=== PATIENT | male | born 1960 | race Caucasian/White ===

== ENCOUNTER 2019-11-12 22:48 | Emergency (ER) | payer MEDICARE, OTHER ==
[~2019-11-12] VITALS: Ht 172.7 cm; Wt 79.8 kg
[~2019-11-12 22:48] MED LIST: METOPROLOL TART50 MG PO; NORVASC5 MG PO; OMEPRAZOLE10 MG PO; RANEXA500 MG PO; RENAGEL800 MG PO; SENSIPAR30 MG PO; VITAMIN D400 UNI1 PO; [UNRECOGNIZED DRUG - OTHER]
--- OUTSIDE RECORDS SUMMARY | 2019-11-12 22:50 | XMS REPORT ---
[facility] Address Unknown Phone Unavailable Care Team Providers Care Church Administrator Name Role Phone Unavailable Unavailable Payers Payer Name Policy Type Policy Number Effective Date Expiration Date Problems This patient has no known problems. Allergies, Adverse Reactions, Alerts This patient has no known allergies or adverse reactions. Medications This patient has no known medications.
--- OUTSIDE RECORDS SUMMARY | 2019-11-12 22:50 | XMS REPORT | Summary of Care ---
Author Author [facility] - Health Organization [facility] - Health Address Unknown Phone Unavailable Care Team Providers Care Personal Lines Sales Rep Name Role Phone Pcp, Patient Does Not Have A PCP Elaine Walter MD Unavailable Idalia Mane MD Unavailable Encounter Details Care Team Description Date Type Department Marck Nguyen [address] [place] [id number] 06/09/2019 Letter (Out) [facility] [address] [place] [address] Allergies No Known Allergiesdocumented as of this encounter (statuses as of 06/14/2019) Medications End Date Status Medication Sig Dispensed Refills Start Date Active aspirin 81 mg EC tablet Take 81 mg by 0 mouth daily. Active nitroglycerin 0.[address] 1 T 0 sublingual tablet UNDER THE 7 TONGUE Q 5 MINUTES FOR A MAX OF 3 DOSES PRF CHEST PAIN Active metoclopramide HCl 5 mg Take 2 120 tablet 1 tablet tablets by 7 mouth every 6 (six) hours as needed for Gastroesophag eal reflux. Active sennosides-docusate Take 1 tablet 60 tablet 1 sodium 8.6-50 mg per by mouth 2 7 tablet (two) times daily as needed for Constipation. Active atorvastatin 40 mg tablet Take 1 tablet 30 tablet 11 by mouth at 7 bedtime. Active sevelamer 800 mg tablet Take 2 360 tablet 1 tablets by 7 mouth 3 (three) times daily with meals. Active famotidine (PEPCID) 40 mg Take 40 mg by 0 tablet mouth daily. Active ondansetron 4 mg tablet TK 1 T PO Q 6 5 H PRN 7 Active midodrine 5 mg tablet Take 5 mg by 0 mouth 3 (three) times daily as needed (if hypotensive is SBP<110, take). Active esomeprazole 20 mg Take 40 mg by 0 capsule mouth 2 (two) times daily. Active cinacalcet (SENSIPAR) 60 Take 120 mg 0 mg tablet by mouth every Thursday, Thursday and Thursday. documented as of this encounter (statuses as of 06/14/2019) Active Problems Problem Noted Date S/p nephrectomy 07/15/2018 Post-operative state 07/15/2018 Primary Nonfunctioning kidney transplant of 08/14/17 KIDNEY TRANSPLANT #2 10/29/2017 Kidney replaced by transplant 08/14/2017 Neurogenic orthostatic hypotension 07/29/2017 CKD (chronic kidney disease) stage V requiring chronic dialysis 02/11/2010 Overview: returned to dialysis Essential hypertension, benign GERD (gastroesophageal reflux disease) PKD (polycystic kidney disease) Coronary artery disease involving coronary bypass graft of [place] heart without angina pectoris documented as of this encounter (statuses as of 06/14/2019) Resolved Problems Problem Noted Date Resolved Date Kidney transplant failure and rejection 07/09/2018 07/29/2018 Overview: Added automatically from request for surgery [id number] Weakness 06/30/2018 07/29/2018 Hematuria, unspecified type 06/29/2018 07/29/2018 Overview: Added automatically from request for surgery [id number] Need for prophylactic immunotherapy 10/28/2017 07/29/2018 Immunosuppressive management encounter following kidney transplant 10/28/2017 07/29/2018 Open abdominal wall wound, subsequent encounter 09/17/2017 07/29/2018 Bleeding from wound 09/16/2017 10/14/2017 NSTEMI (non-ST elevated myocardial infarction) 09/10/2017 10/14/2017 Wound dehiscence 09/09/2017 10/14/2017 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/31/2017 10/29/2017 Electrolyte and fluid disorder 08/30/2017 10/25/2017 Admission for dialysis 08/30/2017 10/14/2017 Postoperative acute tubular necrosis 08/16/2017 07/29/2018 Obesity (BMI 30-39.9) 08/14/2017 07/29/2018 Kidney transplant candidate 08/14/2017 08/26/2017 Immunosuppressed status 08/14/2017 07/29/2018 Kidney transplant failure 12/26/2011 08/30/2017 ESRD (end stage renal disease) 02/11/2010 08/30/2017 Overview: ESRD #2 - due to chronic rejection ESRD (end stage renal disease) 11/05/1999 08/14/2017 Overview: ESRD #1 - due to PKD Severe anemia 07/29/2018 Cardiac tamponade 11/10/2016 Pleural effusion 11/10/2016 Bacterial pneumonia 11/10/2016 Hernia of abdominal cavity 08/14/2017 Overview: abdominal - multiple History of nephrectomy ( bilateral [place] and transplant#1) 08/14/2017 documented as of this encounter (statuses as of 06/14/2019) Immunizations Name Administration Dates Next Due Influenza Virus Vaccine 07/14/2017 PPD (TB) 03/19/2016 Pneumococcal 07/13/2015 Polysaccharide, PPSV23 (PNEUMOVAX) documented as of this encounter Social History Date Tobacco Use Types Packs/Day Years Used Never Smoker Smokeless Tobacco: Never Used Drinks/Week oz/Week Comments Alcohol Use 0 Standard drinks or equivalent 0.0 rarely Yes Sex Assigned at Date Recorded Not on file Industry Job Start Date Occupation Not on file Not on file Not on file Travel End Travel History Travel Start No recent travel history available. documented as of this encounter Last Filed Vital Signs Not on filedocumented in this encounter Plan of Treatment Health Maintenance Due Date Last Done Comments DTaP,Tdap,and Td Vaccines 1979 (1 - Tdap) COLONOSCOPY 2010 Zoster Recombinant 2010 Vaccine (SHINGRIX) (1 of 2) PNEUMOCOCCAL 0-64 YEARS 07/13/2016 07/13/2015 COMBINED SERIES (2 of 3 - PCV13) INFLUENZA VACCINE (#1) 2019 07/14/2017 HEPATITIS C (HCV) SCREEN Completed 08/14/2017, 07/01/2016 documented as of this encounter Implants Device Identifier Shelf Expiration Date Model / Serial / Lot Implanted Type Area Manufactur er 04/09/2020 [id number] / 0 / [id number] Stent, [id number] [employer] Renal STENT N/A: Abdomen [employer] Transplant #[id number] - S0 Medical Implanted: Qty: 1 on 08/15/2017 by Idalia Mane MD at [facility] documented as of this encounter Results Not on filedocumented in this encounter Insurance Type Payer Benefit Subscriber ID Effective Phone Address Plan / Dates Group PPO/POS BCBS [employer] [facility] BC[employer] OF [id number] 2017-P [phone] P O [facility] - [facility] [id number] OUT OF [place] [id number] documented as of this encounter
[2019-11-12] MEDS ORDERED: MORPHINE SULFATE INJ 4 MG/ML INJ 1ML IV STA (22:53)
[2019-11-12] MEDS ORDERED: ONDANSETRON HCL INJ 2MG/ML 2ML 2 MG/ML VIAL IV STA (22:53)
--- NOTE | 2019-11-12 23:08 | NUR ---
RICK RN AT BEDSIDE TO OBTAIN ABG PER MD ORDERS, PT TOLERATED WELL
[2019-11-12] MEDS ORDERED: ASPIRIN 325 MG TAB PO ONE (23:15)
[2019-11-12] MEDS ORDERED: NITROGLYCERIN 2% OINT 1 GM PKT TOP ONE (23:15)
[2019-11-12 23:26] LABS: ABG PCO2 47 mmHg (41-51); ABG PH 7.31 (7.31-7.41)
[2019-11-12 23:27] LABS: ABG HCO3 24 mmol/L (23-28); ABG PO2 19 mmHg (80-105)
[2019-11-12 23:29] LABS: HEMATOCRIT 38.5 % (38.2-49.6); HEMOGLOBIN 12.7 g/dL (14.0-18.0); MEAN CORPUSCULAR HEMOGLOBIN 29.5 pg (28-32); MEAN CORPUSCULAR VOLUME 89.5 fL (81-99); PLATELET COUNT 144 x10e3/uL (140-360); RED CELL DISTRIBUTION WIDTH 15.1 % (11.7-14.4)
[2019-11-12 23:30] LABS: ALBUMIN 3.9 g/dL (3.5-5.0); ALBUMIN/GLOBULIN RATIO 1.3 (0.8-2.0); BASOPHILS % 0.3 % (0.0-1.0); CREATININE, SERUM 8.89 mg/dL (0.72-1.25); EOSINOPHILS # (AUTO) 0.2 (0.0-0.4); EOSINOPHILS % 1.7 % (0.0-6.0); LYMPHOCYTES # (AUTO) 4.6 (1.0-3.2); LYMPHOCYTES % 52.1 % (18.0-39.1); MONOCYTES # (AUTO) 1.2 (0.2-0.8); MONOCYTES % 13.2 % (4.4-11.3); NEUTROPHILS # (AUTO) 2.9 (2.1-6.9); NEUTROPHILS % 32.5 % (38.7-80.0)
[2019-11-12] MEDS ORDERED: CLOPIDOGREL BISULFATE 75 MG TAB PO ONE (23:30)
[2019-11-12 23:36] LABS: CREATINE KINASE MB 1.1 ng/mL (0-5.0)
[2019-11-12] MEDS ORDERED: HYDROMORPHONE 1MG/1ML INJ IV STA (23:51)
--- NOTE | 2019-11-12 23:57 | NUR ---
hold off on plavix and aspirin per dr dowell at this moment
[2019-11-12] MEDS ORDERED: CLOPIDOGREL BISULFATE 75 MG TAB ONE (23:59)
--- NOTE | 2019-11-13 | NUR ---
NITRO TO HOLD PER MD
[2019-11-13] MEDS ORDERED: AMIODARONE HCL 900 MG in DEXTROSE 5% 500ML 500 ML IV STA (00:06)
[2019-11-13] MEDS ORDERED: SODIUM CHLORIDE 0.9% 1000ML 1,000 ML IV STA (00:07)
[2019-11-13] MEDS ORDERED: AMIODARONE HCL 150 MG/100 ML BAG IV ONE (00:15)
[2019-11-13] MEDS ORDERED: AMIODARONE HCL 150MG 100 ML ONE (00:21)
--- NOTE | 2019-11-13 00:28 | NUR ---
not comfortable with iv fluid bolus order, dr dowell at bedside, dr dowell ordered to stop bolus
[2019-11-13] MEDS ORDERED: AMIODARONE 900MG 500 ML IV ONE (00:42)
[2019-11-13] MEDS ORDERED: HYDROMORPHONE 1MG/1ML INJ IV STA (01:56)
[2019-11-13 01:57] LABS: INR 0.92; PROTHROMBIN TIME 12.9 seconds (11.9-14.5)
--- NOTE | 2019-11-13 02:56 | NUR ---
PER DR PINA. MAY GIVE PLAVIX AND ASPIRIN
--- NOTE | 2019-11-13 03:00 | Diagnostic Imaging Report ---
EXAMINATION: CHEST SINGLE (PORTABLE) INDICATION: Chest pain. COMPARISON: None FINDINGS: TUBES and LINES: None. LUNGS: Lungs are well inflated. There is mild prominence of the central pulmonary vasculature, consistent with pulmonary venous congestion. PLEURA: No pleural effusion or pneumothorax. HEART AND MEDIASTINUM: Cardiac size is mildly enlarged. There are atherosclerotic calcifications within the aorta. BONES AND SOFT TISSUES: No acute osseous lesion. Median sternotomy wires. UPPER ABDOMEN: No free air under the diaphragm. IMPRESSION: Mild bilateral pulmonary venous congestion. Signed by: Dr. Karime Diaz M.D. on 11/13/2019 2:59 AM
[2019-11-13 03:13] VITALS: BP 113/72
--- NOTE | 2019-11-13 03:19 | Diagnostic Imaging Report ---
CTA OF THE THORACOABDOMINAL AORTA Comparison: None. History: Chest pain. Aortic dissection. Technique: Multi-detector CT technology was employed. Non-gated CT was performed of the chest, abdomen, and pelvis following the IV administration of 100) cc of Isovue 300. CT Dose-Length Product (DLP): 1310.[address] Dose Reduction Employed: Yes For optimization of anatomic evaluation, multiplanar reconstruction, maximum intensity projections, and advanced 3-D off-line postprocessing were performed on a dedicated stand-alone workstation under the direct supervision of the interpreting physician. FINDINGS: Potential study limitations: None. VASCULAR WITH ADVANCED 3-D OFF-LINE POSTPROCESSING: Aortic valve morphology is incompletely assessed on this non-gated examination. The thoracic aorta is normal in course, caliber, and contour. There is no acute aortic pathology, such as dissection, intramural hematoma, or contained rupture. The arch vessel branching pattern is normal atherosclerotic calcifications of the thoracic aorta without aneurysmal dilatation. Extensive atherosclerotic calcifications of the coronary arteries status post CABG. The abdominal aorta is normal in course, caliber, and contour. There is no acute aortic pathology. Diffuse atherosclerotic plaque formation. There is mild focal fusiform dilatation of the left common iliac artery up to 1.3 cm on coronal image 64. The main pulmonary artery is dilated measuring 4.4 cm. The celiac axis, SMA, and ANUM are patent. The renal arteries are occluded bilaterally. CHEST: The chest wall, mediastinum, and pericardium are unremarkable. The pulmonary arteries appear normal. No significant adenopathy is identified in the axilla, mediastinum, and connie. Lung windows reveal no acute abnormalities. 5 mm noncalcified nodule in the left lower lobe on image 38 series 3. Bilateral pleural parenchymal scarring. The cardiac chambers demonstrate normal atrioventricular and ventriculoarterial concordance, and systemic and pulmonary venous return. The cardiac chamber sizes appear normal. The coronary arteries have normal origins and courses. ABDOMEN: Small low-attenuation lesions scattered throughout the hepatic parenchyma are most suggestive of cysts. Diffuse central intrahepatic biliary dilatation, particularly in the left hepatic lobe. Marked diffuse dilatation of the common bile duct up to 2.2 cm may reflect reservoir effect. The adrenal glands are mildly thickened bilaterally, suggesting mild hyperplasia. There are no kidneys in the renal fossa bilaterally. Complex structure in the right iliac fossa with calcifications may represent an atrophic transplanted kidney. Postsurgical changes are present in the left iliac fossa with fat necrosis or a possibly atrophic transplanted kidney. There is no abnormal mass or hydronephrosis. Colonic diverticulosis without CT evidence of acute diverticulitis. Appendix is nonvisualized, however, no appendicitis. Multiple medication capsule are present within the colon. Small diverticulum off the second portion of the duodenum. PELVIS: There is no significant retroperitoneal adenopathy. No free fluid or free air within the abdomen or pelvis. The urinary bladder is completely decompressed. The bowel appears unremarkable on this non-GI contrast examination. The urinary bladder appears normal. There are scattered phleboliths within the deep pelvis. Bilateral fat-containing inguinal hernias. Left hip prosthesis results in artifact in the pelvis. Diffuse renal osteodystrophy. IMPRESSION: 1. No aortic dissection as per clinical query. No focal abdominal aortic abnormality. 2. Severe multivessel coronary artery disease. 3. Dilated pulmonary trunk may reflect the presence of pulmonary hypertension. 4. Status post bilateral nephrectomies with atrophic transplant kidneys.. Signed by: Dr. Karime Diaz M.D. on 11/13/2019 3:17 AM
[2019-11-13] MEDS ORDERED: SODIUM CHLORIDE 0.9% 100 ML ONE (03:23)
[2019-11-13] MEDS ORDERED: IOPAMIDOL 370 MG/ML 200 ML INFUS..BTL INJ ONE (03:23)
== END 2019-11-13 03:20 | disposition short-term general hospital (02) ==
LOC: ER 22:48
DX: I25.110 Atherosclerotic heart disease of native coronary artery with unstable angina pectoris (principal); I47.2 Ventricular tachycardia; N18.3 Chronic kidney disease, stage 3 (moderate)
CPT/HCPCS: 36415; 36600; 71045; 71275; 74174; 80053; 82550; 82553; 82805; 83880; 84484; 85025; 85610; 93005; 96365; 96374; 96375; 96376; 99284; J1170; J2270; J2405; J7030; J7050; Q9967; J7060

== ENCOUNTER 2020-08-17 21:42 | Emergency (ER) | payer MEDICARE, OTHER ==
[~2020-08-17] VITALS: Ht 172.7 cm; Wt 79.8 kg
--- NOTE | 2020-08-17 21:51 | Emergency Department Note ---
History of Present Illnes History of Present Illness Chief Complaint: COVID PUI History of Present Illness This is a 60 year old male sent by PCP for evaluation of R chest wall catheter pain and fevers today . Historian: Patient, Family Member Arrival Mode: Car Onset (how long ago): day(s) (2) Location: r chest wall Radiation: Reports non-radiation Severity: moderate Onset quality: gradual Duration (how long): hour(s) Timing of current episode: constant Progression: unchanged Chronicity: new Context: Denies recent illness, Denies recent surgery, Denies recent immobilization, Denies recent travel, Denies trauma/injury, Denies new medications, Denies hx of DVT/PE, Denies non-compliance w/ medications, Denies other Relieving factors: none Exacerbating factors: none Associated symptoms: Reports chest pain Past Medical/Family History Physician Review I have reviewed the patient's past medical and family history. Any updates have been documented here. Past Medical History Recent Fever: Yes Clinical Suspicion of Infectio: Yes New/Unexplained Change in Ment: No Other Medical History: Hernia 2004 Hernia 2005 Other Surgery: Nikolai Kidney removed 2002 Kidney Transplant 07/2003 Hip replacement 2006 Pericardial window 2008 Hernia repair and Gallbladder removed 2008 Triple Bypass 2011 Hernia repair 2012 Social History Smoking Cessation: Never Smoker Alcohol Use: None Any Illegal Drug Use: No Other Last Tetanus: Not up to date Review of Systems Review of Systems Constitutional: Reports fever, Reports weakness EENTM: Reports no symptoms Cardiovascular: Reports no symptoms Respiratory: Reports no symptoms Gastrointestinal: Reports no symptoms Genitourinary: Reports no symptoms Musculoskeletal: Reports no symptoms Integumentary: Reports no symptoms Neurological: Reports no symptoms Psychological: Reports no symptoms Endocrine: Reports no symptoms Hematological/Lymphatic: Reports no symptoms Physical Exam Related Data Allergies: Coded Allergies: No Known Allergies (Unverified , 06/14/14) Triage Vital Signs Vital Signs Date Time Temp Pulse Resp B/P (MAP) Pulse Ox O2 Delivery O2 Flow Rate FiO2 08/17/20 22:11 98.8 94 18 85/69 100 08/17/20 23:39 Room Air Vital signs reviewed: Yes Physical Exam CONSTITUTIONAL Constitutional: Present obese, Present ill appearing HENT HENT: Present normocephalic, Present atraumatic, Present oropharynx clear/moist, Present nose normal HENT L/R: Present left ext ear normal, Present right ext ear normal EYES Eyes: Reports PERRL, Reports conjunctivae normal NECK Neck: Present ROM normal PULMONARY Pulmonary: Present effort normal, Present breath sounds normal CARDIOVASCULAR Cardiovascular: Present regular rhythm, Present heart sounds normal, Present capillary refill normal, Present normal rate GASTROINTESTINAL Abdominal: Present soft, Present nontender, Present bowel sounds normal GENITOURINARY Genitourinary: Present exam deferred SKIN Skin: Present warm, Present dry MUSCULOSKELETAL Musculoskeletal: Present ROM normal NEUROLOGICAL Neurological: Present alert, Present oriented x 3, Present no gross motor or sensory deficits PSYCHOLOGICAL Psychological: Present mood/affect normal, Present judgement normal Results Laboratory Lab results reviewed: Yes Laboratory comments Laboratory Tests Test 08/17/20 22:45 08/17/20 22:15 Coronavirus (PCR) Not detected (NOTDETECTED) White Blood Count 6.08 x10e3/uL (4.8-10.8) Red Blood Count 2.95 x10e6/uL (4.3-5.7) Hemoglobin 9.3 g/dL (14.0-18.0) Hematocrit 28.1 % (38.2-49.6) Mean Corpuscular Volume 95.3 fL (81-99) Mean Corpuscular Hemoglobin 31.5 pg (28-32) Mean Corpuscular Hemoglobin Concent 33.1 g/dL (31-35) Red Cell Distribution Width 13.3 % (11.7-14.4) Platelet Count 155 x10e3/uL (140-360) Neutrophils (%) (Auto) 59.2 % (38.7-80.0) Lymphocytes (%) (Auto) 25.2 % (18.0-39.1) Monocytes (%) (Auto) 14.0 % (4.4-11.3) Eosinophils (%) (Auto) 1.0 % (0.0-6.0) Basophils (%) (Auto) 0.3 % (0.0-1.0) Neutrophils # (Auto) 3.6 (2.1-6.9) Lymphocytes # (Auto) 1.5 (1.0-3.2) Monocytes # (Auto) 0.9 (0.2-0.8) Eosinophils # (Auto) 0.1 (0.0-0.4) Basophils # (Auto) 0.0 (0.0-0.1) Absolute Immature Granulocyte (auto 0.02 x10e3/uL (0-0.1) Sodium Level 133 mmol/L (136-145) Potassium Level 4.1 mmol/L (3.5-5.1) Chloride Level 93 mmol/L (98-107) Carbon Dioxide Level 28 mmol/L (22-29) Anion Gap 16.1 mmol/L (8-16) Blood Urea Nitrogen 24 mg/dL (7-26) Creatinine 4.13 mg/dL (0.72-1.25) Estimat Glomerular Filtration Rate 15 ML/MIN (60-) BUN/Creatinine Ratio 6 (6-25) Glucose Level 108 mg/dL (74-118) Lactic Acid Level 1.9 mmol/L (0.5-2.0) Calcium Level 9.6 mg/dL (8.4-10.2) Total Bilirubin 0.5 mg/dL (0.2-1.2) Aspartate Amino Transf (AST/SGOT) 18 IU/L (5-34) Alanine Aminotransferase (ALT/SGPT) 20 IU/L (0-55) Alkaline Phosphatase 152 IU/L (40-150) Creatine Kinase 37 IU/L (30-200) Creatine Kinase MB 1.60 ng/mL (0-5.0) Troponin I 0.040 ng/mL (0-0.300) B-Type Natriuretic Peptide 210.8 pg/mL (0-100) Total Protein 7.1 g/dL (6.5-8.1) Albumin 3.8 g/dL (3.5-5.0) Globulin 3.3 g/dL (2.3-3.5) Albumin/Globulin Ratio 1.2 (0.8-2.0) Imaging Imaging results reviewed: Yes Impressions [place] [address] Patient Name: MARISA BOB MR #: [id number] : 1960 Age/Sex: 60/M Req #: [id number] Adm Physician: Ordered by: MAYNOR PINA DO Report #: [id number] Location: ER Room/Bed: Procedure: [id number] DX/CHEST SINGLE (PORTABLE) Exam Date: 08/17/20 Exam Time: 2240 REPORT STATUS: Signed EXAMINATION: CHEST SINGLE (PORTABLE) INDICATION: Pain around HD catheter COMPARISON: FINDINGS: TUBES and LINES: Right IJ hemodialysis central venous catheter, tip in the superior cavoatrial junction, without associated abnormality. LUNGS: Normal lung volumes. Lungs are clear. Prominent central pulmonary vasculature. PLEURA: No pleural effusion or pneumothorax. HEART AND MEDIASTINUM: Cardiac size is mildly enlarged. Surgical clips along the mediastinum. Bypass stents in the left cardiac mediastinum. Aortic calcifications. BONES AND SOFT TISSUES: No acute osseous lesion. Soft tissues are unremarkable. Sternotomy wires. UPPER ABDOMEN: No free air under the diaphragm. IMPRESSION: Mild cardiomegaly and pulmonary vascular congestion. Right IJ hemodialysis central venous catheter, tip in the superior cavoatrial junction, without associated abnormality. Signed by: Krystian Kellogg DO on 08/17/2020 11:27 PM Dictated By: KRYSTIAN KELLOGG DO 26 Transcribed By: MABLE on 08/17/202326 COPY TO: MAYNOR PINA DO~ Procedures 12 Lead ECG Interpretation ECG Interpretation : ECG: ECG 1 Digital Associate: Interpreted by ED physician Date: Aug 17, 2020 Time: 22:21 Prior ECG tracings: reviewed Rhythm: sinus rhythm Ectopy: frequent PVC's Rate: normal BPM: 91 ST segments normal: Yes T waves normal: Yes Clinical Impression: abnormal ECG Assessment & Plan Medical Decision Making MDM Diff Dx : sepsis, PNA, UTI, line infection, hyperkalemia, renal failure Reassessment Reassessment admission offered but politely declined Assessment & Plan Final Impression: (1) Chest wall pain (2) PVC (premature ventricular contraction) (3) Fever Depart Disposition: HOME, SELF-assisted Meds Reported Medications Ranolazine (RANEXA) 500 Mg Tabsr, 500 MG PO BID 06/14/14 Amlodipine Besylate (NORVASC) 5 Mg Tab, 5 MG PO DAILY 06/14/14 Metoprolol Tartrate (METOPROLOL TARTRATE) 50 Mg Tablet, 50 MG PO BID 06/14/14 Omeprazole (OMEPRAZOLE) 10 Mg Capsule.dr, 10 MG PO DAILY 06/14/14 Cholecalciferol (VITAMIN D) 400 Unit Tab, 1 EA PO DAILY 06/14/14 Cinacalcet Hcl (SENSIPAR) 30 Mg Tablet, 30 MG PO DAILY 06/14/14 Sevelamer Hcl (RENAGEL) 800 Mg Tablet, 1600 MG PO DAILY 06/14/14 MAYNOR PINA DO Aug 17, 2020 21:51
[2020-08-17] MEDS ORDERED: PIPER-TAZ 3.375 GM 50 ML IV STA (22:10)
[2020-08-17] MEDS ORDERED: SODIUM CHLORIDE 0.9% 1000ML 1,000 ML IV STA (22:10)
[2020-08-17] MEDS ORDERED: ASPIRIN 81 MG CHEW TAB PO ONE (22:15)
--- OUTSIDE RECORDS SUMMARY | 2020-08-17 22:27 | XMS REPORT | Clinical Summary ---
Author Author [facility] Address Unknown Phone Unavailable Care Team Providers Care Hammerer Name Role Phone Naman Wilson MD PCP Allergies Comments Active Allergy Reactions Severity Noted Date No Known Drug Allergies 02/17/2016 Medications End Date Status Medication Sig Dispensed Refills Start Date Active cinacalcet (SENSIPAR) 60 Take 120 mg 0 MG tablet by mouth 3 (three) times a week. Taken on Thursday, Thursday, and Thursday at the dialysis Active nitroglycerin (NITROSTAT) Place 0.4 mg 0 0.4 MG SL tablet under the tongue every 5 (five) minutes as needed for chest pain. Active famotidine (PEPCID) 40 MG Take 40 mg by 0 tablet mouth nightly. Active omeprazole (PriLOSEC) 40 Take 40 mg by 0 MG capsule mouth 2 (two) times a day. 2 caps @ bedtime Active midodrine (PROAMATINE) 5 Take 15 mg by 0 MG tablet mouth every morning. Active sevelamer carbonate Take 1,600 mg 0 (RENVELA ORAL) by mouth 3 (three) times a day before meals. 03/10/2020 sevelamer (RENVELA) 800 Take 2 180 tablet 0 mg tablet tablets 9 (1,600 mg total) by mouth 3 (three) times a day before meals. 03/11/2020 multivitamin with Take 1 tablet 30 tablet 0 minerals tablet by mouth 9 daily. Active Problems Problem Noted Date Abnormal stress test 03/10/2019 Hypotension 05/13/2018 Neurogenic orthostatic hypotension 07/29/2017 ESRD (end stage renal disease) on dialysis 7 Gastroesophageal reflux disease without esophagitis 07/29/2017 Shortness of breath 07/28/2017 Encounters Care Team Description Date Type Specialty Rula Tolent[place] Radha Fever 05/17/2020 Telephone Transplant after 08/17/2019 Surgical History Surgery Date Site/Laterality Comments CORONARY ARTERY BYPASS GRAFT CARDIAC CATHETERIZATION 06/05/2016 N/A Proced ure: Cv right heart cath; Surgeon: Taylor Muller MD; Location: [facility] Revenue Integrity Analyst [facility] Location; Service: Cardiovascular; La terality: N/A; LH DANIE LV POSS PCI CORONARY ARTERY BYPASS 10/05/2010 - Triple GRAFT 10/04/2011 PERICARDIAL WINDOW 10/05/2007 - 10/04/2008 TRANSPLANTATION RENAL 10/05/2000 - failed 2010 10/04/2001 CHOLECYSTECTOMY 10/05/2008 - 10/04/2009 NEPHRECTOMY 10/05/2002 - Bilateral 10/04/2003 TOTAL HIP ARTHROPLASTY 10/05/2005 - 10/04/2006 AV FISTULA REPAIR CV PERCUTANEOUS CORONARY INTERVENTION ESOPHAGOGASTRODUODENOSCOP 02/03/2017 N/A Proc edure: EGD; Surgeon: Carlos Forde MD; Y (EGD) Location: [facility] ENDOSCOPY; S ervice: Gastroenterology; Laterality: N/A; TRANSPLANTATION RENAL 08/14/2017 ESOPHAGOGASTRODUODENOSCOP 09/22/2017 N/A Proc edure: EGD; Surgeon: Carlos Forde MD; Y (EGD) Location: [facility] ENDOSCOPY; S ervice: Gastroenterology; Laterality: N/A; HERNIA REPAIR 10/05/2003 - 10/04/2004 HERNIA REPAIR 10/05/2004 - 10/04/2005 HERNIA REPAIR 10/05/2008 - 10/04/2009 HERNIA REPAIR 10/05/2008 - 10/04/2009 GALLBLADDER SURGERY 10/05/2008 - 10/04/2009 TRANSPLANTATION, KIDNEY x 2 CARDIAC CATHETERIZATION 03/10/2019 N/A Proced ure: Selective coronary angiography; Surgeon: Taylor Muller MD; Location : [facility] WT Revenue Integrity Analyst Invasive Location; Service: C ardiology; Laterality: N/A; CARDIAC CATHETERIZATION 03/10/2019 N/A Proced ure: Cv selective angiography bypass graft; Surgeon: Taylor Muller MD; Location : [facility] Revenue Integrity Analyst Invasive Location; Service: C ardiology; Laterality: N/A; Medical History Medical History Date Comments Arrhythmia Hypertension Chronic kidney disease Syncope Anemia Coronary artery disease ESRD (end stage renal disease) on dialysis (HCC) Polycystic kidney disease History of transfusion Hyperlipidemia Genitourinary disease Family History Medical History Relation Name Comments Kidney disease Brother Heart disease Father Kidney disease Father Hypertension Mother Kidney disease Sister Relation Name Status Comments Brother Father Mother Sister Social History Date Tobacco Use Types Packs/Day Years Used Never Smoker Smokeless Tobacco: Never Used Drinks/Week oz/Week Comments Alcohol Use 1 Shots of liquor 1.0 social Yes Sex Assigned at Date Recorded Not on file Last Filed Vital Signs Not on file Plan of Treatment Health Maintenance Due Date Last Done Comments COLONOSCOPY SCREENING 2010 SHINGLES VACCINES (#1) 2010 INFLUENZA VACCINE 05/05/2020 07/14/2017, 07/13/2015 Implants Device Identifier Shelf Expiration Date Model / Serial / L ot Implanted Type Area Manufactur er Left Hip Replacement Results Not on fileafter 08/17/2019 Insurance Type Payer Benefit Subscriber ID Effective Phone Address Plan / Dates Group PPO [employer] CIGNA [id number] 2019-P [place] resent [place] PPO [facility] Medicare MEDICARE MEDICARE [id number] 2011-P [place], [address] [place] [address] [place] [address] (Home) [place] [address] Matheus Perez Transplant Self 1960 [phone] [id number] (Home) [place] [address] Advance Directives For more information, please contact: [phone] Patient Sculpture Instructor Explanation Type Date Recorded Advance Directives, 11/13/2009 12:55 PM Living Will and Medical Power of Network Support Manager Date Inactivated Comments Code Status Date Activated 05/14/2018 6:51 PM Full Code 05/13/2018 9:12 PM Code Status decision reached by: Patient 07/31/2017 10:43 PM Full Code 07/29/2017 2:41 AM Code Status decision reached by: Patient
--- OUTSIDE RECORDS SUMMARY | 2020-08-17 22:27 | XMS REPORT | Clinical Summary ---
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 Active pantoprazole (PROTONIX) Take 1 tablet 0 40 MG tablet (40 mg total) 0 by mouth daily. 11/26/2020 Active acetaminophen (TYLENOL) Take 2 30 tablet 0 325 MG tablet tablets (650 0 mg total) by mouth every 4 (four) hours as needed for up to 360 days. Active epoetin elsie-epbx Inject 1 mL 0 (RETACRIT) 4,000 unit/mL (4,000 Units 0 Soln injection total) subcutaneousl y 3 (three) times a week at bedtime MON/WED/FRI. Active heparin (PF) injection 10 2 mLs (20 0 11/06 units/mL Units total) 0 by Intra-Cathete r route as needed (for PICC Lines). Active heparin injection 5,000 Inject 1 mL 1 mL 0 units/mL (5,000 Units 0 total) subcutaneousl y every 12 (twelve) hours. Active DOPamine 800 mg in Inject 412 250 mL 0 02 dextrose 5% (D5W) 250 mL mcg/min 0 (3,200 mcg/mL) infusion intravenously continuous. Active hydrocortisone sod succ Inject 0.5 0 Act-O-Vial, PF, 100 mg/2 mLs (25 mg 0 mL SolR total) intravenously every 12 (twelve) hours. Active lactulose (CHRONULAC) 20 Take 30 mLs 0 12/02 gram/30 mL solution (20 g total) 0 by mouth 3 (three) times daily as needed. 12/02/2020 Active magnesium oxide (MAG-OX) Take 1 tablet 0 400 mg (241.3 mg (400 mg 0 magnesium) tablet total) by mouth daily. Active mannitol 25 % injection Inject 50 mLs 50 mL 0 (12.5 g 0 total) intravenously as needed (If BP drops below parameters). 12/01/2020 Active nitroglycerin (NITROSTAT) Put 1 pill 90 tablet 0 0.4 MG SL tablet under tongue 0 every 5min as needed for chest pain.. 12/01/2020 Active ranolazine (RANEXA) 500 Take 1 tablet 0 MG 12 hr tablet (500 mg 0 total) by mouth 2 (two) times daily. 12/01/2020 Active senna-docusate (SENOKOT Take 1 tablet 0 S) 8.6-50 mg per tablet by mouth 2 0 (two) times daily. Active ticagrelor (BRILINTA) 90 Take 1 tablet 0 12/02 mg Tab tablet (90 mg total) 0 by mouth 2 (two) times daily. Active cinacalcet (SENSIPAR) 60 Take 60 mg by 0 MG tablet mouth daily. Active famotidine (PEPCID) 40 MG Take 40 mg by 0 tablet mouth daily. Active metoprolol succinate Take 25 mg by 0 (TOPROL-XL) 25 MG 24 hr mouth 2 (two) tablet times daily. Active losartan (COZAAR) 25 MG Take 25 mg by 0 tablet mouth daily. Active isosorbide mononitrate Take 30 mg by 0 (IMDUR) 30 MG 24 hr mouth daily. tablet Active calcitrioL (ROCALTROL) Take 0.5 mcg 0 0.5 MCG capsule by mouth daily. Active b complex vitamins Take 1 tablet 0 tabletIndications: 1000 by mouth mg daily daily. 02/19/2021 Active rosuvastatin (CRESTOR) 10 Take 1 tablet 90 tablet 3 MG tablet (10 mg total) 0 by mouth daily. 07/08/2021 Active midodrine (PROAMATINE) 5 Take 3 810 tablet 3 1 0/09/202 MG tablet tablets (15 0 mg total) by mouth 3 (three) times daily for 360 days. 12/02/2019 Discontinued (Stop Taking at Discharge) atorvastatin (LIPITOR) 40 Take 40 mg by 0 MG tablet mouth daily. 12/02/2019 Discontinued (Stop Taking at Discharge) isosorbide mononitrate Take 60 mg by 0 (IMDUR) 60 MG 24 hr mouth daily. tablet 12/02/2019 Discontinued (Stop Taking at Discharge) famotidine (PEPCID) 40 MG Take 40 mg by 0 tablet mouth daily. 12/02/2019 Discontinued (Stop Taking at Discharge) omeprazole (PRILOSEC) 20 Take 20 mg by 0 MG capsule mouth daily. 12/02/2019 Discontinued (Stop Taking at Discharge) sevelamer (RENVELA) 800 Take 2,400 mg 0 mg tablet by mouth 3 (three) times daily with meals. 12/12/2019 bisacodyl (DULCOLAX) 10 Place 1 12 0 mg suppository suppository suppository 0 (10 mg total) rectally daily as needed for up to 10 days. 01/01/2020 midodrine (PROAMATINE) 5 Take 3 0 12/02 MG tablet tablets (15 0 mg total) by mouth 3 (three) times daily before meals for 30 days. 12/09/2019 ondansetron (ZOFRAN-ODT) Take 1 tablet 20 tablet 0 4 MG disintegrating (4 mg total) 0 tablet by mouth every 8 (eight) hours as needed for up to 7 days. 12/06/2019 polyethylene glycol Take 17 g by 14 each 0 (GLYCOLAX) 17 gram packet mouth daily 0 for 3 days. 02/20/2020 Discontinued (Therapy comple sulaiman) rosuvastatin (CRESTOR) 20 Take 1 tablet 0 / 8/202 MG tablet (20 mg total) 0 by mouth daily. 07/11/2020 Discontinued midodrine (PROAMATINE) 10 Take 10 mg by 0 MG tablet mouth 3 (three) times daily. 07/13/2020 Discontinued midodrine (PROAMATINE) 5 Take 3 180 tablet 3 1 0 MG tablet tablets (15 0 mg total) by mouth 3 (three) times daily for 360 days. Active Problems Problem Noted Date Palliative care encounter 11/22/2019 Cardiogenic shock 11/14/2019 Acute coronary syndrome 11/13/2019 ESRD (end stage renal disease) on dialy sis Encounters Care Team Description Date Type Specialty Johnathan Alcocer MD 07/13/2020 Orders Only Cardiology Johnathan Alcocer MD 07/13/2020 Refill Cardiology Johnathan Alcocer MD 07/11/2020 Refill Cardiology Johnathan Alcocer MD Coronary artery disease involving [place] coronary artery of [place] heart without angina pectoris; Diastolic dysfunction without heart failure 05/28/2020 Hospital Cardiology Encounter Johnathan Alcocer MD Follow up 05/21/2020 Office Visit Cardiology Johnathan Alcocer MD Coronary artery disease involving [place] coronary artery of [place] heart without angina pectoris (Primary Dx); Diastolic dysfunction without heart failure 05/21/2020 Orders Only Cardiology Johnathan Alcocer MD Coronary artery disease involving [place] bypass graft of [place] heart without angina pectoris 03/05/2020 Hospital Radiology Encounter Ruby Kenny NP Coronary artery disease involving [place] bypass graft of [place] heart without angina pectoris (Primary Dx) 02/21/2020 Orders Only Cardiology Johnathan Alcocer MD Coronary artery disease involving [place] coronary artery of [place] heart without angina pectoris (Primary Dx); Ischemic cardiomyopathy 02/20/2020 Office Visit Cardiology Sandie Montgomery RN 12/06/2019 Documentation Babatunde Cuevas MD REVISION/LIGATION,A-V FISTULA 11/30/2019 Surgery Lupe Szymanski MD Sosebee, Nathan Douglass, AA 11/30/2019 Anesthesia Event Mp Curiel MD L CATH & PCI 11/15/2019 Surgery Johnathan Alcocer MD L CATH & PCI 11/13/2019 Surgery Johnathan Alcocer MD Tran, Tuan Quoc, MD Acute coronary syndrome ([facility]); NSTEMI (non-ST elevated myocardial infarction) ([facility]); SOB (shortness of breath); Hypotensive episode; ESRD (end stage renal disease) (HCC); Pulmonary HTN ([facility]); Abnormal CXR; Cardiogenic shock (HCC); ESRD (end stage renal disease) on dialysis (HCC); Adrenal insufficiency (HCC) 11/13/2019 [facility] Cardiac Intensive C are - Encounter 12/02/2019 11/13/2019 Travel 11/13/2019 Orders Only General Internal Me dicine after 08/17/2019 Social History Date Tobacco Use Types Packs/Day Years Used Former Smoker Smokeless Tobacco: Never Used Sex Assigned at Date Recorded Not on file Last Filed Vital Signs Reading Time Taken Comments Vital Sign 84/55 05/21/2020 11:48 AM CDT Blood Pressure 80 05/21/2020 11:48 AM CDT Pulse 37.1 C (98.7 F) 05/21/2020 11:48 AM CDT Temperature 18 05/21/2020 11:48 AM CDT Respiratory Rate 99% 05/21/2020 11:48 AM CDT room air Oxygen Saturation 24% 11/14/2019 6:06 AM [employer] Inhaled Oxygen Concentration 84.9 kg (187 lb 3.2 oz) 05/21/2020 11:48 AM CDT Weight 167.6 cm (5' 6") 05/21/2020 11:48 AM CDT Height 30.21 05/21/2020 11:48 AM CDT Body Mass Index Plan of Treatment Health Maintenance Due Date Last Done Comments COLON CANCER SCREENING 1960 COLONOSCOPY MEDICARE ANNUAL WELLNESS 10/06/2012 (YEAR 2 or FIRST YEAR if no IPPE) INFLUENZA VACCINE (#1) 2020 06/20/2019 LIPID PANEL 03/11/2022 03/11/2019, 08/15/2017, 08/14/2017 PNEUMOCOCCAL VACCINE 0-64 Completed 02/29/2020, YRS 12/23/2019, 07/13/2015, Additional history exists Implants Device Identifier Shelf Expiration Date Model / Serial / L ot Implanted Type Area Manufactur [id number] 05/31/2021 [id number] / / [id number] [employer] Otw [id number] IMPLANTS [employer] [id number] - [id number] SCI:INTERV Implanted: Qty: 1 on 11/15/2019 by CARDIOLOGY Mp Curiel MD at [facility] Description:OM [id number] 02/08/2021 [id number] / / [id number] [employer] Otw [id number] IMPLANTS [place] [id number] - [id number] SCI:INTERV Implanted: Qty: 1 on 11/15/2019 by CARDIOLOGY Mp Curiel MD at [facility] Description:OM [id number] 08/24/2020 [id number] / / [id number] [employer] Otw [id number] IMPLANTS [place] [id number] - [id number] SCI:INTERV Implanted: Qty: 1 on 11/15/2019 by CARDIOLOGY Mp Curiel MD at [facility] Procedures Comments Procedure Name Priority Date/Time Associated Diag nosis 2D ECHO W/ DOPPLER Routine 05/28/2020 Coronary ar mame disease (CW/PW/COLOR) 10:58 AM CDT involving [place] co ronary artery of [place] heart without angina pectoris Diastolic dysfunction without heart failure VASCULAR DIAGRAM -SCAN 03/28/2020 3:25 PM CDT NM MYOCARDIAL PERFUSION Routine 03/05/2020 [place] artery disease PET/CT (REST & STRESS) 8:56 AM CDT involving nick nary bypass graft of [place] heart without angina pectoris TREADMILL Routine 03/05/2020 TOLERANCE(NON-NUCLEAR 8:47 AM CDT TREADMILL) ECG 12-LEAD Routine 03/05/2020 8:44 AM CDT ECG 12-LEAD Routine 03/05/2020 8:44 AM CDT Procedure Note - Interface, External Ris In - 03/05/2020 9:14 AM CDT Ventricula r Rate 66 BPM Atrial Rate 66 BPM P-R Interval 184 ms QRS Duration 160 ms Q-T Interval 456 ms QTC Calculatio n(Bazett) 478 ms P [place] 55 degrees R [place] 44 degrees T [place] 93 degrees Normal sinus rhythm Non-specif ic intra-vent ricular conduction block Abnormal ECG REPORT OF PROCEDURE - 12/06/2019 ENDOSCOPY SCAN 9:00 AM [employer] RHYTHM STRIP - SCAN 12/06/2019 9:00 AM [employer] RHYTHM STRIP - SCAN 12/06/2019 9:00 AM [employer] VASCULAR DIAGRAM -SCAN 12/06/2019 9:00 AM [employer] CARDIAC CATH REPORT - 12/06/2019 SCAN 9:00 AM [employer] CARDIAC CATH REPORT - 12/06/2019 SCAN 9:00 AM [employer] CBC W/PLT COUNT & AUTO STAT 12/02/2019 DIFFERENTIAL 4:11 AM [employer] CBC W/PLT COUNT & AUTO STAT 12/02/2019 DIFFERENTIAL 4:11 AM [employer] MAGNESIUM Routine 12/02/2019 4:11 AM [employer] BASIC METABOLIC PANEL (7) Routine 12/02/2019 4:11 AM [employer] MAGNESIUM Routine 12/01/2019 6:11 AM [employer] BASIC METABOLIC PANEL (7) Routine 12/01/2019 6:11 AM [employer] CBC W/PLT COUNT & AUTO STAT 12/01/2019 DIFFERENTIAL 4:55 AM [employer] CBC W/PLT COUNT & AUTO STAT 12/01/2019 DIFFERENTIAL 4:55 AM [employer] TRANSFUSION SERVICE 11/30/2019 REPORT - SCAN 6:03 PM [employer] HEMODIALYSIS INPATIENT Routine 11/30/2019 1:40 PM [employer] REVISION/LIGATION,A-V 11/30/2019 ESRD (end stage renal FISTULA 7:30 AM [employer] disease) (HCC) Case Notes 1 HRNOEMI CHANGE START TIME TO 1600 MAGNESIUM Routine 11/30/2019 6:28 AM [employer] BASIC METABOLIC PANEL (7) Routine 11/30/2019 6:28 AM [employer] CBC W/PLT COUNT & AUTO STAT 11/30/2019 DIFFERENTIAL 4:26 AM [employer] CBC W/PLT COUNT & AUTO STAT 11/30/2019 DIFFERENTIAL 4:26 AM [employer] IR TUNNELED DIALYSIS Routine 11/29/2019 CATHETER 8:30 PM [employer] ABORH, MANUAL STAT 11/29/2019 2:19 AM [employer] CBC W/PLT COUNT & AUTO Routine 11/29/2019 DIFFERENTIAL 2:00 AM [employer] TYPE AND SCREEN, Routine 11/29/2019 AUTOMATED 2:00 AM [employer] PT/APTT Routine 11/29/2019 2:00 AM [employer] MAGNESIUM Routine 11/29/2019 2:00 AM [employer] CBC W/PLT COUNT & AUTO Routine 11/29/2019 DIFFERENTIAL 2:00 AM [employer] BASIC METABOLIC PANEL (7) Routine 11/29/2019 2:00 AM [employer] HEMODIALYSIS INPATIENT Routine 11/28/2019 1:47 PM [employer] CBC W/PLT COUNT & AUTO Routine 11/28/2019 DIFFERENTIAL 5:27 AM [employer] MAGNESIUM Routine 11/28/2019 5:27 AM [employer] CBC W/PLT COUNT & AUTO Routine 11/28/2019 DIFFERENTIAL 5:27 AM [employer] BASIC METABOLIC PANEL (7) Routine 11/28/2019 5:27 AM [employer] CBC W/PLT COUNT & AUTO Routine 11/27/2019 DIFFERENTIAL 5:30 AM [employer] MAGNESIUM Routine 11/27/2019 5:30 AM [employer] CBC W/PLT COUNT & AUTO Routine 11/27/2019 DIFFERENTIAL 5:30 AM [employer] BASIC METABOLIC PANEL (7) Routine 11/27/2019 5:30 AM [employer] CBC W/PLT COUNT & AUTO Routine 11/26/2019 DIFFERENTIAL 5:26 AM [employer] MAGNESIUM Routine 11/26/2019 5:26 AM [employer] CBC W/PLT COUNT & AUTO Routine 11/26/2019 DIFFERENTIAL 5:26 AM [employer] BASIC METABOLIC PANEL (7) Routine 11/26/2019 5:26 AM [employer] XR CHEST 1 VIEW STAT 11/25/2019 PORTABLE/BEDSIDE 2:10 PM [employer] CBC W/PLT COUNT & AUTO Routine 11/25/2019 DIFFERENTIAL 4:19 AM [employer] MAGNESIUM Routine 11/25/2019 4:19 AM [employer] CBC W/PLT COUNT & AUTO Routine 11/25/2019 DIFFERENTIAL 4:19 AM [employer] BASIC METABOLIC PANEL (7) Routine 11/25/2019 4:19 AM [employer] PH, VENOUS Routine 11/24/2019 8:46 PM [employer] PH, VENOUS Routine 11/24/2019 11:06 AM [employer] CBC W/PLT COUNT & AUTO Routine 11/24/2019 DIFFERENTIAL 4:35 AM [employer] MAGNESIUM Routine 11/24/2019 4:35 AM [employer] CBC W/PLT COUNT & AUTO Routine 11/24/2019 DIFFERENTIAL 4:35 AM [employer] BASIC METABOLIC PANEL (7) Routine 11/24/2019 4:35 AM [employer] PH, VENOUS Routine 11/23/2019 8:35 PM [employer] CALCIUM, IONIZED Routine 11/23/2019 3:49 PM [employer] HEMOGLOBIN AND HEMATOCRIT Routine 11/23/2019 12:56 PM [employer] LACTIC ACID, VENOUS Routine 11/23/2019 12:56 PM [employer] POTASSIUM Routine 11/23/2019 12:56 PM [employer] CORTISOL,60 MIN Routine 11/23/2019 12:32 PM [employer] CORTISOL,30 MIN Routine 11/23/2019 11:49 AM [employer] CORTISOL,BASELINE Routine 11/23/2019 11:11 AM [employer] ACTH STIMULATION Routine 11/23/2019 11:11 AM [employer] PH, VENOUS Routine 11/23/2019 8:48 AM [employer] CALCIUM, IONIZED Routine 11/23/2019 8:48 AM [employer] SODIUM Routine 11/23/2019 8:48 AM [employer] PHOSPHORUS Routine 11/23/2019 8:48 AM [employer] MAGNESIUM Routine 11/23/2019 8:48 AM [employer] POTASSIUM Routine 11/23/2019 8:48 AM [employer] CBC W/PLT COUNT & AUTO Routine 11/23/2019 DIFFERENTIAL 3:07 AM [employer] MAGNESIUM Routine 11/23/2019 3:07 AM [employer] CBC W/PLT COUNT & AUTO Routine 11/23/2019 DIFFERENTIAL 3:07 AM [employer] BASIC METABOLIC PANEL (7) Routine 11/23/2019 3:07 AM [employer] CALCIUM, IONIZED Routine 11/22/2019 11:02 PM [employer] HEPATIC FUNCTION PANEL Routine 11/22/2019 11:02 PM [employer] POTASSIUM Routine 11/22/2019 11:02 PM [employer] POTASSIUM Routine 11/22/2019 8:57 AM [employer] CALCIUM, IONIZED Routine 11/22/2019 8:57 AM [employer] SODIUM Routine 11/22/2019 8:57 AM [employer] PHOSPHORUS Routine 11/22/2019 8:57 AM [employer] MAGNESIUM Routine 11/22/2019 8:57 AM [employer] CBC W/PLT COUNT & AUTO Routine 11/22/2019 DIFFERENTIAL 3:35 AM [employer] PT/APTT Routine 11/22/2019 3:35 AM [employer] MAGNESIUM Routine 11/22/2019 3:35 AM [employer] CBC W/PLT COUNT & AUTO Routine 11/22/2019 DIFFERENTIAL 3:35 AM [employer] BASIC METABOLIC PANEL (7) Routine 11/22/2019 3:35 AM [employer] PH, ARTERIAL Routine 11/22/2019 3:35 AM [employer] POTASSIUM Routine 11/22/2019 12:11 AM [employer] CALCIUM, IONIZED Routine 11/21/2019 8:17 PM [employer] POTASSIUM Routine 11/21/2019 8:17 PM [employer] SODIUM Routine 11/21/2019 8:17 PM [employer] PHOSPHORUS Routine 11/21/2019 8:17 PM [employer] MAGNESIUM Routine 11/21/2019 8:17 PM [employer] PH, ARTERIAL Routine 11/21/2019 8:17 PM [employer] POTASSIUM Routine 11/21/2019 4:38 PM [employer] CALCIUM, IONIZED Routine 11/21/2019 4:38 PM [employer] POTASSIUM Routine 11/21/2019 12:53 PM [employer] CALCIUM, IONIZED Routine 11/21/2019 8:49 AM [employer] CBC W/PLT COUNT & AUTO Routine 11/21/2019 DIFFERENTIAL 5:36 AM [employer] PT/APTT Routine 11/21/2019 5:36 AM [employer] PHOSPHORUS Routine 11/21/2019 5:36 AM [employer] MAGNESIUM Routine 11/21/2019 5:36 AM [employer] CBC W/PLT COUNT & AUTO Routine 11/21/2019 DIFFERENTIAL 5:36 AM [employer] BASIC METABOLIC PANEL (7) Routine 11/21/2019 5:36 AM [employer] PT/APTT Routine 11/20/2019 11:49 PM [employer] POTASSIUM Routine 11/20/2019 11:47 PM [employer] CALCIUM, IONIZED Routine 11/20/2019 11:47 PM [employer] PHOSPHORUS Routine 11/20/2019 7:46 PM [employer] MAGNESIUM Routine 11/20/2019 7:46 PM [employer] PT/APTT Routine 11/20/2019 6:03 PM [employer] SODIUM Routine 11/20/2019 4:10 PM [employer] POTASSIUM Routine 11/20/2019 4:10 PM [employer] CALCIUM, IONIZED Routine 11/20/2019 4:10 PM [employer] PT/APTT Routine 11/20/2019 12:21 PM [employer] POTASSIUM Routine 11/20/2019 12:21 PM [employer] CALCIUM, IONIZED Routine 11/20/2019 8:10 AM [employer] PHOSPHORUS Routine 11/20/2019 8:10 AM [employer] PT/APTT Routine 11/20/2019 5:42 AM [employer] CBC W/PLT COUNT & AUTO Routine 11/20/2019 DIFFERENTIAL 4:03 AM [employer] MAGNESIUM Routine 11/20/2019 4:03 AM [employer] CBC W/PLT COUNT & AUTO Routine 11/20/2019 DIFFERENTIAL 4:03 AM [employer] BASIC METABOLIC PANEL (7) Routine 11/20/2019 4:03 AM [employer] PT/APTT Routine 11/20/2019 12:03 AM [employer] POTASSIUM Routine 11/20/2019 12:03 AM [employer] CALCIUM, IONIZED Routine 11/19/2019 8:07 PM [employer] POTASSIUM Routine 11/19/2019 8:07 PM [employer] SODIUM Routine 11/19/2019 8:07 PM [employer] PHOSPHORUS Routine 11/19/2019 8:07 PM [employer] MAGNESIUM Routine 11/19/2019 8:07 PM [employer] POTASSIUM Routine 11/19/2019 5:37 PM [employer] CALCIUM, IONIZED Routine 11/19/2019 5:37 PM [employer] POTASSIUM Routine 11/19/2019 1:50 PM [employer] POTASSIUM Routine 11/19/2019 8:37 AM [employer] CALCIUM, IONIZED Routine 11/19/2019 8:37 AM [employer] PHOSPHORUS Routine 11/19/2019 8:37 AM [employer] PT/APTT Routine 11/19/2019 6:57 AM [employer] PT/APTT Routine 11/19/2019 5:17 AM [employer] CBC W/PLT COUNT & AUTO Routine 11/19/2019 DIFFERENTIAL 4:08 AM [employer] TROPONIN I Routine 11/19/2019 4:08 AM [employer] MAGNESIUM Routine 11/19/2019 4:08 AM [employer] CBC W/PLT COUNT & AUTO Routine 11/19/2019 DIFFERENTIAL 4:08 AM [employer] BASIC METABOLIC PANEL (7) Routine 11/19/2019 4:08 AM [employer] CALCIUM, IONIZED Routine 11/18/2019 11:56 PM [employer] PH, VENOUS Routine 11/18/2019 9:55 PM [employer] SODIUM Routine 11/18/2019 8:02 PM [employer] POTASSIUM Routine 11/18/2019 8:02 PM [employer] PHOSPHORUS Routine 11/18/2019 4:29 PM [employer] MAGNESIUM Routine 11/18/2019 4:29 PM [employer] CALCIUM, IONIZED Routine 11/18/2019 4:29 PM [employer] POTASSIUM Routine 11/18/2019 4:29 PM [employer] TROPONIN I Routine 11/18/2019 11:38 AM [employer] POTASSIUM Routine 11/18/2019 11:38 AM [employer] XR CHEST 1 VIEW STAT 11/18/2019 PORTABLE/BEDSIDE 8:46 AM [employer] CALCIUM, IONIZED Routine 11/18/2019 8:45 AM [employer] PT/APTT Routine 11/18/2019 6:28 AM [employer] CBC W/PLT COUNT & AUTO Routine 11/18/2019 DIFFERENTIAL 4:49 AM [employer] OR [employer] PT/APTT Routine 11/18/2019 4:49 AM [employer] OR [employer] CBC W/PLT COUNT & AUTO Routine 11/18/2019 DIFFERENTIAL 4:49 AM [employer] OR [employer] PHOSPHORUS Routine 11/18/2019 4:48 AM [employer] OR [employer] TROPONIN I Routine 11/18/2019 4:48 AM [employer] MAGNESIUM Routine 11/18/2019 4:48 AM [employer] BASIC METABOLIC PANEL (7) Routine 11/18/2019 4:48 AM [employer] CALCIUM, IONIZED Routine 11/18/2019 12:42 AM [employer] POTASSIUM Routine 11/18/2019 12:42 AM [employer] POCT-GLUCOSE METER Routine 11/17/2019 10:36 PM [employer] SODIUM Routine 11/17/2019 8:30 PM [employer] POTASSIUM Routine 11/17/2019 8:30 PM [employer] OR [employer] PHOSPHORUS Routine 11/17/2019 4:18 PM [employer] OR [employer] MAGNESIUM Routine 11/17/2019 4:18 PM [employer] OR [employer] CALCIUM, IONIZED Routine 11/17/2019 4:18 PM [employer] OR [employer] POTASSIUM Routine 11/17/2019 4:18 PM [employer] OR [employer] TROPONIN I Routine 11/17/2019 11:56 AM [employer] POTASSIUM Routine 11/17/2019 11:56 AM [employer] XR CHEST 1 VIEW STAT 11/17/2019 PORTABLE/BEDSIDE 11:31 AM [employer] OR [employer] OBSERVER VANCOMYCIN LEVEL, TROUGH Timed 11/17/2019 10:23 AM [employer] OR [employer] OBSERVER CALCIUM, IONIZED Routine 11/17/2019 9:06 AM [employer] OR [employer] OBSERVER CBC W/PLT COUNT & AUTO Routine 11/17/2019 DIFFERENTIAL 4:25 AM [employer] OR [employer] OBSERVER PT/APTT Routine 11/17/2019 4:25 AM [employer] OR [employer] OBSERVER PHOSPHORUS Routine 11/17/2019 4:25 AM [employer] OR [employer] OBSERVER MAGNESIUM Routine 11/17/2019 4:25 AM [employer] OR [employer] OBSERVER CBC W/PLT COUNT & AUTO Routine 11/17/2019 DIFFERENTIAL 4:25 AM [employer] OR [employer] OBSERVER BASIC METABOLIC PANEL (7) Routine 11/17/2019 4:25 AM [employer] OR [employer] OBSERVER CALCIUM, IONIZED Routine 11/17/2019 12:46 AM [employer] OR [employer] OBSERVER POTASSIUM Routine 11/16/2019 8:18 PM [employer] OR [employer] OBSERVER SODIUM Routine 11/16/2019 8:18 PM [employer] OR [employer] OBSERVER PHOSPHORUS Routine 11/16/2019 8:18 PM [employer] OR [employer] OBSERVER MAGNESIUM Routine 11/16/2019 8:18 PM [employer] OR [employer] OBSERVER PT/APTT Routine 11/16/2019 5:10 PM [employer] OR [employer] OBSERVER PT/APTT Routine 11/16/2019 4:22 PM [employer] OR [employer] OBSERVER CALCIUM, IONIZED Routine 11/16/2019 4:22 PM [employer] OR [employer] OBSERVER POTASSIUM Routine 11/16/2019 4:22 PM [employer] OR [employer] OBSERVER VASCULAR DIAGRAM -SCAN 11/16/2019 2:22 PM [employer] OR [employer] OBSERVER VASCULAR DIAGRAM -SCAN 11/16/2019 2:21 PM [employer] OR [employer] OBSERVER POTASSIUM Routine 11/16/2019 12:24 PM [employer] OR [employer] OBSERVER PT/APTT Routine 11/16/2019 10:13 AM [employer] OR [employer] OBSERVER CALCIUM, IONIZED Routine 11/16/2019 8:26 AM [employer] OR [employer] OBSERVER PHOSPHORUS Routine 11/16/2019 8:26 AM [employer] OR [employer] OBSERVER PH, ARTERIAL Routine 11/16/2019 8:26 AM [employer] OR [employer] OBSERVER CBC W/PLT COUNT & AUTO Routine 11/16/2019 DIFFERENTIAL 4:50 AM [employer] OR [employer] OBSERVER PT/APTT Routine 11/16/2019 4:50 AM [employer] OR [employer] OBSERVER MAGNESIUM Routine 11/16/2019 4:50 AM [employer] OR [employer] OBSERVER CBC W/PLT COUNT & AUTO Routine 11/16/2019 DIFFERENTIAL 4:50 AM [employer] OR [employer] OBSERVER BASIC METABOLIC PANEL (7) Routine 11/16/2019 4:50 AM [employer] OR [employer] OBSERVER XR CHEST 1 VIEW Routine 11/16/2019 PORTABLE/BEDSIDE 4:38 AM [employer] OR [employer] OBSERVER POTASSIUM Routine 11/15/2019 11:49 PM [employer] OR [employer] OBSERVER CALCIUM, IONIZED Routine 11/15/2019 11:02 PM [employer] OR [employer] OBSERVER POCT-ACT Routine 11/15/2019 10:13 PM [employer] OR [employer] OBSERVER POCT-ACT Routine 11/15/2019 8:12 PM [employer] OR [employer] OBSERVER SODIUM Routine 11/15/2019 8:07 PM [employer] OR [employer] OBSERVER PHOSPHORUS Routine 11/15/2019 8:07 PM [employer] OR [employer] OBSERVER PH, ARTERIAL Routine 11/15/2019 8:07 PM [employer] OR [employer] OBSERVER MAGNESIUM Routine 11/15/2019 8:07 PM [employer] OR [employer] OBSERVER POTASSIUM Routine 11/15/2019 8:07 PM [employer] OR [employer] OBSERVER POCT-ACT Routine 11/15/2019 6:09 PM [employer] OR [employer] OBSERVER CALCIUM, IONIZED Routine 11/15/2019 5:14 PM [employer] OR [employer] OBSERVER POCT-ACT Routine 11/15/2019 3:53 PM [employer] OR [employer] OBSERVER POTASSIUM Routine 11/15/2019 3:08 PM [employer] OBSERVER POCT-ACT Routine 11/15/2019 1:16 PM [employer] OBSERVER L CATH & PCI 11/15/2019 Coronary artery dis ease 12:05 PM [employer] OBS[employer]ER with angina pectoris, unspecified vessel or lesion type, unspecified whether [place] or transplanted heart (HCC) Case Notes (2)CASE 6S2-11 CBC W/PLT COUNT & AUTO Routine 11/15/2019 DIFFERENTIAL 4:27 AM [employer] OBSERVER PT/APTT Routine 11/15/2019 4:27 AM [employer] OR [employer] OBSERVER CALCIUM, IONIZED Routine 11/15/2019 4:27 AM [employer] OR [employer] OBSERVER PH, ARTERIAL Routine 11/15/2019 4:27 AM [employer] OR [employer] OBSERVER MAGNESIUM Routine 11/15/2019 4:27 AM [employer] OR [employer] OBSERVER CBC W/PLT COUNT & AUTO Routine 11/15/2019 DIFFERENTIAL 4:27 AM [employer] OR [employer] OBSERVER BASIC METABOLIC PANEL (7) Routine 11/15/2019 4:27 AM [employer] OR [employer] OBSERVER PHOSPHORUS Routine 11/15/2019 4:27 AM [employer] OR [employer] OBSERVER XR CHEST 1 VIEW Routine 11/15/2019 PORTABLE/BEDSIDE 3:59 AM [employer] OR [employer] OBSERVER CALCIUM, IONIZED Routine 11/15/2019 1:17 AM [employer] OR [employer] OBSERVER POTASSIUM Routine 11/15/2019 1:17 AM [employer] OR [employer] OBSERVER PH, ARTERIAL Routine 11/14/2019 8:56 PM [employer] OR [employer] OBSERVER CALCIUM, IONIZED Routine 11/14/2019 8:55 PM [employer] OBSERVER POTASSIUM Routine 11/14/2019 8:55 PM [employer] OR [employer] OBSERVER SODIUM Routine 11/14/2019 6:23 PM [employer] OR [employer] OBSERVER PHOSPHORUS Routine 11/14/2019 6:23 PM [employer] OBSERVER MAGNESIUM Routine 11/14/2019 6:23 PM [employer] OBSERVER POTASSIUM Routine 11/14/2019 6:23 PM [employer] OBSERVER TROPONIN I Routine 11/14/2019 6:23 PM [employer] OBSERVER CALCIUM, IONIZED Routine 11/14/2019 5:00 PM [employer] OBS[employer]ER NM PET/CT CARDIAC STAT 11/14/2019 VIABILITY/METABOLISM 3:45 PM [employer] O[employer]ERVER POCT-GLUCOSE METER Routine 11/14/2019 2:45 PM [employer] OBSERVER POCT-GLUCOSE METER Routine 11/14/2019 1:16 PM [employer] OBSERVER POCT-GLUCOSE METER Routine 11/14/2019 12:26 PM [employer] OR [employer] OBSERVER POCT-GLUCOSE METER Routine 11/14/2019 12:02 PM [employer] OBSERVER XR CHEST 1 VIEW STAT 11/14/2019 PORTABLE/BEDSIDE 11:19 AM [employer] OBSERVER POCT-GLUCOSE METER Routine 11/14/2019 10:38 AM [employer] OBSERVER POTASSIUM Routine 11/14/2019 10:06 AM [employer] OBSERVER POCT-GLUCOSE METER Routine 11/14/2019 9:29 AM [employer] OR [employer] OBSERVER HEPATIC FUNCTION PANEL Add-On 11/14/2019 5:31 AM [employer] OBSERVER POTASSIUM STAT 11/14/2019 5:31 AM [employer] OBSERVER XR CHEST 1 VIEW STAT 11/14/2019 PORTABLE/BEDSIDE 4:35 AM [employer] OBSERVER CBC W/PLT COUNT & AUTO Routine 11/14/2019 DIFFERENTIAL 4:28 AM [employer] OBSERVER PT/APTT Routine 11/14/2019 4:28 AM [employer] OBSERVER TROPONIN I Routine 11/14/2019 4:28 AM [employer] OBSERVER HEPATITIS B SURFACE Routine 11/14/2019 ANTIGEN 4:28 AM [employer] OBSERVER CBC W/PLT COUNT & AUTO Routine 11/14/2019 DIFFERENTIAL 4:28 AM [employer] OBSERVER PHOSPHORUS Routine 11/14/2019 4:28 AM [employer] OBSERVER MAGNESIUM Routine 11/14/2019 4:28 AM [employer] OBSERVER BASIC METABOLIC PANEL (7) Routine 11/14/2019 4:28 AM [employer] OBSERVER PT/APTT Routine 11/14/2019 12:19 AM [employer] OBSERVER TROPONIN I Routine 11/14/2019 12:19 AM [employer] OBSERVER BLOOD GAS, ARTERIAL STAT 11/13/2019 10:14 PM [employer] OBSERVER LACTIC ACID, ARTERIAL Routine 11/13/2019 10:11 PM [employer] OBSERVER ECHOCARDIOGRAM REPORT - 11/13/2019 SCAN 9:11 PM [employer] OBSERVER XR CHEST 1 VIEW STAT 11/13/2019 PORTABLE/BEDSIDE 8:23 PM [employer] OBSERVER TROPONIN I STAT 11/13/2019 5:59 PM [employer] OBSERVER ECG 12-LEAD Routine 11/13/2019 5:07 PM [employer] OBSERVER Procedure Note - Interface, External Ris In - 11/13/2019 4:18 PM [employer] OBSERVER Ventricula r Rate 71 BPM Atrial Rate 71 BPM P-R Interval 162 ms QRS Duration 118 ms Q-T Interval 464 ms QTC Calculatio n(Bazett) 504 ms P [place] 13 degrees R [place] -49 degrees T [place] 144 degrees Normal sinus rhythm Right bundle branch block Left anterior fascicular block Bifascicul ar block Abnormal ECG When compared with ECG of 0 04:45, Premature ventricula r complexes are no longer Present (RBBB and left anterior fascicular block) is now Present ECG 12-LEAD STAT 11/13/2019 5:07 PM [employer] OBSERVER TROPONIN I STAT 11/13/2019 1:30 PM [employer] OBSERVER 2D ECHO W/ DOPPLER STAT 11/13/2019 (CW/PW/COLOR) 12:04 PM [employer] OBSERVER POCT-ACT Routine 11/13/2019 11:20 AM [employer] OBSERVER L CATH & PCI 11/13/2019 Coronary artery dis ease 10:15 AM [employer] OBSERVER of [place] heart with stable angina pectoris, unspecified vessel or lesion type (HCC) 2D ECHO W/ DOPPLER CASANDRA 11/13/2019 (CW/PW/COLOR) 9:30 AM [employer] OBSERVER APTT STAT 11/13/2019 9:23 AM [employer] OR [employer] OBSERVER CBC W/PLT COUNT & AUTO Routine 11/13/2019 DIFFERENTIAL 6:40 AM [employer] OBSERVER APTT Add-On 11/13/2019 6:40 AM [employer] OR [employer] OBSERVER PROTHROMBIN TIME/INR Routine 11/13/2019 6:40 AM [employer] OBSERVER CBC W/PLT COUNT & AUTO Routine 11/13/2019 DIFFERENTIAL 6:40 AM [employer] OBSERVER TROPONIN I STAT 11/13/2019 6:40 AM [employer] OR [employer] OBSERVER PHOSPHORUS Routine 11/13/2019 6:40 AM [employer] OR [employer] OBSERVER MAGNESIUM Routine 11/13/2019 6:40 AM [employer] OR [employer] OBSERVER HEPATIC FUNCTION PANEL Routine 11/13/2019 6:40 AM [employer] OBSERVER BASIC METABOLIC PANEL (7) Routine 11/13/2019 6:40 AM [employer] OBSERVER XR CHEST 1 VIEW STAT 11/13/2019 PORTABLE/BEDSIDE 6:34 AM [employer] OBSERVER ECG 12-LEAD Routine 11/13/2019 4:45 AM [employer] OBSERVER ECG 12-LEAD Routine 11/13/2019 4:45 AM [employer] OBSERVER Procedure Note - Interface, External Ris In - 11/13/2019 4:47 AM [employer] OBSERVER Ventricula r Rate 93 BPM Atrial Rate 93 BPM P-R Interval 146 ms QRS Duration 106 ms Q-T Interval 398 ms QTC Calculatio n(Bazett) 494 ms P [place] 44 degrees R [place] 3 degrees T [place] 118 degrees Sinus rhythm with frequent Premature ventricula r complexes ST & T wave abnormalit y, consider anterolate ral ischemia Prolonged QT Abnormal ECG after 08/17/2019 Results * 2D Echo W/Doppler(CW/PW/Color) (05/28/2020 10:58 AM CDT) Ejection [facility] ECHO Fraction [facility] Specimen Narrative Performed At Transthoracic Echocardiography Report (TTE) [facility] ECH O [facility] Demographics [facility] Patient Name MATHEUS BOB ate of Study 05/28/2020 YULISA Gender Male Visit Number [id number] Race Unknown Room Number OP Number Date of 1960 Referring Leodan Mann MD Physician Age 60 year(s) Drop Board Man Delio Rea [facility] Interpreting Physician VENICE Avila Procedure Type of Study TTE procedure:2DECHO W DOPP LER(CW/PW/COLOR) (Routine) Indications:Dyspnea/SOB. Clinical History CAD, ESRD ACB X3 (2010) Contrast Medium: Definity. Height: 66 inches Weight: 84.82 kg (187 lbs) BSA: 1.94 m^2 BMI: 30.18 kg/m^2 HR: 85 bpm BP: 90/60 mmHg Summary The left ventricle is chamber size (by vol index) is mildly enlarged (male - LVED 75-89ml/m2). The following segme nt(s) appear severely hypokinetic: basal-mid inferolateral . Septal motion is abnormal, likely related to prior cardiac surgery . The other segme nts are hypokinetic. LVEF by Alcocer's method of disk assessment is moderately reduced (30-34%) . Diastolic dysfunction is likely due to concomitant heart disease. Estimated peak systolic PA pressure is 35-40 mmHg . Previous Study In comparison with the prior exam 020 the following changes are noted: LVEF is reduced . Signature Findings Left Ventricle The left courtney tricle is chamber size (by vol index) is m ildly enlarged (male - LVED 75-89ml/m2). Normal LV w all thickness. The following segment(s) appear severely hypo kinetic: basal-mid inferolateral . Septal osvaldo on is abnormal, likely related to prior cardiac surg naif . The other segments are hypokinetic. LVEF by S impson's method of disk assessment is mode rately reduced (30-34%) . Diastolic dysfunction is l ikely due to concomitant heart disease. Left Atrium LA size is moderately enlarged (42-48 ml/m2) . Right Ventricle RV chamber s ize is mildly enlarged . Glob al RV systolic function is normal . Right Atrium RA cavity s ize is mildly enlarged . Aortic Valve Normal AoV structure and function. Mitral Valve Mild-to-mod erate mitral annular calcification. Mild MV leaflet thickening. Mild mitral regurgitation. Tricuspid Valve Mild tricusp id regurgitation. Shakila mated peak systolic PA pressure is 35-40 mmHg . Pulmonic Valve Normal PV st ructure and function. Mild pulmonary regurgitation. Aorta Aortic root size (Sinus of Valsalva diameter) is mode rately dilated. 4.1 cm Pericardium No signifi cant pericardial effusion is visualized. IVC/SVC/PA/PV/Pleural Pulmonary vein flow is consistent with increased LAP . The estimated RA pressure by IVC dynamics 5-10mmHg . Chambers/Structures Left Ventricle LVIDd: 5.26 cm LVEDV:132.76 ml LV Septum Diastolic: 1.1 cm LV PW Diastolic: 1 cm LVEDV Alcocer's:161.47 ml LVESV Alcocer's:106.82 ml LVEF Alcocer's: 33.8 % LVEDVI: 83 ml/m^2 LVESVI: 55 ml/m^2 LVOT Diameter: 2.47 cm Right Ventricle RVOT VTI: 10.49 cm Doppler/Quantitative Measurements Aortic Valve Peak Velocity: 1.05 m/s Mean Velocity: 0.79 m/s Peak Gradient: 4.43 mmHg Mean Gradient: 2.67 mmHg AV Area (continuity): 4.37 cm^2 AV VTI: 17.19 cm AV DVI: 0.91 LVOT Peak Velocity: 0.76 m/s Peak Gradient: 2.3 mmHg Mean Velocity: 0.56 m/s Mean Gradient: 1.34 mmHg LVOT Diameter: 2.47 cm LVOT VTI: 15.7 cm LVOT Area: 4.79 cm^2 LVOT SV:75.19 ml LVOT CO: 6.39 l/min LVOT CI: 3.29 l/min/m^2 Procedure Note Interface, External Ris In - 05/28/2020 1:36 PM CDT Transthoracic Echocardiography Report (TTE) Demographics Patient Name MATHEUS BOB Date of Study 05/28/2020 YULISA Gender Male Visit Number [id number] Race Unknown Room Number OP Number Date of 1960 Referring Leodan Mann MD Physician Age 60 year(s) Drop Board Man Delio Rea RDCS Interpreting Physician VENICE Avila Procedure Type of Study TTE procedure:2DECHO W DOPPLER(CW/PW/COLOR) (Routine) Indications:Dyspnea/SOB. Clinical History CAD, ESRD ACB X3 (2010) Contrast Medium: Definity. Height: 66 inches Weight: 84.82 kg (187 lbs) BSA: 1.94 m^2 BMI: 30.18 kg/m^2 HR: 85 bpm BP: 90/60 mmHg Summary The left ventricle is chamber size (by vol index) is mildly enlarged (male - LVED 75-89ml/m2). The following segment(s) appear severely hypokinetic: basal-mid inferolateral . Septal motion is abnormal, likely related to prior cardiac surgery . The other segments are hypokinetic. LVEF by Alcocer's method of disk assessment is moderately reduced (30-34%) . Diastolic dysfunction is likely due to concomitant heart disease. Estimated peak systolic PA pressure is 35-40 mmHg . Previous Study In comparison with the prior exam 11/13/2019 the following changes are noted: LVEF is reduced . Signature Findings Left Ventricle The left ventricle is chamber size (by vol index) is mildly enlarged (male - LVED 75-89ml/m2). Normal LV wall thickness. The following segment(s) appear severely hypokinetic: basal-mid inferolateral . Septal motion is abnormal, likely related to prior cardiac surgery . The other segments are hypokinetic. LVEF by Alcocer's method of disk assessment is moderately reduced (30-34%) . Diastolic dysfunction is likely due to concomitant heart disease. Left Atrium LA size is moderately enlarged (42-48 ml/m2) . Right Ventricle RV chamber size is mildly enlarged . Global RV systolic function is normal . Right Atrium RA cavity size is mildly enlarged . Aortic Valve Normal AoV structure and function. Mitral Valve [id number] mitral annular calcification. Mild MV leaflet thickening. Mild mitral regurgitation. Tricuspid Valve Mild tricuspid regurgitation. Estimated peak systolic PA pressure is 35-40 mmHg . Pulmonic Valve Normal PV structure and function. Mild pulmonary regurgitation. Aorta Aortic root size (Sinus of Valsalva diameter) is moderately dilated. 4.1 cm Pericardium No significant pericardial effusion is visualized. IVC/SVC/PA/PV/Pleural Pulmonary vein flow is consistent with increased LAP . The estimated RA pressure by IVC dynamics 5-10mmHg . Chambers/Structures Left Ventricle LVIDd: 5.26 cm LVEDV:132.76 ml LV Septum Diastolic: 1.1 cm LV PW Diastolic: 1 cm LVEDV Alcocer's:161.47 ml LVESV Alcocer's:106.82 ml LVEF Alcocer's: 33.8 % LVEDVI: 83 ml/m^2 LVESVI: 55 ml/m^2 LVOT Diameter: 2.47 cm Right Ventricle RVOT VTI: 10.49 cm Doppler/Quantitative Measurements Aortic Valve Peak Velocity: 1.05 m/s Mean Velocity: 0.79 m/s Peak Gradient: 4.43 mmHg Mean Gradient: 2.67 mmHg AV Area (continuity): 4.37 cm^2 AV VTI: 17.19 cm AV DVI: 0.91 LVOT Peak Velocity: 0.76 m/s Peak Gradient: 2.3 mmHg Mean Velocity: 0.56 m/s Mean Gradient: 1.34 mmHg LVOT Diameter: 2.47 cm LVOT VTI: 15.7 cm LVOT Area: 4.79 cm^2 LVOT SV:75.19 ml LVOT CO: 6.39 l/min LVOT CI: 3.29 l/min/m^2 Performing Organization Address City/State/Zipcode Ph one Number [email or web address] * VASCULAR DIAGRAM -SCAN (03/28/2020 3:25 PM CDT) Only the most recent of 4 results within the time period is included. Narrative Performed At This result has an attachment that is n ot available. * NM Myocardial Perfusion Pet/CT (Rest & Stress) (03/05/2020 8:56 AM CDT) Specimen Narrative Performed At FINAL REPORT [employer] PROCEDURE: PET/CT Rest/Stress HERMINIA CARDIAL PERFUSION with regadenoson\\XA9\\ CPT CODE: 23922 INDICATION: CAD I25.810 HISTORY: Cardiovascul ar history: Myocardial infarction, coronary stenting 2019, ACB 2010. PROTOCOL: Limited low-dose C T imaging was performed for attenuation correction. 40.1 mCi of Rb- 82 chloride was injected iv at rest, and gated PET (positron emission tomography) images were obtained. Subsequently, 40.1 mCi of Rb- 82 chloride was injected iv at expected peak pharmacologic effect, and gated PET images were obtained. PRELIMINARY STRESS TEST DATA FROM [facility] CARDIOLOGY: Pharmacologic stress was by 10-second i v infusion of 0.4 mg of regadenoson. Radiotracer was injected 3 0 seconds after start of stress. Heart rate was 65 beats/min at rest and 75 beats/min (46% of MPHR) at tracer injection. BP was 92/57 mmHg at rest and 71/47 mmHg at tracer injection. Stress was stopped for predetermined endpoint. The patient experienced hypotension; tr eatment was aminophylline 125 mg IV. Preliminary ECG evaluation was n ot available from Cardiology at the time of this report. (Final ECG interpretation and other stress and monitoring data are reported separately by Cardiology.) IMAGING FINDINGS: Study quality i s good. Images obtained after stress injection shows moderate decreas e in activity in the anterolateral and basal and mid anterio r LV as well as the basal anteroseptal LV. There is additional mi ld decrease in the basal and mid inferolateral LV Resting images asha w mild inferolateral decrease and mild to moderate anterolateral and anterior decrease in activity. LV volume is mildly increased. Gated im ages obtained at rest and with stress show diffuse moderate LV hypokin esis with focally more marked hypokinesis in the basal and mid infero lateral LV. LVEF at rest is 33%. LVEF at stress is 40%. IMPRESSION: 1. Abnormal study. 2. Appropriate pharmacologic stress. 3. Abnormal myocardial perfus ion. There is a large area of moderate, mostly reversible perfusion d eficit in the anterolateral, anterior, and anteroseptal LV. There is a small area of mild, fixed, inferolateral deficit. 4. Markedly decr eased resting LV function. No deterioration with pharmacologic stress . 5. CT images show multiple small low-density lesions within both l obes of the liver. While some of these lesions are cystic, others are too small to characterize by this technique and can be better seen b y standard anatomic imaging. These findings are similar to the previ ous study of 11/14/2019. 6. Compared to the previous resting perfus ion study, the inferolateral region has significantly improved, but other findings are similar. Signed: Parker Gan MD Report Verified Date/Time: 03/05/2020 16:07:48 Reading Location: [address] Med Reading Room Procedure Note Interface, External Ris In - 03/05/2020 4:10 PM CDT FINAL REPORT PROCEDURE: PET/CT Rest/Stress MYOCARDIAL PERFUSION with regadenoson\\XA9\\ CPT CODE: 63619 INDICATION: CAD I25.810 HISTORY: Cardiovascular history: Myocardial infarction, coronary stenting 2019, ACB 2010. PROTOCOL: Limited low-dose CT imaging was performed for attenuation correction. 40.1 mCi of Rb-82 chloride was injected iv at rest, and gated PET (positron emission tomography) images were obtained. Subsequently, 40.1 mCi of Rb-82 chloride was injected iv at expected peak pharmacologic effect, and gated PET images were obtained. PRELIMINARY STRESS TEST DATA FROM NONINVASIVE CARDIOLOGY: Pharmacologic stress was by 10-second iv infusion of 0.4 mg of regadenoson. Radiotracer was injected 30 seconds after start of stress. Heart rate was 65 beats/min at rest and 75 beats/min (46% of MPHR) at tracer injection. BP was 92/57 mmHg at rest and 71/47 mmHg at tracer injection. Stress was stopped for predetermined endpoint. The patient experienced hypotension; treatment was aminophylline 125 mg IV. Preliminary ECG evaluation was not available from Cardiology at the time of this report. (Final ECG interpretation and other stress and monitoring data are reported separately by Cardiology.) IMAGING FINDINGS: Study quality is good. Images obtained after stress injection shows moderate decrease in activity in the anterolateral and basal and mid anterior LV as well as the basal anteroseptal LV. There is additional mild decrease in the basal and mid inferolateral LV Resting images show mild inferolateral decrease and mild to moderate anterolateral and anterior decrease in activity. LV volume is mildly increased. Gated images obtained at rest and with stress show diffuse moderate LV hypokinesis with focally more marked hypokinesis in the basal and mid inferolateral LV. LVEF at rest is 33%. LVEF at stress is 40%. IMPRESSION: 1. Abnormal study. 2. Appropriate pharmacologic stress. 3. Abnormal myocardial perfusion. There is a large area of moderate, mostly reversible perfusion deficit in the anterolateral, anterior, and anteroseptal LV. There is a small area of mild, fixed, inferolateral deficit. 4. Markedly decreased resting LV function. No deterioration with pharmacologic stress. 5. CT images show multiple small low-density lesions within both lobes of the liver. While some of these lesions are cystic, others are too small to characterize by this technique and can be better seen by standard anatomic imaging. These findings are similar to the previous study of 11/14/2019. 6. Compared to the previous resting perfusion study, the inferolateral region has significantly improved, but other findings are similar. Signed: Parker Gan MD Report Verified Date/Time: 03/05/2020 16:07:48 Reading Location: [place] [id number] Reading Room Performing Organization Address City/State/Zipcode Ph one Number GE RIS * Treadmill tolerance(Non-Nuclear Treadmill) (03/05/2020 8:47 AM CDT) Specimen Narrative Performed At Protocol Name Regadenoson GE MUSE Time In Exercise Phase 00:01:00 Max. Systolic BP 71 mmHg Max Diastolic BP 47 mmHg Max Heart Rate 75 BPM Max Predicted Heart Rate 161 BPM Reason For Termination Predetermined en d point Reason for Test Known CAD/Prior PCI/ACB Target HR Formula (220 - Age)*100% Arrhythmias none Resting ECG Normal Sinus Rhythm,Septal infarct,age ? ST Changes No Significant Changes Overall Impression Indeterminate due to pharmacological stress Nuclear data reported separately Chest Pain none HR Response To Exercise BP Response To Exercise imdur,asa,losartan, brilinta,losartan,metoprolol Confirmed by fellow Smith Lu ([id number]) on 03/06/2020 9:01:28 AM Confirmed by Carmen SHELBY BASANT ([id number]) on 03/09/2020 1:58:07 PM Procedure Note Interface, External Ris In - 03/09/2020 1:58 PM CDT Protocol Name Regadenoson Time In Exercise Phase 00:01:00 Max. Systolic BP 71 mmHg Max Diastolic BP 47 mmHg Max Heart Rate 75 BPM Max Predicted Heart Rate 161 BPM Reason For Termination Predetermined end point Reason for Test Known CAD/Prior PCI/ACB Target HR Formula (220 - Age)*100% Arrhythmias none Resting ECG Normal Sinus Rhythm,Septal infarct,age ? ST Changes No Significant Changes Overall Impression Indeterminate due to pharmacological stress Nuclear data reported separately Chest Pain none HR Response To Exercise BP Response To Exercise imdur,asa,losartan, brilinta,losartan,metoprolol Confirmed by fellow Smith Lu ([id number]) on 03/06/2020 9:01:28 AM Confirmed by Carmen SHELBY BASANT ([id number]) on 03/09/2020 1:58:07 PM Performing Organization Address City/State/Zipcode Ph one Number GE MUSE * ECG 12 lead (03/05/2020 8:44 AM CDT) Only the most recent of 3 results within the time period is included. Specimen Narrative Performed At Ventricular Rate 66 BPM GE MUSE Atrial Rate 66 BPM P-R Interval 184 ms QRS Duration 160 ms Q-T Interval 456 ms QTC Calculation(Bazett) 478 ms P [place] 55 degrees R [place] 44 degrees T [place] 93 degrees Normal sinus rhythm Non-specific intra-ventricular conducti on block Nonspecific ST abnormality Prolonged QT Abnormal ECG 13 Nov 2019 QRS width has increased Nonspecific ST abnormality now seen Nonspecific T wave abnormality improved QT has shortened Confirmed by MD SANTORO YOCHAI ([id number] ) on 03/06/2020 7:22:43 AM Procedure Note Interface, External Ris In - 03/06/2020 7:22 AM CDT Ventricular Rate 66 BPM Atrial Rate 66 BPM P-R Interval 184 ms QRS Duration 160 ms Q-T Interval 456 ms QTC Calculation(Bazett) 478 ms P [place] 55 degrees R [place] 44 degrees T [place] 93 degrees Normal sinus rhythm Non-specific intra-ventricular conduction block Nonspecific ST abnormality Prolonged QT Abnormal ECG 13 Nov 2019 QRS width has increased Nonspecific ST abnormality now seen Nonspecific T wave abnormality improved QT has shortened Confirmed by MD SANTORO YOCHAI ([id number]) on 03/06/2020 7:22:43 AM Performing Organization Address City/State[facility] Ph one Number GE MUSE * EKG-SCANNED (12/06/2019 9:00 AM [employer] OR [employer] OBSERVER) Narrative Performed At This result has an attachment that is n ot available. * RHYTHM STRIP - SCAN (12/06/2019 9:00 AM [employer] OR [employer] OBSERVER) Only the most recent of 2 results within the time period is included. Narrative Performed At This result has an attachment that is n ot available. * CARDIAC CATH REPORT - SCAN (12/06/2019 9:00 AM [employer]ERY OR [employer] OBSERVER) Narrative Performed At This result has an attachment that is n ot available. * CARDIAC CATH REPORT - SCAN (12/06/2019 9:00 AM [employer] OR [employer] OBSERVER) Narrative Performed At This result has an attachment that is n ot available. * CBC with platelet count + automated diff (12/02/2019 4:11 AM [employer]ERY OR [employer] OBSERVER) Only the most recent of 20 results within the time period is included. WBC 5.2 3.5 - 10.5 K/L [facility] RBC 2.53 (L) 4.63 - 6.08 M/L [facility] Hemoglobin 7.6 (L) 13.7 - 17.5 GM/DL [facility] Hematocrit 22.8 (L) 40.1 - 51.0 % [facility] MCV 90.1 79.0 - 92.2 fL [facility] MCH 30.0 25.7 - 32.2 pg [facility] MCHC 33.3 32.3 - 36.5 GM/DL [facility] RDW 16.5 (H) 11.6 - 14.4 % [facility] Platelets 169 150 - 450 K/CU MM [facility] MPV 10.1 9.4 - 12.4 fL [facility] nRBC 0 0 - 0 /100 WBC [facility] % Neutros 64 % [facility] % Lymphs 23 % [facility] % Monos 11 % [facility] % Eos 1 % [facility] % Baso 0 % [facility] # Neutros 3.32 1.78 - 5.38 K/L [facility] # Lymphs 1.19 (L) 1.32 - 3.57 K/L [facility] # Monos 0.58 0.30 - 0.82 K/L [facility] # Eos 0.04 0.04 - 0.54 K/L [facility] # Baso 0.00 (L) 0.01 - 0.08 K/L [facility] Immature 1 0 - 1 % [facility] Specimen Blood Performing Organization Address City/State/Zipcode Ph one Number [facility] [address] [place], [place] [address] [facility] * Magnesium (12/02/2019 4:11 AM [employer] OR [employer] OBSERVER) Only the most recent of 30 results within the time period is included. Magnesium 1.9 1.6 - 2.6 mg/dL [facility] Specimen Blood Narrative Performed At Tire Fixer ID - AILEEN Cope [facility] Performing Organization Address [facility] one Number [address] [facility] * Basic metabolic panel (12/02/2019 4:11 AM [employer] OR [employer] OBSERVER) Only the most recent of 20 results within the time period is included. Sodium 137 136 - 145 meq/L [facility] Potassium 4.0 3.5 - 5.1 meq/L [facility] Chloride 101 98 - 107 meq/L [facility] CO2 26 22 - 29 meq/L [facility] BUN 38 (H) 7 - 21 mg/dL [facility] Creatinine 6.24 (H) 0.57 - 1.25 mg/dL [facility] Glucose 232 (H) 70 - 105 mg/dL [facility] Calcium 8.6 8.4 - 10.2 mg/dL [facility] EGFR 9Comment: ESTIMATED GFR IS NOT mL/min/1.73 sq m [facility] ACCURATE CREATININE [facility] CLEARANCE IN PREDICTING [facility] CENTER GLOMERULAR FILTRATION RATE. ESTIMATED GFR IS NOT APPLICABLE FOR DIALYSIS PATIENTS. Specimen Blood Narrative Performed At Tire Fixer ID - AILEEN L [facility] Performing Organization Address [facility] one Number [facility] [address] [place] [address] [facility] * TRANSFUSION SERVICE REPORT - SCAN (11/30/2019 6:03 PM [employer] OR [employer] OBSERVER) Narrative Performed At This result has an attachment that is n ot available. * IR Tunneled Catheter Insertion (11/29/2019 8:30 PM [employer]ERY OR [employer] OBSERVER) Specimen Narrative Performed At FINAL REPORT [facility] Procedure: Tunneled dialysis catheter p lacement. History: Need for hemodialysis. Acid Conditioner: Buster Núñez MD. Boatswains Mate: Carmen Land Modality: Sonography and fluoroscopy. DOSE REDUCTION: The examination was per formed according to departmental dose-optimization program. Fluoro time: 0.8 minutes Radiation dose for this procedure was 3 .3 mGy air Kerma. Number of images: Three Sedation: Versed 0.5 mg and fentanyl 25 mcg was given intravenously for conscious sedation. Vital signs w ere monitored throughout the procedure by a dedicated RN under dire t supervision of Dr. Núñez, and remained stable. Medicines: Not applicable. Anesthesia: Lidocaine local infiltratio n. Physician intraprocedure sedation time was 15 minutes. Estimated blood loss: < 5 cc. Technique: Informed written consent was obtained. Discussion of risks, benefits, and alternatives were made with the [facility] ient. The patient expressed understanding and agreed to proceed. A universal timeout was performed prior to starting the procedu re. The procedure room personnel used personal protective equi pment. The operators used sterile gowns and gloves additionally. A preliminary ultrasonogram was perform ed of the neck that revealed a patent and compressible right interna l jugular vein. Pertinent ultrasound images were stored in the [facility] for documentation. A sterile prep and drape of the right n juliet and upper chest was performed using standard technique. Using aseptic precautions, real-time ul trasound guidance, the internal jugular vein was accessed afte r local anesthetic infiltration and dermatotomy with a zeferino ropuncture needle. A 018 guidewire was advanced into the central venous system under fluoroscopic guidance. Over the wire a micropuncture sheath was placed. Through the micropuncture sheat h, a 035 wire was advanced into the venous system under fluoroscop ic guidance. Over the wire a peel-away sheath was placed. After local anesthesia, an incision was created in the subclavicular exit site location and a cuffed tunnele d dialysis catheter of an appropriate length was tunneled from th e exit site to the venotomy site using a tunneling device. The cath eter was advanced into the venous system through the peel-away she ath which was removed. The catheter aspirated and flushed well and was terminally packed with heparin 1000 units per cc. The catheter was secured to skin using nonabsorbable suture and a CHG dressing applied. The venotomy site was closed using Derm abond. An aseptic dressing was applied using the protocol for Dermabon d. The patient was transferred to the [facility] area and was discharged from the department in stable condition . Complications: None immediate. Device: 15.5 Swazi x 19 cm cuff to tip Duraflow 2 catheter. Findings: Patent and compressible right internal jugular vein. Final image shows the catheter to be in good position with the catheter tip in the right atrium, an excellent posit ion for use. There is no complication. Impression: Successful ultrasound and fluoroscopic guided right internal jugular vein route cuffed tunneled hemodialysis catheter placement as described above. There is a left neck trialysis catheter placed by the ICU. It will be managed by the ICU team. Thank you for the opportunity to assist in the care of your patient. Signed: Buster Núñez MD Report Verified Date/Time: 11/29/2019 20:50:43 Reading Location: [place] [address] Angio Bod y Reading Room Procedure Note Interface, External Ris In - 12/01/2019 1:50 PM [employer] OR [employer] OBSERVER FINAL REPORT Procedure: Tunneled dialysis catheter placement. History: Need for hemodialysis. Acid Conditioner: Buster Núñez MD. Boatswains Mate: Carmen Land Modality: Sonography and fluoroscopy. DOSE REDUCTION: The examination was performed according to departmental dose-optimization program. Fluoro time: 0.8 minutes Radiation dose for this procedure was 3.3 mGy air Kerma. Number of images: Three Sedation: Versed 0.5 mg and fentanyl 25 mcg was given intravenously for conscious sedation. Vital signs were monitored throughout the procedure by a dedicated RN under direct supervision of Dr. Núñez, and remained stable. Medicines: Not applicable. Anesthesia: Lidocaine local infiltration. Physician intraprocedure sedation time was 15 minutes. Estimated blood loss: < 5 cc. Technique: Informed written consent was obtained. Discussion of risks, benefits, and alternatives were made with the patient. The patient expressed understanding and agreed to proceed. A universal timeout was performed prior to starting the procedure. The procedure room personnel used personal protective equipment. The operators used sterile gowns and gloves additionally. A preliminary ultrasonogram was performed of the neck that revealed a patent and compressible right internal jugular vein. Pertinent ultrasound images were stored in the PACS for documentation. A sterile prep and drape of the right neck and upper chest was performed using standard technique. Using aseptic precautions, real-time ultrasound guidance, the internal jugular vein was accessed after local anesthetic infiltration and dermatotomy with a micropuncture needle. A 018 guidewire was advanced into the central venous system under fluoroscopic guidance. Over the wire a micropuncture sheath was placed. Through the micropuncture sheath, a 035 wire was advanced into the venous system under fluoroscopic guidance. Over the wire a peel-away sheath was placed. After local anesthesia, an incision was created in the subclavicular exit site location and a cuffed tunneled dialysis catheter of an appropriate length was tunneled from the exit site to the venotomy site using a tunneling device. The catheter was advanced into the venous system through the peel-away sheath which was removed. The catheter aspirated and flushed well and was terminally packed with heparin 1000 units per cc. The catheter was secured to skin using nonabsorbable suture and a CHG dressing applied. The venotomy site was closed using Dermabond. An aseptic dressing was applied using the protocol for Dermabond. The patient was transferred to the recovery area and was discharged from the department in stable condition. Complications: None immediate. Device: 15.5 Swazi x 19 cm cuff to tip Duraflow 2 catheter. Findings: Patent and compressible right internal jugular vein. Final image shows the catheter to be in good position with the catheter tip in the right atrium, an excellent position for use. There is no complication. Impression: Successful ultrasound and fluoroscopic guided right internal jugular vein route cuffed tunneled hemodialysis catheter placement as described above. There is a left neck trialysis catheter placed by the ICU. It will be managed by the ICU team. Thank you for the opportunity to assist in the care of your patient. Signed: Buster Núñez MD Report Verified Date/Time: 11/29/2019 20:50:43 Reading Location: [facility] B1 P048 Angio Body Reading Room Performing Organization Address City/State/Zipcode Ph one Number GE RIS * ABORH, manual (11/29/2019 2:19 AM [employer] OR [employer] OBSERVER) ABO Grouping A [facility] Rh Factor POS [facility] Specimen Blood Performing Organization Address [facility] one Number [address] [address] [facility] * Type and screen, automated (11/29/2019 2:00 AM [employer]ERY OR [employer] OBSERVER) ABO/RH A POSITIVE [facility] Ab Scrn NEGATIVE [facility] Specimen Blood Performing Organization Address [facility] one Number [address] [address] [phone] [facility] * PT/aPTT (11/29/2019 2:00 AM [employer]ERY OR [employer] OBSERVER) Only the most recent of 20 results within the time period is included. Protime 13.8 11.9 - 14.2 seconds [facility] INR 1.1 <=5.9 [facility] PTT 35.2 22.5 - 36.0 seconds [facility] Specimen Blood Narrative Performed At Effective 03/02/2019: PT Reference Range Change [facility] New: 11.9-14.2 Previous: 11.7-14.7 [facility] TER RECOMMENDED COUMADIN/WARFARIN INR THERA PY RANGES STANDARD DOSE: 2.0-3.0 Includes: PROP HYLAXIS for venous thrombosis, systemic embolization; TREATMENT for venous thro mbosis and/or pulmonary embolus. HIGH RISK: Target INR is 2.5-3.5 for pa tients wiht mechanical heart valves. Performing Organization Address [facility] one Number [address] [address] [facility] * XR chest 1 view portable / bedside (11/25/2019 2:10 PM ARTILLERY OR [employer] OBSERVER) Only the most recent of 9 results within the time period is included. Specimen Narrative Performed At FINAL REPORT GE RIS INDICATION: picc placement TECHNIQUE: Chest radiograph, single view, portable technique. FINDINGS / IMPRESSION: Comparison to November 18. There is a n ew right PICC line which terminates in the low SVC. As before th ere is a multilumen left internal jugular line which also termin ates in the low SVC. Heart shadow is enlarged and there is m edian sternotomy and a coronary stent. No pulmonary edema, discrete pneumonia, pneumothorax, or pleural effusion demonstrated. Signed: Sebastian Lewis MD Report Verified Date/Time: 11/25/2019 14:34:30 Reading Location: [facility] Radiology Readin g Room Procedure Note Interface, External Ris In - 11/25/2019 2:55 PM [employer] OR [employer] OBSERVER FINAL REPORT INDICATION: picc placement TECHNIQUE: Chest radiograph, single view, portable technique. FINDINGS / IMPRESSION: Comparison to November 18. There is a new right PICC line which terminates in the low SVC. As before there is a multilumen left internal jugular line which also terminates in the low SVC. Heart shadow is enlarged and there is median sternotomy and a coronary stent. No pulmonary edema, discrete pneumonia, pneumothorax, or pleural effusion demonstrated. Signed: Sebastian Lewis MD Report Verified Date/Time: 11/25/2019 14:34:30 Reading Location: [facility] Radiology Reading Room Performing Organization Address City/[facility] Ph one Number GE RIS * pH, venous (11/24/2019 8:46 PM [employer]ERY OR [employer] OBSERVER) Only the most recent of 5 results within the time period is included. pH, Courtney 7.40 7.32 - 7.42 [facility] Specimen Blood Performing Organization Address City/[facility] Ph one Number [facility] [address] [place] [address] MEDICAL CENTER * Calcium, Ionized (11/23/2019 3:49 PM ARTILLERY OR [employer] OBSERVER) Only the most recent of 28 results within the time period is included. Calcium, Ion 1.19 1.12 - 1.27 mmol/L [facility] pH, Blood 7.46 [facility] Specimen Blood Performing Organization Address [facility] Ph one Number [address] 0 [phone] [place] [address] * Hemoglobin and hematocrit (11/23/2019 12:56 PM ARTILLERY OR [employer] OBSERVER) Hemoglobin 9.3 (L) 13.7 - 17.5 GM/DL [facility] Hematocrit 28.5 (L) 40.1 - 51.0 % [facility] Specimen Blood Narrative Performed At Tire Fixer ID - [id number] [facility] Performing Organization Address [facility] one [place] [address] [phone] [place] [address] * Lactic acid, venous (11/23/2019 12:56 PM ARTILLERY OR [employer] OBSERVER) Lactate, Venous 0.7 0.5 - 2.2 mmol/L [facility] Specimen Blood Narrative Performed At Tire Fixer ID - [facility] Performing Organization Address [facility] one [place] [address] 0 [phone] [place] [address] * Potassium (11/23/2019 12:56 PM ARTILLERY OR [employer]AL [employer] OBSERVER) Only the most recent of 34 results within the time period is included. Potassium 4.9 3.5 - 5.1 meq/L [facility] Specimen Blood Narrative Performed At Tire Fixer ID - OLIVIAG [facility] Performing Organization Address [facility] one [place] [address] [phone] [place] [address] * CORTISOL,60 MIN (11/23/2019 12:32 PM ARTILLERY OR [employer]AL [employer] OBSERVER) Cortisol, 11.2 mcg/dL [facility] Cortisol 30 19.0 mcg/dL [facility] Cortisol, 60 19.7 ug/dL [facility] Specimen Blood Narrative Performed At ACTH STIMULATION TEST INTERPRETATION GUIDELINES [facility] (Synonyms: Cortrosyn Test, Cosyntropin or Corticotrop in Stimulation Test) [facility] Adenocorticotropic hormone (ACTH)is a t ropic hormone, made in the pituitary gland, which travels trhough the bloods tream and stimulates the cortex of the adrenal glands to release cortisol. Cor tisol is a primary hormone, which aids the body's metabolism of fats, carbohyd rates, and protein as well as sodium and potassium regulation. ACTH Stimulation Test: Exogenous admini stration of biologically active ACTH stimulates the secretion of cortisol fr om the adrenal gland. This test is used to evaluate adrenal function by measuri ng cortisol levels at baseline and at 30 and 60 minutes after the administration of 250 micrograms of cosyntropin (Cortrosyn). Patients who have received exogenous corticosteroids immediately prior to performing the ACTH Stimulatio n Test will often have elevated baseline cortisol levels, which may lead to erro neous interpretation of test results. The notable exception is with dexamethasone . Normal Response: An increase in cortiso l after stimulation by ACTH is normal. Post-stimulation cortisol concentration should be greater than 20 mcg/dL or the rate of rise from baseline cortisol asha uld be greater than or equal to 9 mcg/dL. Patients with sepsis or septic shock: A ccording to a study by Arden et al (ALICIA 2000,283(8):1038-45), the ACTH Stimulat ion Test provides important prognostic information. This study defined 3 group s of patients with sepsis or septic shock: 1. Good Survival: Low basal cortisol (<or=34 mcg/dL) and high ACTH response (>9mcg/dL) 2. Intermediate Survival: Low basal cortisol (<34 mcg/dL) and low response to ACTH (<or=9 mcg/dL) OR High basal cortisol (>34 mcg/dL ) or high ACTH response (>9 mcg/dL) 3. Poor Survival: High basal cortis ol (>34 mcg/dL) and low ACTH response (<or=9 mcg/dL). Treatment of patients with relative adr enal dysfunction may be indicated based on test results and the clinical condit ion of the patient. Additional information, including treatment recomm endations, is available in critically ill patients, approved by the Pharmacy, Nut rition, and Therapeutics Committee on 09/13/2004 and available through the [facility] Policy and Procedure Section on The Source. Tire Fixer ID - [id number] Performing Organization Address City/State/Zipcode Ph one Number [place] [phone] [place], [place] [address] MEDICAL CENTER * CORTISOL,30 MIN (11/23/2019 11:49 AM ARTILLERY OR [employer]AL [employer] OBSERVER) Cortisol, 11.2 mcg/dL [facility] Cortisol, 30 19.0 ug/dL [facility] Specimen Blood Narrative Performed At ACTH STIMULATION TEST INTERPRETATION GUIDELINES [facility] (Synonyms: Cortrosyn Test, Cosyntropin or Corticotrop in Stimulation Test) [facility] Adenocorticotropic hormone (ACTH)is a t ropic hormone, made in the pituitary gland, which travels trhough the blood tream and stimulates the cortex of the adrenal glands to release cortisol. Cor tisol is a primary hormone, which aids the body's metabolism of fats, carbohyd rates, and protein as well as sodium and potassium regulation. ACTH Stimulation Test: Exogenous admini stration of biologically active ACTH stimulates the secretion of cortisol fr om the adrenal gland. This test is used to evaluate adrenal function by measuri ng cortisol levels at baseline and at 30 and 60 minutes after the administration of 250 micrograms of cosyntropin (Cortrosyn). Patients who have received exogenous corticosteroids immediately prior to performing the ACTH Stimulatio n Test will often have elevated baseline cortisol levels, which may lead to erro neous interpretation of test results. The notable exception is with dexamethasone . Normal Response: An increase in cortiso l after stimulation by ACTH is normal. Post-stimulation cortisol concentration should be greater than 20 mcg/dL or the rate of rise from baseline cortisol asha uld be greater than or equal to 9 mcg/dL. Patients with sepsis or septic shock: A ccording to a study by Arden et al (ALICIA 2000,283(8):1038-45), the ACTH Stimulat ion Test provides important prognostic information. This study defined 3 group s of patients with sepsis or septic shock: 1. Good Survival: Low basal cortisol (<or=34 mcg/dL) and high ACTH response (>9mcg/dL) 2. Intermediate Survival: Low basal cortisol (<34 mcg/dL) and low response to ACTH (<or=9 mcg/dL) OR High basal cortisol (>34 mcg/dL ) or high ACTH response (>9 mcg/dL) 3. Poor Survival: High basal cortis ol (>34 mcg/dL) and low ACTH response (<or=9 mcg/dL). Treatment of patients with relative adr enal dysfunction may be indicated based on test results and the clinical condit ion of the patient. Additional information, including treatment recomm endations, is available in critically ill patients, approved by the Pharmacy, Nut rition, and Therapeutics Committee on 09/13/2004 and available through the [facility] Policy and Procedure Section on The Source. Tire Fixer ID - SUJIT Bernadr Performing Organization Address City/State/Zipcode Ph one Number [place] [address] [facility] * CORTISOL,BASELINE (11/23/2019 11:11 AM ARTILLERY OR [employer]AL [employer] OBSERVER) Cortisol, 11.2 ug/dL [facility] Specimen Blood Narrative Performed At ACTH STIMULATION TEST INTERPRETATION GUIDELINES [facility] (Synonyms: Cortrosyn Test, Cosyntropin or Corticotrop in Stimulation Test) [facility] Adenocorticotropic hormone (ACTH)is a t ropic hormone, made in the pituitary gland, which travels trhough the bloods tream and stimulates the cortex of the adrenal glands to release cortisol. Cor tisol is a primary hormone, which aids the body's metabolism of fats, carbohyd rates, and protein as well as sodium and potassium regulation. ACTH Stimulation Test: Exogenous admini stration of biologically active ACTH stimulates the secretion of cortisol fr om the adrenal gland. This test is used to evaluate adrenal function by measuri ng cortisol levels at baseline and at 30 and 60 minutes after the administration of 250 micrograms of cosyntropin (Cortrosyn). Patients who have received exogenous corticosteroids immediately prior to performing the ACTH Stimulatio n Test will often have elevated baseline cortisol levels, which may lead to erro neous interpretation of test results. The notable exception is with dexamethasone . Normal Response: An increase in cortiso l after stimulation by ACTH is normal. Post-stimulation cortisol concentration should be greater than 20 mcg/dL or the rate of rise from baseline cortisol asha uld be greater than or equal to 9 mcg/dL. Patients with sepsis or septic shock: A ccording to a study by Arden et al (ALICIA 2000,283(8):1038-45), the ACTH Stimulat ion Test provides important prognostic information. This study defined 3 group s of patients with sepsis or septic shock: 1. Good Survival: Low basal cortisol (<or=34 mcg/dL) and high ACTH response (>9mcg/dL) 2. Intermediate Survival: Low basal cortisol (<34 mcg/dL) and low response to ACTH (<or=9 mcg/dL) OR High basal cortisol (>34 mcg/dL ) or high ACTH response (>9 mcg/dL) 3. Poor Survival: High basal cortis ol (>34 mcg/dL) and low ACTH response (<or=9 mcg/dL). Treatment of patients with relative adr enal dysfunction may be indicated based on test results and the clinical condit ion of the patient. Additional information, including treatment recomm endations, is available in critically ill patients, approved by the Pharmacy, Nut rition, and Therapeutics Committee on 09/13/2004 and available through the [facility] Policy and Procedure Section on The Source. Tire Fixer ID - CRESTON Marco Antonio Performing Organization Address [facility] Ph one Number [place] [address] [facility] * Sodium (11/23/2019 8:48 AM [employer]ILLERY OR [employer] OBSERVER) Only the most recent of 10 results within the time period is included. Sodium 138 136 - 145 meq/L [facility] Specimen Blood Narrative Performed At Tire Fixer ID - [facility] Performing Organization Address City/[facility] Ph one Number [address] [address] [facility] * Phosphorus (11/23/2019 8:48 AM ARTILLERY OR [employer] OBSERVER) Only the most recent of 19 results within the time period is included. Phosphorus 1.9 (L) 2.3 - 4.7 mg/dL [facility] Specimen Blood Narrative Performed At Tire Fixer ID - SUJIT Bernard [facility] Performing Organization Address [facility] Ph one Number [place] [address] [facility] * Hepatic function panel (11/22/2019 11:02 PM ARTILLERY OR [employer] OBSERVER) Only the most recent of 3 results within the time period is included. Protein, Total 5.3 (L) 6.0 - 8.3 gm/dL [facility] Albumin 3.1 (L) 3.5 - 5.0 g/dL [facility] Total Bilirubin 0.7 0.2 - 1.2 mg/dL [facility] Bilirubin, 0.3 0.1 - 0.5 mg/dL [facility] Alkaline 230 (H) 40 - 150 U/L [facility] AST 33 5 - 34 U/L [facility] ALT 34 6 - 55 U/L [facility] Specimen Blood Narrative Performed At Tire Fixer ID - DB [facility] Performing Organization Address [facility] Ph one Number [place] [address] [facility] * pH, arterial (11/22/2019 3:35 AM ARTILLERY OR [employer] OBSERVER) Only the most recent of 6 results within the time period is included. pH, Arterial 7.43 7.35 - 7.45 [facility] Specimen Blood, Arterial Performing Organization Address City/[facility] Ph one Number [address] [address] [facility] * Troponin I (11/19/2019 4:08 AM [employer]ILLERY OR [employer] OBSERVER) Only the most recent of 10 results within the time period is included. Troponin I 19.85 (HH) 0.00 - 0.03 ng/mL [facility] Specimen Blood Narrative Performed At Troponin I (TnI) levels must be interpreted in the co ntext of the presenting [facility] symptoms and the clinical findings. Elevated TnI leve ls indicate myocardial [facility] damage, but are not specific for ischem ic heart disease. Elevated TnI levels are seen in patients with other cardiac con ditions (including myocarditis and congestive heart failure), and slight T nI elevations occur in patients with other conditions, including sepsis, candace al failure, acidosis, acute neurological disease, and persistent tachyarrhythmia . Tire Fixer ISRAEL Montalvo Performing Organization Address [facility] one [address] [address] [facility] * POC-Glucose meter (11/17/2019 10:36 PM ARTILLERY OR [employer] OBSERVER) Only the most recent of 7 results within the time period is included. POC-Glucose 147 (H)Comment: : TESTED AT 70 - 110 mg/dL [facility] Meter [address] [address]: Tire Fixer/Audiovisual Technician ID [facility] = [id number] for SAENZ, AUDREY Specimen Blood Performing Organization Address [facility] one [address] [address] [facility] * Vancomycin level, trough (11/17/2019 10:23 AM [employer]ERY OR [employer] OBSERVER) Vancomycin Tr 13.2 10.0 - 20.0 ug/mL [facility] Specimen Blood Narrative Performed At Tire Fixer ISRAEL Montalvo [facility] Performing Organization Address [facility] one [address] [facility] * POC ACTIVATED CLOTTING TIME (11/15/2019 10:13 PM ARTILLERY OR [employer] OBSERVER) Only the most recent of 6 results within the time period is included. Activated 131Comment: Reference Range: sec [facility] Clotting Time 74-137 seconds, [facility] Baseline/TESTED AT [facility] [address] [facility] [id number] Specimen Blood Performing Organization Address City/State/Zipcode Ph one Margarita [facility] [address] [place], [place] [address] [facility]ENTER * NM PET/CT Cardiac Viability/Metabolism (11/14/2019 3:45 PM ARTILLERY OR [employer] OBSERVER) Specimen Narrative Performed At FINAL REPORT [employer] PROCEDURE: MYOCARDIAL METABOLISM PET IM AGING with MYOCARDIAL PERFUSION PET IMAGING (Rest-Only) CPT CODE: 63073 INDICATION: Evaluate myocardial viabili ty prior to possible revascularization, known CAD status pos t ACB, chest pain, ventricular tachycardia CARDIOVASCULAR PROFILE: CAD History: Known CAD status post ACB Symptoms: Chest pain Risk Factors: ESRD BMI: 30 IMAGING PROTOCOL: Limited low-dose CT imaging was perform ed for attenuation correction. 40.1 mCi of Rb-82 chloride was injected intravenously at rest, and gated PET images were obtained. Then, d extrose and insulin were administered intravenously per protocol , and 10.7 mCi of F-18 FDG was injected intravenously at rest. Limited low-dose CT imaging was repeated for attenuation correction, an d PET images were obtained. REST FINDINGS: Perfusion: There is a marked severity p erfusion defect of all lateral segments and basal to mid anterior segm ents. Metabolism: Absence of FDG uptake in th e basal to apical inferolateral segments. Wall Motion: Marked hypokinesis of the inferolateral wall. The remaining segments are mildly to modera tely hypokinetic. (LVEF 35-40%%). LV Volume: Increased. RV Volume: Increased. IMPRESSION: 1. Abnormal study. 2. Abnormal myocardial perfusion. There is a large size, marked severity perfusion abnormality in the l ateral and anterior LV. 3. Abnormal myocardial metabolism. Ther e is a large size, marked severity abnormality of glucose metabol ism in the inferolateral LV. 4. Moderately decreased resting LVEF. 5. Normal extracardiac tracer distribut ion. 6. In conclusion, the inferolateral LV is not viable. Remainder of the LV appears viable. 7. There is no prior study for comparis on. Signed: Parker Gan MD Report Verified Date/Time: 11/14/2019 17:03:27 Reading Location: [facility] 3rd Flr [id number] Nuc Med Reading Room Procedure Note Interface, External Ris In - 11/14/2019 5:05 PM ARTILLERY OR [employer] OBSERVER FINAL REPORT PROCEDURE: MYOCARDIAL METABOLISM PET IMAGING with MYOCARDIAL PERFUSION PET IMAGING (Rest-Only) CPT CODE: 39155 INDICATION: Evaluate myocardial viability prior to possible revascularization, known CAD status post ACB, chest pain, ventricular tachycardia CARDIOVASCULAR PROFILE: CAD History: Known CAD status post ACB Symptoms: Chest pain Risk Factors: ESRD BMI: 30 IMAGING PROTOCOL: Limited low-dose CT imaging was performed for attenuation correction. 40.1 mCi of Rb-82 chloride was injected intravenously at rest, and gated PET images were obtained. Then, dextrose and insulin were administered intravenously per protocol, and 10.7 mCi of F-18 FDG was injected intravenously at rest. Limited low-dose CT imaging was repeated for attenuation correction, and PET images were obtained. REST FINDINGS: Perfusion: There is a marked severity perfusion defect of all lateral segments and basal to mid anterior segments. Metabolism: Absence of FDG uptake in the basal to apical inferolateral segments. Wall Motion: Marked hypokinesis of the inferolateral wall. The remaining segments are mildly to moderately hypokinetic. (LVEF 35-40%%). LV Volume: Increased. RV Volume: Increased. IMPRESSION: 1. Abnormal study. 2. Abnormal myocardial perfusion. There is a large size, marked severity perfusion abnormality in the lateral and anterior LV. 3. Abnormal myocardial metabolism. There is a large size, marked severity abnormality of glucose metabolism in the inferolateral LV. 4. Moderately decreased resting LVEF. 5. Normal extracardiac tracer distributi on. 6. In conclusion, the inferolateral LV i s not viable. Remainder of the LV appears viable. 7. There is no prior study for compariso n. Signed: Parker Gan MD Report Verified Date/Time: 11/14/2019 17:03:27 Reading Location: [facility] 3rd Flr P327B Nuc Med Reading Room Performing Organization Address City/State/Zipcode Ph one Number [facility] * Hepatitis B surface antigen (11/14/2019 4:28 AM [employer]ILLERY OR [employer] OBSERVER) HBsAg Screen Nonreactive Nonreactive [facility] Specimen Blood Narrative Performed At Tire Fixer ID - LM [facility] Performing Organization Address [facility] one Number [address] [facility] * Blood gas, arterial (11/13/2019 10:14 PM ARTILLERY OR [employer] OBSERVER) pH, Arterial 7.36 7.35 - 7.45 [facility] pCO2, Arterial 42 35 - 45 mmHg [facility] pO2, Arterial 94 (H) 80 - 90 mmHg [facility] O2 Sat, 96.8 96.0 - 97.0 % [facility] HCO3, Arterial 23 21 - 29 mmol/L [facility] Base Excess, -2.2 (L) -2.0 - 3.0 mmol/L [facility] Patient 37.3 C [facility] FIO2 28.0 % [facility] Specimen Blood, Arterial Performing Organization Address [facility] Ph one Number [address] [facility] * Lactic Acid, Arterial (11/13/2019 10:11 PM ARTILLERY OR [employer] OBSERVER) Lactate, Art 1.0 0.5 - 2.2 mmol/L [facility] Specimen Blood, Arterial Narrative Performed At Tire Fixer ID - KEITH [facility] Performing Organization Address [facility] Ph one Number [address] [facility] * ECHOCARDIOGRAM REPORT - SCAN (11/13/2019 9:11 PM ARTILLERY OR [employer] OBSERVER) Narrative Performed At This result has an attachment that is n ot available. 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 Clinical History HGB 11.1 HCT 32.8 % CAD ESRD HX OF CORONARY ARTERY BYPASS SURGERY Contrast Medium: Definity. Amount - 2 m l Height: 67 inches Weight: 80.29 kg (177 lbs) BSA: 1.92 m^2 BMI: 27.72 kg/m^2 HR: 81 bpm BP: 107/67 mmHg Summary The left ventricle is chamber size (by vol index) is moderately enlarged (male - LVED vol 90-100ml.m2) . The fol lowing segment(s) appear hypokinetic: basal-mid lateral, basal-m id inferolateral. LVEF by Alcocer's method of disk assessment is mildly red uced (45-49%) . Diastolic dysfunction is likely due to concomitant heart disease. Estimated peak systolic PA pressure is 35-40 mmHg . RV chamber size is moderately enlarged . Global RV systolic function is low normal . Previous Study No prior exam available for comparison. Signature Findings Left Ventricle The left courtney tricle is chamber size (by vol index) is m oderately enlarged (male - LVED vol 90-1 00ml.m2) . No e vidence of LV hypertrophy. The following segment(s) appear hypokinetic: basa l-mid lateral, basal-mid inferolateral. Sept al motion is abnormal, likely related to prior card iac surgery . Glob al LV systolic function mildly reduced . LVEF by Alcocer's method of disk assessment is mild ly reduced (45-49%) . The LVEF was measured using Alcocer's bi-plane meth od of disk . LV e ndocardium is adequately visualized with IV ultr asound enhancing agent. Mcfarland tolic dysfunction is likely due to concomitant hear t disease. Left Atrium LA size is moderately enlarged (42-48 ml/m2) . Right Ventricle RV chamber s ize is moderately enlarged . Glob al RV systolic function is low normal . Right Atrium RA cavity s ize is mildly enlarged . Aortic Valve Normal AoV structure and function. Mitral Valve Mild-to-mod erate mitral annular calcification. Mild MV leaflet thickening. Mild mitral regurgitation. Tricuspid Valve Mild tricusp id regurgitation. Shakila mated peak systolic PA pressure is 35-40 mmHg . Pulmonic Valve Normal PV st ructure and function. Mild pulmonary regurgitation. Aorta Aortic root size (Sinus of Valsalva diameter) is mild ly dilated. 4 cm Pericardium No signifi cant pericardial effusion is visualized. IVC/SVC/PA/PV/Pleural Pulmonary vein flow is consistent with increased LAP . The estimated RA pressure by IVC dynamics 5-10mmHg . Chambers/Structures Left Atrium LA Volume: 89.8 ml LA Area: 26.32 cm^2 LA Vol. Index: 47 ml/m^2 Left Ventricle LVIDd: 5.56 cm LV Septum Diastolic: 1.13 cm LV PW Diastolic: 1.11 cm LVEDV Alcocer's:181.91 ml LVESV Alcocer's:95.78 ml LVEF Alcocer's: 47.4 % LVEDVI: 95 ml/m^2 LVESVI: 50 ml/m^2 LVOT Diameter: 2.33 cm Right Atrium RA Vol. (Sngl Plane): 89.97 ml Right Ventricle RVOT VTI: 9.96 cm TAPSE: 1.3 cm Aorta Ao Root S of Iesha.: 4.04 cm Doppler/Quantitative Measurements Mitral Valve MV Peak E-Wave: 0.71 m/s MV Peak A-Wave: 0.62 m/s E/A Ratio: 1.14 Peak Gradient: 2.01 mmHg Deceleration Time: 204.9 msec MV Valentin. Peak: Tissue Doppler E' Lateral Velocity: 0.08 m/s Aortic Valve Peak Velocity: 0.96 m/s Mean Velocity: 0.68 m/s Peak Gradient: 3.67 mmHg Mean Gradient: 2.07 mmHg AV Area (continuity): 3.55 cm^2 AV VTI: 17.48 cm AV DVI: 0.83 LVOT Peak Velocity: 0.7 m/s Peak Gradient: 1.97 mmHg Mean Velocity: 0.43 m/s Mean Gradient: 0.93 mmHg LVOT Diameter: 2.33 cm LVOT VTI: 14.58 cm LVOT Area: 4.26 cm^2 LVOT SV:62.14 ml LVOT CO: 5.03 l/min LVOT CI: 2.62 l/min/m^2 Tricuspid Valve TR Velocity: 2.63 m/s TR Gradient: 27.68 mmHg Procedure Note Interface, External Ris In - 11/13/2019 3:16 PM ARTILLERY OR [employer] OBSERVER Transthoracic Echocardiography Report (TTE) Demographics Patient Name MATHEUS BOB Date of Study 11/13/2019 YULISA Gender Male Visit Number [id number] Race Unknown Room Number 6211 Number Date of 1960 Referring Johnathan Alcocer MD Physician Age 59 year(s) 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 Clinical History HGB 11.1 HCT 32.8 % CAD ESRD HX OF CORONARY ARTERY BYPASS SURGERY Contrast Medium: Definity. Amount - 2 ml Height: 67 inches Weight: 80.29 kg (177 lbs) BSA: 1.92 m^2 BMI: 27.72 kg/m^2 HR: 81 bpm BP: 107/67 mmHg Summary The left ventricle is chamber size (by vol index) is moderately enlarged (male - LVED vol 90-100ml.m2) . The following segment(s) appear hypokinetic: basal-mid lateral, basal-mid inferolateral. LVEF by Alcocer's method of disk assessment is mildly reduced (45-49%) . Diastolic dysfunction is likely due to concomitant heart disease. Estimated peak systolic PA pressure is 35-40 mmHg . RV chamber size is moderately enlarged . Global RV systolic function is low normal . Previous Study No prior exam available for comparison. Signature Findings Left Ventricle The left ventricle is chamber size (by vol index) is moderately enlarged (male - LVED vol 90-100ml.m2) . No evidence of LV hypertrophy. The following segment(s) appear hypokinetic: basal-mid lateral, basal-mid inferolateral. Septal motion is abnormal, likely related to prior cardiac surgery . Global LV systolic function mildly reduced . LVEF by Alcocer's method of disk assessment is mildly reduced (45-49%) . The LVEF was measured using Alcocer's bi-plane method of disk . LV endocardium is adequately visualized with IV ultrasound enhancing agent. Diastolic dysfunction is likely due to concomitant heart disease. Left Atrium LA size is moderately enlarged (42-48 ml/m2) . Right Ventricle RV chamber size is moderately enlarged . Global RV systolic function is low normal . Right Atrium RA cavity size is mildly enlarged . Aortic Valve Normal AoV structure and function. Mitral Valve [id number] mitral annular calcification. Mild MV leaflet thickening. Mild mitral regurgitation. Tricuspid Valve Mild tricuspid regurgitation. Estimated peak systolic PA pressure is 35-40 mmHg . Pulmonic Valve Normal PV structure and function. Mild pulmonary regurgitation. Aorta Aortic root size (Sinus of Valsalva diameter) is mildly dilated. 4 cm Pericardium No significant pericardial effusion is visualized. IVC/SVC/PA/PV/Pleural Pulmonary vein flow is consistent with increased LAP . The estimated RA pressure by IVC dynamics 5-10mmHg . Chambers/Structures Left Atrium LA Volume: 89.8 ml LA Area: 26.32 cm^2 LA Vol. Index: 47 ml/m^2 Left Ventricle LVIDd: 5.56 cm LV Septum Diastolic: 1.13 cm LV PW Diastolic: 1.11 cm LVEDV Alcocer's:181.91 ml LVESV Alcocer's:95.78 ml LVEF Alcocer's: 47.4 % LVEDVI: 95 ml/m^2 LVESVI: 50 ml/m^2 LVOT Diameter: 2.33 cm Right Atrium RA Vol. (Sngl Plane): 89.97 ml Right Ventricle RVOT VTI: 9.96 cm TAPSE: 1.3 cm Aorta Ao Root S of Iesha.: 4.04 cm Doppler/Quantitative Measurements Mitral Valve MV Peak E-Wave: 0.71 m/s MV Peak A-Wave: 0.62 m/s E/A Ratio: 1.14 Peak Gradient: 2.01 mmHg Deceleration Time: 204.9 msec MV Valentin. Peak: Tissue Doppler E' Lateral Velocity: 0.08 m/s Aortic Valve Peak Velocity: 0.96 m/s Mean Velocity: 0.68 m/s Peak Gradient: 3.67 mmHg Mean Gradient: 2.07 mmHg AV Area (continuity): 3.55 cm^2 AV VTI: 17.48 cm AV DVI: 0.83 LVOT Peak Velocity: 0.7 m/s Peak Gradient: 1.97 mmHg Mean Velocity: 0.43 m/s Mean Gradient: 0.93 mmHg LVOT Diameter: 2.33 cm LVOT VTI: 14.58 cm LVOT Area: 4.26 cm^2 LVOT SV:62.14 ml LVOT CO: 5.03 l/min LVOT CI: 2.62 l/min/m^2 Tricuspid Valve TR Velocity: 2.63 m/s TR Gradient: 27.68 mmHg Performing Organization Address City/State/Zipcode Ph one Number [facility] * aPTT (11/13/2019 9:23 AM ARTILLERY OR [employer] OBSERVER) Only the most recent of 2 results within the time period is included. PTT 107.1 (H) 22.5 - 36.0 seconds [facility] Specimen Blood Performing Organization Address [facility] Ph one Number [facility] [address] [place], [place] [address] [facility] * Prothrombin time/INR (11/13/2019 6:40 AM ARTILLERY OR [employer] OBSERVER) Protime 15.4 (H) 11.9 - 14.2 seconds [facility] INR 1.3 <=5.9 [facility] Specimen Blood Narrative Performed At Effective 03/02/2019: PT Reference Range Change [facility] New: 11.9-14.2 Previous: 11.7-14.7 [facility] TER RECOMMENDED COUMADIN/WARFARIN INR THERA PY RANGES STANDARD DOSE: 2.0-3.0 Includes: PROP HYLAXIS for venous thrombosis, systemic embolization; TREATMENT for venous thro mbosis and/or pulmonary embolus. HIGH RISK: Target INR is 2.5-3.5 for pa tients wiht mechanical heart valves. Performing Organization Address [place] [place] one Number [address] [facility] after 08/17/2019 Insurance Type Payer Benefit Subscriber ID Effective Phone Address Plan / Dates Group Medicare MEDICARE MEDICARE A [id number] 2011-P B resent HMO/POS [facility] [id number] 19 20-P CARE POS SELECT resent CHOICE [phone] (Home) [place] [address] Advance Directives For more information, please contact: [phone] Date Inactivated Comments Code Status Date Activated 12/02/2019 3:44 PM DNAR 11/19/2019 11:28 AM This code status was determined by: Patient Has the consent form been signed? Yes Have you Written ACP Note: Yes 11/19/2019 11:28 AM Full Code 11/15/2019 2:47 PM This code status was determined by: Patient 11/15/2019 2:47 PM Full Code 11/13/2019 4:58 AM This code status was determined by: Patient
--- OUTSIDE RECORDS SUMMARY | 2020-08-17 22:28 | XMS REPORT | Continuity of Care Document ---
Author Author [facility]MARISA Organization [facility] Address Unknown Phone Unavailable Care Team Providers Care Monument Carver Name Role Phone [facility] Unavailable Un available Problems Problem Status Onset Date Classification Date Reported Comments Source Gastro-esophageal reflux disease without esophagitis 12/22/2017 03/03/2018 [facility] BDDC/ K21.9 GERD Active 11/06/2017 [facility] WOUND CARE Active 09/16/2017 [facility] Discharge Diagnosis: Shingles 06/17/2014 06/19/2014 [facility] RASH Active 06/15/2014 [facility] BDDC/ ESOPHAGEAL REFLUX Active 03/06/2014 [facility] 516.8 BOOP (BRONCHIOLITIS OBLITERANS [place] Active 11/08/2013 [facility] LEG SWELLING Active 10/11/2013 [facility] LUNG NODULE, Active 06/10/2012 [facility] LUNG NODULE Active 06/10/2012 [facility] SBO Active 0 05/04/2012 [facility] SYNCOPE Active 05/04/2012 [facility] ABDOMINAL PAIN/ VOMITING Active 04/28/2012 [facility] Benign hypertension (disorder) Active 10/07/2011 Problem 03/03/2018 Data migrated from GE Heliaecity on 03/03. [facility] Coronary arteriosclerosis (disorder) Active 10/07/2011 Problem 03/03/2018 Data migrated from GE Centricity on 03/03. [facility] End stage renal disease (disorder) Active 10/07/2011 Problem 03/03/2018 Data migrated from GE Centricity on 03/03. [facility] Hyperlipidemia (disorder) Acti ve 10/07/2011 Problem 03/03/2018 Data migrated from GE Centricity on 03/03. [facility] Multiple renal cysts (disorder) Active 10/07/2011 Problem 03/03/2018 Data migrated from GE Centricity on 03/03. [facility] Pericardial effusion (disorder) Active 10/07/2011 Problem 03/03/2018 Data migrated from Sabirmedical on 03/03. [facility] Pleural effusion (disorder) Ac tive 10/07/2011 Problem 03/03/2018 Data migrated from Zurn on 03/03. [facility] Ulcerative colitis (disorder) Active 10/07/2011 Problem 03/03/2018 Data migrated from Zurn on 03/03. [facility] Hypotension due to drugs Active Problem 06/17/2012 [facility] Kidney transplant Active Problem 06/17/2012 [facility] outhea N&V - Nausea and vomiting Acti ve Problem [facility] out[facility] PCK - Polycystic kidney disease Active Problem [facility] Hernia of abdominal cavity (disorder) Active Problem [facility] End stage renal failure on dialysis (disorder) Active Problem 03/03/2018 [facility] History of - coronary artery bypass sudha ting (context-dependent category) Resolved Problem 03/03/2018 [facility] Drug-induced hypotension (disorder) Active Problem [facility] Transplant of kidney (procedure) Active Problem [facility] Kidney transplant recipient (finding) Resolved Problem 03/03/2018 [facility] Nausea and vomiting (disorder) Active Problem [facility] Congenital cystic kidney disease (disorder) Active Problem 03/03/2018 [facility] INTESTINAL OBSTRUCT NOS Active [facility] EDEMA Active [facility] ALVEOL PNEUMONOPATHY NEC Active [facility] UNK Active [facility] SHORTNESS OF BREATH Active [facility] Medications Medication Details Route Status Patient Instructions Ordering Provider Order Date Source Cykl[place]ron Notes: (Same As: C yklokapron) Inactive 09/17/2017 [facility] Sodium Chloride 0.9% (titrate) 250 mL 250 mL, Rate: Olive Brine Tester for use with blood product administration., Dosing Weight 97.727, kg, Route: IV, Total Volume: 250, Priority: Routine, Start Date: 09/16/17 16:52:00 TIME STUDY TECHNICIAN, Duration: 1 day, Stop date: 09/17/17 16:51:00 TIME STUDY TECHNICIAN, Replace Every: 24 hr Inactive 09/16/2017 [facility] Sodium Chloride 0.9% (Bolus) IV 250 mL, 500 ml/hr, Infuse Over: 0.5 hr, Route: IV, 250, Drug form: INJ, ONCE, Priority: STAT, Dosing Weight 97.727 kg, Start date: 09/16/17 16:52:00 TIME STUDY TECHNICIAN, Stop date: 09/16/17 16:52:00 TIME STUDY TECHNICIAN Inactive 09/16/2017 [facility] predniSONE 20 mg oral tablet 2 0 mg = 1 tab, PO, Daily, # 5 tab, 0 Refill(s) Active 06/17/2014 [facility] acyclovir 400 mg oral tablet 4 00 mg = 1 tab, PO, Daily, # 3 tab, 0 Refill(s) Active 06/17/2014 [facility] Vital-D 1 tab, Route: PO, Drug Form: TAB, Daily, Start date: 05/19/12 9:00:00, Duration: 30 day, Stop date: 06/17/12 9:00:00 PO No Longer Active Chari 05/19/2012 [facility] metoprolol tartrate 25 mg, Rou te: PO, Drug form: TAB, Daily, Start date: 05/19/12 9:00:00, Duration: 30 day, Stop date: 06/17/12 9:00:00 PO No Longer Active Chari 05/19/2012 [facility] nter Sensipar 60 mg, Route: PO, [place] g form: TAB, Daily, Start date: 05/19/12 9:00:00, Duration: 30 day, Stop date: 06/17/12 9:00:00 PO No Longer Active Chari 05/19/2012 [facility] Asacol 800 mg, Route: PO, Drug form: ECTAB, TID, Start date: 05/18/12 17:00:00, Duration: 30 day, Stop date: 06/17/12 13:00:00 PO No Longer Active Chari 05/18/2012 [facility] MiraLax oral powder for reconstitution 17 gm, PO, Daily, PRN, 30 pkt, constipation, Substitution Allowed PO Active [facility] 05/18/2012 [facility] Colace 100 mg oral capsule 100 mg, 1 cap, PO, BID, 60 cap, 2, 2, Substitution Allowed, CAP PO Active [facility] 05/18/2012 [facility] tramadol 50 mg oral tablet 50 mg, 1 tab, PO, Q6H, PRN, 120 tab, as needed for pain, Substitution Allowed, TAB PO Active [facility] 05/18/2012 [facility] Renagel 800 mg oral tablet 1,6 00 mg, 2 tab, PO, TID, 120 tab, Substitution Allowed, TAB PO Active [facility] 05/18/2012 [facility] nter Vital-D oral tablet 1 tab, PO, Daily, 30 tab, Substitution Allowed, Soft Stop, TAB PO Active [facility] 05/18/2012 [facility] nter metoprolol 25 mg oral tablet 2 5 mg, 1 tab, PO, Daily, 30 tab, Substitution Allowed, TAB PO Active [facility] 05/18/2012 [facility] nter Asacol 400 mg oral enteric coated tablet 800 mg, 2 tab, PO, TID, 60 tab, Substitution Allowed, ECTAB PO Active [facility] 05/18/2012 [facility] omeprazole 20 mg oral enteric coated tablet 20 mg, 1 tab, PO, Daily, 30 tab, Substitution Allowed, ECTAB PO Active [facility] 05/18/2012 [facility] Sensipar 60 mg oral tablet 60 mg, 1 tab, PO, Daily, 30 tab, Substitution Allowed, TAB PO Active [facility] 05/18/2012 [facility] nter tramadol 50 mg oral tablet 50 mg, 1 tab, PO, Q6H, PRN, 120 tab, 0, 0, as needed for pain, Substitution Allowed, TAB PO On Hold [facility] 05/18/2012 [facility] MiraLax oral powder for reconstitution 17 gm, PO, Daily, PRN, 30 pkt, constipation, Substitution Allowed PO No Longer Active [facility] 05/18/2012 [facility] Colace 100 mg oral capsule 100 mg, 1 cap, PO, BID, 60 cap, 2, 2, Substitution Allowed, CAP PO No Longer Active Ramos Bravo 05/18/2012 [facility] Vital-D 1 tab, Route: PO, Jaswinder y, Start date: 05/18/12 9:00:00, Duration: 30 day, Stop date: 06/16/12 9:00:00 PO No Longer Active Chari 05/18/2012 [facility] Sensipar 60 mg, 1 tab, Route: PO, Drug form: TAB, Daily, Start date: 05/18/12 9:00:00, Duration: 30 day, Stop date: 06/16/12 9:00:00 PO No Longer Active ReggieShelly 05/18/2012 [facility] Colace 100 mg oral capsule 100 mg, 1 cap, Route: PO, Drug form: CAP, BID, Start date: 05/18/12 9:00:00, Duration: 30 day, Stop date: 06/16/12 17:00:00 PO No Longer Active ReggieShelly 05/18/2012 [facility] nter tramadol 50 mg oral tablet 50 mg, 1 tab, Route: PO, Drug form: TAB, Q6H, PRN as needed for pain, Start date: 05/18/12 8:41:00, Duration: 30 day, Stop date: 06/17/12 8:40:00 PO No Longer Active Ramos Bravo 05/18/2012 [facility] MiraLax 17 gm, 1 pkt, Route: P O, Drug form: PWDR, Daily, PRN Constipation, Start date: 05/18/12 8:38:00, Duration: 30 day, Stop date: 06/17/12 8:37:00 PO No Longer Active Chari 05/18/2012 [facility] nter Zocor 20 mg, Route: PO, Bedtim e, Start date: 05/17/12 21:00:00, Duration: 30 day, Stop date: 06/15/12 21:00:00 PO No Longer Active Chari 05/18/2012 [facility] metoprolol tartrate 25 mg, 1 t ab, Route: PO, Drug form: TAB, Q12H, Start date: 05/17/12 21:00:00, Duration: 30 day, Stop date: 06/16/12 9:00:00 PO No Longer Active Chari 05/18/2012 [facility] Renagel 1,600 mg, 2 tab, Route : PO, Drug form: TAB, TID, Start date: 05/17/12 17:00:00, Duration: 30 day, Stop date: 06/16/12 13:00:00 [facility] Asacol 800 mg, 2 tab, Route: P O, Drug form: ECTAB, TID, Start date: 05/17/12 17:00:00, Duration: 30 day, Stop date: 06/16/12 13:00:00 PO No Longer Active [facility] 05/17/2012 [facility] Protonix 40 mg, 1 tab, Route: PO, Drug form: ECTAB, Before Dinner, Start date: 05/17/12 16:30:00, Duration: 30 day, Stop date: 06/15/12 16:30:00 PO No Longer Active [facility] 05/17/2012 [facility] parenteral nutrition solution w/electrolytes 650 mL 650 mL, Rate: DIRECTED, Route: IV, Dosing Weight 87 kg, Total Volume: 650, Start date: 05/16/12 18:00:00, Duration: 30 hr, Stop date: 05/17/12 23:59:00 IV No [facility] MiraLax 17 gm, 1 pkt, Route: P O, Drug form: PWDR, BID, Start date: 05/16/12 12:00:00, Duration: 30 day, Stop date: 06/15/12 9:00:00 PO No Longer Active [facility] Dilaudid 0.5 mg, 0.25 mL, Rout e: IV, Drug form: INJ, Q4H, PRN Pain Score 7-10, Start date: 05/16/12 11:12:00, Duration: 30 day, Stop date: 06/15/12 11:11:00 IV No Longer Active Scerbo 05/16/2012 [facility] nt Curran 5/325 oral tablet 1 tab, Route: PO, Drug Form: TAB, Q4H, PRN Pain, Start date: 05/16/12 11:12:00, Duration: 30 day, Stop date: 06/15/12 11:11:00 PO No Longer Active Scerbo 05/16/2012 [facility] nt bisacodyl 10 mg, 1 supp, Route : [place], Drug form: SUPP, Daily, PRN as needed for constipation, Start date: 05/16/12 11:03:00, Duration: 30 day, Stop date: 06/15/12 11:02:00 [place] No Longer Active Scerbo 05/16/2012 [facility] Milk of Magnesia 30 ml, Route: PO, Drug Form: SUSP, Q6H, PRN as needed for constipation, Start date: 05/16/12 11:02:00, Duration: 30 day, Stop date: 06/15/12 11:01:00 PO No Longer Active Scerbo 05/16/2012 [facility] nt parenteral nutrition solution w/electrolytes 650 mL 650 mL, Rate: as directed, Route: IV, Dosing Weight 87 kg, Total Volume: 650, Start date: 05/15/12 18:00:00, Duration: 30 hr, Stop date: 05/16/12 23:59:00 IV No Longer Active Sloan 05/15 [facility] hydromorphone 1 mg, 0.5 mL, Ro mook: IV, Drug form: INJ, ONCE, Start date: 05/14/12 20:24:00, Stop date: 05/14/12 20:24:00 IV No Longer Active Hutton 05/15/2012 [facility] parenteral nutrition solution w/electrolytes 650 mL 650 mL, Rate: as directed, Route: IV, Dosing Weight 87 kg, Total Volume: 650, Start date: 05/14/12 18:00:00, Duration: 30 hr, Stop date: 05/15/12 23:59:00 IV No Longer Active Michele 07/2012 [facility] metoprolol 5 mg/5 ml INJ 2.5 m g, 2.5 mL, Route: IVP, Drug form: INJ, Q6H, Start date: 05/14/12 12:00:00, Duration: 30 day, Stop date: 06/13/12 6:00:00 IVP No Longer Active Chari 05/14/2012 [facility] metoprolol 5 mg/5 ml INJ 2.5 m g, 2.5 mL, Route: IVP, Drug form: INJ, Q12H, Priority: STAT, Start date: 05/13/12 18:11:00, Duration: 30 day, Stop date: 06/12/12 9:00:00 IVP No Longer Active Lambert 05/13/2012 [facility] parenteral nutrition solution w/electrolytes 650 mL 650 mL, Rate: as directed, Route: IV, Dosing Weight 87 kg, Total Volume: 650, Start date: 05/13/12 18:00:00, Duration: 30 hr, Stop date: 05/14/12 23:59:00 IV No Longer Active Lambert 06/2012 [facility] bacitracin-polymyxin B topical powder 1 appl, Route: TOP, Daily, Drug form: OINT, Start date: 05/13/12 15:30:00, Duration: 30 day, Stop date: 06/12/12 9:00:00 TOP No Longer Active [place] 05/13/2012 [facility] nter Benadryl 25 mg, Route: IVP, ON CE, PRN Insomnia, Start date: 05/12/12 22:19:00 IVP No Longer Active Brennen 05/13/2012 [facility] nter parenteral nutrition solution w/electrolytes 650 mL 650 mL, Rate: as directed, Route: IV, Dosing Weight 87 kg, Total Volume: 650, Start date: 05/12/12 18:00:00, Duration: 30 hr, Stop date: 05/13/12 23:59:00 IV No Longer Active Santana [facility] Dilaudid 0.5 mg, 0.25 mL, Rout e: IV, Drug form: INJ, Q4H, PRN Pain, Start date: 05/12/12 10:32:00, Duration: 30 day, Stop date: 06/11/12 10:31:00 IV No Longer Active Scerbo 05/12/2012 [facility] nter Saline Flush 0.9% 5 ml, Route: IVP, Drug Form: INJ, Q12H, Start date: 05/12/12 9:00:00, Duration: 30 day, Stop date: 06/10/12 21:00:00 IVP No Longer Active [place] 05/12/2012 [facility] Dilaudid 1 mg, 0.5 mL, Route: IV, Drug form: INJ, Q4H, PRN Pain, Start date: 05/12/12 6:38:00, Duration: 30 day, Stop date: 06/11/12 6:37:00 IV No Longer Active Santana 05/12/2012 [facility] albumin human 5% intravenous solution 25 gm, 500 mL, 0 ml/hr, Route: IV, Drug Form: INJ, ONCE, NOW, Start date: 05/12/12 3:31:00, Stop date: 05/12/12 3:31:00 IV No Longer Active [place] 05/12/2012 [facility] nter chlorhexidine topical 4% soap 1 appl, Route: BATHE, Q24H, Drug form: SOAP, Start date: 05/12/12 2:00:00, Duration: 30 day, Stop date: 06/10/12 2:00:00 BATHE No Longer Active [place] 05/12/2012 [facility] nter Dilaudid 1 mg, 0.5 mL, Route: IV, Drug form: INJ, ONCE, Priority: STAT, Start date: 05/12/12 1:40:00, Stop date: 05/12/12 1:40:00 IV No Longer Active [place] 05/2012 [facility] albumin human 5% intravenous solution 500 mL, Route: IV, ONCE, Start date: 05/12/12 1:21:00, Stop date: 05/12/12 1:21:00 IV No Longer Active [place] 05/12/2012 [facility] naloxone 0.4 mg, 1 mL, Route: IVP, Drug form: INJ, PRN, PRN Narcotic Reversal, Start date: 05/12/12 1:21:00, Duration: 30 day, Stop date: 06/11/12 1:20:00 IVP No Longer Active [place] 05/12/2012 [facility] nter Saline Flush 0.9% 5 ml, Route: IVP, Drug Form: INJ, PRN, PRN Line Flush, Start date: 05/12/12 1:09:00, Duration: 30 day, Stop date: 06/11/12 1:08:00 IVP No Longer Active [place] 05/12/2012 [facility] nter albumin human 5% intravenous solution 25 gm, 500 mL, 0 ml/hr, Route: IV, Drug Form: INJ, ONCE, STAT, Start date: 05/11/12 22:47:00, Stop date: 05/11/12 22:47:00 IV No Longer Active [place] 05/12/2012 [facility] nter naloxone 0.4 mg, 1 mL, Route: IVP, Drug form: INJ, ONCE, PRN Narcotic Reversal, Priority: NOW, Start date: 05/11/12 22:08:00, Stop date: 06/10/12 22:07:00 IVP No Longer Active [place] 05/12/2012 [facility] nter parenteral nutrition solution w/electrolytes 900 mL 900 mL, Rate: as directed, Route: IV, Dosing Weight 87 kg, Total Volume: 900, Start date: 05/11/12 16:04:00, Stop date: 05/12/12 22:59:00 IV No Longer Active [facility] 05/11/2012 [facility] Dilaudid 0.2 mg/ml FOURDRINIER MACHINE OPERATOR (6 mg/30 mL) INJ Syringe 6 mg 6 mg, 30 mL, Route: IV, FOURDRINIER MACHINE OPERATOR Dose: 0.1mg, FOURDRINIER MACHINE OPERATOR Lockout: 10 minutes, 4 Hour Limit (In MG): 2.4, Drug Form: INJ, Continuous, Start date: 05/11/12 16:00:00, Duration: 30 day, Stop date: 06/10/12 15:59:00 IV No Longer Active [place] 05/11/2012 [facility] heparin 5,000 unit, 1 mL, Rout e: SUB-Q, Drug form: INJ, Q8H, Start date: 05/11/12 16:00:00, Duration: 30 day, Stop date: 06/10/12 8:00:00 SUB-Q No Longer Active [facility] 05/11/2012 [facility] morphine Sulfate 30 mg IV, Sta rt date: 05/11/12 14:37:00, Duration: 30, 30 ml IV No Longer Active [facility] 05/11/2012 [facility] nter naloxone 0.04 mg, 0.1 mL, Rout e: IVP, Drug form: INJ, Q2MIN, PRN Narcotic Reversal, Start date: 05/11/12 14:02:00, Duration: 8 doses or times, Stop date: Limited # of times IVP No Longer Active Mavis 05/11/2012 [facility] ondansetron 4 mg, 2 mL, Route: IVP, Drug form: INJ, ONCE, PRN Nausea & Vomiting, Start date: 05/11/12 14:02:00 IVP No Longer Active Mavis 05/11/2012 [facility] hydromorphone 0.5 mg, 0.25 mL, Route: IVP, Drug form: INJ, Q5Min, PRN Pain Score 4-6, Start date: 05/11/12 14:02:00, Duration: 5 doses or times, Stop date: Limited # of times IVP No Longer Active Mavis 05/11/2012 [facility] flumazenil 0.2 mg, 2 mL, Route : IVP, Drug form: INJ, PRN, PRN Benzodiazepine Reversal, Initial dose, Start date: 05/11/12 14:02:00, Duration: 30 day, Stop date: 06/10/12 14:01:00 IVP No Longer Active [facility] 05/11/2012 [facility] Ancef 1 gm, Route: IVPB, Drug form: PDR/INJ, [id number], Start date: 05/11/12 14:00:00, Duration: 30 day, Stop date: 06/09/12 15:00:00 IVPB No Longer Active Scerbo 04/2012 [facility] fentanyl (PF) 20 mcg/ml FOURDRINIER MACHINE OPERATOR (600 microgr am /30 mL) 30 mL 30 mL, Route: IV, FOURDRINIER MACHINE OPERATOR Dose: 10 mcg, FOURDRINIER MACHINE OPERATOR Lockout: 12 minutes, 4 Hour Limit (In MCG): 200, Continuous, PRN Pain, Start date: 05/11/12 13:34:00, Duration: 30 day, Stop date: 06/10/12 13:33:00 IV No Longer Active Scerbo 05/11/2012 [facility] nter parenteral nutrition solution w/electrolytes 900 mL 900 mL, Rate: as directed, Route: IV, Dosing Weight 87 kg, Total Volume: 900, Start date: 05/10/12 18:00:00, Duration: 30 hr, Stop date: 05/11/12 23:59:00 IV No Longer Active Scerbo 03/2012 [facility] Ancef + Sodium Chloride 0.9% IV 100 mL 2 gm, Route: IVPB, ONCE, Start date: 05/10/12 17:25:00, Duration: 1 doses or times, Stop date: 05/10/12 17:25:00 IVPB No Longer Active Scerbo 05/10/2012 [facility] nter parenteral nutrition solution w/electrolytes 900 mL 900 mL, Rate: as directed, Route: IV, Dosing Weight 87 kg, Total Volume: 900, Start date: 05/09/12 18:00:00, Duration: 30 hr, Stop date: 05/10/12 23:59:00 IV No Longer Active Huber 2011 [facility] heparin 5000 units/mL injectable solution 5,000 unit, 1 mL, Route: SUB-Q, Drug form: INJ, Q8H, Start date: 05/09/12 16:00:00, Duration: 30 day, Stop date: 06/08/12 8:00:00 SUB-Q No Longer Active Erlin 05/09/2012 [facility] Tums 500 mg, 1 tab, Route: HARRY W, Drug form: CHEWTAB, BID, PRN Indigestion, Start date: 05/09/12 9:22:00, Duration: 30 day, Stop date: 06/08/12 9:21:00 CHEW No Longer Active Erlin 05/09/2012 [facility] nt ondansetron 4 mg, 2 mL, Route: IV, Drug form: INJ, Q8H, PRN Nausea, Start date: 05/09/12 3:46:00, Duration: 30 day, Stop date: 06/08/12 3:45:00 IV No Longer Active Liebe 05/09/2012 [facility] parenteral nutrition solution w/electrolytes 900 mL 900 mL, Rate: DIRECTED, Route: IV, Dosing Weight 87 kg, Total Volume: 900, Start date: 05/08/12 18:00:00, Duration: 30 hr, Stop date: 05/09/12 23:59:00 IV No Longer Active Huber 2011 [facility] parenteral nutrition solution w/electrolytes 900 mL 900 mL, Rate: as directed, Route: IV, Dosing Weight 87 kg, Total Volume: 900, Start date: 05/07/12 18:00:00, Duration: 30 hr, Stop date: 05/08/12 23:59:00 IV No Longer Active Huber 2011 [facility] Protonix 40 mg, Route: IVP, Dr rivas form: INJ, Before Dinner, Patient is NPO, Start date: 05/07/12 17:30:00, Duration: 30 day, Stop date: 06/06/12 16:30:00 IVP No Longer Active Chari 05/07/2012 [facility] nter parenteral nutrition solution w/electrolytes 900 mL 900 mL, Rate: as directed, Route: IV, Dosing Weight 87 kg, Total Volume: 900, Start date: 05/07/12 16:37:00, Duration: 30 hr, Stop date: 05/08/12 22:36:00 IV No Longer Active Erlin 2011 [facility] potassium chloride 20 mEq, Rou te: PO, Drug form: ELIX, ONCE, Start date: 05/07/12 9:04:00, Stop date: 05/07/12 9:04:00 PO No Longer Active Janina 05/07/2012 [facility] hydrALAZINE 10 mg, 0.5 mL, Rou te: IV, Drug form: INJ, Q4H, PRN Hypertension, Start date: 05/06/12 21:53:00, Duration: 30 day, Stop date: 06/05/12 21:52:00 IV No Longer Active Lewis 05/07/2012 [facility] nter parenteral nutrition solution w/electrolytes 900 mL 900 mL, Rate: as directed, Route: IV, Dosing Weight 87 kg, Total Volume: 900, Start date: 05/06/12 18:00:00, Duration: 30 hr, Stop date: 05/07/12 23:59:00 IV No Longer Active Erlin 2011 [facility] D5W 1/2NS 1,000 mL 1,000 mL, R ate: 75 ml/hr, Infuse over: 13.3 hr, Route: IV, Dosing Weight 87 kg, Total Volume: 1,000, Start date: 05/06/12 9:47:00, Duration: 30 day, Stop date: 06/05/12 9:46:00 IV No Longer Active Erlin 05/06/2012 [facility] fentanyl 25 microgram, 0.5 mL, Route: IVP, Drug form: INJ, ONCE, Start date: 05/05/12 19:21:00, Stop date: 05/05/12 19:21:00 IVP No Longer Active Mohan 0 05/06/2012 [facility] epoetin elsie 4,000 unit, 1 mL, Route: IV, Drug form: INJ, Q-M-W-F, Start date: 05/05/12 17:00:00, Duration: 30 day, Stop date: 06/02/12 17:00:00 IV No Longer Active Baljit 05/05/2012 [facility] Protonix 40 mg, Route: IVP, Dr rob form: INJ, Before Dinner, Patient is NPO, Start date: 05/05/12 16:30:00, Duration: 30 day, Stop date: 06/03/12 16:30:00 IVP No Longer Active Eduin 05/05/2012 [facility] ntli metoprolol 5 mg/5 ml INJ 5 mg, Route: IV, ONCE, Start date: 05/05/12 14:44:00, Stop date: 05/05/12 14:44:00 IV No Longer Active Brandon 05/05/2012 [facility] [place] metoprolol 5 mg/5 ml INJ 5 mg, Route: IV, ONCE, Start date: 05/05/12 14:42:00, Stop date: 05/05/12 14:42:00 IV No Longer Active Brandon 05/05/2012 [facility] morphine Sulfate 2 mg, Route: IVP, ONCE, Start date: 05/05/12 14:42:00, Stop date: 05/05/12 14:42:00 IVP No Longer Active Brandon 05/05/2012 [facility] NS (Bolus) IV 500 mL 500 mL, R ate: 500 ml/hr, Infuse over: 1 hr, Route: IV, Dosing Weight 87 kg, Total Volume: 500, Priority: STAT, Start date: 05/05/12 14:41:00, Duration: 1 doses or times, Stop date: 05/05/12 15:40:00, Bolus DoseBolus Dose IV No Longer Active Brandon 05/05/2012 [facility] nter hydrocortisone 100 mg, Route: IV, ONCE, Start date: 05/05/12 14:41:00, Stop date: 05/05/12 14:41:00 IV No Longer Active Brandon 05/05/2012 [facility] metoprolol 5 mg/5 ml INJ 2.5 m g, 2.5 mL, Route: IVP, Drug form: INJ, Q6H, Start date: 05/05/12 12:00:00, Duration: 30 day, Stop date: 06/04/12 6:00:00 IVP No Longer Active Saucedo 05/05/2012 [facility] nter Zosyn 2.25 gm, 1 ea, Route: IV PB, Drug form: PDR/INJ, [id number], Start date: 05/05/12 12:00:00, Duration: 30 day, Stop date: 06/04/12 0:00:00 IVPB No Longer Active Brandon 05/05/2012 [facility] Sodium Chloride 0.9% IV 1,000 mL 1,000 mL, Rate: 50 ml/hr, Infuse over: 20 hr, Route: IV, Dosing Weight 87 kg, Total Volume: 1,000, Start date: 05/05/12 11:10:00, Duration: 30 day, Stop date: 06/04/12 11:09:00 IV No Longer Active Brandon 10/2011 [facility] Epogen 7,000 unit, Route: IV, Drug form: INJ, Q-M-W-F, Start date: 05/05/12 9:00:00, Duration: 30 day, Stop date: 06/02/12 9:00:00 IV No Longer Active Ali 012 [facility] Saline Flush 0.9% 5 ml, Route: IVP, Drug Form: INJ, Q12H, Start date: 05/05/12 9:00:00, Duration: 30 day, Stop date: 06/03/12 21:00:00 IVP No Longer Active Denny 05/05/2012 [facility] chlorhexidine topical 4% soap 1 appl, Route: BATHE, Q24H, Drug form: SOAP, Start date: 05/05/12 6:00:00, Duration: 30 day, Stop date: 06/03/12 6:00:00 BATHE No Longer Active [place] 05/05/2012 [facility] nt Insulin regular 1 unit, 0.01 m L, Route: SUB-Q, Drug form: SOLN, TID-Before Meals, PRN Blood Glucose Results, Start date: 05/05/12 5:19:00, Stop date: 06/04/12 5:18:00 SUB-Q No Longer Active Brandon 05/05/2012 [facility] glucagon 1 mg, Route: IM, Drug form: PDR/INJ, PRN, PRN Blood Glucose Results, Start date: 05/05/12 5:19:00, Stop date: 06/04/12 5:18:00 IM No Longer Active [facility] 10/2011 [facility] Dextrose 50% Syringe 25 gm, 50 mL, Route: IVP, Drug Form: INJ, PRN, PRN Blood Glucose Results, Start date: 05/05/12 5:19:00, Stop date: 06/04/12 5:18:00 IVP No Longer Active [facility] 05/05/2012 [facility] nt Saline Flush 0.9% 5 ml, Route: IVP, Drug Form: INJ, PRN, PRN Line Flush, Start date: 05/05/12 5:18:00, Stop date: 06/04/12 5:17:00 IVP No Longer Active [place] 10/2011 [facility] Visipaque 320mg/ml 100 mL, Rou te: IVP, Drug Form: SOLN, ONCALL, STAT, Start date: 05/04/12 23:17:00, Duration: 1 doses or times, Dose = 2.2ml/kg, Max dose = 100mlDose = 2.2ml/kg, Max dose = 100ml IVP No Longer Active Evelio Moreira 05/05/2012 [facility] Sodium Chloride 0.9% (Bolus) IV 1000 mL 1,000 mL, Rate: 1,000 ml/hr, Infuse over: 1 hr, Route: IV, kg, Total Volume: 1,000, Bolus Dose, Priority: STAT, Start date: 05/04/12 23:09:00, Duration: 1 doses or times, Stop date: 05/05/12 0:08:[address] [facility] 05/05/2012 [facility] nter norepinephrine 8 mg + Sodium Chloride 0. 9% (titrate) 250 mL 250 mL, Rate: Use as direced, Route: IV, Total Volume: 258 mL, Duration: 30 day, Stop date: 06/03/12 22:28:00, Replace Every: 24 hr IV No Longer Active Mohan 05/05/2012 [facility] vancomycin + Sodium Chloride 0.9% IV 250 mL 1,740 mg, Route: IVPB, ONCE, Start date: 05/04/12 22:28:00, Stop date: 05/04/12 22:28:[address] Long[address] [facility] 05/05/2012 [facility] Zosyn 3.375 gm, Route: IVPB, D rug form: PDR/INJ, ONCE, Priority: STAT, Start date: 05/04/12 22:27:00, Stop date: 05/04/12 22:27:[address] Long[address] [facility] 05/05/2012 [facility] Sodium Chloride 0.9% (Bolus) IV 1,000 mL 1,000 mL, Rate: 1,000 ml/hr, Infuse over: 1 hr, Route: IV, Dosing Weight 87 kg, Total Volume: 1,000, Bolus Dose, Priority: STAT, Start date: 05/04/12 21:31:00, Duration: 1 doses or times, Stop date: 05/04/12 22:30:[address] [facility] 05/05/2012 [facility] normal saline 0.9% IV 500 mL 5 00 mL, Rate: 1,000 ml/hr, Infuse over: 0.5 hr, Route: IV, Total Volume: 500, Start date: 05/04/12 18:57:00, Duration: 30 day, Stop date: 06/03/12 18:56:00 IV No Longer Active Scerbo 05/04/2012 [facility] fat emulsion, intravenous 250 mL IV, 21 ml/hr, Start date: 05/04/12 18:00:00, Duration: 12, 250 ml IV No Longer Active Suman 05/04/2012 [facility] amino acids 5% w/D25W 1000ml Sulfite- Fr ee (clinimix) 1,000 mL + amino acid 50 g / L (TPN Display) 1,000 mL, Rate: 42 ml/hr, Infuse over: 24.3 hr, Route: IV, Dosing Weight 89 kg, Total Volume: 1,018.91, Start date: 05/04/12 18:00:00, Duration: 1 day, Stop date: 05/05/12 17:59:00 IV No Longer Active Suman 05/04/2012 [facility] amino acids 5% w/D25W 1000ml Sulfite- Fr ee (clinimix) 1,000 mL + amino acid 50 g / L (TPN Display) 1,000 mL, Rate: 42 ml/hr, Infuse over: 24.5 hr, Route: IV, Dosing Weight 89 kg, Total Volume: 1,029.85, Start date: 05/03/12 18:00:00, Duration: 1 day, Stop date: 05/04/12 17:59:00 IV No Longer Active Suman 05/03/2012 [facility] fat emulsion, intravenous 250 mL IV, 21 ml/hr, Start date: 05/03/12 18:00:00, Duration: 12, 250 ml IV No Longer Active Suman 05/03/2012 [facility] SoluCortef 100 mg, 2 mL, Route : IVP, Drug form: PDR/INJ, Q6H, Start date: 05/03/12 12:00:00, Duration: 2 doses or times, Stop date: 05/03/12 18:00:00 IVP No Longer Active Baljit 05/03/2012 [facility] Protonix 40 mg, Route: IVP, Dr ug form: INJ, Before Dinner, Start date: 05/02/12 16:30:00, Duration: 30 day, Stop date: 05/31/12 16:30:00 IVP No Longer Active Sarah 05/02/2012 [facility] norepinephrine 8 mg/250 mL-D5% injectable solution 8 m g IV, Start date: 05/02/12 2:44:00, 250 ml IV No Longer Active Maite 05/02/2012 [facility] Sodium Chloride 0.9% IV IV, 50 0 ml/hr, ONCE, Start date: 05/01/12 23:37:00, 500 ml IV No Longer Active Tayyan 05/02/2012 [facility] Sodium Chloride 0.9% IV IV, 25 0 ml/hr, ONCE, Start date: 05/01/12 23:29:00, 250 ml [facility] Sodium Chloride 0.9% IV IV, 25 0 ml/hr, ONCE, Start date: 05/01/12 21:12:00, 250 ml [facility] NS (Bolus) IV 500 mL 500 mL, R ate: 500 ml/hr, Infuse over: 1 hr, Route: IV, Dosing Weight 89 kg, Total Volume: 500, Priority: NOW, Start date: 04/30/12 19:59:00, Duration: 1 doses or times, Stop date: 04/30/12 20:58:00, Bolus DoseBolus Dose IV No Longer Active Le 05/01/2012 [facility] Sodium Chloride 0.9% IV IV, 50 0 ml/hr, ONCE, Start date: 04/29/12 23:53:00, 500 ml IV No Longer Active [facility] 04/30/2012 [facility] Zofran 4 mg, 2 mL, Route: IVP, Drug form: INJ, Q6H, PRN Nausea, Start date: 04/29/12 16:17:00, Duration: 30 day, Stop date: 05/29/12 16:16:00 IVP No Longer Active [facility] 04/29/2012 [facility] Zosyn + Sodium Chloride 0.9% IV 100 mL 2.25 gm, 1 ea, Route: IVPB, [id number], Start date: 04/29/12 11:00:00, Duration: 30 day, Stop date: 05/29/12 3:00:00 IVPB No Longer Active Ali 04/29/2012 [facility] D5NS 1,000 mL 1,000 mL, Rate: 70 ml/hr, Infuse over: 14.3 hr, Route: IV, Dosing Weight 89 kg, Total Volume: 1,000, Start date: 04/29/12 10:13:00, Stop date: 05/29/12 10:12:00 IV No Longer Active Ali 04/29/2012 [facility] hydrALAZINE 10 mg, 0.5 mL, Rou te: IVP, Drug form: INJ, Q6H, PRN Elevated BP, Start date: 04/29/12 10:05:00, Duration: 30 day, Stop date: 05/29/12 10:04:00 IVP No Longer Active Celia 04/29/2012 [facility] nitroglycerin 0.4 mg sublingual tablet 0.4 mg, 1 tab, Route: SL, Drug form: TAB, Q5Min, PRN Chest Pain, Start date: 04/29/12 8:48:00, Duration: 30 day, Stop date: 05/29/12 8:47:00 SL No Longer Active [facility] 04/29/2012 [facility] atropine 0.5 mg, 5 mL, Route: IVP, Drug form: INJ, PRN, PRN Bradycardia, Start date: 04/29/12 8:48:00, Duration: 30 day, Stop date: 05/29/12 8:47:00 IVP No Longer Active [facility] 04/29/2012 [facility] acetaminophen 650 mg, 2 tab, R oute: PO, Drug form: TAB, Q4H, PRN Pain/Fever, Start date: 04/29/12 5:54:00, Duration: 30 day, Stop date: 05/29/12 5:53:00 PO No Longer Active [place] 04/29/2012 [facility] morphine Sulfate 2 mg, 1 mL, R oute: IVP, Drug form: INJ, Q3H, PRN Pain Score 4-6, Start date: 04/29/12 5:54:00, Duration: 30 day, Stop date: 05/29/12 5:53:00 IVP No Longer Active [place] 04/29/2012 [facility] metoprolol 5 mg/5 ml INJ 2.5 m g, 2.5 mL, Route: IVP, Drug form: INJ, Q4H, PRN Elevated BP, Priority: STAT, Start date: 04/29/12 5:54:00, Stop date: 05/29/12 5:53:00, SPB >170 (hold for HR equal or < 70 IVP No Longer Active [place] 04/29 [facility] Zosyn 3.375 gm, Route: IVPB, Q 6H, Priority: STAT, Start date: 04/29/12 5:54:00, Duration: 30 day, Stop date: 05/29/12 0:00:00 IVPB No Longer Active White 04/29 [facility] Sodium Chloride 0.9% IV 1000 mL 1,000 mL, Rate: 75 ml/hr, Infuse over: 13.3 hr, Route: IV, Dosing Weight 89 kg, Total Volume: 1,000, Start date: 04/29/12 5:54:00, Duration: 30 day, Stop date: 05/29/12 5:53:00 IV No Longer Active White 04/29/2012 [facility] Saline Flush 0.9% 5 ml, Route: IVP, Drug Form: INJ, PRN, PRN Line Flush, Start date: 04/29/12 5:54:00, Duration: 30 day, Stop date: 05/29/12 5:53:00 IVP No Longer Active White 04/29/2012 [facility] Zosyn 3.375 gm, 100 mL, Route: IVPB, Drug form: PDR/INJ, ABXQ6H, Priority: STAT, Start date: 04/29/12 5:45:00, Duration: 30 day, Stop date: 05/28/12 23:45:00 IVPB No Longer Active [facility] 04/29/2012 [facility] Sodium Chloride 0.9% IV 1,000 mL 1,000 mL, Rate: 75 ml/hr, Infuse over: 13.3 hr, Route: IV, Dosing Weight 89 kg, Total Volume: 1,000, Start date: 04/29/12 5:44:00, Duration: 30 day, Stop date: 05/29/12 5:43:00 IV No Longer Active Ali 04/29/2012 [facility] morphine Sulfate 4 mg, Route: IVP, ONCE, Priority: STAT, Start date: 04/29/12 4:17:00, Stop date: 04/29/12 4:17:00 IVP No Longer Active Kem 04/29/2012 [facility] Sodium Chloride 0.9% IV IV, 50 0 ml/hr, ONCE, PRN Hypotension, Start date: 04/29/12 1:00:00, 500 ml IV No Longer Active Conner 04/29/2012 [facility] morphine Sulfate 4 mg, 2 mL, R oute: IVP, Drug form: INJ, ONCE, Priority: STAT, Start date: 04/29/12 0:31:00, Stop date: 04/29/12 0:31:00 IVP No Longer Active Kem 04/29/2012 [facility] ondansetron 4 mg, 2 mL, Route: IVP, Drug form: INJ, ONCE, Priority: STAT, Start date: 04/29/12 0:31:00, Stop date: 04/29/12 0:31:00 [facility] Saline Flush 0.9% 5 ml, Route: IVP, Drug Form: INJ, PRN, PRN Line Flush, Start date: 04/29/12 0:31:00, Duration: 24 hr, Stop date: 04/30/12 0:30:00 IVP No Longer Active Kem 04/29/2012 [facility] Allergies, Adverse Reactions, Alerts No Known Medication Allergies Immunizations No Data Provided for This Section Results Order Name Results Value Reference Range Date Interpretation Comments Source BLOOD BANK RESULTS ABO/Rh HX FOOTNOTE 09/17/2017 Result Comment: 09/16/2017 20:45 [id number]
history is A pos but recent testing revealed forward typing as A pos and reverse as negative for both A and B cells. Per nurse Joanne patient is a transplant patient and will be transferred to [facility] blood product order will be cancelled and so will the blood typing. Cheyanne at 09/16/2017 20:45 [facility] BLOOD BANK RESULTS Antibody Scrn Negative (09/16/17 6:53 PM) 09/17/2017 [facility] Basophils # 0.1 0.0 - 0.2 09/17/2017 [facility] Monocytes # 0.7 0.0 - 0.8 09/17/2017 [facility] Lymphocytes # 0.4 1.0 - 5.5 09/17/2017 [facility] HEMATOLOGY Segs-Bands # 7.5 1.5 - 8.1 09/17/2017 [facility] Basophils 0.9 0.0 - 1.0 09/17/2017 [facility] Lymphocytes 4.8 20.0 - 40.0 09/17/2017 [facility] Segs 86.6 45.0 - 75.0 09/17/2017 [facility] Eosinophils 0.1 0.0 - 4.0 09/17/2017 [facility] Monocytes 7.6 2.0 - 12.0 09/17/2017 [facility] Platelet 185 133 - 450 09/17/2017 [facility] MCHC 32.9 32.0 - 36.0 09/17/2017 [facility] RDW 17.1 11.5 - 14.5 09/17/2017 [facility] MPV 8.2 7.4 - 10.4 09/17/2017 [facility] MCH 30.2 27.0 - 31.0 09/17/2017 [facility] RBC 2.30 4.70 - 6.10 09/17/2017 [facility] WBC 8.7 3.7 - 10.4 09/17/2017 [facility] MCV 91.8 80.0 - 94.0 09/17/2017 [facility] Hct 21.1 42.0 - 54.0 09/17/2017 [facility] Hgb 6.9 14.0 - 18.0 09/17/2017 Result Comment: Critical Result(s) jesús alberts to Veronika Vyas at 09/16/2017 19:12_ by_sd. Read back OK. [facility] CARDIAC ENZYMES Troponin-I 6.50 0.00 - 0.40 09/16/2017 Result Comment: Critical Result(s) jesús alberts to Alberta Rosario at 09/16/2017 15:49 by MS. Read back OK. [facility] CARDIAC ENZYMES CK MB Index 9.0 0.0 - 2.5 09/16/2017 [facility] CARDIAC ENZYMES Total CK 31 12 - 191 09/16/2017 [facility] CARDIAC ENZYMES CK MB 2.8 0.5 - 3.6 09/16/2017 [facility] CHEM PANEL eGFR 8 09/16/2017 Result Comment: The eGFR is calculated using the CKD-EPI formula. In most young, healthy individuals the eGFR will be >90 mL/min/1.73m2. The eGFR declines with age. An eGFR of 60-89 may be normal in some populations, particularly the elderly, for whom the CKD-EPI formula has not been extensively validated. Use of the eGFR is not recommended in the following populations:

Individuals with unstable creatinine concentrations, including patients and those with serious co-morbid conditions.

Patients with extremes in muscle mass or diet.

The data above are obtained from the National Kidney Disease Education Program (NKDEP) which additionally recommends that when the eGFR is used in patients with extremes of body mass index for purposes of drug dosing, the eGFR should be multiplied by the estimated BMI. [facility] CHEM PANEL A/G Ratio 0.9 0.7 - 1.6 09/16/2017 [facility] CHEM PANEL Globulin 3.6 2.7 - 4.2 09/16/2017 [facility] CHEM PANEL AGAP 16.4 10.0 - 20.0 09/16/2017 [facility] CHEM PANEL B/C Ratio 6 6 - 25 09/16/2017 [facility] CHEM PANEL Bili Total 0.4 0.2 - 1.3 09/16/2017 [facility] CHEM PANEL Calcium Lvl 9.0 8.5 - 10.5 09/16/2017 [facility] CHEM PANEL CO2 26 24 - 32 09/16/2017 [facility] CHEM PANEL Creatinine Lvl 7.28 0.50 - 1.40 09/16/2017 [facility] CHEM PANEL Potassium Lvl 4.4 3.5 - 5.1 09/16/2017 [facility] CHEM PANEL Chloride Lvl 99 95 - 109 09/16/2017 [facility] CHEM PANEL Sodium Lvl 137 135 - 145 09/16/2017 [facility] CHEM PANEL AST 28 0 - 37 09/16/2017 [facility] CHEM PANEL Alk Phos 64 39 - 136 09/16/2017 [facility] CHEM PANEL ALT 20 0 - 65 09/16/2017 [facility] CHEM PANEL Total Protein 6.7 6.4 - 8.4 09/16/2017 [facility] CHEM PANEL Albumin Lvl 3.1 3.5 - 5.0 09/16/2017 [facility] CHEM PANEL BUN 42 7 - 22 09/16/2017 [facility] CHEM PANEL Glucose Lvl 133 70 - 99 09/16/2017 [facility] HEMATOLOGY MPV 8.5 7.4 - 10.4 09/16/2017 [facility] HEMATOLOGY Platelet 198 133 - 450 09/16/2017 [facility] HEMATOLOGY WBC 9.8 3.7 - 10.4 09/16/2017 [facility] HEMATOLOGY RDW 16.6 11.5 - 14.5 09/16/2017 [facility] HEMATOLOGY MCHC 32.8 32.0 - 36.0 09/16/2017 [facility] HEMATOLOGY MCH 30.5 27.0 - 31.0 09/16/2017 [facility] HEMATOLOGY MCV 92.9 80.0 - 94.0 09/16/2017 [facility] HEMATOLOGY Hct 27.7 42.0 - 54.0 09/16/2017 [facility] HEMATOLOGY Hgb 9.1 14.0 - 18.0 09/16/2017 [facility] HEMATOLOGY RBC 2.99 4.70 - 6.10 09/16/2017 [facility] HEMATOLOGY INR 0.95 0.85 - 1.17 09/16/2017 [facility] HEMATOLOGY PT 12.7 12.0 - 14.7 09/16/2017 [facility] HEMATOLOGY PTT 34.6 22.9 - 35.8 09/16/2017 [facility] HEMATOLOGY Basophils 0.4 0.0 - 1.0 09/16/2017 [facility] HEMATOLOGY Segs-Bands # 9.0 1.5 - 8.1 09/16/2017 [facility] HEMATOLOGY Lymphocytes # 0.3 1.0 - 5.5 09/16/2017 [facility] HEMATOLOGY Monocytes # 0.5 0.0 - 0.8 09/16/2017 [facility] HEMATOLOGY Monocytes 4.8 2.0 - 12.0 09/16/2017 [facility] HEMATOLOGY Segs 91.9 45.0 - 75.0 09/16/2017 [facility] HEMATOLOGY Lymphocytes 2.9 20.0 - 40.0 09/16/2017 [facility] ELECTROLYTES POC Potassium 4.6 3.5 - 5.1 03/28/2014 [facility] BEDSIDE GLUCOSE TESTING Gluc POC Lif scn 89 70 - 99 05/18/2012 Normal <sup>1</sup>Interpretive Data: Upper Reportable Limit: 200 mg/dL. [facility] BEDSIDE GLUCOSE TESTING Comment1 Notify RN/ 05/18/2012 NA [facility] CHEMISTRY Glucose Lvl 84 70 - 99 05/18/2012 Normal <sup>4</sup>Interpretive Data: Adult ref erence range values reflect the clinical guidelines
of the [place] [employer]. [facility] CHEMISTRY BUN 45 7 - 22 05/18/2012 [facility] CHEMISTRY AGAP 17.7 10.0 - 20.0 05/18/2012 Normal [facility] CHEMISTRY Calcium Lvl 9.3 8.5 - 10.5 05/18/2012 Normal [facility] CHEMISTRY Creatinine Lvl 5.9 0.5 - 1.4 05/18/2012 [facility] CHEMISTRY CO2 28 24 - 32 05/18/2012 Normal [facility] CHEMISTRY Chloride Lvl 100 95 - 109 05/18/2012 Normal [facility] CHEMISTRY Potassium Lvl 3.7 3.5 - 5.1 05/18/2012 Normal [facility] CHEMISTRY Sodium Lvl 142 135 - 145 05/18/2012 Normal [facility] CHEMISTRY Magnesium Lvl 2.0 1.8 - 2.4 05/18/2012 Normal [facility] CHEMISTRY Phosphorus 3.7 2.5 - 4.5 05/18/2012 Normal [facility] HEMATOLOGY Eosinophils # 0.1 0.0 - 0.5 05/18/2012 Normal [facility] HEMATOLOGY Basophils # 0.0 0.0 - 0.2 05/18/2012 Normal [facility] HEMATOLOGY Monocytes # 0.6 0.0 - 0.8 05/18/2012 Normal [facility] HEMATOLOGY Lymphocytes # 2.5 1.0 - 5.5 05/18/2012 Normal [facility] HEMATOLOGY Segs-Bands # 4.4 1.5 - 8.1 05/18/2012 Normal [facility] HEMATOLOGY Monocytes 7.4 2.0 - 12.0 05/18/2012 Normal [facility] HEMATOLOGY Lymphocytes 32.6 20.0 - 40.0 05/18/2012 Normal [facility] HEMATOLOGY Basophils 0.5 0.0 - 1.0 05/18/2012 Normal [facility] HEMATOLOGY Eosinophils 1.9 0.0 - 4.0 05/18/2012 Normal [facility] HEMATOLOGY Segs 57.6 45.0 - 75.0 05/18/2012 Normal [facility] HEMATOLOGY PTT 49.2 22.9 - 35.8 05/18/2012 [facility] <sup>14</sup>Interpretive Data: Heparin Therapeutic Range: 57 - 92 Seconds [facility] HEMATOLOGY PT 14.0 12.0 - 14.7 05/18/2012 Normal [facility] HEMATOLOGY INR 1.06 0.85 - 1.17 05/18/2012 Normal <sup>11</sup>Interpretive Data: RECOMMEN DED RANGES FOR PROTIME INR:
2.0-3.0 for most medical and surgical thromboembolic states.
2.5-3.5 for artificial heart valves and recurrent embolism.

INR SHOULD BE USED ONLY FOR PATIENTS ON STABLE ANTICOAGULANT THERAPY. [facility] HEMATOLOGY MPV 7.9 7.4 - 10.4 05/18/2012 Normal [facility] HEMATOLOGY Platelet 264 133 - 450 05/18/2012 Normal [facility] HEMATOLOGY RDW 19.8 11.5 - 14.5 05/18/2012 HI [facility] HEMATOLOGY MCHC 33.0 32.0 - 36.0 05/18/2012 Normal [facility] HEMATOLOGY MCH 29.9 27.0 - 31.0 05/18/2012 Normal [facility] HEMATOLOGY MCV 90.9 80.0 - 94.0 05/18/2012 Normal [facility] HEMATOLOGY Hct 28.9 42.0 - 54.0 05/18/2012 LOW [facility] HEMATOLOGY Hgb 9.5 14.0 - 18.0 05/18/2012 LOW [facility] HEMATOLOGY RBC 3.18 4.70 - 6.10 05/18/2012 LOW [facility] HEMATOLOGY WBC 7.6 3.7 - 10.4 05/18/2012 Normal [facility] BEDSIDE GLUCOSE TESTING Comment1 Notify JUAN DANIEL/ 05/17/2012 NA [facility] BEDSIDE GLUCOSE TESTING Gluc POC Lif scn 129 70 - 99 05/17/2012 [facility] <sup>2</sup>Interpretive Data: Upper Reportable Limit: 200 mg/dL. [facility] BEDSIDE GLUCOSE TESTING Comment1 Notify JUAN DANIEL/ 05/17/2012 NA [facility] BEDSIDE GLUCOSE TESTING Gluc POC Lif scn 142 70 - 99 05/17/2012 [facility] <sup>3</sup>Interpretive Data: Upper Reportable Limit: 200 mg/dL. [facility] CHEMISTRY CO2 25 24 - 32 05/17/2012 Normal [facility] CHEMISTRY AGAP 20.9 10.0 - 20.0 05/17/2012 [facility] CHEMISTRY Creatinine Lvl 9.7 0.5 - 1.4 05/17/2012 [facility] CHEMISTRY Sodium Lvl 144 135 - 145 05/17/2012 Normal [facility] CHEMISTRY Chloride Lvl 102 95 - 109 05/17/2012 Normal [facility] CHEMISTRY Potassium Lvl 3.9 3.5 - 5.1 05/17/2012 Normal [facility] CHEMISTRY Calcium Lvl 10.1 8.5 - 10.5 05/17/2012 Normal [facility] CHEMISTRY Glucose Lvl 103 70 - 99 05/17/2012 [place] <sup>5</sup>Interpretive Data: Adult ref erence range values reflect the clinical guidelines
of the [place] [employer]. [facility] CHEMISTRY BUN 90 7 - 22 05/17/2012 [facility] CHEMISTRY Ca Ion mgdL 5.48 4.65 - 5.20 05/16/2012 [facility] CHEMISTRY Ca Norm 1.44 1.16 - 1.30 05/16/2012 [facility] CHEMISTRY Ca Norm mgdL 5.76 4.65 - 5.20 05/16/2012 [facility] CHEMISTRY Ca Ion 1.37 1.16 - 1.30 05/16/2012 [facility] CHEMISTRY Glucose Lvl 111 70 - 99 05/16/2012 [place] <sup>6</sup>Interpretive Data: Adult ref erence range values reflect the clinical guidelines
of the [place] [employer]. [facility] CHEMISTRY BUN 72 7 - 22 05/16/2012 [facility] CHEMISTRY Calcium Lvl 9.9 8.5 - 10.5 05/16/2012 Normal [facility] CHEMISTRY AGAP 19.7 10.0 - 20.0 05/16/2012 [facility] CHEMISTRY Creatinine Lvl 7.9 0.5 - 1.4 05/16/2012 [facility] [facility] CHEMISTRY Sodium Lvl 147 135 - 145 05/16/2012 [facility] CHEMISTRY Potassium Lvl 3.7 3.5 - 5.1 05/16/2012 Normal [facility] CHEMISTRY Chloride Lvl 104 95 - 109 05/16/2012 Normal [facility] CHEMISTRY CO2 27 24 - 32 05/16/2012 Normal [facility] CHEMISTRY Magnesium Lvl 2.3 1.8 - 2.4 05/16/2012 [facility] CHEMISTRY Phosphorus 2.8 2.5 - 4.5 05/16/2012 Normal [facility] HEMATOLOGY WBC 7.9 3.7 - 10.4 05/16/2012 [facility] HEMATOLOGY Hgb 9.5 14.0 - 18.0 05/16/2012 [facility] HEMATOLOGY RBC 3.22 4.70 - 6.10 05/16/2012 [facility] HEMATOLOGY Hct 28.9 42.0 - 54.0 05/16/2012 [facility] HEMATOLOGY MCV 89.8 80.0 - 94.0 05/16/2012 [facility] HEMATOLOGY RDW 20.1 11.5 - 14.5 05/16/2012 HI [facility] HEMATOLOGY MCHC 32.9 32.0 - 36.0 05/16/2012 [facility] HEMATOLOGY MPV 8.2 7.4 - 10.4 05/16/2012 [facility] HEMATOLOGY MCH 29.5 27.0 - 31.0 05/16/2012 [facility] HEMATOLOGY Platelet 258 133 - 450 05/16/2012 [facility] HEMATOLOGY Anisocyte 1+ *ABN* (05/16/2012 04:28:00) None S een 05/16/2012 ABN [facility] HEMATOLOGY Monocytes 8.0 2.0 - 12.0 05/16/2012 [facility] HEMATOLOGY Monocytes # 0.6 0.0 - 0.8 05/16/2012 [facility] HEMATOLOGY Segs 59.3 45.0 - 75.0 05/16/2012 [facility] HEMATOLOGY Lymphocytes 30.9 20.0 - 40.0 05/16/2012 [facility] HEMATOLOGY Basophils # 0.0 0.0 - 0.2 05/16/2012 [facility] HEMATOLOGY Basophils 0.1 0.0 - 1.0 05/16/2012 [facility] HEMATOLOGY Eosinophils 1.7 0.0 - 4.0 05/16/2012 [facility] HEMATOLOGY Lymphocytes # 2.4 1.0 - 5.5 05/16/2012 [facility] HEMATOLOGY Segs-Bands # 4.7 1.5 - 8.1 05/16/2012 [facility] HEMATOLOGY Eosinophils # 0.1 0.0 - 0.5 05/16/2012 [facility] CHEMISTRY Magnesium Lvl 2.1 1.8 - 2.4 05/15/2012 [facility] CHEMISTRY Phosphorus 2.3 2.5 - 4.5 05/15/2012 [facility] HEMATOLOGY Lymphocytes 24.1 20.0 - 40.0 05/15/2012 [facility] HEMATOLOGY Segs 65.9 45.0 - 75.0 05/15/2012 [facility] HEMATOLOGY Monocytes 7.6 2.0 - 12.0 05/15/2012 [facility] HEMATOLOGY Basophils 0.4 0.0 - 1.0 05/15/2012 [facility] HEMATOLOGY Eosinophils 2.0 0.0 - 4.0 05/15/2012 [facility] HEMATOLOGY Lymphocytes # 1.9 1.0 - 5.5 05/15/2012 [facility] HEMATOLOGY Segs-Bands # 5.3 1.5 - 8.1 05/15/2012 [facility] HEMATOLOGY Monocytes # 0.6 0.0 - 0.8 05/15/2012 [facility] HEMATOLOGY Eosinophils # 0.2 0.0 - 0.5 05/15/2012 [facility] HEMATOLOGY Anisocyte 1+ *ABN* (05/15/2012 04:32:00) None S een 05/15/2012 [facility] HEMATOLOGY Basophils # 0.0 0.0 - 0.2 05/15/2012 [facility] HEMATOLOGY MPV 8.4 7.4 - 10.4 05/15/2012 [facility] HEMATOLOGY WBC 8.0 3.7 - 10.4 05/15/2012 [facility] HEMATOLOGY MCV 90.6 80.0 - 94.0 05/15/2012 [facility] HEMATOLOGY Hct 29.7 42.0 - 54.0 05/15/2012 [facility] HEMATOLOGY Hgb 9.7 14.0 - 18.0 05/15/2012 [facility] HEMATOLOGY RBC 3.28 4.70 - 6.10 05/15/2012 [facility] HEMATOLOGY Platelet 276 133 - 450 05/15/2012 [facility] HEMATOLOGY MCHC 32.7 32.0 - 36.0 05/15/2012 [facility] HEMATOLOGY MCH 29.7 27.0 - 31.0 05/15/2012 [facility] HEMATOLOGY RDW 20.2 11.5 - 14.5 05/15/2012 [facility] HEMATOLOGY Anisocyte 1+ *ABN* (05/14/2012 02:40:00) None S een 05/14/2012 [facility] BLOOD BANK RESULTS RBC product Product available (05/13/2012 10:21:00) 05/13/2012 [facility] Microbiology Culture: Blood 05/12/2012 [facility] Microbiology Culture: Blood 05/12/2012 [facility] CHEMISTRY POC A Source ART 05/12/2012 NA [facility] CHEMISTRY POC A LA 0.7 0.5 - 2.2 05/12/2012 Normal [facility] CHEMISTRY POC A Temp 37.0 05/12/2012 NA [facility] CHEMISTRY POC A Temp 37.0 05/12/2012 NA [facility] CHEMISTRY POC A PO2 74 80 - 100 05/12/2012 LOW [facility] CHEMISTRY POC A HCO3 22 22 - 26 05/12/2012 Normal [facility] CHEMISTRY POC A PCO2 38 35 - 45 05/12/2012 Normal [facility] CHEMISTRY POC A pH 7.37 7.35 - 7.45 05/12/2012 Normal [facility] CHEMISTRY POC A O2 Sat 94.0 95.0 - 100.0 05/12/2012 LOW [facility] CHEMISTRY POC A BE -3 -2-2 - 2 05/12/2012 LOW [facility] CHEMISTRY POC A Source ART 05/12/2012 NA [facility] CHEMISTRY Ca Norm 1.18 1.16 - 1.30 05/12/2012 Normal [facility] CHEMISTRY Ca Ion 1.19 1.16 - 1.30 05/12/2012 Normal [facility] CHEMISTRY Ca Ion mgdL 4.76 4.65 - 5.20 05/12/2012 Normal [facility] CHEMISTRY Ca Norm mgdL 4.72 4.65 - 5.20 05/12/2012 Normal [facility] CHEMISTRY CK MB Index 1.7 0.0 - 2.5 05/12/2012 Normal [facility] CHEMISTRY CK MB 6.7 0.5 - 3.6 05/12/2012 [facility] CHEMISTRY Troponin-I 0.05 0.00 - 0.40 05/12/2012 Normal [facility] CHEMISTRY Total CK 403 12 - 191 05/12/2012 [facility] CHEMISTRY Myoglobin 3791 25 - 72 05/12/2012 [facility] CHEMISTRY Troponin-T 0.092 0.000 - 0.100 05/12/2012 Normal [facility] HEMATOLOGY PT 16.0 12.0 - 14.7 05/12/2012 [facility] HEMATOLOGY INR 1.28 0.85 - 1.17 05/12/2012 [place] <sup>12</sup>Interpretive Data: RECOMMEN DED RANGES FOR PROTIME INR:
2.0-3.0 for most medical and surgical thromboembolic states.
2.5-3.5 for artificial heart valves and recurrent embolism.

INR SHOULD BE USED ONLY FOR PATIENTS ON STABLE ANTICOAGULANT THERAPY. [facility] HEMATOLOGY PTT 47.0 22.9 - 35.8 05/12/2012 HI <sup>15</sup>Interpretive Data: Heparin Therapeutic Range: 57 - 92 Seconds [facility] HEMATOLOGY Elliptocyte Sligh t *ABN* (05/12/2012 03:02:00) None S een 05/12/2012 ABN [facility] HEMATOLOGY Polychrom Sligh t (05/12/2012 03:02:00) None S een 05/12/2012 Normal [facility] HEMATOLOGY Hypochrom Sligh t (05/12/2012 03:02:00) None S een 05/12/2012 Normal [facility] HEMATOLOGY Baso Stipplin Sligh t *ABN* (05/12/2012 03:02:00) None S een 05/12/2012 ABN [facility] Microbiology Culture: Resistant Acin etobacter Screen 05/12/2012 [facility] Microbiology Culture: MRSA 05/12/2012 [facility] CHEMISTRY Ca Norm mgdL 4.56 4.65 - 5.20 05/12/2012 LOW [facility] CHEMISTRY Ca Ion 1.17 1.16 - 1.30 05/12/2012 Normal [facility] CHEMISTRY Ca Norm 1.14 1.16 - 1.30 05/12/2012 LOW [facility] CHEMISTRY Ca Ion mgdL 4.68 4.65 - 5.20 05/12/2012 Normal [facility] CHEMISTRY Bili Direct 0.5 0.0 - 0.3 05/12/2012 HI [facility] CHEMISTRY Bili Total 0.8 0.2 - 1.3 05/12/2012 Normal [facility] CHEMISTRY Alk Phos 85 39 - 136 05/12/2012 Normal [facility] CHEMISTRY AST 29 0 - 37 05/12/2012 Normal [facility] CHEMISTRY Total Protein 4.9 6.4 - 8.4 05/12/2012 LOW [facility] CHEMISTRY ALT 40 0 - 65 05/12/2012 Normal [facility] CHEMISTRY Albumin Lvl 2.6 3.5 - 5.0 05/12/2012 LOW [facility] CHEMISTRY Bili Indirect 0.3 0.0 - 1.0 05/12/2012 Normal [facility] CHEMISTRY Globulin 2.3 2.0 - 4.0 05/12/2012 Normal [facility] CHEMISTRY A/G Ratio 1.1 0.7 - 1.6 05/12/2012 Normal [facility] CHEMISTRY Lactic Acid Lvl 1.0 0.5 - 2.2 05/12/2012 Normal [facility] HEMATOLOGY PTT 38.2 22.9 - 35.8 05/12/2012 HI <sup>16</sup>Interpretive Data: Heparin Therapeutic Range: 57 - 92 Seconds [facility] HEMATOLOGY PT 15.6 12.0 - 14.7 05/12/2012 HI [facility] HEMATOLOGY INR 1.24 0.85 - 1.17 05/12/2012 HI <sup>13</sup>Interpretive Data: RECOMMEN DED RANGES FOR PROTIME INR:
2.0-3.0 for most medical and surgical thromboembolic states.
2.5-3.5 for artificial heart valves and recurrent embolism.

INR SHOULD BE USED ONLY FOR PATIENTS ON STABLE ANTICOAGULANT THERAPY. [facility] HEMATOLOGY Large Plt Sligh t *ABN* (05/11/2012 21:04:00) None S een 05/12/2012 ABN [facility] HEMATOLOGY Elliptocyte Sligh t *ABN* (05/11/2012 21:04:00) None S een 05/12/2012 ABN [facility] HEMATOLOGY Polychrom Sligh t (05/11/2012 21:04:00) None S een 05/12/2012 Normal [facility] HEMATOLOGY Bands 7.0 0.0 - 11.0 05/12/2012 Normal [facility] HEMATOLOGY Atypical Lymphs 0.0 <=0.0 05/12/2012 Normal [facility] HEMATOLOGY Plt Morph Maribell l (05/11/2012 21:04:00) 05/12/2012 Normal [facility] HEMATOLOGY Large Plt Sligh t *ABN* (05/11/2012 14:39:00) None S een 05/11/2012 ABN [facility] HEMATOLOGY Elliptocyte Sligh t *ABN* (05/11/2012 14:39:00) None S een 05/11/2012 ABN [facility] HEMATOLOGY Polychrom Sligh t (05/11/2012 14:39:00) None S een 05/11/2012 Normal [facility] HEMATOLOGY Plt Morph Maribell l (05/11/2012 14:39:00) 05/11/2012 Normal [facility] HEMATOLOGY Atypical Lymphs 0.0 <=0.0 05/11/2012 Normal [facility] HEMATOLOGY Bands 13.0 0.0 - 11.0 05/11/2012 [facility] CHEMISTRY POC A Glu 196 70 - 99 05/11/2012 [facility] CHEMISTRY POC A LA 0.8 0.5 - 2.2 05/11/2012 Normal [facility] CHEMISTRY POC A K 3.5 3.5 - 5.1 05/11/2012 Normal [facility] CHEMISTRY POC A Ca Ion 1.25 1.16 - 1.30 05/11/2012 Normal [facility] CHEMISTRY POC A Na 133 135 - 145 05/11/2012 LOW [facility] CHEMISTRY POC A Hct 30.0 42.0 - 54.0 05/11/2012 LOW [facility] CHEMISTRY POC A HCO3 25 22 - 26 05/11/2012 Normal [facility] CHEMISTRY POC A O2 Sat 99.0 95.0 - 100.0 05/11/2012 Normal [facility] CHEMISTRY POC A BE 1 -2-2 - 2 05/11/2012 Normal [facility] CHEMISTRY POC A PO2 155 80 - 100 05/11/2012 [facility] CHEMISTRY POC A PCO2 38 35 - 45 05/11/2012 Normal [facility] CHEMISTRY POC A Temp 37.0 05/11/2012 NA [facility] CHEMISTRY POC A pH 7.43 7.35 - 7.45 05/11/2012 Normal [facility] CHEMISTRY POC A Source ART 05/11/2012 NA [facility] BLOOD BANK RESULTS ABO/Rh A POS 05/10/2012 Unknown [facility] BLOOD BANK RESULTS Antibody Scrn Negative (05/10/2012 17:40:00) 05/10/2012 Normal [facility] CHEMISTRY Bili Total 0.9 0.2 - 1.3 05/07/2012 Normal [facility] CHEMISTRY Bili Direct 0.5 0.0 - 0.3 05/07/2012 [facility] CHEMISTRY AST 31 0 - 37 05/07/2012 Normal [facility] CHEMISTRY Total Protein 5.3 6.4 - 8.4 05/07/2012 LOW [facility] CHEMISTRY ALT 37 0 - 65 05/07/2012 Normal [facility] CHEMISTRY Albumin Lvl 2.6 3.5 - 5.0 05/07/2012 LOW [facility] CHEMISTRY Alk Phos 78 39 - 136 05/07/2012 Normal [facility] CHEMISTRY A/G Ratio 1.0 0.7 - 1.6 05/07/2012 Normal [facility] CHEMISTRY Globulin 2.7 2.0 - 4.0 05/07/2012 Normal [facility] CHEMISTRY Bili Indirect 0.4 0.0 - 1.0 05/07/2012 Normal [facility] CHEMISTRY Total CK 23 12 - 191 05/06/2012 Normal [facility] CHEMISTRY Myoglobin 217 25 - 72 05/06/2012 [facility] CHEMISTRY Troponin-T 0.346 0.000 - 0.100 05/06/2012 CRIT <sup>7</sup>Result Comment: Critical Res ult(s) called to nurse velazquez at 05/06/2012 18:03:38 CDT by nk. Read back OK. [facility] CHEMISTRY Troponin-I 0.81 0.00 - 0.40 05/06/2012 CRIT <sup>9</sup>Result Comment: Critical Res ult(s) called to nurse velazquez at 05/06/2012 18:03:26 CDT by nk. Read back OK. [facility] CHEMISTRY Troponin-I 1.23 0.00 - 0.40 05/06/2012 CRIT <sup>10</sup>Result Comment: Called to Bev France at 05/06/2012 07:49:23 CDT called by dbf read back ok [facility] CHEMISTRY Troponin-T 0.479 0.000 - 0.100 05/06/2012 CRIT <sup>8</sup>Result Comment: Critical Res ult(s) called to Yue Londono at 05/06/2012 08:04:04 CDT byMIA. Read back OK. [facility] CHEMISTRY Total CK 21 12 - 191 05/06/2012 Normal [facility] CHEMISTRY Myoglobin 254 25 - 72 05/05/2012 [facility] CHEMISTRY POC A HCO3 24 22 - 26 05/05/2012 Normal [facility] CHEMISTRY POC A PCO2 29 35 - 45 05/05/2012 CRIT [facility] CHEMISTRY POC A PO2 115 80 - 100 05/05/2012 HI [facility] CHEMISTRY POC A pH 7.52 7.35 - 7.45 05/05/2012 [facility] CHEMISTRY POC A LA 2.2 0.5 - 2.2 05/05/2012 Normal [facility] CHEMISTRY POC A Ca Ion 1.17 1.16 - 1.30 05/05/2012 Normal [facility] CHEMISTRY POC A K 4.3 3.5 - 5.1 05/05/2012 Normal [facility] CHEMISTRY POC A O2 Sat 99.0 95.0 - 100.0 05/05/2012 Normal [facility] CHEMISTRY POC A Na 139 135 - 145 05/05/2012 Normal [facility] CHEMISTRY POC A BE 2 -2-2 - 2 05/05/2012 Normal [facility] CHEMISTRY POC A Glu 130 70 - 99 05/05/2012 [facility] CHEMISTRY POC A Hct 38.0 42.0 - 54.0 05/05/2012 LOW [facility] IMMUNOLOGY Hep B Core Ab Negat deepti *NA* (05/05/2012 13:36:00) Negati ve 05/05/2012 NA [facility] IMMUNOLOGY Hep Bs Ag Negat deepti *NA* (05/05/2012 13:36:00) Negati ve 05/05/2012 NA [facility] IMMUNOLOGY Hep Bs Ab 188.0 <=7.4 05/05/2012 HI <sup>17</sup>Interpretive Data: <=7.4 mI U/mL--------Negative for Anti-HBs. Not immune to HBV infection.

7.5-12.4 mIU/mL--Borderline for Anti-HBs and immune status
should be further assessed by considering other factors such
as clinical status follow-up testing, associated risk factors,
and the use of additional diagnostic information.

>12.4 mIU/mL-------Positive for Anti-HBs. Immune to HBV infection [facility] IMMUNOLOGY Hep C Ab Negat deepti *NA* (05/05/2012 13:36:00) Negati ve 05/05/2012 [facility] IMMUNOLOGY Hep B Core Ab Negat deepti *NA* (05/05/2012 13:36:00) Negati ve 05/05/2012 NA [facility] CHEMISTRY O2 Sat Edilberto 73.0 40.0 - 70.0 05/05/2012 [facility] CHEMISTRY Temp Edilberto 37.0 05/05/2012 [facility] CHEMISTRY pH Edilberto 7.37 7.28 - 7.42 05/05/2012 Normal [facility] CHEMISTRY pCO2 Edilberto 51 38 - 52 05/05/2012 Normal [facility] CHEMISTRY pO2 Edilberto 40 20 - 49 05/05/2012 Normal [facility] CHEMISTRY HCO3 Edilbreto 29.5 22.0 - 26.0 05/05/2012 [facility] CHEMISTRY BE Edilberto 3 -2-2 - 2 05/05/2012 [facility] CHEMISTRY Lactic Acid Lvl 0.7 0.5 - 2.2 05/05/2012 Normal [facility] CHEMISTRY Lipase Lvl 473 73 - 393 05/05/2012 [facility] CHEMISTRY Globulin 2.8 2.0 - 4.0 05/05/2012 [facility] CHEMISTRY A/G Ratio 0.9 0.7 - 1.6 05/05/2012 Normal [facility] CHEMISTRY ALT 22 0 - 65 05/05/2012 Normal [facility] CHEMISTRY Albumin Lvl 2.5 3.5 - 5.0 05/05/2012 LOW [facility] CHEMISTRY AST 15 0 - 37 05/05/2012 [facility] CHEMISTRY Alk Phos 75 39 - 136 05/05/2012 [facility] CHEMISTRY Bili Total 0.5 0.2 - 1.3 05/05/2012 [facility] CHEMISTRY Total Protein 5.3 6.4 - 8.4 05/05/2012 LOW [facility] CHEMISTRY B/C Ratio 6 6 - 25 05/05/2012 Normal [facility] HEMATOLOGY Large Plt Sligh t *ABN* (05/04/2012 23:35:00) None S een 05/05/2012 ABN [facility] CHEMISTRY Alk Phos 60 39 - 136 05/04/2012 Normal [facility] CHEMISTRY Bili Total 0.8 0.2 - 1.3 05/04/2012 Normal [facility] CHEMISTRY AST 8 0 - 37 05/04/2012 Normal [facility] CHEMISTRY Creatinine Lvl 7.3 0.5 - 1.4 05/04/2012 [facility] CHEMISTRY Calcium Lvl 9.8 8.5 - 10.5 05/04/2012 Normal [facility] CHEMISTRY Glucose Lvl 126 70 - 99 05/04/2012 [facility] <sup>5</sup>Interpretive Data: Adult ref erence range values reflect the clinical guidelines
of the [place] [employer]. [facility] CHEMISTRY BUN 35 7 - 22 05/04/2012 [facility] CHEMISTRY Total Protein 6.8 6.4 - 8.4 05/04/2012 Normal [facility] CHEMISTRY Albumin Lvl 2.6 3.5 - 5.0 05/04/2012 LOW [facility] CHEMISTRY ALT 13 0 - 65 05/04/2012 Normal [facility] CHEMISTRY CO2 30 24 - 32 05/04/2012 Normal [facility] CHEMISTRY Chloride Lvl 100 95 - 109 05/04/2012 Normal [facility] CHEMISTRY Potassium Lvl 3.8 3.5 - 5.1 05/04/2012 Normal [facility] CHEMISTRY Sodium Lvl 141 135 - 145 05/04/2012 Normal [facility] CHEMISTRY AGAP 14.8 10.0 - 20.0 05/04/2012 Normal [facility] CHEMISTRY B/C Ratio 5 6 - 25 05/04/2012 LOW [facility] CHEMISTRY Globulin 4.2 2.0 - 4.0 05/04/2012 [facility] CHEMISTRY A/G Ratio 0.6 0.7 - 1.6 05/04/2012 LOW [facility] CHEMISTRY Phosphorus 5.3 2.5 - 4.5 05/04/2012 [facility] CHEMISTRY Magnesium Lvl 2.2 1.8 - 2.4 05/04/2012 Normal [facility] HEMATOLOGY Platelet 213 133 - 450 05/04/2012 Normal [facility] HEMATOLOGY MCHC 32.5 32.0 - 36.0 05/04/2012 Normal [facility] HEMATOLOGY MPV 7.8 7.4 - 10.4 05/04/2012 Normal [facility] HEMATOLOGY RDW 20.6 11.5 - 14.5 05/04/2012 [facility] HEMATOLOGY MCH 29.8 27.0 - 31.0 05/04/2012 Normal [facility] HEMATOLOGY WBC 5.2 3.7 - 10.4 05/04/2012 Normal [facility] HEMATOLOGY MCV 91.8 80.0 - 94.0 05/04/2012 Normal [facility] HEMATOLOGY Hct 30.0 42.0 - 54.0 05/04/2012 LOW [facility] HEMATOLOGY Hgb 9.8 14.0 - 18.0 05/04/2012 LOW [facility] HEMATOLOGY RBC 3.27 4.70 - 6.10 05/04/2012 LOW [facility] HEMATOLOGY Anisocyte 1+ *ABN* (05/04/2012 06:00:00) None S een 05/04/2012 ABN [facility] HEMATOLOGY Basophils # 0.0 0.0 - 0.2 05/04/2012 Normal [facility] HEMATOLOGY Eosinophils # 0.1 0.0 - 0.5 05/04/2012 Normal [facility] HEMATOLOGY Monocytes # 0.6 0.0 - 0.8 05/04/2012 Normal [facility] HEMATOLOGY Segs-Bands # 3.1 1.5 - 8.1 05/04/2012 Normal [facility] HEMATOLOGY Lymphocytes # 1.3 1.0 - 5.5 05/04/2012 Normal [facility] HEMATOLOGY Basophils 0.2 0.0 - 1.0 05/04/2012 Normal [facility] HEMATOLOGY Monocytes 12.1 2.0 - 12.0 05/04/2012 [facility] HEMATOLOGY Eosinophils 2.2 0.0 - 4.0 05/04/2012 Normal [facility] HEMATOLOGY Lymphocytes 24.8 20.0 - 40.0 05/04/2012 Normal [facility] HEMATOLOGY Segs 60.7 45.0 - 75.0 05/04/2012 Normal [facility] BEDSIDE GLUCOSE TESTING Gluc POC Lif scn 109 70 - 99 05/03/2012 [place] <sup>2</sup>Interpretive Data: Upper Reportable Limit: 200 mg/dL. [facility] CHEMISTRY Cortisol 14.0 3.0 - 23.0 05/03/2012 Normal <sup>8</sup>Interpretive Data: CORD BLOO D: 5 - 17 ug/dL

PREMATURE INFANTS:
26-28 weeks, day 4 1 - 11 ug/dL
31-35 weeks, day 4 2.5 - 9.1 ug/dL

FULL TERM INFANTS:
3 days 1.7 - 14 ug/dL
1-7 days 2 - 11 ug/dL
1-12 months 2.8 - 23 ug/dL

CHILDREN (1 - 16 years) 3 - 21 ug/dL

ADULT RANGE:
8AM 6.0 - 23.0 ug/dL
4PM 3.0 - 16.0 ug/dL [facility] CHEMISTRY Troponin-I 0.19 0.00 - 0.40 05/03/2012 Normal [facility] CHEMISTRY Total CK 35 12 - 191 05/03/2012 Normal [facility] CHEMISTRY CK MB 0.7 0.5 - 3.6 05/03/2012 Normal [facility] CHEMISTRY CK MB Index 2.0 0.0 - 2.5 05/03/2012 Normal [facility] CHEMISTRY Cortisol 13.2 3.0 - 23.0 05/02/2012 Normal <sup>9</sup>Interpretive Data: CORD BLOO D: 5 - 17 ug/dL

PREMATURE INFANTS:
26-28 weeks, day 4 1 - 11 ug/dL
31-35 weeks, day 4 2.5 - 9.1 ug/dL

FULL TERM INFANTS:
3 days 1.7 - 14 ug/dL
1-7 days 2 - 11 ug/dL
1-12 months 2.8 - 23 ug/dL

CHILDREN (1 - 16 years) 3 - 21 ug/dL

ADULT RANGE:
8AM 6.0 - 23.0 ug/dL
4PM 3.0 - 16.0 ug/dL [facility] CHEMISTRY CK MB <0.5 0.5 - 3.6 05/02/2012 Normal [facility] CHEMISTRY Total CK 18 12 - 191 05/02/2012 Normal [facility] CHEMISTRY Troponin-I 0.18 0.00 - 0.40 05/02/2012 Normal [facility] CHEMISTRY CK MB Index <2.8 0.0 - 2.5 05/02/2012 [facility] CHEMISTRY eGFR 6 05/02/2012 NA <sup>4</sup>Result Comment: Expected eGFR for >20 yr. age group: >=60 ml/min/1.73 sq m

The eGFR calculation is not valid in or for

persons < 18 years of age.

From [employer] (NKDEP) [facility] CHEMISTRY Bili Total 1.0 0.2 - 1.3 05/02/2012 Normal [facility] CHEMISTRY ALT 13 0 - 65 05/02/2012 Normal [facility] CHEMISTRY Alk Phos 61 39 - 136 05/02/2012 Normal [facility] CHEMISTRY B/C Ratio 6 6 - 25 05/02/2012 Normal [facility] CHEMISTRY AST 8 0 - 37 05/02/2012 Normal [facility] CHEMISTRY Total Protein 6.0 6.4 - 8.4 05/02/2012 LOW [facility] CHEMISTRY Albumin Lvl 2.9 3.5 - 5.0 05/02/2012 LOW [facility] CHEMISTRY Globulin 3.1 2.0 - 4.0 05/02/2012 Normal [facility] CHEMISTRY A/G Ratio 0.9 0.7 - 1.6 05/02/2012 Normal [facility] CHEMISTRY CO2 33 24 - 32 05/02/2012 HI [facility] CHEMISTRY Glucose Lvl 100 70 - 99 05/02/2012 HI <sup>6</sup>Interpretive Data: Adult ref erence range values reflect the clinical guidelines
of the [place] [employer]. [facility] CHEMISTRY BUN 59 7 - 22 05/02/2012 [facility] CHEMISTRY AGAP 17.1 10.0 - 20.0 05/02/2012 Normal [facility] CHEMISTRY Calcium Lvl 9.3 8.5 - 10.5 05/02/2012 Normal [facility] CHEMISTRY Chloride Lvl 97 95 - 109 05/02/2012 Normal [facility] CHEMISTRY Creatinine Lvl 9.6 0.5 - 1.4 05/02/2012 [facility] CHEMISTRY Sodium Lvl 142 135 - 145 05/02/2012 Normal [facility] CHEMISTRY Potassium Lvl 5.1 3.5 - 5.1 05/02/2012 Normal [facility] CHEMISTRY CK MB Index 2.8 0.0 - 2.5 05/02/2012 [facility] CHEMISTRY Bili Direct 0.3 0.0 - 0.3 05/02/2012 Normal [facility] CHEMISTRY Troponin-I 0.06 0.00 - 0.40 05/02/2012 Normal [facility] CHEMISTRY Total CK 18 12 - 191 05/02/2012 Normal [facility] CHEMISTRY CK MB 0.5 0.5 - 3.6 05/02/2012 Normal [facility] HEMATOLOGY MPV 8.2 7.4 - 10.4 05/02/2012 Normal [facility] HEMATOLOGY RBC 3.57 4.70 - 6.10 05/02/2012 LOW [facility] HEMATOLOGY WBC 7.3 3.7 - 10.4 05/02/2012 Normal [facility] HEMATOLOGY Hgb 10.6 14.0 - 18.0 05/02/2012 LOW [facility] HEMATOLOGY Hct 32.5 42.0 - 54.0 05/02/2012 LOW [facility] HEMATOLOGY RDW 21.7 11.5 - 14.5 05/02/2012 [facility] HEMATOLOGY MCHC 32.6 32.0 - 36.0 05/02/2012 Normal [facility] HEMATOLOGY MCV 91.2 80.0 - 94.0 05/02/2012 Normal [facility] HEMATOLOGY MCH 29.7 27.0 - 31.0 05/02/2012 Normal [facility] HEMATOLOGY Platelet 238 133 - 450 05/02/2012 Normal [facility] HEMATOLOGY Eosinophils 1.8 0.0 - 4.0 05/02/2012 Normal [facility] HEMATOLOGY Lymphocytes # 1.4 1.0 - 5.5 05/02/2012 Normal [facility] HEMATOLOGY Segs-Bands # 4.5 1.5 - 8.1 05/02/2012 Normal [facility] HEMATOLOGY Basophils 0.4 0.0 - 1.0 05/02/2012 Normal [facility] HEMATOLOGY Monocytes 16.5 2.0 - 12.0 05/02/2012 [facility] HEMATOLOGY RBC Morph Maribell l (05/02/2012 03:50:00) 05/02/2012 Normal [facility] HEMATOLOGY Lymphocytes 19.4 20.0 - 40.0 05/02/2012 LOW [facility] HEMATOLOGY Segs 61.9 45.0 - 75.0 05/02/2012 Normal [facility] HEMATOLOGY Plt Morph Maribell l (05/02/2012 03:50:00) 05/02/2012 Normal [facility] HEMATOLOGY Basophils # 0.0 0.0 - 0.2 05/02/2012 Normal [facility] HEMATOLOGY Eosinophils # 0.1 0.0 - 0.5 05/02/2012 Normal [facility] HEMATOLOGY Monocytes # 1.2 0.0 - 0.8 05/02/2012 HI [facility] HEMATOLOGY Anisocyte 1+ *ABN* (05/02/2012 03:50:00) None S een 05/02/2012 ABN [facility] BACTERIAL - SEROLOGY MRSA by PCR Negative 1 (05/01/2012 23:00:00) 05/02/2012 Normal <sup>1</sup>Interpretive Data: INTERPRETATION:
Negative......No MRSA DNA detected by PCR
Positive......MRSA DNA detected by PCR

ASSAY LIMITATIONS:

This is a screening test for colonization by MRSA. A positive
test result indicates the patient is colonized by MRSA, but
does not necessarily mean that an infection is present or that
treatment is necessary. Likewise, a negative test does not
exclude colonization or infection. Patients should be evaluated
clinically for symptoms and signs of infection before making
therapeutic decisions. Routine decolonization is discouraged
and should only be considered for select patients after
consultation with an infectious diseases specialist. [facility] CHEMISTRY AGAP 12.0 10.0 - 20.0 05/01/2012 Normal [facility] CHEMISTRY BUN 35 7 - 22 05/01/2012 [facility] CHEMISTRY Creatinine Lvl 7.0 0.5 - 1.4 05/01/2012 [facility] CHEMISTRY Sodium Lvl 140 135 - 145 05/01/2012 Normal [facility] CHEMISTRY Potassium Lvl 5.0 3.5 - 5.1 05/01/2012 Normal [facility] CHEMISTRY Chloride Lvl 102 95 - 109 05/01/2012 Normal [facility] CHEMISTRY CO2 31 24 - 32 05/01/2012 Normal [facility] CHEMISTRY Calcium Lvl 9.2 8.5 - 10.5 05/01/2012 Normal [facility] CHEMISTRY Glucose Lvl 121 70 - 99 05/01/2012 [facility] <sup>7</sup>Interpretive Data: Adult ref erence range values reflect the clinical guidelines
of the [place] [employer]. [facility] HEMATOLOGY Basophils 0.4 0.0 - 1.0 05/01/2012 Normal [facility] HEMATOLOGY Eosinophils # 0.1 0.0 - 0.5 05/01/2012 Normal [facility] HEMATOLOGY Monocytes # 0.7 0.0 - 0.8 05/01/2012 Normal [facility] HEMATOLOGY Lymphocytes # 1.0 1.0 - 5.5 05/01/2012 Normal [facility] HEMATOLOGY Segs-Bands # 2.9 1.5 - 8.1 05/01/2012 Normal [facility] HEMATOLOGY Basophils # 0.0 0.0 - 0.2 05/01/2012 Normal [facility] HEMATOLOGY Anisocyte 1+ *ABN* (05/01/2012 05:18:00) None S een 05/01/2012 ABN [facility] HEMATOLOGY Eosinophils 2.1 0.0 - 4.0 05/01/2012 Normal [facility] HEMATOLOGY Lymphocytes 21.8 20.0 - 40.0 05/01/2012 Normal [facility] HEMATOLOGY Segs 60.8 45.0 - 75.0 05/01/2012 Normal [facility] HEMATOLOGY Monocytes 14.9 2.0 - 12.0 05/01/2012 HI [facility] HEMATOLOGY Hct 34.8 42.0 - 54.0 05/01/2012 LOW [facility] HEMATOLOGY Hgb 11.3 14.0 - 18.0 05/01/2012 LOW [facility] HEMATOLOGY RBC 3.79 4.70 - 6.10 05/01/2012 LOW [facility] HEMATOLOGY MCHC 32.5 32.0 - 36.0 05/01/2012 Normal [facility] HEMATOLOGY RDW 22.8 11.5 - 14.5 05/01/2012 HI [facility] HEMATOLOGY WBC 4.8 3.7 - 10.4 05/01/2012 Normal [facility] HEMATOLOGY Platelet 167 133 - 450 05/01/2012 Normal [facility] HEMATOLOGY MCH 29.8 27.0 - 31.0 05/01/2012 Normal [facility] HEMATOLOGY MCV 91.8 80.0 - 94.0 05/01/2012 Normal [facility] HEMATOLOGY MPV 7.8 7.4 - 10.4 05/01/2012 Normal [facility] CHEMISTRY Magnesium Lvl 2.3 1.8 - 2.4 04/30/2012 Normal [facility] CHEMISTRY Lactic Acid Lvl 0.9 0.5 - 2.2 04/29/2012 Normal [facility] HEMATOLOGY PT 15.3 12.0 - 14.7 04/29/2012 HI [facility] HEMATOLOGY INR 1.21 0.85 - 1.17 04/29/2012 HI <sup>10</sup>Interpretive Data: RECOMMEN DED RANGES FOR PROTIME INR:
2.0-3.0 for most medical and surgical thromboembolic states.
2.5-3.5 for artificial heart valves and recurrent embolism.

INR SHOULD BE USED ONLY FOR PATIENTS ON STABLE ANTICOAGULANT THERAPY. [facility] HEMATOLOGY PTT 34.8 22.9 - 35.8 04/29/2012 Normal <sup>11</sup>Interpretive Data: Heparin Therapeutic Range: 57 - 92 Seconds [facility] IMMUNOLOGY Hep Bs Ag Negat deepti *NA* (04/29/2012 09:08:00) Negati ve 04/29/2012 NA [facility] BEDSIDE GLUCOSE TESTING Comment1 Assess patient 04/29/2012 NA [facility] BEDSIDE GLUCOSE TESTING Gluc POC Lif scn 146 70 - 99 04/29/2012 [place] <sup>3</sup>Interpretive Data: Upper Reportable Limit: 200 mg/dL. [facility] CHEMISTRY Magnesium Lvl 2.3 1.8 - 2.4 04/29/2012 Normal [facility] CHEMISTRY Phosphorus 4.8 2.5 - 4.5 04/29/2012 [facility] CHEMISTRY Amylase Lvl 122 25 - 115 04/29/2012 [facility] CHEMISTRY Lipase Lvl 316 73 - 393 04/29/2012 Normal [facility] CHEMISTRY ALT 24 0 - 65 04/29/2012 Normal [facility] CHEMISTRY Alk Phos 89 39 - 136 04/29/2012 Normal [facility] CHEMISTRY Bili Total 0.5 0.2 - 1.3 04/29/2012 Normal [facility] CHEMISTRY AST 15 0 - 37 04/29/2012 Normal [facility] CHEMISTRY Total Protein 8.3 6.4 - 8.4 04/29/2012 Normal [facility] CHEMISTRY Albumin Lvl 4.3 3.5 - 5.0 04/29/2012 Normal [facility] CHEMISTRY A/G Ratio 1.1 0.7 - 1.6 04/29/2012 Normal [facility] CHEMISTRY B/C Ratio 5 6 - 25 04/29/2012 LOW [facility] CHEMISTRY Globulin 4.0 2.0 - 4.0 04/29/2012 Normal [facility] Pathology Reports No Data Provided for This Section Diagnostic Reports Report Value Date Source Chest 2 views Examination: [place] st x-ray, 2 views History: 786.05 sob Comparison: 10/15/2013 Findings: Median sternotomy wires are noted. The cardiac silhouette is mildly prominent. Mild interstitial edema with small right pleural effusion is noted. There is no pneumothorax. The osseous structures are without focal abnormality. IMPRESSION: Findings compatible with mild congestive heart failure. SL: 13 04/19/2014 [facility] Chest wo contrast CT CT SCAN O F THE CHEST without contrast. History: Bronchiolitis obliterans organizing pneumonia (BOOP) Comparison is made to 06/15/2012. A study of 11/27/2011 was also reviewed. Technique: Helical CT images were obtained from the thoracic inlet to the upper abdomen. Intravenous contrast was not administered. Sagittal and coronal reconstructions were provided. FINDINGS: 1. There are mild nonspecific scattered interstitial changes greatest in the region of the lingula. These are stable in appearance. 2. There has been development of a small right pleural effusion and a minimal left pleural effusion. There is associated mild right basilar atelectasis. 3. There are no large confluent pulmonar y infiltrates. 4. No suspicious mass or adenopathy is s een within the chest. 5. The heart size is at the upper limits of normal. There is no pericardial effusion. 6. Poststernotomy changes. Extensive cor onary artery calcifications are noted. 7. Enlargement of the main pulmonary art naif which measures 4.3 cm in maximal diameter. This could indicate pulmonary arterial hypertension. 8. Moderate atherosclerotic change invol ving the thoracic aorta. There is no aneurysm. 9. There is a very small amount of ascit es adjacent to the liver. This was not present on the prior study. 10. Numerous small hepatic cysts are not ed. Coding: Chest wo contrast CT CPT code: 16044 SL: 13 Tyrone Almazan M.D. 11/10/2013 [facility] Chest 2 views PA and LATERAL C HEST (2 views) HISTORY: Dyspnea FINDINGS: There are post sternotomy changes. There is mild cardiomegaly. There is no evidence of failure. The lungs are clear. There are no pleural effusions. The regional skeleton is unremarkable. CONCLUSION: 1. No active or acute disease. 2. Poststernotomy changes. 3. Mild cardiomegaly. Coding: Chest 2 views CPT Code: 74324 SL: 13 Tyrone Almazan M.D. 10/15/2013 [facility] Extremity venous Duplex bilat US BILATERAL LOWER EXTREMITY VENOUS DOPPLER HISTORY: Lower extremity swelling. COMMENT: The deep venous system of the lower extremities was interrogated from inguinal ligament to the popliteal fossae utilizing high-resolution duplex sonography (Color-flow and spectral Doppler). FINDINGS: The deep veins are readily visualized and easily compressible. There is normal spontaneous, phasic flow by Doppler with augmentation of flow with calf compression. This constitutes a negative exam. CONCLUSION: 1. Negative bilateral lower extremity ve nous Doppler. SL: 13 Tyrone Almazan M.D. 10/15/2013 [facility] Consultation Notes No Data Provided for This Section Discharge Summaries No Data Provided for This Section History and Physicals No Data Provided for This Section Vital Signs Vital Sign Value Date Comments Source Temperature Oral (F) 98.6 F 09/17/2017 [facility] Systolic (mm Hg) 85 09/17/2017 [facility] Diastolic (mm Hg) 63 09/17/2017 [facility] Respitory Rate 13 09/17/2017 [facility] Systolic (mm Hg) 114 09/16/2017 [facility] Diastolic (mm Hg) 65 09/16/2017 [facility] Heart Rate 76 09/16/2017 [facility] Respitory Rate 18 09/16/2017 [facility] Heart Rate 69 09/16/2017 [facility] Respitory Rate 18 09/16/2017 [facility] Systolic (mm Hg) 98 09/16/2017 [facility] Diastolic (mm Hg) 58 09/16/2017 [facility] Heart Rate 71 09/16/2017 [facility] Height 177.8 cm 09/16/2017 [facility] BMI Calculated 30.91 09/16/2017 [facility] Weight 97.727 09/16/2017 [facility] Temperature Oral (F) 98.4 F 09/16/2017 [facility] Temperature Oral (F) 98.6 F 06/17/2014 [facility] Respitory Rate 18 06/17/2014 [facility] Systolic (mm Hg) 138 06/17/2014 [facility] Heart Rate 82 06/17/2014 [facility] Diastolic (mm Hg) 82 06/17/2014 [facility] Height 172.72 cm 06/17/2014 [facility] Weight 77.273 06/17/2014 [facility] BMI Calculated 25.9 06/17/2014 [facility] Respitory Rate 18 05/18/2012 [facility] Heart Rate 86 05/18/2012 [facility] Temperature Oral (F) 97.9 F 05/18/2012 [facility] Systolic (mm Hg) 116 05/18/2012 [facility] Diastolic (mm Hg) 84 05/18/2012 [facility] Diastolic (mm Hg) 89 05/18/2012 [facility] Temperature Oral (F) 97.5 F 05/18/2012 [facility] Respitory Rate 20 05/18/2012 [facility] Heart Rate 95 05/18/2012 [facility] Systolic (mm Hg) 136 05/18/2012 [facility] Diastolic (mm Hg) 88 05/18/2012 [facility] Respitory Rate 18 05/18/2012 [facility] Systolic (mm Hg) 131 05/18/2012 [facility] Heart Rate 89 05/18/2012 [facility] Temperature Oral (F) 97 F 05/18/2012 [facility] Height 172.72 cm 05/04/2012 [facility] Weight 87.000 05/04/2012 [facility] Diastolic (mm Hg) 78 05/04/2012 [facility] Systolic (mm Hg) 129 05/04/2012 [facility] Respitory Rate 18 05/04/2012 [facility] Temperature Oral (F) 97.7 F 05/04/2012 [facility] Diastolic (mm Hg) 68 05/04/2012 [facility] Systolic (mm Hg) 115 05/04/2012 [facility] Respitory Rate 12 05/04/2012 [facility] Diastolic (mm Hg) 69 05/04/2012 [facility] Respitory Rate 19 05/04/2012 [facility] Systolic (mm Hg) 131 05/04/2012 [facility] Temperature Oral (F) 99.3 F 05/03/2012 [facility] Temperature Oral (F) 97.6 F 05/03/2012 [facility] Heart Rate 119 05/02/2012 [facility] Heart Rate 108 05/02/2012 [facility] Heart Rate 57 05/01/2012 [facility] Weight 89.000 04/29/2012 [facility] Height 172.72 cm 04/29/2012 [facility] Weight 89.000 04/29/2012 [facility] Height 172.72 cm 04/29/2012 [facility] Encounters Location Location Details Encounter Type Encounter Number Reason For Visit Attending Provider ADM Date DC Date Status Source [facility] Inpatient [id number] VIJAY RAE 04/29/2012 05/04/2012 Discharged [facility] Inpatient [id number] ALLYSON PRASADBONIFACIO 05/04/2012 05/18/2012 Discharged [facility] Outpatient [id number] LUNG NODULE JOSE CRUZ 06/15/2012 [facility] Out[facility] [id number] LEG SWELLING DEEPAK UYEDA 10/15/2013 10/15/2013 Active [facility] Outpatient [id number] 516.8 BOOP (BRON CHIOLITIS OBLITERANS WITH ORGANIZING P JOSE CRUZ 11/10/2013 Active [facility] [place] [facility]patient [id number] Carlos JohnsonAngi 03/28/2014 03/28/2014 [facility] Outpatient [id number] Jose Cruz 04/19/2014 04/20/[address] [facility] [id number] Smith Caitie 06/17/2014 06/17/2014 [facility] Emergency [id number] Reeoleg Anthony 09/16/2017 09/17/2017 [facility] [place] [facility] Outpatient [id number] Sonia Lianet 11/25/2017 11/25/2017 [facility] Procedures Procedure Code Date Perfomer Comments Source CABG - Coronary artery bypass graft [id number] [facility] Cholecystectomy [id number] [facility] Transplant of kidney [id number] [facility] Assessment and Plan No Data Provided for This Section Plan of Care No Data Provided for This Section Social History Social History Date Source Social History TypeResponse Smoking Status Never smoker; Concerns about tobacco use in household: No; Exposure to Tobacco Smoke None; Cigarette Smoking Last 365 Days No; Reg Smoking Cessation Counseling No 09/16/2017 [facility] Social History TypeResponse Smoking Status Never smoker; Concerns about tobacco use in household: No; Exposure to Tobacco Smoke None; Cigarette Smoking Last 365 Days No; Reg Smoking Cessation Counseling No entered on: 09/16/17 09/16/2017 [facility] Social History TypeResponse 06/17/2014 [facility] Family History No Data Provided for This Section Advance Directives No Data Provided for This Section Functional Status No Data Provided for This Section
[2020-08-17 22:30] LABS: BASOPHILS % 0.3 % (0.0-1.0); EOSINOPHILS # (AUTO) 0.1 (0.0-0.4); HEMATOCRIT 28.1 % (38.2-49.6); HEMOGLOBIN 9.3 g/dL (14.0-18.0); LYMPHOCYTES # (AUTO) 1.5 (1.0-3.2); LYMPHOCYTES % 25.2 % (18.0-39.1); MEAN CORPUSCULAR HEMOGLOBIN 31.5 pg (28-32); MEAN CORPUSCULAR HGB CONC 33.1 g/dL (31-35); MEAN CORPUSCULAR VOLUME 95.3 fL (81-99); MONOCYTES # (AUTO) 0.9 (0.2-0.8); NEUTROPHILS # (AUTO) 3.6 (2.1-6.9); NEUTROPHILS % 59.2 % (38.7-80.0); PLATELET COUNT 155 x10e3/uL (140-360); RED BLOOD COUNT 2.95 x10e6/uL (4.3-5.7); RED CELL DISTRIBUTION WIDTH 13.3 % (11.7-14.4)
--- OUTSIDE RECORDS SUMMARY | 2020-08-17 22:30 | XMS REPORT | Continuity of Care Document ---
Author Author [facility] t Organization [facility] Address [address] [place] [address] Phone Unavailable Care Team Providers Care Supervisor Slitting And Shipping Name Role Phone NO, PCP PCP Unavailable Bianca MILLARD, Johnathan Attphys Radha Tolentino Attphys Unavailable Kenny CHUCK WAGON DRIVER, Erika Beltran Attphys Ulises FRANCES, Aj Hooper Attphys Unavailable Silvana MILLARD, Zana Marrero Attphys Karime Szymanski MD Attphys Joseluis MORE, Beto Isaacs Attphys [phone] Faith MILLARD, Jairo Fine Attphys [phone] Veena MILLARD, Hoda Gresham Attphys [phone] JOHNATHAN VALENZUELA Attphys Unavailable MAYNOR PINA Attphys Unavailable Aj Nguyen Attphys Unavailable Jaswant Martini Attphys Dennys Cruz Attphys Myron Blood Attphys Franck Cruz Attphys PabloCarlos Fagan Attphys BIANCA JOHNATHAN Admphys Unavailable Franck Cruz Admphys Payers Payer Name Policy Type Policy Number Effective Date Expiration Date S joel MEDICAREMEDICARE A [id number] 2011-PresentMedicare [id number] 2011 00:00:00 [facility] [id number] 2019-PresentHMO/POS [id number] 2019 00:0 0:00 [facility] [id number] 9-PresentPPO [id number] 2019 00:00:00 [facility] MEDICAREMEDICARE PART A AND [id number] 2011-[place] [id number] 2011 00:00:00 [facility] [id number] 2019 00:00:00 [facility] Medicare A & B [id number] 2011 00:00:00 [facility] Problems Condition Name Condition Details Condition Category Status Onset Date Resolution Date Last Treatment Date Treating Clinician Comments Source Palliative care encounter Palliative care encounter Disease Ac tive 2019-11-22 00:00:00 [facility] Cardiogenic shock Cardiogenic shock Disease Active 2019-11-14 00:00:00 [facility] Acute coronary syndrome Acute coronary syndrome Disease Active 2019-11-13 00:00:00 [facility] Abnormal stress test Abnormal stress test Disease Active 00:00:00 [facility] Hypotension Hypotension Disease Active 2018-05-13 00:00:00 [facility] BDDC/ K21.9 GERD BDDC / K21.9 GERD Active 11/06/2017 [facility] Diagnosis Active 2017-11-06 00:00:00 2018-10-01 0 9:25:00 [facility] WOUND CARE WOUN D CARE Active 09/16/2017 [facility] Active 2017-09-16 00:00:00 2017-09-16 15:09:00 [facility] Neurogenic orthostatic hypotension Neurogenic orthostatic hypote nsion Disease Active 2017-07-29 00:00:00 [place] [facility] Gastroesophageal reflux disease without esophagitis Ga stroesophageal reflux disease without esophagitis Disease Active 2017-07-29 00:00:00 [facility] Shortness of breath Shortness of breath Disease Active 2017-07-28 00:00 :00 [facility] Abdominal pain Problem Active 2014-06-15 00:00:00 [facility] RASH RASH Active 06/15/2014 [facility] Active 2014-06-15 00:00:00 2014-06-17 18:23:00 [facility] BDDC/ ESOPHAGEAL REFLUX BDDC / ESOPHAGEAL REFLUX Active 03/06/2014 [facility] Diagnosis Active 2014-03-06 00:00:00 2014-05-18 17:24:00 [facility] 516.8 BOOP (BRONCHIOLITIS [place]BL[place] 516.8 BOOP (BRONCHIOLITIS OBLITERANS WI Active 11/08/2013 [facility] A ctive 2013-11-08 00:00:00 2013-11-10 09:53:00 [place] LEG SWELLING LEG SWELLING Active 10/11/2013 [facility] Active 2013-10-11 00:00:00 2013-10-20 12:44:00 [facility] LUNG NODULE, LUNG NODULE, Active 06/10/2012 [facility] Active 2012-06-10 00:00:00 2012-06-15 07:00:00 [facility] LUNG NODULE LUNG NODULE Active 06/10/2012 [facility] Active 2012-06-10 00:00:00 2012-06-15 07:01:00 [facility] SBO SBO Active 05/04/2012 [facility] Active 2012-05-04 00:00:00 2012-05-14 15:59:00 [facility] SYNCOPE SYNC OPE Active 05/04/2012 [facility] Diagnosis Active 2012-05-04 00:00:00 2012-05-04 20:20:00 Valentin Malone ABDOMINAL PAIN/ VOMITING ABDO TONG PAIN/ VOMITING Active 04/28/2012 [facility] Diagnosis Active 2012-04-28 18:00:00 2012-04-29 01:13:00 Valentin Malone Benign hypertension (disorder) Benign hypertension (disorder) Active 10/07/2011 Problem 03/03/2018 Data migrated from [employer] on 03/03/15. [facility] Problem Active 2011-10-07 00:00:00 2018-03-03 11:54:47 [facility] Faisal Coronary arteriosclerosis (disorder) Coronary arteriosclerosis (disorder) Active 10/07/2011 Problem 03/03/2018 Data migrated from [employer] on 03/03/15. [facility] Problem Active 2011-10-07 00:00:00 2018-03-03 11:54:47 M sid Malone End stage renal disease (disorder) End stage renal disease (disorder) Active 10/07/2011 Problem 03/03/2018 Data migrated from [employer] on 03/03/15. [facility] Problem Active 2011-10-07 00:00:00 2018-03-03 11:54:47 [facility] Hyperlipidemia (disorder) Hype rlipidemia (disorder) Active 10/07/2011 Problem 03/03/2018 Data migrated from [employer] on 03/03/15. [facility] Problem Active 2011-10-07 00:00:00 2018-03-03 11:54:47 [facility] Faisal Multiple renal cysts (disorder) Multiple renal cysts (disorder) Active 10/07/2011 Problem 03/03/2018 Data migrated from [employer] on 03/03/15. [facility] Problem Active 2011-10-07 00:00:00 2018-03-03 11:54:47 Valentin Malone Pericardial effusion (disorder) Pericardial effusion (disorder) Active 10/07/2011 Problem 03/03/2018 Data migrated from [employer] on 03/03/15. [facility] Problem Active 2011-10-07 00:00:00 2018-03-03 11:54:47 [facility] Faisal Pleural effusion (disorder) Pl eural effusion (disorder) Active 10/07/2011 Problem 03/03/2018 Data migrated from [employer] on 03/03/15. [facility] Problem Active 2011-10-07 00: 00:00 2018-03-03 11:54:47 Valentin Malone Ulcerative colitis (disorder) Ulcerative colitis (disorder) Active 10/07/2011 Problem 03/03/2018 Data migrated from [employer] on 03/03/15. [facility] Problem Active 2011-10-07 00:00:00 2018-03-03 11:54:47 Valentin Malone History of - coronary artery bypass grafting (context- dependent category) History of - coronary artery bypass grafting (context-dependent category) Resolved Problem 03/03/2018 [facility] Problem Resolved 2018-03-03 11:54:47 Sharon Malone Kidney transplant recipient (finding) Kidney transplant recipient (finding) Resolved Problem 03/03/2018 [facility] Problem Resolved 2018-03-03 11:54:47 Mem orialicja Malone Hypotension due to drugs Hypo tension due to drugs Active Problem 06/17/2012 [facility] Problem Active 2012-06-17 08:45:23 Valentin Malone Kidney transplant Kidn ey transplant Active Problem 06/17/2012 [facility] Problem Active 2012-06-17 08:45:23 Valentin Malone N&V - Nausea and vomiting N&V - Nausea and vomiting Active Problem 06/17/2012 [facility] Problem Active 2012-06-17 08:45:23 Valentin Malone PCK - Polycystic kidney disease PCK - Polycystic kidney disease Active Problem 06/17/2012 [facility] Problem Active 2012-06-17 08:45:23 Sharonor ial Faisal Hernia of abdominal cavity (disorder) Hernia of abdominal cavity (disorder) Active Problem 03/03/2018 [facility] Problem Active 2018-03-03 11:54:4 7 Valentin Malone End stage renal failure on dialysis (disorder) End stage renal failure on dialysis (disorder) Active Problem 03/03/2018 [facility] Problem Active 2018-03-03 11:54:4 7 Valentin Malone Drug-induced hypotension (disorder) Drug-induced hypotension (disorder) Active Problem 03/03/2018 [facility] Problem Active 2018-03-03 11:54:47 [facility] (procedure) Transplant of kidney (procedure) Active Problem 03/03/2018 [facility] Problem Active 2018-03-03 11:54:47 Fransico Malone Nausea and vomiting (disorder) Nausea and vomiting (disorder) Active Problem 03/03/2018 [facility] Problem Active 2018-03-03 11:54:47 Fransicolorena Malone 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 Problem 03/03/2018 [facility] Problem Active 2018-03-03 11:54:4 7 [facility] INTESTINAL OBSTRUCT NOS INTE STINAL OBSTRUCT NOS Active [facility] Diagnosis Active 2012-05-14 15:59:00 [facility] EDEMA MARION A Active [facility] Active 2013-10-20 12:44:00 [facility] ALVEOL PNEUMONOPATHY NEC ALVE OL PNEUMONOPATHY NEC Active [facility] Active 2013-11-10 09:53:00 [facility] UNK UNK Active [facility] Active 2014-04-19 08:28:00 [facility] SHORTNESS OF BREATH SHOR TNESS OF BREATH Active [facility] Active 2014-04-19 08:28:00 [facility] Gastro-esophageal reflux disease without esophagitis Gastro-esophageal reflux disease without esophagitis 12/22/2017 03/03/2018 [facility] Problem 2017-12-22 02:49:19 2018-02 11:54:47 2018-03-03 11:54:47 [facility] Discharge Diagnosis: Shingles Discharge Diagnosis: Shingles 06/17/2014 06/19/2014 [facility] Problem 06-17 05:00:00 2014-06-19 23:14:51 2014-06-19 23:14:51 [facility] Allergies, Adverse Reactions, Alerts This patient has no known allergies or adverse reactions. Family History Family Member Diagnosis Comments Start Date Stop Date Source Natural brother Kidney disease [place] [facility] Natural father Heart disease [facility] Natural father Kidney disease [place] [facility] Natural mother Hypertension [facility] Natural sister Kidney disease [place] [facility] Social History Social Habit Start Date Stop Date Quantity Comments Source Sex Assigned At [facility] Tobacco use and exposure 2020-05-21 00:00:00 2020-05-21 00:00:00 Mame mcpherson used [facility] Alcohol intake 2019-03-11 00:00:00 2019-03-11 00:00:00 Current drinker of alcohol (finding) Anthony Alonzo Alcohol Comment 2019-03-10 00:00:00 2019-03-10 00:00:00 social [facility] Smoking Status Start Date Stop Date Source Former smoker 2020-05-21 00:00:00 2020-05-21 00:00:00 [facility] Social History [facility] Medications Ordered Medication Name Filled Medication Name Start Date Stop Da te Current Medication? Ordering Clinician Indication Dosage Frequency Signature (SIG) Comments Components Source midodrine (PROAMATINE) 5 MG tablet 2020-07-13 00:00:00 2021-07-08 23:59:00 Yes 15mg Q.[id number] Take 3 tablets (15 mg total) by mouth 3 (three) times daily for 360 days. [facility] midodrine (PROAMATINE) 10 MG tablet 2020-07-11 23:09:5 0 2020-07-11 00:00:00 No 10mg Q.[id number] Take 10 mg by mouth 3 (th ree) times daily. [facility] midodrine (PROAMATINE) 5 MG tablet 2020-07-11 00:00:00 202 00:00:00 No 15mg Q.[id number] Take 3 ta blets (15 mg total) by mouth 3 (three) times daily for 360 days. [facility] cinacalcet (SENSIPAR) 60 MG tablet 2020-02-20 11:39:23 Yes 60mg QD Take 60 mg by mouth daily. [facility] famotidine (PEPCID) 40 MG tablet 2020-02-20 11:39:23 Yes 40mg QD Take 40 mg by mouth daily. [facility] metoprolol succinate (TOPROL-XL) 25 MG 24 hr tablet 02-19 11:39:23 Yes 25mg Q.5D Take 25 mg by mouth 2 (two) times daily. [facility] losartan (COZAAR) 25 MG tablet 2020-02-20 11:39:23 Yes 25mg QD Take 25 mg by mouth daily. [facility] isosorbide mononitrate (IMDUR) 30 MG 24 hr tablet 2020-02-20 11:39:23 Yes 30mg QD Take 30 mg by mouth daily. [facility] calcitrioL (ROCALTROL) 0.5 MCG capsule 2020-02-20 11:39:23 Yes .5ug QD Take 0.5 mcg by mouth daily. [facility] b complex vitamins tablet 2020-02-20 11:39:23 Yes 1{tbl} QD Take 1 tablet by mouth daily. [facility] aspirin 81 MG EC tablet 2020-02-20 11:32:03 Yes 81mg QD Take 81 mg by mouth daily. [facility] rosuvastatin (CRESTOR) 10 MG tablet 2020-02-20 00:00:0 0 2021-02-19 23:59:00 No 10mg QD Take 1 tablet (10 mg total) by mouth helen ly. [facility] pantoprazole (PROTONIX) 40 MG tablet 2019-12-03 00:00:00 Ye s 40mg QD Take 1 tablet (40 mg total) by mouth daily. [facility] magnesium oxide (MAG-OX) 400 mg (241.3 mg magnesium) tablet 2019-12-03 00:00:00 2020-12-02 23:59:00 No 400mg QD Take 1 tablet (400 mg total) by mouth daily. [facility] polyethylene glycol (GLYCOLAX) 17 gram packet 20 24-11-28 00:00:00 2019-12-06 23:59:00 No 17g QD Take 17 g by mouth daily for 3 days. [facility] atorvastatin (LIPITOR) 40 MG tablet 2019-12-02 11:01:5 7 2019-12-02 00:00:00 No 40mg QD Take 40 mg by mouth daily. [facility] isosorbide mononitrate (IMDUR) 60 MG 24 hr tablet 2019-12-02 11:01:57 2019-12-02 00:00:00 No 60mg QD Take 60 mg by mouth daily. [facility] famotidine (PEPCID) 40 MG tablet 2019-12-02 11:01:57 2019-11 00:00:00 No 40mg QD Take 40 mg by mouth daily. [facility] omeprazole (PRILOSEC) 20 MG capsule 2019-12-02 11:01:5 7 2019-12-02 00:00:00 No 20mg QD Take 20 mg by mouth daily. [facility] sevelamer (RENVELA) 800 mg tablet 2019-12-02 11:01:57 2019 00:00:00 No 2400mg Take 2,400 mg by mouth 3 (three) times d aily with meals. [facility] epoetin elsie-epbx (RETACRIT) 4,000 unit/mL Soln injection 2019-12-02 00:00:00 Yes 4000U Inject 1 mL (4 ,000 Units total) subcutaneously 3 (three) times a week at bedtime MON/THU/FRI. [facility] heparin (PF) injection 10 units/mL 2019-12-02 00:00:00 Yes 20U 2 mLs (20 Units total) by Intra-Catheter route as needed (for PICC Lines). [facility] heparin injection 5,000 units/mL 2019-12-02 00:00:00 Yes 5000U Inject 1 mL (5,000 Units total) subcutaneously every 12 (twelve) hours. [facility] DOPamine 800 mg in dextrose 5% (D5W) 250 mL (3,200 mcg/mL) i nfusion 2019-12-02 00:00:00 Yes 412ug/min Inject 412 mcg/min intrave nously continuous. [facility] hydrocortisone sod succ Act-O-Vial, PF, 100 mg/2 mL SolR 2019-12-02 00:00:00 Yes 25mg Inject 0.5 mLs (25 mg total) intravenously every 12 (twelve) hours. [facility] lactulose (CHRONULAC) 20 gram/30 mL solution 2019-12-02 00:00:00 Yes 20g Take 30 mLs (20 g total) by mouth 3 (three) times jose luis y as needed. [facility] mannitol 25 % injection 2019-12-02 00:00:00 Yes 12.5g Inject 50 mLs (12.5 g total) intravenously as needed (If BP drops below parameters). [facility] ticagrelor (BRILINTA) 90 mg Tab tablet 2019-12-02 00:00:00 Yes 90mg Q.5D Take 1 tablet (90 mg total) by mouth 2 (two) times daily. [facility] nitroglycerin (NITROSTAT) 0.4 MG SL tablet 12-02 00:00:00 2020-12-01 23:59:00 No Put 1 pill und er tongue every 5min as needed for chest pain.. [facility] ranolazine (RANEXA) 500 MG 12 hr tablet 00:00:00 2020-12-01 23:59:00 No 500mg Q.5D Take 1 tablet (500 mg total) by mouth 2 (two) times daily. [facility] senna-docusate (SENOKOT S) 8.6-50 mg per tablet 2019-12-02 00:00:00 2020-12-01 23:59:00 No 1{tbl} Q.5D Take 1 tablet by mouth 2 (two) times daily. [facility] acetaminophen (TYLENOL) 325 MG tablet 2019-12-02 00:00 :00 2020-11-26 23:59:00 No 650mg Take 2 tablets (650 mg total) by mouth every 4 (four) hours as needed for up to 360 days. [facility] rosuvastatin (CRESTOR) 20 MG tablet 2019-12-02 00:00:0 0 2020-02-20 00:00:00 No 20mg QD Take 1 tablet (20 mg total) by mouth helen ly. [facility] midodrine (PROAMATINE) 5 MG tablet 2019-12-02 00:00:00 23:59:00 No 15mg Take 3 tablets ( 15 mg total) by mouth 3 (three) times daily before meals for [address] [facility] bisacodyl (DULCOLAX) 10 mg suppository 2019-11-06 8 00:00:00 2019-12-12 23:59:[address] 1 suppos itory (10 mg total) rectally daily as needed for up to [address] [facility] ondansetron (ZOFRAN-ODT) 4 MG disintegrating tablet 2019-12-02 00:00:00 2019-12-09 23:59:00 No 4mg Take 1 tablet (4 mg total) by mouth every 8 (eight) hours as needed for up to 7 days. [facility] multivitamin with minerals tablet 2019-03-12 00:00:00 2019 23:59:00 No 1{tbl} QD Take 1 tablet by mouth daily. Anthony Alonzo cinacalcet (SENSIPAR) 60 MG tablet 2019-03-11 16:43:06 Y es 120mg Q.[id number] Take 120 mg by mouth 3 (three) times a w [place]. Taken on Thursday, Thursday, and Thursday at the dialysis Anthony Alonzo nitroglycerin (NITROSTAT) 0.4 MG SL tablet 2019-03-11 16:43:[address] 0.4 mg under the tongue every 5 (five) minutes a s needed for chest pain. Anthony Alonzo famotidine (PEPCID) 40 MG tablet 2019-03-11 16:43:06 Yes 40mg QD Take 40 mg by mouth nightly. Anthony Alonzo omeprazole (PriLOSEC) 40 MG capsule 2019-03-11 16:43:06 Yes 40mg Q.5D Take 40 mg by mouth 2 (two) times a day. 2 caps @ bedtime Anthony Alonzo midodrine (PROAMATINE) 5 MG tablet 2019-03-11 16:43:06 Yes 15mg QD Take 15 mg by mouth every morning. Anthony bueno sevelamer carbonate (RENVELA ORAL) 2019-03-11 16:43:06 Y es 1600mg Q.[id number] Take 1,600 mg by mouth 3 (three) times a day before meals. Anthony Alonzo sevelamer (RENVELA) 800 mg tablet 2019-03-11 00:00:00 2019 23:59:00 No 1600mg Q.[id number] Take 2 ta blets (1,600 mg total) by mouth 3 (three) times a day before meals. Zachary hallman [facility] Cyklokapron 2017-09-17 00:40:00 No Notes: (Same As: Cyklokapron) [facility] Sodium Chloride 0.9% (titrate) 250 mL 2017-09-16 22:52:00 N o 250 mL, Rate: Cupola Liner Helper for use with blood product administration., Dosing Weight 97.727, kg, Route: IV, Total Volume: 250, Priority: Routine, Start Date: 09/16/17 16:52:00 PETROL TANKER DRIVER, Duration: 1 day, Stop date: 09/17/17 16:51:00 PETROL TANKER DRIVER, Replace Every: 24 hr [facility] Sodium Chloride 0.9% (Bolus) IV 2017-09-16 22:52:00 No 250 mL, 500 ml/hr, Infuse Over: 0.5 hr, Route: IV, 250, Drug form: INJ, ONCE, Priority: STAT, Dosing Weight 97.727 kg, Start date: 09/16/17 16:52:00 PETROL TANKER DRIVER, Stop date: 09/16/17 16:52:00 PETROL TANKER DRIVER [facility] predniSONE 20 mg oral tablet 2014-06-17 23:05:00 Yes 20 mg = 1 tab, PO, Daily, # 5 tab, 0 Refill(s) [facility] acyclovir 400 mg oral tablet 2014-06-17 23:04:00 Yes 400 mg = 1 tab, PO, Daily, # 3 tab, 0 Refill(s) [facility] Vital-D 2012-05-19 14:00:00 No Marthajoann Paredes-Shelly 1 tab, Route: PO, Drug Form: TAB, Daily, Start date: 05/19/12 9:00:00, Duration: 30 day, Stop date: 06/17/12 9:00:00 [facility] metoprolol tartrate 2012-05-19 14:00:00 No Martha neumann-Shelly 25 mg, Route: PO, Drug form: TAB, Daily, Start date: 05/19/12 9:00:00, Duration: 30 day, Stop date: 06/17/12 9:00:00 Sharonyao gastelum Faisal Sensipar 2012-05-19 14:00:00 No Martha Reggie-Shelly 60 mg, Route: PO, Drug form: TAB, Daily, Start date: 05/19/12 9:00:00, Duration: 30 day, Stop date: 06/17/12 9:00:00 Valentin Malone Asacol 2012-05-18 22:00:00 No Martha Reggie-Shelly 800 mg, Route: PO, Drug form: ECTAB, TID, Start date: 05/18/12 17:00:00, Duration: 30 day, Stop date: 06/17/12 13:00:00 Valentin Malone MiraLax oral powder for reconstitution 2012-05-18 19:19:59 Yes Martha Reggie-Shelly 17 gm, PO, Daily , PRN, 30 pkt, constipation, Substitution Allowed Valentin Malone Colace 100 mg oral capsule 2012-05-18 19:19:39 Yes A bimbola Reggie-Shelly 100 mg, 1 cap, PO, BID, 60 cap, 2, 2, Substitution All owed, CAP Valentin Malone tramadol 50 mg oral tablet 2012-05-18 19:18:41 Yes A bimbola Reggie-Shelly 50 mg, 1 tab, PO, Q6H, PRN, 120 tab, as needed for pain, Substitution Allowed, TAB Valentin Malone Renagel 800 mg oral tablet 2012-05-18 19:18:36 Yes A bimbola Reggie-Shelly 1,600 mg, 2 tab, PO, TID, 120 tab, Substitution Allowe d, TAB Valentin Malone Vital-D oral tablet 2012-05-18 19:18:31 Yes Martha All en-Shelly 1 tab, PO, Daily, 30 tab, Substitution Allowed, Soft Stop, TAB Valentin Malone metoprolol 25 mg oral tablet 2012-05-18 19:18:23 Y es Martha Reggie-Shelly 25 mg, 1 tab, PO, Daily, 30 tab, Substitution A llowed, TAB Valentin Malone Asacol 400 mg oral enteric coated tablet 2012-05-18 19:18: 16 Yes Martha Reggie-Shelly 800 mg, 2 tab, PO, TID, 60 t ab, Substitution Allowed, ECTAB Valentin Malone omeprazole 20 mg oral enteric coated tablet 2012-05-18 19: 17:52 Yes Martha Reggie-Shelly 20 mg, 1 tab, PO, Daily, 30 tab, Substitution Allowed, ECTAB Valentin Malone Sensipar 60 mg oral tablet 2012-05-18 19:16:53 Yes A bimbola Reggie-Shelly 60 mg, 1 tab, PO, Daily, 30 tab, Substitution Allowed, TAB Valentin Malone tramadol 50 mg oral tablet 2012-05-18 18:58:10 Yes A bimbola Reggie-Shelly 50 mg, 1 tab, PO, Q6H, PRN, 120 tab, 0, 0, as needed for pain, Substitution Allowed, TAB Valentin Malone MiraLax oral powder for reconstitution 2012-05-18 18:58:06 No Martha Reggie-Shelly 17 gm, PO, Daily , PRN, 30 pkt, constipation, Substitution Allowed Valentin Malone Colace 100 mg oral capsule 2012-05-18 18:56:56 No A bimbola Reggie-Shelly 100 mg, 1 cap, PO, BID, 60 cap, 2, 2, Substitution Allowed, CAP Valentin Malone Vital-D 2012-05-18 14:00:00 No Martha Reggie-Shelly 1 tab, Route: PO, Daily, Start date: 05/18/12 9:00:00, Duration: 30 day, Stop date: 06/16/12 9:00:00 Valentin Malone Sensipar 2012-05-18 14:00:00 No Martha Reggie-Shelly 60 mg, 1 tab, Route: PO, Drug form: TAB, Daily, Start date: 05/18/12 9:00:00, Duration: 30 day, Stop date: 06/16/12 9:00:00 Memoria oriana [place] Colace 100 mg oral capsule 2012-05-18 14:00:00 No A bimbola Reggie-Shelly 100 mg, 1 cap, Route: PO, Drug form: CAP , BID, Start date: 05/18/12 9:00:00, Duration: 30 day, Stop date: 06/16/12 17:00:00 Valentin Malone tramadol 50 mg oral tablet 2012-05-18 13:41:00 No A bimbola Reggie-Shelly 50 mg, 1 tab, Route: PO, Drug form: TAB, Q6H, PRN as needed for pain, Start date: 05/18/12 8:41:00, Duration: 30 day, Stop date: 06/17/12 8:40:00 [facility] MiraLax 2012-05-18 13:38:00 No Martha Reggie-Shelly 17 gm, 1 pkt, Route: PO, Drug form: PWDR, Daily, PRN Constipation, Start date: 05/18/12 8:38:00, Duration: 30 day, Stop date: 06/17/12 8:37:00 [facility] Zocor 2012-05-18 02:00:00 No Martha Reggie-Shelly 20 mg, Route: PO, Bedtime, Start date: 05/17/12 21:00:00, Duration: 30 day, Stop date: 06/15/12 21:00:00 [facility] metoprolol tartrate 2012-05-18 02:00:00 No Martha All en-Shelly 25 mg, 1 tab, Route: PO, Drug form: TAB, Q12H, Start date: 05/17/12 21:00:00, Duration: 30 day, Stop date: 06/16/12 9:00:00 [facility] Renagel 2012-05-17 22:00:00 No Martha Reggie-Shelly 1,600 mg, 2 tab, Route: PO, Drug form: TAB, TID, Start date: 05/17/12 17:00:00, Duration: 30 day, Stop date: 06/16/12 13:00:00 [facility] Asacol 2012-05-17 22:00:00 No Martha Reggie-Shelly 800 mg, 2 tab, Route: PO, Drug form: ECTAB, TID, Start date: 05/17/12 17:00:00, Duration: 30 day, Stop date: 06/16/12 13:00:00 [facility] Protonix 2012-05-17 21:30:00 No Martha Reggie-Shelly 40 mg, 1 tab, Route: PO, Drug form: ECTAB, Before Dinner, Start date: 05/17/12 16:30:00, Duration: 30 day, Stop date: 06/15/12 16:30:00 [facility] parenteral nutrition solution w/electrolytes 650 mL 05-16 23:00:00 No Rula Tamezo 650 mL, Rat e: DIRECTED, Route: IV, Dosing Weight 87 kg, Total Volume: 650, Start date: 05/16/12 18:00:00, Duration: 30 hr, Stop date: 05/17/12 23:59:00 [facility] MiraLax 2012-05-16 17:00:00 No Rula Yu Scerbo 17 gm, 1 pkt, Route: PO, Drug form: PWDR, BID, Start date: 05/16/12 12:00:00, Duration: 30 day, Stop date: 06/15/12 9:00:00 Navin gastelum [place] Dilaudid 2012-05-16 16:12:00 No Rula Yu Scerbo 0.5 mg, 0.25 mL, Route: IV, Drug form: INJ, Q4H, PRN Pain Score 7-10, Start date: 05/16/12 11:12:00, Duration: 30 day, Stop date: 06/15/12 11:11:00 [facility] [place] 5/325 oral tablet 2012-05-16 16:12:00 No Rula Galeanorbo 1 tab, Route: PO, Drug Form: TAB, Q4H, PRN Pain, Start date: 05/16/12 11:12:00, Duration: 30 day, Stop date: 06/15/12 11:11:00 [facility] bisacodyl 2012-05-16 16:03:00 No Rula Yu Scerbo 10 mg, 1 supp, Route: IL, Drug form: SUPP, Daily, PRN as needed for constipation, Start date: 05/16/12 11:03:00, Duration: 30 day, Stop date: 06/15/12 11:02:00 [facility] Milk of Magnesia 2012-05-16 16:02:00 No Rula Yu S cerbo 30 ml, Route: PO, Drug Form: SUSP, Q6H, PRN as needed for constipation, Start date: 05/16/12 11:02:00, Duration: 30 day, Stop date: 06/15/12 11:01:00 [facility] parenteral nutrition solution w/electrolytes 650 mL 05-15 23:00:00 No Sam Lisa 650 mL, Rat e: as directed, Route: IV, Dosing Weight 87 kg, Total Volume: 650, Start date: 05/15/12 18:00:00, Duration: 30 hr, Stop date: 05/16/12 23:59:00 [facility] hydromorphone 2012-05-15 01:24:00 No Louise Hutton 1 mg, 0.5 mL, Route: IV, Drug form: INJ, ONCE, Start date: 05/14/12 20:24:00, Stop date: 05/14/12 20:24:00 [facility] parenteral nutrition solution w/electrolytes 650 mL 05-14 23:00:00 No Елена Lambert 650 mL, Rate: as directed, Route: IV, Dosing Weight 87 kg, Total Volume: 650, Start date: 05/14/12 18:00:00, Duration: 30 hr, Stop date: 05/15/12 23:59:00 [facility] metoprolol 5 mg/5 ml INJ 2012-05-14 17:00:00 No Abimbol a Chari 2.5 mg, 2.5 mL, Route: IVP, Drug form: INJ, Q6H, Start date: 05/14/12 12:00:00, Duration: 30 day, Stop date: 06/13/12 6:00:00 [facility] metoprolol 5 mg/5 ml INJ 2012-05-13 23:11:00 No Елена Lambert 2.5 mg, 2.5 mL, Route: IVP, Drug form: INJ, Q12H, Priority: STAT, Start date: 05/13/12 18:11:00, Duration: 30 day, Stop date: 06/12/12 9:00:00 [facility] parenteral nutrition solution w/electrolytes 650 mL 05-13 23:00:00 No Елена Lambert 650 mL, Rate: as directed, Route: IV, Dosing Weight 87 kg, Total Volume: 650, Start date: 05/13/12 18:00:00, Duration: 30 hr, Stop date: 05/14/12 23:59:00 [facility] bacitracin-polymyxin B topical powder 2012-05-13 20:30:00 No Mignon Lorenzo Almoosa 1 appl, Route: T OP, Daily, Drug form: OINT, Start date: 05/13/12 15:30:00, Duration: 30 day, Stop date: 06/12/12 9:00:00 [facility] Benadryl 2012-05-13 03:19:00 No Louise Hutton 25 mg, Route: IVP, ONCE, PRN Insomnia, Start date: 05/12/12 22:19:00 [facility] parenteral nutrition solution w/electrolytes 650 mL 05-12 23:00:00 No Pili Lowe Santana 650 mL, Ra te: as directed, Route: IV, Dosing Weight 87 kg, Total Volume: 650, Start date: 05/12/12 18:00:00, Duration: 30 hr, Stop date: 05/13/12 23:59:00 [facility] Dilaudid 2012-05-12 15:32:00 No Rula Galeanorbo 0.5 mg, 0.25 mL, Route: IV, Drug form: INJ, Q4H, PRN Pain, Start date: 05/12/12 10:32:00, Duration: 30 day, Stop date: 06/11/12 10:31:00 [facility] Saline Flush 0.9% 2012-05-12 14:00:00 No Nia Denny 5 ml, Route: IVP, Drug Form: INJ, Q12H, Start date: 05/12/12 9:00:00, Duration: 30 day, Stop date: 06/10/12 21:00:00 [facility] Dilaudid 2012-05-12 11:38:00 No Pili Lowe Santana 1 mg, 0.5 mL, Route: IV, Drug form: INJ, Q4H, PRN Pain, Start date: 05/12/12 6:38:00, Duration: 30 day, Stop date: 06/11/12 6:37:00 [facility] albumin human 5% intravenous solution 2012-05-12 08:31:00 No Nia Denny 25 gm, 500 mL, 0 ml/hr, Rout e: IV, Drug Form: INJ, ONCE, NOW, Start date: 05/12/12 3:31:00, Stop date: 05/12/12 3:31:00 [facility] chlorhexidine topical 4% soap 2012-05-12 07:00:00 No Be th Denny 1 appl, Route: BATHE, Q24H, Drug form: SOAP, Start date: 05/12/12 2:00:00, Duration: 30 day, Stop date: 06/10/12 2:00:00 [facility] Dilaudid 2012-05-12 06:40:00 No Nia Denny 1 mg, 0.5 mL, Route: IV, Drug form: INJ, ONCE, Priority: STAT, Start date: 05/12/12 1:40:00, Stop date: 05/12/12 1:40:00 [facility] albumin human 5% intravenous solution 2012-05-12 06:21:00 No Nia Denny 500 mL, Route: IV, ONCE, Sta rt date: 05/12/12 1:21:00, Stop date: 05/12/12 1:21:00 [facility] naloxone 2012-05-12 06:21:00 No Nia Denny 0.4 mg, 1 mL, Route: IVP, Drug form: INJ, PRN, PRN Narcotic Reversal, Start date: 05/12/12 1:21:00, Duration: 30 day, Stop date: 06/11/12 1:20:00 [facility] Saline Flush 0.9% 2012-05-12 06:09:00 No Nia Denny 5 ml, Route: IVP, Drug Form: INJ, PRN, PRN Line Flush, Start date: 05/12/12 1:09:00, Duration: 30 day, Stop date: 06/11/12 1:08:00 [facility] albumin human 5% intravenous solution 2012-05-12 03:47:00 No Nia Denny 25 gm, 500 mL, 0 ml/hr, Rout e: IV, Drug Form: INJ, ONCE, STAT, Start date: 05/11/12 22:47:00, Stop date: 05/11/12 22:47:00 [facility] naloxone 2012-05-12 03:08:00 No Nia Denny 0.4 mg, 1 mL, Route: IVP, Drug form: INJ, ONCE, PRN Narcotic Reversal, Priority: NOW, Start date: 05/11/12 22:08:00, Stop date: 06/10/12 22:07:00 [facility] [place] parenteral nutrition solution w/electrolytes 900 mL 05-11 21:04:00 No Rula Galeanorbo 900 mL, Rat e: as directed, Route: IV, Dosing Weight 87 kg, Total Volume: 900, Start date: 05/11/12 16:04:00, Stop date: 05/12/12 22:59:00 [facility]in [place] Dilaudid 0.2 mg/ml PYROTECHNIC MIXER (6 mg/30 mL) INJ Syringe 6 mg 05-11 21:00:00 No Nia Denny 6 mg, 30 mL, Rou te: IV, PYROTECHNIC MIXER Dose: 0.1mg, PYROTECHNIC MIXER Lockout: 10 minutes, 4 Hour Limit (In MG): 2.4, Drug Form: INJ, Continuous, Start date: 05/11/12 16:00:00, Duration: 30 day, Stop date: 06/10/12 15:59:00 [facility] 2012-05-11 21:00:00 No Rula Galeanorbo 5,000 unit, 1 mL, Route: SUB-Q, Drug form: INJ, Q8H, Start date: 05/11/12 16:00:00, Duration: 30 day, Stop date: 06/10/12 8:00:00 Navin Malone morphine Sulfate 30 mg 2012-05-11 19:37:00 No Rula Galeanorblorena IV, Start date: 05/11/12 14:37:00, Duration: 30, 30 ml [facility] naloxone 2012-05-11 19:02:00 No Osbaldo Munguia Mavis 0.04 mg, 0.1 mL, Route: IVP, Drug form: INJ, Q2MIN, PRN Narcotic Reversal, Start date: 05/11/12 14:02:00, Duration: 8 doses or times, Stop date: Limited # of times [facility] ondansetron 2012-05-11 19:02:00 No Osbaldo Munguia Mavis 4 mg, 2 mL, Route: IVP, Drug form: INJ, ONCE, PRN Nausea & Vomiting, Start date: 05/11/12 14:02:00 [facility] hydromorphone 2012-05-11 19:02:00 No Osbaldo Munguia Mavis 0.5 mg, 0.25 mL, Route: IVP, Drug form: INJ, Q5Min, PRN Pain Score 4-6, Start date: 05/11/12 14:02:00, Duration: 5 doses or times, Stop date: Limited # of times [facility] flumazenil 2012-05-11 19:02:00 No Osbaldo Ezra Mavis 0.2 mg, 2 mL, Route: IVP, Drug form: INJ, PRN, PRN Benzodiazepine Reversal, Initial dose, Start date: 05/11/12 14:02:00, Duration: 30 day, Stop date: 06/10/12 14:01:00 [facility] Ancef 2012-05-11 19:00:00 No Rula Galeanorbo 1 gm, Route: IVPB, Drug form: PDR/INJ, [id number], Start date: 05/11/12 14:00:00, Duration: 30 day, Stop date: 06/09/12 15:00:00 [facility] fentanyl (PF) 20 mcg/ml PYROTECHNIC MIXER (600 microgram /30 mL) 30 mL 2012-05-11 18:34:00 No Rula Yu Scerbo 30 m L, Route: IV, PYROTECHNIC MIXER Dose: 10 mcg, PYROTECHNIC MIXER Lockout: 12 minutes, 4 Hour Limit (In MCG): 200, Continuous, PRN Pain, Start date: 05/11/12 13:34:00, Duration: 30 day, Stop date: 06/10/12 13:33:00 [facility] parenteral nutrition solution w/electrolytes 900 mL 05-10 23:00:00 No Rula Yu Scerbo 900 mL, Rat e: as directed, Route: IV, Dosing Weight 87 kg, Total Volume: 900, Start date: 05/10/12 18:00:00, Duration: 30 hr, Stop date: 05/11/12 23:59:00 [facility] Ancef + Sodium Chloride 0.9% IV 100 mL 2012-05-10 22:25:00 No Rula Yu Scerbo 2 gm, Route: IVP B, ONCE, Start date: 05/10/12 17:25:00, Duration: 1 doses or times, Stop date: 05/10/12 17:25:00 [facility] parenteral nutrition solution w/electrolytes 900 mL 05-09 23:00:00 No Ted Milner Huber 900 mL, Rate: as directed, Route: IV, Dosing Weight 87 kg, Total Volume: 900, Start date: 05/09/12 18:00:00, Duration: 30 hr, Stop date: 05/10/12 23:59:00 [facility] heparin 5000 units/mL injectable solution 2012-05-09 21:00 :00 No Dillon Vazquez Erlin 5,000 unit, 1 mL , Route: SUB-Q, Drug form: INJ, Q8H, Start date: 05/09/12 16:00:00, Duration: 30 day, Stop date: 06/08/12 8:00:00 [facility] Tums 2012-05-09 14:22:00 No Dillon Gutierrezed Erlin 500 mg, 1 tab, Route: CHEW, Drug form: CHEWTAB, BID, PRN Indigestion, Start date: 05/09/12 9:22:00, Duration: 30 day, Stop date: 06/08/12 9:21:00 [facility] ondansetron 2012-05-09 08:46:00 No Silvia Aimee Liedavid 4 mg, 2 mL, Route: IV, Drug form: INJ, Q8H, PRN Nausea, Start date: 05/09/12 3:46:00, Duration: 30 day, Stop date: 06/08/12 3:45:00 [facility] parenteral nutrition solution w/electrolytes 900 mL 05-08 23:00:00 No Ted Milner Huber 900 mL, Rate: DIRECTED, Route: IV, Dosing Weight 87 kg, Total Volume: 900, Start date: 05/08/12 18:00:00, Duration: 30 hr, Stop date: 05/09/12 23:59:00 [facility] parenteral nutrition solution w/electrolytes 900 mL 05-07 23:00:00 No Ted C Huber 900 mL, Rate: as directed, Route: IV, Dosing Weight 87 kg, Total Volume: 900, Start date: 05/07/12 18:00:00, Duration: 30 hr, Stop date: 05/08/12 23:59:00 [facility] Protonix 2012-05-07 22:30:00 No Martha Marcelino 40 mg, Route: IVP, Drug form: INJ, Before Dinner, Patient is NPO, Start date: 05/07/12 17:30:00, Duration: 30 day, Stop date: 06/06/12 16:30:00 [facility] parenteral nutrition solution w/electrolytes 900 mL 05-07 21:37:00 No Dillon Taylor Erlin 900 mL, Rat e: as directed, Route: IV, Dosing Weight 87 kg, Total Volume: 900, Start date: 05/07/12 16:37:00, Duration: 30 hr, Stop date: 05/08/12 22:36:00 [facility] potassium chloride 2012-05-07 14:04:00 No Cameron Driver rink 20 mEq, Route: PO, Drug form: ELIX, ONCE, Start date: 05/07/12 9:04:00, Stop date: 05/07/12 9:04:00 [facility] hydrALAZINE 2012-05-07 02:53:00 No Felipe mcpherson 10 mg, 0.5 mL, Route: IV, Drug form: INJ, Q4H, PRN Hypertension, Start date: 05/06/12 21:53:00, Duration: 30 day, Stop date: 06/05/12 21:52:00 [facility] parenteral nutrition solution w/electrolytes 900 mL 05-06 23:00:00 No Dillon Taylor Erlin 900 mL, Rat e: as directed, Route: IV, Dosing Weight 87 kg, Total Volume: 900, Start date: 05/06/12 18:00:00, Duration: 30 hr, Stop date: 05/07/12 23:59:00 [facility] D5W 1/2NS 1,000 mL 2012-05-06 14:47:00 No Dillon Mohamm ed Erlin 1,000 mL, Rate: 75 ml/hr, Infuse over: 13.3 hr, Route: IV, Dosing Weight 87 kg, Total Volume: 1,000, Start date: 05/06/12 9:47:00, Duration: 30 day, Stop date: 06/05/12 9:46:00 [facility] fentanyl 2012-05-06 00:21:00 No Candelario Mohan III 25 microgram, 0.5 mL, Route: IVP, Drug form: INJ, ONCE, Start date: 05/05/12 19:21:00, Stop date: 05/05/12 19:21:00 [facility] epoetin elsie 2012-05-05 22:00:00 No Kyung Smiley 4,000 unit, 1 mL, Route: IV, Drug form: INJ, Q-M-W-F, Start date: 05/05/12 17:00:00, Duration: 30 day, Stop date: 06/02/12 17:00:00 Vishnu helm Faisal Protonix 2012-05-05 21:30:00 No Nia Denny 40 mg, Route: IVP, Drug form: INJ, Before Dinner, Patient is NPO, Start date: 05/05/12 16:30:00, Duration: 30 day, Stop date: 06/03/12 16:30:00 [facility] metoprolol 5 mg/5 ml INJ 2012-05-05 19:44:00 No Naveen Ruiz Brandon 5 mg, Route: IV, ONCE, Start date: 05/05/12 14:44:00, Stop date: 05/05/12 14:44:00 [facility] metoprolol 5 mg/5 ml INJ 2012-05-05 19:42:00 No Naveen Ruiz Brandon 5 mg, Route: IV, ONCE, Start date: 05/05/12 14:42:00, Stop date: 05/05/12 14:42:00 [facility] morphine Sulfate 2012-05-05 19:42:00 No Naveen Ruiz Brandon 2 mg, Route: IVP, ONCE, Start date: 05/05/12 14:42:00, Stop date: 05/05/12 14:42:00 [facility] NS (Bolus) IV 500 mL 2012-05-05 19:41:00 No Naveen Ruiz Ever itt 500 mL, Rate: 500 ml/hr, Infuse over: 1 hr, Route: IV, Dosing Weight 87 kg, Total Volume: 500, Priority: STAT, Start date: 05/05/12 14:41:00, Duration: 1 doses or times, Stop date: 05/05/12 15:40:00, Bolus DoseBolus Dose [facility] hydrocortisone 2012-05-05 19:41:00 No Naveen Ruiz Brandon 100 mg, Route: IV, ONCE, Start date: 05/05/12 14:41:00, Stop date: 05/05/12 14:41:00 [facility] metoprolol 5 mg/5 ml INJ 2012-05-05 17:00:00 No Felipe Saucedo 2.5 mg, 2.5 mL, Route: IVP, Drug form: INJ, Q6H, Start date: 05/05/12 12:00:00, Duration: 30 day, Stop date: 06/04/12 6:00:00 [facility] Zosyn 2012-05-05 17:00:00 No Naveen Ruiz Brandon 2.25 gm, 1 ea, Route: IVPB, Drug form: PDR/INJ, [id number], Start date: 05/05/12 12:00:00, Duration: 30 day, Stop date: 06/04/12 0:00:00 Navin gastelum [place] Sodium Chloride 0.9% IV 1,000 mL 2012-05-05 16:10:00 No Naveen Ruiz Brandon 1,000 mL, Rate: 50 ml/hr, Infuse over: 2 0 hr, Route: IV, Dosing Weight 87 kg, Total Volume: 1,000, Start date: 05/05/12 11:10:00, Duration: 30 day, Stop date: 06/04/12 11:09:00 [facility] Epogen 2012-05-05 14:00:00 No Kyung Munguia Ali 7,000 unit, Route: IV, Drug form: INJ, Q-M-W-F, Start date: 05/05/12 9:00:00, Duration: 30 day, Stop date: 06/02/12 9:00:00 [facility] Saline Flush 0.9% 2012-05-05 14:00:00 No Nia Denny 5 ml, Route: IVP, Drug Form: INJ, Q12H, Start date: 05/05/12 9:00:00, Duration: 30 day, Stop date: 06/03/12 21:00:00 [facility] chlorhexidine topical 4% soap 2012-05-05 11:00:00 No David Denny 1 appl, Route: BATHE, Q24H, Drug form: SOAP, Start date: 05/05/12 6:00:00, Duration: 30 day, Stop date: 06/03/12 6:00:00 [facility] Insulin regular 2012-05-05 10:19:00 No Naveen Joseph Brandon 1 unit, 0.01 mL, Route: SUB-Q, Drug form: SOLN, TID-Before Meals, PRN Blood Glucose Results, Start date: 05/05/12 5:19:00, Stop date: 06/04/12 5:18:00 [facility] glucagon 2012-05-05 10:19:00 No aNveen Ruiz Brandon 1 mg, Route: IM, Drug form: PDR/INJ, PRN, PRN Blood Glucose Results, Start date: 05/05/12 5:19:00, Stop date: 06/04/12 5:18:00 [facility] Dextrose 50% Syringe 2012-05-05 10:19:00 No Naveen Ruiz Ever itt 25 gm, 50 mL, Route: IVP, Drug Form: INJ, PRN, PRN Blood Glucose Results, Start date: 05/05/12 5:19:00, Stop date: 06/04/12 5:18:00 [facility] Saline Flush 0.9% 2012-05-05 10:18:00 No Nia Denny 5 ml, Route: IVP, Drug Form: INJ, PRN, PRN Line Flush, Start date: 05/05/12 5:18:00, Stop date: 06/04/12 5:17:00 [facility] Visipaque 320mg/ml 2012-05-05 04:17:00 No Enrrique Fraser Pu 100 mL, Route: IVP, Drug Form: SOLN, ONC ALL, STAT, Start date: 05/04/12 23:17:00, Duration: 1 doses or times, Dose = 2.2ml/kg, Max dose = 100mlDose = 2.2ml/kg, Max dose = 100ml [facility] Sodium Chloride 0.9% (Bolus) IV 1000 mL 2012-05-05 04:09:0 0 No Bella-[facility] Fraser Pu 1,000 mL, Ra te: 1,000 ml/hr, Infuse over: 1 hr, Route: IV, kg, Total Volume: 1,000, Bolus Dose, Priority: STAT, Start date: 05/04/12 23:09:00, Duration: 1 doses or times, Stop date: 05/05/12 0:08:00 [facility] norepinephrine 8 mg + Sodium Chloride 0.9% (titrate) 250 mL 2012-05-05 03:29:00 No Candelario Mohan III 2 50 mL, Rate: Use as direced, Route: IV, Total Volume: 258 mL, Duration: 30 day, Stop date: 06/03/12 22:28:00, Replace Every: 24 hr [facility] vancom[facility] + Sodium Chloride 0.9% IV 250 mL 2012-05-05 03: 28:00 No Enrrique Fraser Pu 1,740 mg, Ro bois forte: IVPB, ONCE, Start date: 05/04/12 22:28:00, Stop date: 05/04/12 22:28:00 [facility] Z[facility] 2012-05-05 03:27:00 No Enrrique Fraser Pu 3.375 gm, Route: IVPB, Drug form: PDR/INJ, ONCE, Priority: STAT, Start date: 05/04/12 22:27:00, Stop date: 05/04/12 22:27:00 M [facility] Sodium Chloride 0.9% (Bolus) IV 1,000 mL 2012-05-05 02:31: 00 No Jena-Kraig Fraser Pu 1,000 mL, Ra te: 1,000 ml/hr, Infuse over: 1 hr, Route: IV, Dosing Weight 87 kg, Total Volume: 1,000, Bolus Dose, Priority: STAT, Start date: 05/04/12 21:31:00, Duration: 1 doses or times, Stop date: 05/04/12 22:30:00 [facility] normal saline 0.9% IV 500 mL 2012-05-04 23:57:00 No Rula Yu Scerbo 500 mL, Rate: 1,000 ml/hr, I nfuse over: 0.5 hr, Route: IV, Total Volume: 500, Start date: 05/04/12 18:57:00, Duration: 30 day, Stop date: 06/03/12 18:56:00 [facility] fat emulsion, intravenous 250 mL 2012-05-04 23:00:00 No Vicente Gilson Suman IV, 21 ml/hr, Start date: 05/04/12 18:00:00, Duration: 12, 250 ml [facility] amino acids 5% w/D25W 1000ml Sulfite- Fr ee (clinimix) 1,000 mL + amino acid 50 g / L (TPN Display) 2012-05-04 23:00:00 No Vicente Gilson Suman 1,000 mL, Rate: 42 ml/hr, Infuse over: 24.3 hr, Route: IV, Dosing Weight 89 kg, Total Volume: 1,018.91, Start date: 05/04/12 18:00:00, Duration: 1 day, Stop date: 05/05/12 17:59:00 [facility] amino acids 5% w/D25W 1000ml Sulfite- Fr ee (clinimix) 1,000 mL + amino acid 50 g / L (TPN Display) 2012-05-03 23:00:00 No Vicente Gilson Suman 1,000 mL, Rate: 42 ml/hr, Infuse over: 24.5 hr, Route: IV, Dosing Weight 89 kg, Total Volume: 1,029.85, Start date: 05/03/12 18:00:00, Duration: 1 day, Stop date: 05/04/12 17:59:00 [facility] fat emulsion, intravenous 250 mL 2012-05-03 23:00:00 No Vicente Gilson Sumna IV, 21 ml/hr, Start date: 05/03/12 18:00:00, Duration: 12, 250 ml [facility] SoluCortef 2012-05-03 17:00:00 No Sibtain H Ali 100 mg, 2 mL, Route: IVP, Drug form: PDR/INJ, Q6H, Start date: 05/03/12 12:00:00, Duration: 2 doses or times, Stop date: 05/03/12 18:00:00 [facility] 2012-05-02 21:30:00 No Felipe Smith 40 mg, Route: IVP, Drug form: INJ, Before Dinner, Start date: 05/02/12 16:30:00, Duration: 30 day, Stop date: 05/31/12 16:30:00 [facility] norepinephrine 8 mg/250 mL-D5% injectable solution 8 mg 2012-05-02 07:44:00 No Eliel Coronayan IV, Start date: 05/02/12 2:44:00, 2 50 ml [facility] [place] Sodium Chloride 0.9% IV 2012-05-02 04:37:00 No Eliel ruckeryan IV, 500 ml/hr, ONCE, Start date: 05/01/12 23:37:00, 500 ml [facility] Sodium Chloride 0.9% IV 2012-05-02 04:29:00 No Dinorah Ab oussleman IV, 250 ml/hr, ONCE, Start date: 05/01/12 23:29:00, 250 ml [facility] [place] Sodium Chloride 0.9% IV 2012-05-02 02:12:00 No Dinorah Ab oussleman IV, 250 ml/hr, ONCE, Start date: 05/01/12 21:12:00, 250 ml [facility] NS (Bolus) IV 500 mL 2012-05-01 00:59:00 No Jenelle Le Jr 500 mL, Rate: 500 ml/hr, Infuse over: 1 hr, Route: IV, Dosing Weight 89 kg, Total Volume: 500, Priority: NOW, Start date: 04/30/12 19:59:00, Duration: 1 doses or times, Stop date: 04/30/12 20:58:00, Bolus DoseBolus Dose [facility] [place] Sodium Chloride 0.9% IV 2012-04-30 04:53:00 No Shabbir Prieto IV, 500 ml/hr, ONCE, Start date: 04/29/12 23:53:00, 500 ml [facility] [place] Zofran 2012-04-29 21:17:00 No Dinorah Aboussleman 4 mg, 2 mL, Route: IVP, Drug form: INJ, Q6H, PRN Nausea, Start date: 04/29/12 16:17:00, Duration: 30 day, Stop date: 05/29/12 16:16:00 [facility] Zosyn + Sodium Chloride 0.9% IV 100 mL 2012-04-29 16:00:00 No Kyung Munguia Ali 2.25 gm, 1 ea, Route : IVPB, [id number], Start date: 04/29/12 11:00:00, Duration: 30 day, Stop date: 05/29/12 3:00:00 [facility] D5NS 1,000 mL 2012-04-29 15:13:00 No Kyung Munguia Ali 1,000 mL, Rate: 70 ml/hr, Infuse over: 14.3 hr, Route: IV, Dosing Weight 89 kg, Total Volume: 1,000, Start date: 04/29/12 10:13:00, Stop date: 05/29/12 10:12:00 [facility] hydrALAZINE 2012-04-29 15:05:00 No Dinorah Aboussleman 10 mg, 0.5 mL, Route: IVP, Drug form: INJ, Q6H, PRN Elevated BP, Start date: 04/29/12 10:05:00, Duration: 30 day, Stop date: 05/29/12 10:04:00 [facility] nitroglycerin 0.4 mg sublingual tablet 2012-04-29 13:48:00 No Felipe Sarah 0.4 mg, 1 tab, R oute: SL, Drug form: TAB, Q5Min, PRN Chest Pain, Start date: 04/29/12 8:48:00, Duration: 30 day, Stop date: 05/29/12 8:47:00 [facility] atropine 2012-04-29 13:48:00 No Felipe Sarah 0.5 mg, 5 mL, Route: IVP, Drug form: INJ, PRN, PRN Bradycardia, Start date: 04/29/12 8:48:00, Duration: 30 day, Stop date: 05/29/12 8:47:00 [facility] acetaminophen 2012-04-29 10:54:00 No Karl Waldrop e 650 mg, 2 tab, Route: PO, Drug form: TAB, Q4H, PRN Pain/Fever, Start date: 04/29/12 5:54:00, Duration: 30 day, Stop date: 05/29/12 5:53:00 [facility] morphine Sulfate 2012-04-29 10:54:00 No Karl Ruth vicki 2 mg, 1 mL, Route: IVP, Drug form: INJ, Q3H, PRN Pain Score 4-6, Start date: 04/29/12 5:54:00, Duration: 30 day, Stop date: 05/29/12 5:53:00 [facility] metoprolol 5 mg/5 ml INJ 2012-04-29 10:54:00 No Janeana Amirah White 2.5 mg, 2.5 mL, Route: IVP, Drug form: INJ, Q4H, PRN Elevated BP, Priority: STAT, Start date: 04/29/12 5:54:00, Stop date: 05/29/12 5:53:00, SPB >170 (hold for HR equal or < 70 [facility] Zosyn 2012-04-29 10:54:00 No Janeana Amirah White 3.375 gm, Route: IVPB, Q6H, Priority: STAT, Start date: 04/29/12 5:54:00, Duration: 30 day, Stop date: 05/29/12 0:00:00 [facility] Sodium Chloride 0.9% IV 1000 mL 2012-04-29 10:54:00 No Janeana Amirah White 1,000 mL, Rate: 75 m l/hr, Infuse over: 13.3 hr, Route: IV, Dosing Weight 89 kg, Total Volume: 1,000, Start date: 04/29/12 5:54:00, Duration: 30 day, Stop date: 05/29/12 5:53:00 [facility] Saline Flush 0.9% 2012-04-29 10:54:00 No Janeana Amirah White 5 ml, Route: IVP, Drug Form: INJ, PRN, PRN Line Flush, Start date: 04/29/12 5:54:00, Duration: 30 day, Stop date: 05/29/12 5:53:00 [facility] Zosyn 2012-04-29 10:45:00 No Sibtain H Ali 3.375 gm, 100 mL, Route: IVPB, Drug form: PDR/INJ, [id number], Priority: STAT, Start date: 04/29/12 5:45:00, Duration: 30 day, Stop date: 05/28/12 23:45:00 [facility] Sodium Chloride 0.9% IV 1,000 mL 2012-04-29 10:44:00 No Sibtain H Ali 1,000 mL, Rate: 75 ml/hr, Infuse over: 13.3 hr, Route: IV, Dosing Weight 89 kg, Total Volume: 1,000, Start date: 04/29/12 5:44:00, Duration: 30 day, Stop date: 05/29/12 5:43:00 [facility] morphine Sulfate 2012-04-29 09:17:00 No Tyson ling-Salvador 4 mg, Route: IVP, ONCE, Priority: STAT, Start date: 04/29/12 4:17:00, Stop date: 04/29/12 4:17:00 [facility] Sodium Chloride 0.9% IV 2012-04-29 06:00:00 No Shabbir Prieto IV, 500 ml/hr, ONCE, PRN Hypotension, Start date: 04/29/12 1:00:00, 500 [facility] 2012-04-29 05:31:00 No Tyson ling-Salvador 4 mg, 2 mL, Route: IVP, Drug form: INJ, ONCE, Priority: STAT, Start date: 04/29/12 0:31:00, Stop date: 04/29/12 0:31:00 [facility] 2012-04-29 05:31:00 No Tyson Franco 4 mg, 2 mL, Route: IVP, Drug form: INJ, ONCE, Priority: STAT, Start date: 04/29/12 0:31:00, Stop date: 04/29/12 0:31:00 [facility] Fl[facility]% 2012-04-29 05:31:00 No Tyson Brownlee 5 ml, Route: IVP, Drug Form: INJ, PRN, PRN Line Flush, Start date: 04/29/12 0:31:00, Duration: 24 hr, Stop date: 04/30/12 0:30:00 [facility] Amlodipine Besylate (Norvasc) 5 Mg Tab Amlodipine Besylate (Norv asc) 5 Mg Tab Yes 5 Daily [facility] Cholecalciferol (Vitamin D) 400 Unit Tab Cholecalcifer ol (Vitamin D) 400 Unit Tab Yes 1 Daily [facility] Cinacalcet Hcl (Sensipar) 30 Mg Tablet Cinacalcet Hcl (Sensipar) 30 Mg Tablet Yes 30 Daily [facility] Metoprolol Tartrate 50 Mg Tablet Metoprolol Tartrate 50 Mg Tablet Yes 50 Twice A Day [facility] Omeprazole 10 Mg Capsule. Omeprazole 10 Mg Capsule. Yes 10 Daily [facility] Ranolazine (Ranexa) 500 Mg Tabsr Ranolazine (Ranexa) 500 Mg Tabsr Yes 500 Twice A Day [facility] Sevelamer Hcl (Renagel) 800 Mg Tablet Sevelamer Hcl (Renagel) 800 M g Tablet Yes 1600 Daily [facility] Vital Signs Vital Name Observation Time Observation Value Comments Source Systolic blood pressure 2020-05-21 11:48:00 84 mm[Hg] [facility] Diastolic blood pressure 2020-05-21 11:48:00 55 mm[Hg] [facility] Heart rate 2020-05-21 11:48:00 80 /min [facility] Body temperature 2020-05-21 11:48:00 37.06 Meron [facility] Respiratory rate 2020-05-21 11:48:00 18 /min [facility] Body height 2020-05-21 11:48:00 167.6 cm [facility] Body weight 2020-05-21 11:48:00 84.913 kg [facility] BMI 2020-05-21 11:48:00 30.21 kg/m2 [facility] Oxygen saturation in Arterial blood by Pulse oximetry 05-21 11:48:00 99 /min [facility] air [facility] Temperature Oral (F) 2017-09-17 02:30:00 98.6 F Valentin Malone Systolic (mm Hg) 2017-09-17 02:30:00 Fransico Malone Diastolic (mm Hg) 2017-09-17 02:30:00 Mem orialicja Malone Respitory Rate 2017-09-17 02:30:00 Vishnu Levin Systolic (mm Hg) 2017-09-16 23:23:00 Fransico rial [facility] Diastolic (mm Hg) 2017-09-16 23:23:00 Mem [facility] [place] Heart Rate 2017-09-16 23:23:00 [facility] Respitory Rate 2017-09-16 23:23:00 Memori al [place] Heart Rate 2017-09-16 23:14:00 [facility] [place] Respitory Rate 2017-09-16 23:14:00 [facility] [place] Systolic (mm Hg) 2017-09-16 23:14:00 Fransico rial [place] Diastolic (mm Hg) 2017-09-16 23:14:00 Mem [facility] Heart Rate 2017-09-16 22:56:00 [facility] Height 2017-09-16 19:33:00 177.8 cm [facility] BMI Calculated 2017-09-16 19:33:00 [facility] Weight 2017-09-16 19:33:00 [facility] Temperature Oral (F) 2017-09-16 19:33:00 98.4 F [facility] Temperature Oral (F) 2014-06-17 22:39:00 98.6 F [facility] Respitory Rate 2014-06-17 22:39:00 [facility] [place] Systolic (mm Hg) 2014-06-17 22:39:00 Fransico rial [place] Heart Rate 2014-06-17 22:39:00 [facility] Diastolic (mm Hg) 2014-06-17 22:39:00 [facility] Height 2014-06-17 22:39:00 172.72 cm [facility] Weight 2014-06-17 22:39:00 [facility] BMI Calculated 2014-06-17 22:39:00 [facility] Respitory Rate 2012-05-18 16:00:00 [facility] [place] Heart Rate 2012-05-18 16:00:00 [facility] [place] Temperature Oral (F) 2012-05-18 16:00:00 97.9 F [facility] Systolic (mm Hg) 2012-05-18 16:00:00 Fransico rial [place] Diastolic (mm Hg) 2012-05-18 16:00:00 Mem [facility] [place] Diastolic (mm Hg) 2012-05-18 13:34:00 [facility] Temperature Oral (F) 2012-05-18 13:34:00 97.5 F [facility] Respitory Rate 2012-05-18 13:34:00 [facility] Heart Rate 2012-05-18 13:34:00 [facility] Systolic (mm Hg) 2012-05-18 13:34:00 Fransico rial [facility] Diastolic (mm Hg) 2012-05-18 09:33:00 Mem [facility] Respitory Rate 2012-05-18 09:33:00 [facility] Systolic (mm Hg) 2012-05-18 09:33:00 Fransico rial [place] Heart Rate 2012-05-18 09:33:00 [facility] [place] Temperature Oral (F) 2012-05-18 09:33:00 97 F [facility] Height 2012-05-04 23:02:00 172.72 cm [facility] Weight 2012-05-04 23:02:00 [facility] Diastolic (mm Hg) 2012-05-04 17:00:00 Mem [facility] Systolic (mm Hg) 2012-05-04 17:00:00 Fransico rial [facility] Respitory Rate 2012-05-04 17:00:00 [facility] Temperature Oral (F) 2012-05-04 17:00:00 97.7 F [facility] Diastolic (mm Hg) 2012-05-04 12:00:00 [facility] [place] Systolic (mm Hg) 2012-05-04 12:00:00 Fransico rial [facility] Respitory Rate 2012-05-04 12:00:00 [facility] [place] Diastolic (mm Hg) 2012-05-04 11:00:00 Mem o[facility] [place] Respitory Rate 2012-05-04 11:00:00 [facility] [place] Systolic (mm Hg) 2012-05-04 11:00:00 Fransico rial [facility] Temperature Oral (F) 2012-05-03 20:45:00 99.3 F [facility] Temperature Oral (F) 2012-05-03 17:00:00 97.6 F [facility] Heart Rate 2012-05-02 04:00:00 [facility] Heart Rate 2012-05-02 01:10:00 [facility] [place] Heart Rate 2012-05-01 20:58:00 [facility] Weight 2012-04-29 13:54:00 [facility] Height 2012-04-29 13:54:00 172.72 cm [facility] Weight 2012-04-29 02:58:00 [facility] Height 2012-04-29 02:58:00 172.72 cm [facility] Procedures Procedure Date / Time Performed Performing Clinician [facility] 2D ECHO W/ DOPPLER (CW/PW/COLOR) 2020-05-28 10:58:53 Yessi Valenzuela [facility] VASCULAR DIAGRAM -SCAN 2020-03-28 15:25:38 Provider, Default Sca [facility] NM MYOCARDIAL PERFUSION PET/CT (REST & STRESS) 2020-03-05 08 :56:00 Ruby Kenny [facility] TREADMILL TOLERANCE(NON-NUCLEAR TREADMILL) 2020-03-05 08:47: 08 Unknown, Hl7 Doctor [facility] ECG 12-LEAD 2020-03-05 08:44:35 Unknown, Hl7 Doctor [facility] REPORT OF PROCEDURE - ENDOSCOPY SCAN 2019-12-06 09:00:33 Pro vider, Default Scanning [facility] RHYTHM STRIP - SCAN 2019-12-06 09:00:31 Provider, Default Scanni [facility] RHYTHM STRIP - SCAN 2019-12-06 09:00:30 Provider, Default Scanni [facility] VASCULAR DIAGRAM -SCAN 2019-12-06 09:00:22 Provider, Default Sca [facility] CARDIAC CATH REPORT - SCAN 2019-12-06 09:00:20 Provider, Default Scanning [facility] CARDIAC CATH REPORT - SCAN 2019-12-06 09:00:19 Provider, Default Scanning [facility] BASIC METABOLIC PANEL (7) 2019-12-02 04:11:00 Major Rae mbrachelle [facility] MAGNESIUM 2019-12-02 04:11:00 Major Rae [facility] CBC W/PLT COUNT & AUTO DIFFERENTIAL 2019-12-02 04:11:00 Uday Cornejo [facility] BASIC METABOLIC PANEL (7) 2019-12-01 06:11:00 Major Rae mbac [facility] MAGNESIUM 2019-12-01 06:11:00 [facility] W/PLT COUNT & AUTO DIFFERENTIAL 2019-12-01 04:55:00 Uday Cornejo [facility] TRANSFUSION SERVICE REPORT - SCAN 2019-11-30 18:03:24 Provid er, Default Scanning [facility] HEMODIALYSIS INPATIENT 2019-11-30 13:40:05 Cande Peoples [facility] REVISION/LIGATION,A-V FISTULA 2019-11-30 07:30:00 Babatunde Cuevas [facility] BASIC METABOLIC PANEL (7) 2019-11-30 06:28:00 Major Rae [facility] MAGNESIUM 2019-11-30 06:28:00 Major Rae [facility] CBC W/PLT COUNT & AUTO DIFFERENTIAL 2019-11-30 04:26:00 Uday Cornejo [facility] IR TUNNELED DIALYSIS CATHETER 2019-11-29 20:30:00 Karla Rae [facility] ABORH, MANUAL 2019-11-29 02:19:00 Kat Mcqueen [facility] BASIC METABOLIC PANEL (7) 2019-11-29 02:00:00 Major Rae U mbac [facility] MAGNESIUM 2019-11-29 02:00:00 Kyra Major [facility] PT/APTT 2019-11-29 02:00:00 Felipe Monsalve [facility] TYPE AND SCREEN, AUTOMATED 2019-11-29 02:00:00 Babatunde Cuevas [facility] CBC W/PLT COUNT & AUTO DIFFERENTIAL 2019-11-29 02:00:00 Major Rae [facility] HEMODIALYSIS INPATIENT 2019-11-28 13:47:07 Cande Peoples [facility] BASIC METABOLIC PANEL (7) 2019-11-28 05:27:00 Major Rae U mbac [facility] MAGNESIUM 2019-11-28 05:27:00 Qualishambmaile Major [facility] CBC W/PLT COUNT & AUTO DIFFERENTIAL 2019-11-28 05:27:00 Kyra [facility] BASIC METABOLIC PANEL (7) 2019-11-27 05:30:00 QuPrashanth elit U [facility] MAGNESIUM 2019-11-27 05:30:00 Quiambmaile [facility] CBC W/PLT COUNT & AUTO DIFFERENTIAL 2019-11-27 05:30:00 Kyra [facility] BASIC METABOLIC PANEL (7) 2019-11-26 05:26:00 QuPrashanth elit U [facility] MAGNESIUM 2019-11-26 05:26:00 Kyra [facility] CBC W/PLT COUNT & AUTO DIFFERENTIAL 2019-11-26 05:26:00 [facility] XR CHEST 1 VIEW PORTABLE/BEDSIDE 2019-11-25 14:10:00 Tae Kelley [facility] BASIC METABOLIC PANEL (7) 2019-11-25 04:19:00 Qusreedhar Major U [facility] MAGNESIUM 2019-11-25 04:19:00 Qusreedhar [facility] CBC W/PLT COUNT & AUTO DIFFERENTIAL 2019-11-25 04:19:00 Qualishajason [facility] PH, VENOUS 2019-11-24 20:46:[address] [facility] PH, VENOUS 2019-11-24 11:06:[address] [facility] BASIC METABOLIC PANEL (7) 2019-11-24 04:35:00 QuiacatarinomailePrashantht U [facility] MAGNESIUM 2019-11-24 04:35:00 Quiambmaile [facility] CBC W/PLT COUNT & AUTO DIFFERENTIAL 2019-11-24 04:35:00 Major Rae [facility] PH, VENOUS 2019-11-23 20:35:[address] [facility] CALCIUM, IONIZED 2019-11-23 15:49:00 Ruby Chan [facility] POTASSIUM 2019-11-23 12:56:[address] [facility] LACTIC ACID, VENOUS 2019-11-23 12:56:00 [place], [facility] HEMOGLOBIN AND HEMATOCRIT 2019-11-23 12:56:00 [place], [facility] CORTISOL,60 MIN 2019-11-23 12:32:00 [place], [facility] CORTISOL,30 MIN 2019-11-23 11:49:00 [place], [facility] ACTH STIMULATION 2019-11-23 11:11:00 [facility] CORTISOL,BASELINE 2019-11-23 11:11:00 Clemente [facility] POTASSIUM 2019-11-23 08:48:[address] [facility] MAGNESIUM 2019-11-23 08:48:[address] [facility] PHOSPHORUS 2019-11-23 08:48:[address] [facility] SODIUM 2019-11-23 08:48:[address] [facility] CALCIUM, IONIZED 2019-11-23 08:48:00 Ruby Chan [facility] PH, VENOUS 2019-11-23 08:48:[address] [facility] BASIC METABOLIC PANEL (7) 2019-11-23 03:07:00 Major Rae U mbac [facility] MAGNESIUM 2019-11-23 03:07:00 Major Raeac [facility] CBC W/PLT COUNT & AUTO DIFFERENTIAL 2019-11-23 03:07:00 Kyra Major Umbac [facility] POTASSIUM 2019-11-22 23:02:[address] [facility] HEPATIC FUNCTION PANEL 2019-11-22 23:02:00 Ruby Chan [facility] CALCIUM, IONIZED 2019-11-22 23:02:00 Ruby Chan [facility] MAGNESIUM 2019-11-22 08:57:[address] [facility] PHOSPHORUS 2019-11-22 08:57:[address] [facility] SODIUM 2019-11-22 08:57:[address] [facility] CALCIUM, IONIZED 2019-11-22 08:57:00 Ruby Chan [facility] POTASSIUM 2019-11-22 08:57:[address] [facility] PH, ARTERIAL 2019-11-22 03:35:[address] [facility] BASIC METABOLIC PANEL (7) 2019-11-22 03:35:00 Ruizalishajason Major U mbac [facility] MAGNESIUM 2019-11-22 03:35:00 Kyra [facility] PT/APTT 2019-11-22 03:35:00 Nathan Blackwood [facility] CBC W/PLT COUNT & AUTO DIFFERENTIAL 2019-11-22 03:35:00 Qusreedhar , [facility] POTASSIUM 2019-11-22 00:11:[address] [facility] PH, ARTERIAL 2019-11-21 20:17:[address] [facility] MAGNESIUM 2019-11-21 20:17:[address] [facility] PHOSPHORUS 2019-11-21 20:17:[address] [facility] SODIUM 2019-11-21 20:17:[address] [facility] POTASSIUM 2019-11-21 20:17:[address] [facility] CALCIUM, IONIZED 2019-11-21 20:17:00 Ruby Chan [facility] CALCIUM, IONIZED 2019-11-21 16:38:00 Ruby Chan [facility] POTASSIUM 2019-11-21 16:38:[address] [facility] POTASSIUM 2019-11-21 12:53:[address] [facility] CALCIUM, IONIZED 2019-11-21 08:49:00 Ruby Chan [facility] BASIC METABOLIC PANEL (7) 2019-11-21 05:36:00 Major Rae [facility] MAGNESIUM 2019-11-21 05:36:00 Major Rae [facility] PHOSPHORUS 2019-11-21 05:36:[address] [facility] PT/APTT 2019-11-21 05:36:00 Nathan Blackwood [facility] CBC W/PLT COUNT & AUTO DIFFERENTIAL 2019-11-21 05:36:00 Kyra Major [facility] PT/APTT 2019-11-20 23:49:00 Nathan Blackwood [facility] CALCIUM, IONIZED 2019-11-20 23:47:00 Ruby Chan [facility] POTASSIUM 2019-11-20 23:47:[address] [facility] MAGNESIUM 2019-11-20 19:46:[address] [facility] PHOSPHORUS 2019-11-20 19:46:[address] [facility] PT/APTT 2019-11-20 18:03:00 Nathan Blackwood [facility] CALCIUM, IONIZED 2019-11-20 16:10:00 Ruby Chan [facility] POTASSIUM 2019-11-20 16:10:[address] [facility] SODIUM 2019-11-20 16:10:[address] [facility] POTASSIUM 2019-11-20 12:21:[address] [facility] PT/APTT 2019-11-20 12:21:00 Nathan Blackwood [facility] PHOSPHORUS 2019-11-20 08:10:[address] [facility] CALCIUM, IONIZED 2019-11-20 08:10:00 Ruby Chan [facility] PT/APTT 2019-11-20 05:42:00 Nathan Blackwood [facility] BASIC METABOLIC PANEL (7) 2019-11-20 04:03:00 Major Rae [facility] MAGNESIUM 2019-11-20 04:03:00 [facility] W/PLT COUNT & AUTO DIFFERENTIAL 2019-11-20 04:03:00 Major Rae [facility] POTASSIUM 2019-11-20 00:03:[address] [facility] PT/APTT 2019-11-20 00:03:00 Nathan Blackwood [facility] MAGNESIUM 2019-11-19 20:07:[address] [facility] PHOSPHORUS 2019-11-19 20:07:[address] [facility] SODIUM 2019-11-19 20:07:[address] [facility] POTASSIUM 2019-11-19 20:07:[address] [facility] CALCIUM, IONIZED 2019-11-19 20:07:00 Ruby Chan [facility] CALCIUM, IONIZED 2019-11-19 17:37:00 Ruby Chan [facility] POTASSIUM 2019-11-19 17:37:[address] [facility] POTASSIUM 2019-11-19 13:50:[address] [facility] PHOSPHORUS 2019-11-19 08:37:[address] [facility] CALCIUM, IONIZED 2019-11-19 08:37:00 Ruby Chan [facility] POTASSIUM 2019-11-19 08:37:[address] [facility] PT/APTT 2019-11-19 06:57:00 Jaison [facility] PT/APTT 2019-11-19 05:17:00 [facility] BASIC METABOLIC PANEL (7) 2019-11-19 04:08:00 Major Rae [facility] MAGNESIUM 2019-11-19 04:08:00 Kyra Major [facility] TROPONIN I 2019-11-19 04:08:00 Johnathan Valenzuela [facility] CBC W/PLT COUNT & AUTO DIFFERENTIAL 2019-11-19 04:08:00 Major Rae [facility] CALCIUM, IONIZED 2019-11-18 23:56:00 Ruby Chan [facility] PH, VENOUS 2019-11-18 21:55:00 Nathan Blackwood [facility] POTASSIUM 2019-11-18 20:02:[address] [facility] SODIUM 2019-11-18 20:02:[address] [facility] POTASSIUM 2019-11-18 16:29:[address] [facility] CALCIUM, IONIZED 2019-11-18 16:29:00 Ruby Chan [facility] MAGNESIUM 2019-11-18 16:29:[address] [facility] PHOSPHORUS 2019-11-18 16:29:[address] [facility] POTASSIUM 2019-11-18 11:38:[address] [facility] TROPONIN I 2019-11-18 11:38:[address] [facility] XR CHEST 1 VIEW PORTABLE/BEDSIDE 2019-11-18 08:46:00 Aide Cornejo [facility] CALCIUM, IONIZED 2019-11-18 08:45:00 Ruby Chan [facility] PT/APTT 2019-11-18 06:28:00 [facility] 2019-11-18 04:49:00 Nathan Blackwood [facility] CBC W/PLT COUNT & AUTO DIFFERENTIAL 2019-11-18 04:49:00 Kyra Major [facility] BASIC METABOLIC PANEL (7) 2019-11-18 04:48:00 Major Rae mbrachelle [facility] MAGNESIUM 2019-11-18 04:48:00 [facility]OP[facility] 2019-11-18 04:48:00 Johnathan Valenzuela [facility] PHOSPHORUS 2019-11-18 04:48:[address] [facility] POTASSIUM 2019-11-18 00:42:[address] [facility] CALCIUM, IONIZED 2019-11-18 00:42:00 Ruby Chan [facility] POCT-GLUCOSE METER 2019-11-17 22:36:[address] [facility] POTASSIUM 2019-11-17 20:30:[address] [facility] SODIUM 2019-11-17 20:30:[address] [facility] POTASSIUM 2019-11-17 16:18:[address] [facility] CALCIUM, IONIZED 2019-11-17 16:18:00 Ruby Chan [facility] MAGNESIUM 2019-11-17 16:18:[address] [facility] PHOSPHORUS 2019-11-17 16:18:[address] [facility] POTASSIUM 2019-11-17 11:56:[address] [facility] TROPONIN I 2019-11-17 11:56:00 Johnathan Valenzuela [facility] XR CHEST 1 VIEW PORTABLE/BEDSIDE 2019-11-17 11:31:00 Aide Cornejo [facility] VANCOMYCIN LEVEL, TROUGH 2019-11-17 10:23:00 Felipe Panda [facility] CALCIUM, IONIZED 2019-11-17 09:06:00 Ruby Chan [facility] BASIC METABOLIC PANEL (7) 2019-11-17 04:25:00 Major Rae mbrachelle [facility] MAGNESIUM 2019-11-17 04:25:00 [facility]OS[facility] 2019-11-17 04:25:[address] [facility] PT/APTT 2019-11-17 04:25:00 Nathan Blackwood [facility] CBC W/PLT COUNT & AUTO DIFFERENTIAL 2019-11-17 04:25:00 Major Rae [facility] CALCIUM, IONIZED 2019-11-17 00:46:00 Ruby Chan [facility] MAGNESIUM 2019-11-16 20:18:[address] [facility] PHOSPHORUS 2019-11-16 20:18:[address] [facility] SODIUM 2019-11-16 20:18:[address] [facility] POTASSIUM 2019-11-16 20:18:[address] [facility] PT/APTT 2019-11-16 17:10:00 Nathan Blackwood [facility] POTASSIUM 2019-11-16 16:22:[address] [facility] CALCIUM, IONIZED 2019-11-16 16:22:00 Ruby Chan [facility] PT/APTT 2019-11-16 16:22:00 Nathan Blackwodo [facility] VASCULAR DIAGRAM -SCAN 2019-11-16 14:22:42 Provider, Default Sca [facility] VASCULAR DIAGRAM -SCAN 2019-11-16 14:21:21 Provider, [facility] 2019-11-16 12:24:[address] [facility] PT/APTT 2019-11-16 10:13:00 Nathan Blackwood [facility] PH, ARTERIAL 2019-11-16 08:26:[address] [facility] PHOSPHORUS 2019-11-16 08:26:[address] [facility] CALCIUM, IONIZED 2019-11-16 08:26:00 Ruby Chan [facility] BASIC METABOLIC PANEL (7) 2019-11-16 04:50:00 Major Rae U mbrachelle [facility] MAGNESIUM 2019-11-16 04:50:00 Major Rae Umbrachelle [facility] PT/APTT 2019-11-16 04:50:00 Goran Blackwoodvid [facility] CBC W/PLT COUNT & AUTO DIFFERENTIAL 2019-11-16 04:50:00 Major Rae [facility] XR CHEST 1 VIEW PORTABLE/BEDSIDE 2019-11-16 04:38:00 KristieannitaDayod [facility] POTASSIUM 2019-11-15 23:49:[address] [facility] CALCIUM, IONIZED 2019-11-15 23:02:00 Ruby Chan [facility] POCT-ACT 2019-11-15 22:13:00 Bianca [facility] POCT-ACT 2019-11-15 20:12:00 Bianac [facility] POTASSIUM 2019-11-15 20:07:[address] [facility] MAGNESIUM 2019-11-15 20:07:[address] [facility] PH, ARTERIAL 2019-11-15 20:07:[address] [facility] PHOSPHORUS 2019-11-15 20:07:[address] [facility] SODIUM 2019-11-15 20:07:[address] [facility] POCT-ACT 2019-11-15 18:09:00 Bianca [facility] CALCIUM, IONIZED 2019-11-15 17:14:00 Ruby Chan [facility] POCT-ACT 2019-11-15 15:53:00 Bianca [facility] [facility] POTASSIUM 2019-11-15 15:08:[address] [facility] POCT-ACT 2019-11-15 13:16:00 Bianca [facility] L CATH & PCI 2019-11-15 12:05:00 Mp Curiel [facility] PHOSPHORUS 2019-11-15 04:27:00 Felipe Gar CH I [facility] BASIC METABOLIC PANEL (7) 2019-11-15 04:27:00 KyraMajor U [facility] MAGNESIUM 2019-11-15 04:27:00 [facility] PH, ARTERIAL 2019-11-15 04:27:[address] [facility] CALCIUM, IONIZED 2019-11-15 04:27:00 Ruby Chan [facility] PT/APTT 2019-11-15 04:27:00 Jaison [facility] CBC W/PLT COUNT & AUTO DIFFERENTIAL 2019-11-15 04:27:00 Kyra Major [facility] XR CHEST 1 VIEW PORTABLE/BEDSIDE 2019-11-15 03:59:00 Jaison [facility] POTASSIUM 2019-11-15 01:17:[address] [facility] CALCIUM, IONIZED 2019-11-15 01:17:00 Johnathan Valenzuela [facility] PH, ARTERIAL 2019-11-14 20:56:[address] [facility] POTASSIUM 2019-11-14 20:55:[address] [facility] CALCIUM, IONIZED 2019-11-14 20:55:00 Ruby Chan [facility] TROPONIN I 2019-11-14 18:23:00 Nathan Blackwood [facility] POTASSIUM 2019-11-14 18:23:[address] [facility] MAGNESIUM 2019-11-14 18:23:[address] [facility] PHOSPHORUS 2019-11-14 18:23:[address] [facility] SODIUM 2019-11-14 18:23:[address] [facility] CALCIUM, IONIZED 2019-11-14 17:00:00 Ruby Chan [facility] NM PET/CT CARDIAC VIABILITY/METABOLISM 2019-11-14 15:45:00 Alessandra singh [facility] POCT-GLUCOSE METER 2019-11-14 14:45[facility] 2019-11-14 13:16[facility] PO[facility]SE [facility]ER 2019-11-14 12:26:00 Bianca [facility] POCT-GLUCOSE METER 2019-11-14 12:02[facility]IEW PORTABLE/BEDSIDE 2019-11-14 11:19:00 HeatherBryce [facility] POCT-GLUCOSE METER 2019-11-14 10:38:00 Bianca [facility] POTASSIUM 2019-11-14 10:06:[address] [facility] POCT-GLUCOSE METER 2019-11-14 09:29:00 Bianca [facility] POTASSIUM 2019-11-14 05:31:00 Bianca [facility] HEPATIC FUNCTION PANEL 2019-11-14 05:31:00 Ruby Chan [facility] XR CHEST 1 VIEW PORTABLE/BEDSIDE 2019-11-14 04:35:00 Yessi Valenzuela [facility] BASIC METABOLIC PANEL (7) 2019-11-14 04:28:00 Felipe Gar [facility] MAGNESIUM 2019-11-14 04:28:00 Felipe Gar [facility] PHOSPHORUS 2019-11-14 04:28:00 Felipe Gar Yesenia [facility] HEPATITIS B SURFACE ANTIGEN 2019-11-14 04:28:00 Ruby Chan [facility] TROPONIN I 2019-11-14 04:28:00 Nathan Blackwood [facility] PT/APTT 2019-11-14 04:28:00 Goran Blackwoodvid [facility] CBC W/PLT COUNT & AUTO DIFFERENTIAL 2019-11-14 04:28:00 Felipe Gar [facility] TROPONIN I 2019-11-14 00:19:00 [facility] PT/[facility] 2019-11-14 00:19:00 Goran Blackwoodvid [facility] BLOOD GAS, ARTERIAL 2019-11-13 22:14:00 Jaison [facility] LACTIC ACID, ARTERIAL 2019-11-13 22:11:00 Jaison [facility] ECHOCARDIOGRAM REPORT - SCAN 2019-11-13 21:11:24 ProviderJenny lt [facility] XR CHEST 1 VIEW PORTABLE/BEDSIDE 2019-11-13 20:23:00 Jaison Nathan [facility] TROPONIN I 2019-11-13 17:59:00 Felipe Gar [facility] ECG 12-LEAD 2019-11-13 17:07:53 Unknown, Hl7 Doctor [facility] TROPONIN I 2019-11-13 13:30:00 Felipe Gar Yesenia [facility] 2D ECHO W/ DOPPLER (CW/PW/COLOR) 2019-11-13 12:04:33 Yessi Valenzuela [facility] POCT-ACT 2019-11-13 11:20:00 Johnathan Valenzuela [facility] L CATH & PCI 2019-11-13 10:15:00 Johnathan Valenzuela [facility] 2D ECHO W/ DOPPLER (CW/PW/COLOR) 2019-11-13 09:30:49 Delmis Gar [facility] APTT 2019-11-13 09:23:00 Jaison [facility] BASIC METABOLIC PANEL (7) 2019-11-13 06:40:00 Felipe Gar [facility] HEPATIC FUNCTION PANEL 2019-11-13 06:40:00 Gar, Felipe Patterson [facility] MAGNESIUM 2019-11-13 06:40:00 Gar, Felipe Patterson I [facility] PHOSPHORUS 2019-11-13 06:40:00 [facility] 2019-11-13 06:40:00 Gar, Felipe Sharif [facility] PROTHROMBIN TIME/INR 2019-11-13 06:40:00 Gar, Felipe Sharif Ch ua [facility] APTT 2019-11-13 06:40:00 [facility] CBC W/PLT COUNT & AUTO DIFFERENTIAL 2019-11-13 06:40:00 Gar, Felipe Sharif [facility] XR CHEST 1 VIEW PORTABLE/BEDSIDE 2019-11-13 06:34:00 Gar, Delmis oriana [facility] ECG 12-LEAD 2019-11-13 04:45:14 Unknown, Hl7 Doctor [facility] Computed tomography angiography of abdomen and pelvis without then withcontrast 2019-11-13 00:00:00 MAYNOR PINA [facility] CT angiography of chest 2019-11-12 00:00:00 SILVANA [facility] CABG - Coronary artery bypass graft [facility] Cholecystectomy [facility] Transplant of kidney [facility] Plan of Care Planned Activity Planned Date Details Comments Source Future Scheduled Test 2022-03-11 00:00:00 Lipid panel (proce dure) [code = 41958186] [facility] Future Scheduled Test 2020-06-05 00:00:00 INFLUENZA VACCINE (#1) [code = INFLUENZA VACCINE (#1)] [facility] Future Scheduled Test 2020-05-05 00:00:00 INFLUENZA VACCINE [code = INFLUENZA VACCINE] Anthony Alonzo Future Scheduled Test 2012-10-06 00:00:00 MEDICARE ANNUAL WE LLNESS (YEAR 2 or FIRST YEAR if no IPPE) [code = MEDICARE ANNUAL WELLNESS (YEAR 2 or FIRST YEAR if no IPPE)] [facility] Future Scheduled Test 2010 00:00:00 COLONOSCOPY SCREEN ING [code = COLONOSCOPY SCREENING] [facility] Scheduled Test 2010 00:00:00 SHINGLES VACCINES (#1) [code = SHINGLES VACCINES (#1)] [facility] Scheduled Test 1960 00:00:00 Screening for zuleika gnant neoplasm of colon (procedure) [code = 591492524] [facility] Encounters Start Date/Time End Date/Time Encounter Type Admission Type Attendi [facility] Care Department Encounter ID Source 2019-11-12 22:48:00 2019-11-13 03:20:00 Departed Emergency Room 1 MAYNOR PINA [facility] [id number] [facility] 2019-06-09 00:00:00 2019-06-09 00:00:00 Letter (Out) Marck Taylor [facility] [id number] 2017-11-25 10:01:00 2017-11-25 14:00:00 Outpatient Sonia Martini [facility] [id number] 2017-09-16 13:28:00 2017-09-16 20:30:00 Outpatient Estefania Cruz [place] [id number] 2014-06-17 17:32:00 2014-06-17 18:14:00 Outpatient Louise Blood [place] [id number] 2014-04-19 08:27:00 2014-04-19 23:59:00 Outpatient Gavin Cruz YANNI IE [id number] 2014-03-28 07:11:00 2014-03-28 14:00:00 Outpatient Carlos Rogers IE [id number] 2013-11-10 09:52:00 2013-11-10 23:59:00 Outpatient MARINA ACOSTAIE [id number] [facility] 2013-10-15 09:53:00 2013-10-15 23:59:00 Outpatient YANNI IE [id number] [facility] Results Test Description Test Time Test Comments Results Result Comments Source 2D Echo W/Doppler(CW/PW/Color) 2020-05-28 13:36:24 Ejection FractionSLEH ECHO HEARTLAB YO CPACSInterface, External Ris In - 05/28/2020 1:36 PM CDTTransthoracic Echocardiography Report (TTE) Demographics Patient Name MARISA BOB Date of Study 05/28/2020 YULISA Gender Male Visit Number [id number] Race Unknown Room Number OP Number Date of 1960 Referring Bianca Mann MD Physician Age 60 year(s) 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 The following segment(s) appear severely hypokinetic: basal-mid inferolateral . Septal motion is abnormal, likely related to prior cardiac surgery . The other segments are hypokinetic. LVEF by Valenzuela's method of disk assessment is moderately reduced [...] The other segments are hypokinetic. LVEF by Valenzuela's method of disk assessment is moderately reduced (30-34%) . Diastolic dysfunction is likely due to concomitant heart disease. Left Atrium LA size is moderately enlarged (42-48 ml/m2) . Right Ventricle RV chamber size is mildly enlarged . Global RV systolic function is normal . Right Atrium RA cavity size is mildly enlarged . Aortic Valve Normal AoV structure and function. Mitral Valve Guwb-rc-woyszkeh mitral annular calcification. Mild MV leaflet thickening. [...] cm LV PW Diastolic: 1 cm LVEDV Valenzuela's:161.47 ml LVESV Valenzuela's:106.82 ml LVEF Valenzuela's: 33.8 % LVEDVI: 83 ml/m^2 LVESVI: 55 [...] CO: 6.39 l/min LVOT CI: 3.29 l/min/m^2 [facility] Treadmill tolerance(Non-Nuclear Treadmill) 2020-03-09 13:58:12 Interface, External Ris In 03/09/2020 1:58 PM CDTProtocol Name Regadenoson Time In Exercise Phase 00:01:00 Max. Systolic BP 71 mmHgMax Diastolic BP 47 mmHgMax Heart Rate 75 BPMMax Predicted Heart Rate 161 BPMReason For Termination Predetermined end point Reason for Test Known CAD/Prior PCI/ACB Target HR Formula (220 - Age)*100% Arrhythmias none Resting ECG Normal Sinus Rhythm,Septal infarct,age ? ST Changes No Significant Changes Overall Impression Indeterminate due to pharmacological stress Nuclear data reported separatelyChest Pain none HR Response To Exercise BP Response To Exercise imdur,as a,losartan,brilinta,losartan,metoprololConfirmed by fellow Louise Lu ([id number]) on 03/06/2020 9:01:28 AMConfirmed by Carmen SHELBY, ESSENCE ([id number]) on 03/09/2020 1:58:07 PM [facility] ECG 12 lead 2020-03-06 07:22:47 Interface, E xternal Ris In 03/06/2020 7:22 AM CDTVentricular Rate 66 BPMAtrial Rate 66 BPMP-R Interval 184 msQRS Duration 160 msQ-T Interval 456 msQTC Calculation(Bazett) 478 msP [place] 55 degreesR [place] 44 degreesT [place] 93 degreesNormal sinus rhythmNon-specific intra-ventricular conduction blockNonspecific ST abnormalityProlonged QTAbnormal ECG13 Nov 2019QRS width has increasedNonspecific ST abnormality now seenNonspecific T wave abnormality improvedQT has shortenedConfirmed by MD YVAN, SU ([id number]) on 03/06/2020 7:22:43 AM [facility] PET/CT, CARDIAC PERF REST AND STRESS 2020-03-05 16:07:00 Keiry son for Exam:->Known CAD FINAL REPORT PROC EDURE: PET/CT Rest/Stress MYOCARDIAL PERFUSION with regadenoson\XA9\CPT CODE: [id number]: CAD I25.810HISTORY: Cardiovascular history: Myocardial infarction, coronary stenting 2019, ACB 2010.PROTOCOL: Limited low-dose CT imaging was performed for [...] show mild inferolateral decrease and mild to mo derate anterolateral and anterior decrease in activity. LV [...] improved, but other findings are similar. Signed: Rubin George MDReport Verified Date/Time: 03/05/2020 16:07:48 Reading Location: [id number] [facility] Reading Room Myocardial Perfusion Pet/CT (Rest & Stress) 2020-03-05 16:07: 00 Interface, External Ris In - 03/05/2020 4:10 PM CDTFINAL REPORT PROCEDURE: PET/CT Rest/Stress MYOCARDIAL PERFUSION with regadenoson\XA9\CPT CODE: [id number]: CAD I25.810HISTORY: Cardiovascular history: Myocardial infarction, coronary stenting ACB 2010.PROTOCOL: Limited low-dose CT imaging was performed for [...] improved, but other findings are similar. Signed: Rubin George MDReport Verified Date/Time: 03/05/2020 16:07:48 Reading Location: [address] Reading Room [facility] Basic metabolic panel 2019-12-02 04:37:00 Test Item Sodium (test code = 2951-2) 137 meq/L 136-145 Potassium (test code = 2823-3) 4.0 meq/L 3.5-5.1 Chloride (test code = 2075-0) 101 meq/L 98-107 CO2 (test code = 8-9) 26 meq/L 22-29 BUN (test code = 3094-0) 38 mg/dL 7-21 H Creatinine (test code = 2160-0) 6.24 mg/dL 0.57-1.25 H Glucose (test code = 2345-7) 232 mg/dL 70-105 H Calcium (test code = 42974-2) 8.6 mg/dL 8.4-10.2 EGFR (test code = 19899-3) 9 mL/min/1.73 sq m ESTIMATED GFR IS NOT ACCURATE CREATININE CLEARANCE IN PREDICTING GLOMERULAR FILTRATION RATE. ESTIMATED GFR IS NOT APPLICABLE FOR DIALYSIS PATIENTS. [place] (test code = CAROLINA) Traffic Control Specialist ID - PIAYA L Lab Interpretation (test code = 22867-4) [facility]normal [facility] [id number] 04:37:00* Test Item Value Reference Range Interpretation Comments SODIUM (BEAKER) (test code = 381) 137 meq/L 136-145 POTASSIUM (BEAKER) (test code = 379) 4.0 meq/L 3.5-5.1 CHLORIDE (BEAKER) (test code = 382) 101 meq/L 98-107 CO2 (BEAKER) (test code = 355) 26 meq/L 22-29 BLOOD UREA NITROGEN (BEAKER) (test code = 354) 38 mg/dL 7-21 H CREATININE (BEAKER) (test code = 358) 6.24 mg/dL 0.57-1.25 H GLUCOSE RANDOM (BEAKER) (test code = 652) 232 mg/dL 70-105 H CALCIUM (BEAKER) (test code = 697) 8.6 mg/dL 8.4-10.2 EGFR (BEAKER) (test code = 1092) 9 mL/min/1.73 sq m ESTIMATED GFR IS NOT ACCURATE CREATININE CLEARANCE IN PREDICTING GLOMERULAR FILTRATION RATE. ESTIMATED GFR IS NOT APPLICABLE FOR DIALYSIS PATIENTS. Traffic Control Specialist ISRAEL GALLAGHER [id number] 04:36:00* Test Item Value Reference Range Interpretation Comments Magnesium (test code = 06116-9) 1.9 mg/dL 1.6-2.6 CAROLINA (test code = CAROLINA) Traffic Control Specialist ISRAEL GALLAGHER L Lab Interpretation (test code = 28621-1) [facility] 04:36:00* Test Item Value Reference Range Interpretation Comments MAGNESIUM (BEAKER) (test code = 627) 1.9 mg/dL 1.6-2.6 Traffic Control Specialist ISRAEL GALLAGHER LCBC with platelet count + automated [id number] 04:23:00 * Test Item Value Reference Range Interpretation Comments WBC (test code = 6690-2) 5.2 3.5- 10.5 K/L RBC (test code = 789-8) 2.53 4.63- 6.08 M/L L MCHC (test code = 786-4) 33.3 32.3- 36.5 GM/DL L Hematocrit (test code = 4544-3) 22.8 % 40.1-51 L MCV (test code = 787-2) 90.1 fL 79-92.2 MCH (test code = 785-6) 30.0 pg 25.7-32.2 RDW (test code = 788-0) 16.5 % 11.6-14.4 H Platelets (test code = 777-3) 169 150- 450 K/CU MM MPV (test code = 04128-9) 10.1 fL 9.4-12.4 nRBC (test code = 413) 0 0- 0 /100 WBC % Neutros (test code = 429) 64 % % Lymphs (test code = 430) 23 % % Monos (test code = 431) 11 % % Eos (test code = 432) 1 % % Baso (test code = 437) 0 % # Neutros (test code = 670) 3.32 1.78- 5.38 K/L # Lymphs (test code = 414) 1.19 1.32- 3.57 K/L L # Monos (test code = 415) 0.58 0.30- 0.82 K/L # Eos (test code = 416) 0.04 0.04- 0.54 K/L # Baso (test code = 417) 0.00 0.01- 0.08 K/L L Immature Granulocytes-Relative (test code = 2801) 1 % 0-1 Lab Interpretation (test code = 21371-1) Abnormal [facility] W/PLT COUNT & AUTO [id number] 04:23:00* Test Item Value Reference Range Interpretation Comments WHITE BLOOD CELL COUNT (BEAKER) (test code = 775) 5.2 K/ L 3.5- 10.5 RED BLOOD CELL COUNT (BEAKER) (test code = 761) 2.53 M/ L 4.63-6 .08 L HEMOGLOBIN (BEAKER) (test code = 410) 7.6 GM/DL 13.7-17.5 L HEMATOCRIT (BEAKER) (test code = 411) 22.8 % 40.1-51.0 L MEAN CORPUSCULAR VOLUME (BEAKER) (test code = 753) 90.1 fL 79. 0-92.2 MEAN CORPUSCULAR HEMOGLOBIN (BEAKER) (test code = 751) 30.0 pg 25.7-32.2 MEAN CORPUSCULAR HEMOGLOBIN CONC (BEAKER) (test code = 752) 33.3 GM/DL 32.3-36.5 RED CELL DISTRIBUTION WIDTH (BEAKER) (test code = 412) 16.5 % 11.6-14.4 H PLATELET COUNT (BEAKER) (test code = 756) 169 K/CU MM 150-450 MEAN PLATELET VOLUME (BEAKER) (test code = 754) 10.1 fL 9.4-12 .4 NUCLEATED RED BLOOD CELLS (BEAKER) (test code = 413) 0 /100 WBC 0 -0 NEUTROPHILS RELATIVE PERCENT (BEAKER) (test code = 429) 64 % LYMPHOCYTES RELATIVE PERCENT (BEAKER) (test code = 430) 23 % MONOCYTES RELATIVE PERCENT (BEAKER) (test code = 431) 11 % EOSINOPHILS RELATIVE PERCENT (BEAKER) (test code = 432) 1 % BASOPHILS RELATIVE PERCENT (BEAKER) (test code = 437) 0 % NEUTROPHILS ABSOLUTE COUNT (BEAKER) (test code = 670) 3.32 K/ L 1.78-5.38 LYMPHOCYTES ABSOLUTE COUNT (BEAKER) (test code = 414) 1.19 K/ L 1.32-3.57 L MONOCYTES ABSOLUTE COUNT (BEAKER) (test code = 415) 0.58 K/ L 0. 30-0.82 EOSINOPHILS ABSOLUTE COUNT (BEAKER) (test code = 416) 0.04 K/ L 0.04-0.54 BASOPHILS ABSOLUTE COUNT (BEAKER) (test code = 417) 0.00 K/ L 0. 01-0.08 L IMMATURE GRANULOCYTES-RELATIVE PERCENT (BEAKER) (test code = 2801) 1 % 0-1 [id number] 09:55:00* Test Item Value Reference Range Interpretation Comments MAGNESIUM (BEAKER) (test code = 627) 1.9 mg/dL 1.6-2.6 Specimen slightly hemolyzed Traffic Control Specialist [facility] FBASIC METABOLIC [id number] 09:05:00* Test Item Value Reference Range Interpretation Comments SODIUM (BEAKER) (test code = 381) 138 meq/L 136-145 POTASSIUM (BEAKER) (test code = 379) 4.1 meq/L 3.5-5.1 Specimen slightly hemolyzed CHLORIDE (BEAKER) (test code = 382) 104 meq/L 98-107 CO2 (BEAKER) (test code = 355) 25 meq/L 22-29 BLOOD UREA NITROGEN (BEAKER) (test code = 354) 25 mg/dL 7-21 H CREATININE (BEAKER) (test code = 358) 4.44 mg/dL 0.57-1.25 H Specimen slightly hemolyzed GLUCOSE RANDOM (BEAKER) (test code = 652) 135 mg/dL 70-105 H CALCIUM (BEAKER) (test code = 697) 8.6 mg/dL 8.4-10.2 EGFR (BEAKER) (test code = 1092) 14 mL/min/1.73 sq m ESTIMATED GFR IS NOT ACCURATE CREATININE CLEARANCE IN PREDICTING GLOMERULAR FILTRATION RATE. ESTIMATED GFR IS NOT APPLICABLE FOR DIALYSIS PATIENTS. Traffic Control Specialist ID - CRISPINJOSUE Herminia ID - SUJIT FCBC W/PLT COUNT & AUTO DIFFERENTIAL 2019-12-01 05:20:00* Test Item Value Reference Range Interpretation Comments WHITE BLOOD CELL COUNT (BEAKER) (test code = 775) 5.4 K/ L 3.5- 10.5 RED BLOOD CELL COUNT (BEAKER) (test code = 761) 2.55 M/ L 4.63-6 .08 L HEMOGLOBIN (BEAKER) (test code = 410) 7.6 GM/DL 13.7-17.5 L HEMATOCRIT (BEAKER) (test code = 411) 23.0 % 40.1-51.0 L MEAN CORPUSCULAR VOLUME (BEAKER) (test code = 753) 90.2 fL 79. 0-92.2 MEAN CORPUSCULAR HEMOGLOBIN (BEAKER) (test code = 751) 29.8 pg 25.7-32.2 MEAN CORPUSCULAR HEMOGLOBIN CONC (BEAKER) (test code = 752) 33.0 GM/DL 32.3-36.5 RED CELL DISTRIBUTION WIDTH (BEAKER) (test code = 412) 16.4 % 11.6-14.4 H PLATELET COUNT (BEAKER) (test code = 756) 160 K/CU MM 150-450 MEAN PLATELET VOLUME (BEAKER) (test code = 754) 10.3 fL 9.4-12 .4 NUCLEATED RED BLOOD CELLS (BEAKER) (test code = 413) 0 /100 WBC 0 -0 NEUTROPHILS RELATIVE PERCENT (BEAKER) (test code = 429) 67 % LYMPHOCYTES RELATIVE PERCENT (BEAKER) (test code = 430) 21 % MONOCYTES RELATIVE PERCENT (BEAKER) (test code = 431) 10 % EOSINOPHILS RELATIVE PERCENT (BEAKER) (test code = 432) 1 % BASOPHILS RELATIVE PERCENT (BEAKER) (test code = 437) 0 % NEUTROPHILS ABSOLUTE COUNT (BEAKER) (test code = 670) 3.63 K/ L 1.78-5.38 LYMPHOCYTES ABSOLUTE COUNT (BEAKER) (test code = 414) 1.16 K/ L 1.32-3.57 L MONOCYTES ABSOLUTE COUNT (BEAKER) (test code = 415) 0.54 K/ L 0. 30-0.82 EOSINOPHILS ABSOLUTE COUNT (BEAKER) (test code = 416) 0.04 K/ L 0.04-0.54 BASOPHILS ABSOLUTE COUNT (BEAKER) (test code = 417) 0.01 K/ L 0. 01-0.08 IMMATURE GRANULOCYTES-RELATIVE PERCENT (BEAKER) (test code = 2801) 1 % 0-1 BASIC METABOLIC [id number] 07:23:00* Test Item Value Reference Range Interpretation Comments SODIUM (BEAKER) (test code = 381) 138 meq/L 136-145 POTASSIUM (BEAKER) (test code = 379) 4.6 meq/L 3.5-5.1 CHLORIDE (BEAKER) (test code = 382) 104 meq/L 98-107 CO2 (BEAKER) (test code = 355) 25 meq/L 22-29 BLOOD UREA NITROGEN (BEAKER) (test code = 354) 52 mg/dL 7-21 H CREATININE (BEAKER) (test code = 358) 6.94 mg/dL 0.57-1.25 H GLUCOSE RANDOM (BEAKER) (test code = 652) 164 mg/dL 70-105 H CALCIUM (BEAKER) (test code = 697) 8.3 mg/dL 8.4-10.2 L EGFR (BEAKER) (test code = 1092) 8 mL/min/1.73 sq m ESTIMATED GFR IS NOT ACCURATE CREATININE CLEARANCE IN PREDICTING GLOMERULAR FILTRATION RATE. ESTIMATED GFR IS NOT APPLICABLE FOR DIALYSIS PATIENTS. Traffic Control Specialist ID - SAVANNAH [id number] 07:15:00* Test Item Value Reference Range Interpretation Comments MAGNESIUM (BEAKER) (test code = 627) 1.9 mg/dL 1.6-2.6 Traffic Control Specialist ID - SAVANNAH MCBC W/PLT COUNT & AUTO [id number] 05:02:00* Test Item Value Reference Range Interpretation Comments WHITE BLOOD CELL COUNT (BEAKER) (test code = 775) 5.8 K/ L 3.5- 10.5 RED BLOOD CELL COUNT (BEAKER) (test code = 761) 2.96 M/ L 4.63-6 .08 L HEMOGLOBIN (BEAKER) (test code = 410) 8.6 GM/DL 13.7-17.5 L HEMATOCRIT (BEAKER) (test code = 411) 26.4 % 40.1-51.0 L MEAN CORPUSCULAR VOLUME (BEAKER) (test code = 753) 89.2 fL 79. 0-92.2 MEAN CORPUSCULAR HEMOGLOBIN (BEAKER) (test code = 751) 29.1 pg 25.7-32.2 MEAN CORPUSCULAR HEMOGLOBIN CONC (BEAKER) (test code = 752) 32.6 GM/DL 32.3-36.5 RED CELL DISTRIBUTION WIDTH (BEAKER) (test code = 412) 16.3 % 11.6-14.4 H PLATELET COUNT (BEAKER) (test code = 756) 209 K/CU MM 150-450 MEAN PLATELET VOLUME (BEAKER) (test code = 754) 10.1 fL 9.4-12 .4 NUCLEATED RED BLOOD CELLS (BEAKER) (test code = 413) 0 /100 WBC 0 -0 NEUTROPHILS RELATIVE PERCENT (BEAKER) (test code = 429) 68 % LYMPHOCYTES RELATIVE PERCENT (BEAKER) (test code = 430) 21 % MONOCYTES RELATIVE PERCENT (BEAKER) (test code = 431) 10 % EOSINOPHILS RELATIVE PERCENT (BEAKER) (test code = 432) 0 % BASOPHILS RELATIVE PERCENT (BEAKER) (test code = 437) 0 % NEUTROPHILS ABSOLUTE COUNT (BEAKER) (test code = 670) 3.88 K/ L 1.78-5.38 LYMPHOCYTES ABSOLUTE COUNT (BEAKER) (test code = 414) 1.23 K/ L 1.32-3.57 L MONOCYTES ABSOLUTE COUNT (BEAKER) (test code = 415) 0.56 K/ L 0. 30-0.82 EOSINOPHILS ABSOLUTE COUNT (BEAKER) (test code = 416) 0.01 K/ L 0.04-0.54 L BASOPHILS ABSOLUTE COUNT (BEAKER) (test code = 417) 0.01 K/ L 0. 01-0.08 IMMATURE GRANULOCYTES-RELATIVE PERCENT (BEAKER) (test code = 2801) 1 % 0-1 ANG, TUNNELED CATHETER [id number] 20:50:00Reason for Central Line/PICC?->Need for hemodialysis accessReason for exam:->hemodialysis acess FINAL REPORT Procedure: Tunneled dialysis catheter placem ent. History: Need for he modialysis. Mechanical Design Drafter: Buster Núñez MD. Rad Tech: Carmen Land Modality: S onography and fluoroscopy. DOSE REDUCTION: The e xamination was performed according to departmental dose-optimization program. F luoro time: 0.8 minutes Radiation dose for this procedure was 3.3 mGy air Kerma. Number of images: Three Sedation: Versed 0.5 mg and fentanyl 25 mcg was given int ravenously for conscious sedation. Vital signs were monitored throughout the pr ocedure by a dedicated RN under direct supervision of Dr. Núñez, and remained stable. Medicines: Not applicable. Anesthesia: Lidocaine local infiltration. Ph ysician intraprocedure sedation time was 15 minutes. Estimated [...] discharged from the department in stable condition. Complic ations: None immediate. Device: 15.5 Polish x 19 cm cuff to tip Duraflow 2 c atheter. Findings: Patent and compressible right internal jugular vein. Final im age shows the catheter to be in good position with the catheter tip in the right atrium, an excellent position for use. There is no complication. Impression: Successful ultrasound and fluoroscopic guided right internal jugular vein route cuffed tunneled hemodi alysis catheter placement as described above. There is a left neck trialysis cat heter placed by the ICU. It will be managed by the ICU team. Thank you for the o pportunity to assist in the care of your patient. Signed: Buster Núñez MDRepor t Verified Date/Time: 11/29/2019 20:50:43 Reading Location: [address] Reading Room Electronically signed by: BUSTER NÚÑEZ MD on 2019 08:50 PM IR Tunneled Catheter [id number] 20:50:00Interface, External Ris In - 12/01/2019 1:50 PM CSTFINAL REPORT Procedure: Tunneled dialysis catheter placement. History: Need for hemodialysis. Mechanical Design Drafter: Buster Núñez MD. Rad Tech: Carmen Land Modality: Sonography and fluoroscopy. DOSE [...] Dr. Núñez, and remained stable. Medicines: Not appli cable. Anesthesia: Lidocaine local infiltration. Physician intraprocedure sedat ion time was 15 minutes. Estimated blood loss: < 5 cc. Technique: Informed written consent was obtained. Discussion of risks, benefits, and alternatives were made with the patient. The patient expressed understanding and agreed to proceed. A universal timeout was performed prior to starting the procedure. The procedure room personnel used personal protective equipment. The operators used sterile gowns and gloves additionally. A prelim inary ultrasonogram was performed of the neck that revealed a patent and lila sible right internal jugular vein. Pertinent ultrasound images were stored in t he PACS for documentation. A sterile prep and drape of the right neck and upper chest was performed using standard technique. Using aseptic precautions, real-ti me ultrasound guidance, the internal jugular vein was accessed after local anest hetic infiltration and dermatotomy with a micropuncture needle. A 018 guidewire was advanced into the central venous system under fluoroscopic guidance. Over t he wire a micropuncture sheath was placed. Through the micropuncture sheath, a 0 35 wire was advanced into the venous system under fluoroscopic guidance. Over th e wire a peel-away sheath was placed. After local anesthesia, an incision was cr eated in the subclavicular exit site location and a cuffed tunneled dialysis cat heter of an appropriate length was tunneled from the exit site to the venotomy s ite using a tunneling device. The catheter was advanced into the venous system t hrough the peel-away sheath which was removed. The catheter aspirated and flushe d well and was terminally packed with heparin 1000 units per cc. The catheter wa s secured to skin using nonabsorbable suture and a CHG dressing applied. The edilberto otomy site was closed using Dermabond. An aseptic dressing was applied using the protocol for Dermabond. The patient was transferred to the recovery area and was discharged from the department in stable condition. Complic ations: None immediate. Device: 15.5 Polish x 19 cm cuff to tip Duraflow 2 c atheter. Findings: Patent and compressible right internal jugular vein. Final im age shows the catheter to be in good position with the catheter tip in the right atrium, an excellent position for use. There is no complication. Impression: Successful ultrasound and fluoroscopic guided right internal jugular vein route cuffed tunneled hemodi alysis catheter placement as described above. There is a left neck trialysis cat heter placed by the ICU. It will be managed by the ICU team. Thank you for the o pportunity to assist in the care of your patient. Signed: Buster Núñez Verified Date/Time: 11/29/2019 20:50:43 Reading Location: [facility] [address] Reading Room Electronically signed by: BUSTER NÚÑEZ MD on 2019 08:50 PM [facility] [id number] 03:59:00* Test Item Value Reference Range Interpretation Comments ABO Grouping (test code = 2588) A Rh Factor (test code = 2589) POS [facility] [id number] 03:14:00* Test Item Value Reference Range Interpretation Comments SODIUM (BEAKER) (test code = 381) 138 meq/L 136-145 POTASSIUM (BEAKER) (test code = 379) 4.4 meq/L 3.5-5.1 CHLORIDE (BEAKER) (test code = 382) 103 meq/L 98-107 CO2 (BEAKER) (test code = 355) 27 meq/L 22-29 BLOOD UREA NITROGEN (BEAKER) (test code = 354) 26 mg/dL 7-21 H CREATININE (BEAKER) (test code = 358) 4.65 mg/dL 0.57-1.25 H GLUCOSE RANDOM (BEAKER) (test code = 652) 197 mg/dL 70-105 H CALCIUM (BEAKER) (test code = 697) 8.7 mg/dL 8.4-10.2 EGFR (BEAKER) (test code = 1092) 13 mL/min/1.73 sq m ESTIMATED GFR IS NOT ACCURATE CREATININE CLEARANCE IN PREDICTING GLOMERULAR FILTRATION RATE. ESTIMATED GFR IS NOT APPLICABLE FOR DIALYSIS PATIENTS. Traffic Control Specialist ID - SAVANNAH [id number] 03:00:00* Test Item Value Reference Range Interpretation Comments MAGNESIUM (BEAKER) (test code = 627) 1.9 mg/dL 1.6-2.6 Traffic Control Specialist ID - SAVANNAH MType and screen, [id number] 02:44:00* Test Item Value Reference Range Interpretation Comments ABO/RH AUTOMATED (BEAKER) (test code = 2260) A POSITIVE Ab Scrn (test code = 890-4) NEGATIVE [facility]/[id number] 02:25:00* Test Item Value Reference Range Interpretation Comments Protime (test code = 5902-2) 13.8 11.9- 14.2 seconds INR (test code = 6301-6) 1.1 <=5.9 PTT (test code = 42246-3) 35.2 22.5- 36.0 seconds CAROLINA (test code = CAROLINA) Effective 03/02/2019: PT Refe rence Range ChangeNew: 11.9- 14.2 Previous: 11.7-14.7 RECOMMENDED COUMADIN/WARFARIN INR THERAPY RANGESSTANDARD DOSE: 2.0-3.0 Includes: PROPHYLAXIS for venous thrombosis, sys temic embolization; TREATMENT for venous thrombosis and/or pulmonary embolus.HIGH RISK: Target INR is 2.5-3.5 for patients wiht mechanical heart valves. Lab Interpretation (test code = 11123-5) Normal [facility]/[id number] 02:25:00* Test Item Value Reference Range Interpretation Comments PROTIME (BEAKER) (test code = 759) 13.8 seconds 11.9-14.2 INR (BEAKER) (test code = 370) 1.1 <=5.9 PARTIAL THROMBOPLASTIN TIME (BEAKER) (test code = 760) 35.2 seconds 22.5-36.0 Effective 03/02/2019: PT Reference Range ChangeNew: 11.9-14.2 Previous: 11.7-14. 7RECOMMENDED COUMADIN/WARFARIN INR THERAPY RANGESSTANDARD DOSE: 2.0-3.0 Include s: PROPHYLAXIS for venous thrombosis, systemic embolization; TREATMENT for venou s thrombosis and/or pulmonary embolus.HIGH RISK: Target INR is 2.5-3.5 for patie nts wiht mechanical heart valves.CBC W/PLT COUNT & AUTO [id number] 02:10:00* Test Item Value Reference Range Interpretation Comments WHITE BLOOD CELL COUNT (BEAKER) (test code = 775) 4.8 K/ L 3.5- 10.5 RED BLOOD CELL COUNT (BEAKER) (test code = 761) 3.04 M/ L 4.63-6 .08 L HEMOGLOBIN (BEAKER) (test code = 410) 9.2 GM/DL 13.7-17.5 L HEMATOCRIT (BEAKER) (test code = 411) 27.1 % 40.1-51.0 L MEAN CORPUSCULAR VOLUME (BEAKER) (test code = 753) 89.1 fL 79. 0-92.2 MEAN CORPUSCULAR HEMOGLOBIN (BEAKER) (test code = 751) 30.3 pg 25.7-32.2 MEAN CORPUSCULAR HEMOGLOBIN CONC (BEAKER) (test code = 752) 33.9 GM/DL 32.3-36.5 RED CELL DISTRIBUTION WIDTH (BEAKER) (test code = 412) 15.9 % 11.6-14.4 H PLATELET COUNT (BEAKER) (test code = 756) 169 K/CU MM 150-450 MEAN PLATELET VOLUME (BEAKER) (test code = 754) 9.3 fL 9.4-12 .4 L NUCLEATED RED BLOOD CELLS (BEAKER) (test code = 413) 0 /100 WBC 0 -0 NEUTROPHILS RELATIVE PERCENT (BEAKER) (test code = 429) 67 % LYMPHOCYTES RELATIVE PERCENT (BEAKER) (test code = 430) 20 % MONOCYTES RELATIVE PERCENT (BEAKER) (test code = 431) 12 % EOSINOPHILS RELATIVE PERCENT (BEAKER) (test code = 432) 0 % BASOPHILS RELATIVE PERCENT (BEAKER) (test code = 437) 0 % NEUTROPHILS ABSOLUTE COUNT (BEAKER) (test code = 670) 3.20 K/ L 1.78-5.38 LYMPHOCYTES ABSOLUTE COUNT (BEAKER) (test code = 414) 0.96 K/ L 1.32-3.57 L MONOCYTES ABSOLUTE COUNT (BEAKER) (test code = 415) 0.55 K/ L 0. 30-0.82 EOSINOPHILS ABSOLUTE COUNT (BEAKER) (test code = 416) 0.02 K/ L 0.04-0.54 L BASOPHILS ABSOLUTE COUNT (BEAKER) (test code = 417) 0.01 K/ L 0. 01-0.08 IMMATURE GRANULOCYTES-RELATIVE PERCENT (BEAKER) (test code = 2801) 1 % 0-1 BASIC METABOLIC [id number] 06:35:00* Test Item Value Reference Range Interpretation Comments SODIUM (BEAKER) (test code = 381) 134 meq/L 136-145 L POTASSIUM (BEAKER) (test code = 379) 4.6 meq/L 3.5-5.1 Specimen slightly hemolyzed CHLORIDE (BEAKER) (test code = 382) 101 meq/L 98-107 CO2 (BEAKER) (test code = 355) 21 meq/L 22-29 L BLOOD UREA NITROGEN (BEAKER) (test code = 354) 49 mg/dL 7-21 H CREATININE (BEAKER) (test code = 358) 7.38 mg/dL 0.57-1.25 H Specimen slightly hemolyzed GLUCOSE RANDOM (BEAKER) (test code = 652) 152 mg/dL 70-105 H CALCIUM (BEAKER) (test code = 697) 8.3 mg/dL 8.4-10.2 L EGFR (BEAKER) (test code = 1092) 8 mL/min/1.73 sq m ESTIMATED GFR IS NOT ACCURATE CREATININE CLEARANCE IN PREDICTING GLOMERULAR FILTRATION RATE. ESTIMATED GFR IS NOT APPLICABLE FOR DIALYSIS PATIENTS. Traffic Control Specialist ID - VIRGIL [id number] 06:29:00* Test Item Value Reference Range Interpretation Comments MAGNESIUM (BEAKER) (test code = 627) 1.8 mg/dL 1.6-2.6 Specimen slightly hemolyzed Traffic Control Specialist ID - VIRGIL WCBC W/PLT COUNT & AUTO [id number] 06:00:00* Test Item Value Reference Range Interpretation Comments WHITE BLOOD CELL COUNT (BEAKER) (test code = 775) 4.9 K/ L 3.5- 10.5 RED BLOOD CELL COUNT (BEAKER) (test code = 761) 3.23 M/ L 4.63-6 .08 L HEMOGLOBIN (BEAKER) (test code = 410) 9.4 GM/DL 13.7-17.5 L HEMATOCRIT (BEAKER) (test code = 411) 29.3 % 40.1-51.0 L MEAN CORPUSCULAR VOLUME (BEAKER) (test code = 753) 90.7 fL 79. 0-92.2 MEAN CORPUSCULAR HEMOGLOBIN (BEAKER) (test code = 751) 29.1 pg 25.7-32.2 MEAN CORPUSCULAR HEMOGLOBIN CONC (BEAKER) (test code = 752) 32.1 GM/DL 32.3-36.5 L RED CELL DISTRIBUTION WIDTH (BEAKER) (test code = 412) 16.0 % 11.6-14.4 H PLATELET COUNT (BEAKER) (test code = 756) 201 K/CU MM 150-450 MEAN PLATELET VOLUME (BEAKER) (test code = 754) 9.6 fL 9.4-12 .4 NUCLEATED RED BLOOD CELLS (BEAKER) (test code = 413) 0 /100 WBC 0 -0 NEUTROPHILS RELATIVE PERCENT (BEAKER) (test code = 429) 56 % LYMPHOCYTES RELATIVE PERCENT (BEAKER) (test code = 430) 32 % MONOCYTES RELATIVE PERCENT (BEAKER) (test code = 431) 11 % EOSINOPHILS RELATIVE PERCENT (BEAKER) (test code = 432) 1 % BASOPHILS RELATIVE PERCENT (BEAKER) (test code = 437) 0 % NEUTROPHILS ABSOLUTE COUNT (BEAKER) (test code = 670) 2.74 K/ L 1.78-5.38 LYMPHOCYTES ABSOLUTE COUNT (BEAKER) (test code = 414) 1.56 K/ L 1.32-3.57 MONOCYTES ABSOLUTE COUNT (BEAKER) (test code = 415) 0.55 K/ L 0. 30-0.82 EOSINOPHILS ABSOLUTE COUNT (BEAKER) (test code = 416) 0.03 K/ L 0.04-0.54 L BASOPHILS ABSOLUTE COUNT (BEAKER) (test code = 417) 0.01 K/ L 0. 01-0.08 IMMATURE GRANULOCYTES-RELATIVE PERCENT (BEAKER) (test code = 2801) 1 % 0-1 BASIC METABOLIC [id number] 06:44:00* Test Item Value Reference Range Interpretation Comments SODIUM (BEAKER) (test code = 381) 135 meq/L 136-145 L POTASSIUM (BEAKER) (test code = 379) 4.4 meq/L 3.5-5.1 CHLORIDE (BEAKER) (test code = 382) 101 meq/L 98-107 CO2 (BEAKER) (test code = 355) 24 meq/L 22-29 BLOOD UREA NITROGEN (BEAKER) (test code = 354) 37 mg/dL 7-21 H CREATININE (BEAKER) (test code = 358) 5.91 mg/dL 0.57-1.25 H GLUCOSE RANDOM (BEAKER) (test code = 652) 174 mg/dL 70-105 H CALCIUM (BEAKER) (test code = 697) 8.0 mg/dL 8.4-10.2 L EGFR (BEAKER) (test code = 1092) 10 mL/min/1.73 sq m ESTIMATED GFR IS NOT ACCURATE CREATININE CLEARANCE IN PREDICTING GLOMERULAR FILTRATION RATE. ESTIMATED GFR IS NOT APPLICABLE FOR DIALYSIS PATIENTS. Traffic Control Specialist ID - [id number] 06:42:00* Test Item Value Reference Range Interpretation Comments MAGNESIUM (BEAKER) (test code = 627) 1.9 mg/dL 1.6-2.6 Traffic Control Specialist ID - DBCBC W/PLT COUNT & AUTO [id number] 06:05:00* Test Item Value Reference Range Interpretation Comments WHITE BLOOD CELL COUNT (BEAKER) (test code = 775) 5.6 K/ L 3.5- 10.5 RED BLOOD CELL COUNT (BEAKER) (test code = 761) 3.14 M/ L 4.63-6 .08 L HEMOGLOBIN (BEAKER) (test code = 410) 9.1 GM/DL 13.7-17.5 L HEMATOCRIT (BEAKER) (test code = 411) 28.2 % 40.1-51.0 L MEAN CORPUSCULAR VOLUME (BEAKER) (test code = 753) 89.8 fL 79. 0-92.2 MEAN CORPUSCULAR HEMOGLOBIN (BEAKER) (test code = 751) 29.0 pg 25.7-32.2 MEAN CORPUSCULAR HEMOGLOBIN CONC (BEAKER) (test code = 752) 32.3 GM/DL 32.3-36.5 RED CELL DISTRIBUTION WIDTH (BEAKER) (test code = 412) 15.9 % 11.6-14.4 H PLATELET COUNT (BEAKER) (test code = 756) 173 K/CU MM 150-450 MEAN PLATELET VOLUME (BEAKER) (test code = 754) 9.7 fL 9.4-12 .4 NUCLEATED RED BLOOD CELLS (BEAKER) (test code = 413) 0 /100 WBC 0 -0 NEUTROPHILS RELATIVE PERCENT (BEAKER) (test code = 429) 65 % LYMPHOCYTES RELATIVE PERCENT (BEAKER) (test code = 430) 23 % MONOCYTES RELATIVE PERCENT (BEAKER) (test code = 431) 10 % EOSINOPHILS RELATIVE PERCENT (BEAKER) (test code = 432) 0 % BASOPHILS RELATIVE PERCENT (BEAKER) (test code = 437) 0 % NEUTROPHILS ABSOLUTE COUNT (BEAKER) (test code = 670) 3.63 K/ L 1.78-5.38 LYMPHOCYTES ABSOLUTE COUNT (BEAKER) (test code = 414) 1.27 K/ L 1.32-3.57 L MONOCYTES ABSOLUTE COUNT (BEAKER) (test code = 415) 0.58 K/ L 0. 30-0.82 EOSINOPHILS ABSOLUTE COUNT (BEAKER) (test code = 416) 0.01 K/ L 0.04-0.54 L BASOPHILS ABSOLUTE COUNT (BEAKER) (test code = 417) 0.02 K/ L 0. 01-0.08 IMMATURE GRANULOCYTES-RELATIVE PERCENT (BEAKER) (test code = 2801) 1 % 0-1 BASIC METABOLIC [id number] 06:22:00* Test Item Value Reference Range Interpretation Comments SODIUM (BEAKER) (test code = 381) 137 meq/L 136-145 POTASSIUM (BEAKER) (test code = 379) 4.2 meq/L 3.5-5.1 CHLORIDE (BEAKER) (test code = 382) 104 meq/L 98-107 CO2 (BEAKER) (test code = 355) 26 meq/L 22-29 BLOOD UREA NITROGEN (BEAKER) (test code = 354) 16 mg/dL 7-21 CREATININE (BEAKER) (test code = 358) 3.56 mg/dL 0.57-1.25 H GLUCOSE RANDOM (BEAKER) (test code = 652) 159 mg/dL 70-105 H CALCIUM (BEAKER) (test code = 697) 8.5 mg/dL 8.4-10.2 EGFR (BEAKER) (test code = 1092) 18 mL/min/1.73 sq m ESTIMATED GFR IS NOT ACCURATE CREATININE CLEARANCE IN PREDICTING GLOMERULAR FILTRATION RATE. ESTIMATED GFR IS NOT APPLICABLE FOR DIALYSIS PATIENTS. Traffic Control Specialist ID - SAVANNAH [id number] 06:21:00* Test Item Value Reference Range Interpretation Comments MAGNESIUM (BEAKER) (test code = 627) 1.9 mg/dL 1.6-2.6 Traffic Control Specialist ID - SAVANNAH MCBC W/PLT COUNT & AUTO [id number] 06:15:00* Test Item Value Reference Range Interpretation Comments WHITE BLOOD CELL COUNT (BEAKER) (test code = 775) 4.1 K/ L 3.5- 10.5 RED BLOOD CELL COUNT (BEAKER) (test code = 761) 2.98 M/ L 4.63-6 .08 L HEMOGLOBIN (BEAKER) (test code = 410) 8.7 GM/DL 13.7-17.5 L HEMATOCRIT (BEAKER) (test code = 411) 27.0 % 40.1-51.0 L MEAN CORPUSCULAR VOLUME (BEAKER) (test code = 753) 90.6 fL 79. 0-92.2 MEAN CORPUSCULAR HEMOGLOBIN (BEAKER) (test code = 751) 29.2 pg 25.7-32.2 MEAN CORPUSCULAR HEMOGLOBIN CONC (BEAKER) (test code = 752) 32.2 GM/DL 32.3-36.5 L RED CELL DISTRIBUTION WIDTH (BEAKER) (test code = 412) 15.7 % 11.6-14.4 H PLATELET COUNT (BEAKER) (test code = 756) 150 K/CU MM 150-450 MEAN PLATELET VOLUME (BEAKER) (test code = 754) 10.0 fL 9.4-12 .4 NUCLEATED RED BLOOD CELLS (BEAKER) (test code = 413) 0 /100 WBC 0 -0 NEUTROPHILS RELATIVE PERCENT (BEAKER) (test code = 429) 69 % LYMPHOCYTES RELATIVE PERCENT (BEAKER) (test code = 430) 21 % MONOCYTES RELATIVE PERCENT (BEAKER) (test code = 431) 9 % EOSINOPHILS RELATIVE PERCENT (BEAKER) (test code = 432) 0 % BASOPHILS RELATIVE PERCENT (BEAKER) (test code = 437) 0 % NEUTROPHILS ABSOLUTE COUNT (BEAKER) (test code = 670) 2.79 K/ L 1.78-5.38 LYMPHOCYTES ABSOLUTE COUNT (BEAKER) (test code = 414) 0.87 K/ L 1.32-3.57 L MONOCYTES ABSOLUTE COUNT (BEAKER) (test code = 415) 0.36 K/ L 0. 30-0.82 EOSINOPHILS ABSOLUTE COUNT (BEAKER) (test code = 416) 0.00 K/ L 0.04-0.54 L BASOPHILS ABSOLUTE COUNT (BEAKER) (test code = 417) 0.01 K/ L 0. 01-0.08 IMMATURE GRANULOCYTES-RELATIVE PERCENT (BEAKER) (test code = 2801) 1 % 0-1 RAD, CHEST, 1 VIEW, NON [id number] 14:34:00FINAL REPORT INDICATION: picc placement TECHNIQUE: Chest radiograph, [...] pneumonia, pneumothorax, or pleural effusion demonstrated. Signed: Winifred Najera Verified Date/Time: 11/25/2019 14:34:30 Reading Location: [facility] Radiology Reading Room chest 1 view portable / [id number] 14:34:00Interface, External Ris In - 11/25/2019 2:55 PM CSTFINAL REPORT INDICATION: picc placement TECHNIQUE: Chest radiograph, [...] pneumonia, pneumothorax, or pleural effusion demonstrated. Signed: Winifred Najera Verified Date/Time: 11/25/2019 14:34:30 Reading Location: [facility] Radiology Reading [facility] 2019-11-25 05:17:00* Test Item Value Reference Range Interpretation Comments SODIUM (BEAKER) (test code = 381) 135 meq/L 136-145 L POTASSIUM (BEAKER) (test code = 379) 5.6 meq/L 3.5-5.1 H CHLORIDE (BEAKER) (test code = 382) 103 meq/L 98-107 CO2 (BEAKER) (test code = 355) 23 meq/L 22-29 BLOOD UREA NITROGEN (BEAKER) (test code = 354) 27 mg/dL 7-21 H CREATININE (BEAKER) (test code = 358) 5.58 mg/dL 0.57-1.25 H GLUCOSE RANDOM (BEAKER) (test code = 652) 170 mg/dL 70-105 H CALCIUM (BEAKER) (test code = 697) 8.6 mg/dL 8.4-10.2 EGFR (BEAKER) (test code = 1092) 11 mL/min/1.73 sq m ESTIMATED GFR IS NOT ACCURATE CREATININE CLEARANCE IN PREDICTING GLOMERULAR FILTRATION RATE. ESTIMATED GFR IS NOT APPLICABLE FOR DIALYSIS PATIENTS. Traffic Control Specialist ID - SAVANNAH [id number] 05:15:00* Test Item Value Reference Range Interpretation Comments MAGNESIUM (BEAKER) (test code = 627) 2.1 mg/dL 1.6-2.6 Traffic Control Specialist ID - SAVANNAH MCBC W/PLT COUNT & AUTO [id number] 04:32:00* Test Item Value Reference Range Interpretation Comments WHITE BLOOD CELL COUNT (BEAKER) (test code = 775) 3.7 K/ L 3.5- 10.5 RED BLOOD CELL COUNT (BEAKER) (test code = 761) 3.00 M/ L 4.63-6 .08 L HEMOGLOBIN (BEAKER) (test code = 410) 8.8 GM/DL 13.7-17.5 L HEMATOCRIT (BEAKER) (test code = 411) 27.2 % 40.1-51.0 L MEAN CORPUSCULAR VOLUME (BEAKER) (test code = 753) 90.7 fL 79. 0-92.2 MEAN CORPUSCULAR HEMOGLOBIN (BEAKER) (test code = 751) 29.3 pg 25.7-32.2 MEAN CORPUSCULAR HEMOGLOBIN CONC (BEAKER) (test code = 752) 32.4 GM/DL 32.3-36.5 RED CELL DISTRIBUTION WIDTH (BEAKER) (test code = 412) 15.4 % 11.6-14.4 H PLATELET COUNT (BEAKER) (test code = 756) 130 K/CU MM 150-450 L MEAN PLATELET VOLUME (BEAKER) (test code = 754) 10.0 fL 9.4-12 .4 NUCLEATED RED BLOOD CELLS (BEAKER) (test code = 413) 0 /100 WBC 0 -0 NEUTROPHILS RELATIVE PERCENT (BEAKER) (test code = 429) 72 % LYMPHOCYTES RELATIVE PERCENT (BEAKER) (test code = 430) 21 % MONOCYTES RELATIVE PERCENT (BEAKER) (test code = 431) 6 % EOSINOPHILS RELATIVE PERCENT (BEAKER) (test code = 432) 0 % BASOPHILS RELATIVE PERCENT (BEAKER) (test code = 437) 0 % NEUTROPHILS ABSOLUTE COUNT (BEAKER) (test code = 670) 2.64 K/ L 1.78-5.38 LYMPHOCYTES ABSOLUTE COUNT (BEAKER) (test code = 414) 0.75 K/ L 1.32-3.57 L MONOCYTES ABSOLUTE COUNT (BEAKER) (test code = 415) 0.21 K/ L 0. 30-0.82 L EOSINOPHILS ABSOLUTE COUNT (BEAKER) (test code = 416) 0.01 K/ L 0.04-0.54 L BASOPHILS ABSOLUTE COUNT (BEAKER) (test code = 417) 0.01 K/ L 0. 01-0.08 IMMATURE GRANULOCYTES-RELATIVE PERCENT (BEAKER) (test code = 2801) 1 % 0-1 pH, [id number] 20:52:00* Test Item Value Reference Range Interpretation Comments pH, Edilberto (test code = 2746-6) 7.40 7.32-7.42 Lab Interpretation (test code = 68456-4) [facility] [id number] 20:52:00* Test Item Value Reference Range Interpretation Comments PH VENOUS (BEAKER) (test code = 701) 7.40 7.32-7.42 PH, [id number] 11:18:00* Test Item Value Reference Range Interpretation Comments PH VENOUS (BEAKER) (test code = 701) 7.39 7.32-7.42 BASIC METABOLIC [id number] 06:49:00* Test Item Value Reference Range Interpretation Comments SODIUM (BEAKER) (test code = 381) 138 meq/L 136-145 POTASSIUM (BEAKER) (test code = 379) 4.8 meq/L 3.5-5.1 CHLORIDE (BEAKER) (test code = 382) 107 meq/L 98-107 CO2 (BEAKER) (test code = 355) 25 meq/L 22-29 BLOOD UREA NITROGEN (BEAKER) (test code = 354) 11 mg/dL 7-21 CREATININE (BEAKER) (test code = 358) 2.81 mg/dL 0.57-1.25 H GLUCOSE RANDOM (BEAKER) (test code = 652) 86 mg/dL 70-105 CALCIUM (BEAKER) (test code = 697) 8.7 mg/dL 8.4-10.2 EGFR (BEAKER) (test code = 1092) 23 mL/min/1.73 sq m ESTIMATED GFR IS NOT ACCURATE CREATININE CLEARANCE IN PREDICTING GLOMERULAR FILTRATION RATE. ESTIMATED GFR IS NOT APPLICABLE FOR DIALYSIS PATIENTS. Traffic Control Specialist ID - AILEEN [id number] 06:03:00* Test Item Value Reference Range Interpretation Comments MAGNESIUM (BEAKER) (test code = 627) 2.0 mg/dL 1.6-2.6 Traffic Control Specialist ID - AILEEN LCBC W/PLT COUNT & AUTO [id number] 04:45:00* Test Item Value Reference Range Interpretation Comments WHITE BLOOD CELL COUNT (BEAKER) (test code = 775) 3.5 K/ L 3.5- 10.5 RED BLOOD CELL COUNT (BEAKER) (test code = 761) 2.82 M/ L 4.63-6 .08 L HEMOGLOBIN (BEAKER) (test code = 410) 8.2 GM/DL 13.7-17.5 L HEMATOCRIT (BEAKER) (test code = 411) 25.8 % 40.1-51.0 L MEAN CORPUSCULAR VOLUME (BEAKER) (test code = 753) 91.5 fL 79. 0-92.2 MEAN CORPUSCULAR HEMOGLOBIN (BEAKER) (test code = 751) 29.1 pg 25.7-32.2 MEAN CORPUSCULAR HEMOGLOBIN CONC (BEAKER) (test code = 752) 31.8 GM/DL 32.3-36.5 L RED CELL DISTRIBUTION WIDTH (BEAKER) (test code = 412) 15.8 % 11.6-14.4 H PLATELET COUNT (BEAKER) (test code = 756) 106 K/CU MM 150-450 L MEAN PLATELET VOLUME (BEAKER) (test code = 754) 10.2 fL 9.4-12 .4 NUCLEATED RED BLOOD CELLS (BEAKER) (test code = 413) 0 /100 WBC 0 -0 NEUTROPHILS RELATIVE PERCENT (BEAKER) (test code = 429) 52 % LYMPHOCYTES RELATIVE PERCENT (BEAKER) (test code = 430) 30 % MONOCYTES RELATIVE PERCENT (BEAKER) (test code = 431) 14 % EOSINOPHILS RELATIVE PERCENT (BEAKER) (test code = 432) 3 % BASOPHILS RELATIVE PERCENT (BEAKER) (test code = 437) 0 % NEUTROPHILS ABSOLUTE COUNT (BEAKER) (test code = 670) 1.82 K/ L 1.78-5.38 LYMPHOCYTES ABSOLUTE COUNT (BEAKER) (test code = 414) 1.05 K/ L 1.32-3.57 L MONOCYTES ABSOLUTE COUNT (BEAKER) (test code = 415) 0.49 K/ L 0. 30-0.82 EOSINOPHILS ABSOLUTE COUNT (BEAKER) (test code = 416) 0.09 K/ L 0.04-0.54 BASOPHILS ABSOLUTE COUNT (BEAKER) (test code = 417) 0.01 K/ L 0. 01-0.08 IMMATURE GRANULOCYTES-RELATIVE PERCENT (BEAKER) (test code = 2801) 1 % 0-1 PH, [id number] 20:50:00* Test Item Value Reference Range Interpretation Comments PH VENOUS (BEAKER) (test code = 701) 7.44 7.32-7.42 H Calcium, [id number] 15:58:00* Test Item Value Reference Range Interpretation Comments Calcium, Ion (test code = 1994-3) 1.19 mmol/L 1.12-1.27 pH, Blood (test code = 81634-1) 7.46 [id number] 15:58:00* Test Item Value Reference Range Interpretation Comments CALCIUM IONIZED (BEAKER) (test code = 698) 1.19 mmol/L 1.12-1.27 PH, BLOOD (BEAKER) (test code = 1810) 7.46 CORTISOL,60 [id number] 13:32:00* Test Item Value Reference Range Interpretation Comments Cortisol, Baseline (test code = 81615-6) 11.2 mcg/dL Cortisol 30 minute (test code = 57332-9) 19.0 mcg/dL Cortisol, 60 Minute (test code = 30503-9) 19.7 ug/dL [place] (test code = [place]) ACTH STIMULATION TEST IN TERPRETATION GUIDELINES(Synonyms: Cortrosyn Test, Cosyntropin or Corticotropin Stimulation Test) Adenocorticotropic hormone (ACTH)is a tropic hormone, made in the pituitar y gland, which travels trhough the bloodstream and stimulates the cortex of the adrenal glands to release cortisol. Cortisol is a primary hormone, which aids the body's metabolism of fats, carbohydrates, and protein as well as sodium and potassium regulation. ACTH Stimulation Test: Exogenous administration of biologically active ACTH stimulates the secretion of cortisol from the adrenal gland. This test is used to evaluate adrenal function by measuring cortisol levels at baseline and at 30 and 60 minutes after the administration of 250 micrograms of cosyntropin (Cortrosyn). Patients who have received exogenous corticosteroids immediately prior to performing the ACTH Stimulation Test will often have elevated baseline cortisol levels, which may lead to erroneous interpretation of test results. The notable exception is with dexamethasone. Normal Response: An increase in cortisol after stimulation by ACTH is normal. Post-stimulation cortisol concentration should be greater than 20 mcg/dL or the rate of rise from baseline cortisol should be greater than or equal to 9 mcg/dL. Patients with sepsis or septic shock: According to a study by Arden et al (ALICIA 2000,283(8):1038-45), the ACTH Stimulation Test provides important prognostic information. This study defined 3 groups of patients with sepsis or septic shock: 1. Good Survival: Low basal cortisol (<or=34 mcg/dL) and high ACTH response (>9mcg/dL) 2. Intermediate Survival: Low basal cortisol (<34 mcg/dL) and low response to ACTH (<or=9 mcg/dL) OR High basal cortisol (>34 mcg/dL) or high ACTH response (>9 mcg/dL) 3. Poor Survival: High basal cortisol (>34 mcg/dL) and low ACTH response (<or=9 mcg/dL). Treatment of patients with relative adrenal dysfunction may be indicated based on test results and the clinical condition of the patient. Additional information, including treatment recommendations, is available in critically ill patients, approved by the Pharmacy, Nutrition, and Therapeutics Committee on 09/13/2004 and available through the Pharmacy Policy and Procedure Section on The Source. Traffic Control Specialist ID - OLIVIAG [facility] [id number] 13:32:00* Test Item Value Reference Range Interpretation Comments CORTISOL BASELINE NETWORKED ([employer]) (test code = 2307) 11.2 mcg/dL CORTISOL 30 MINUTE NETWORKED ([employer]) (test code = 2308) 19.0 mcg/d L CORTISOL, 60 MINUTE (DAVIDAKER) (test code = 1805) 19.7 ug/dL ACTH STIMULATION TEST INTERPRETATION GUIDELINES(Synonyms: Cortrosyn Test, Co syntropin or Corticotropin Stimulation Test)Adenocorticotropic hormone (ACTH)is a tropic hormone, made in the pituitary gland, which travels trhough the bloodst ream and stimulates the cortex of the adrenal glands to release cortisol. Cortis ol is a primary hormone, which aids the body's metabolism of fats, carbohydrates , and protein as well as sodium and potassium regulation.ACTH Stimulation Test: Exogenous administration of biologically active ACTH stimulates the secretion of cortisol from the adrenal gland. This test is used to evaluate adrenal function by measuring cortisol levels at baseline and at 30 and 60 minutes after the adm inistration of 250 micrograms of cosyntropin (Cortrosyn). Patients who have rece ived exogenous corticosteroids immediately prior to performing the ACTH Stimulat ion Test will often have elevated baseline cortisol levels, which may lead to er roneous interpretation of test results. The notable exception is with dexamethas one.Normal Response: An increase in cortisol after stimulation by ACTH is normal . Post-stimulation cortisol concentration should be greater than 20 mcg/dL or th e rate of rise from baseline cortisol should be greater than or equal to 9 mcg/d L.Patients with sepsis or septic shock: According to a study by Arden et al ([facility] 2000,283(8):8362-45), the ACTH Stimulation Test provides important prognostic information. This study defined 3 groups of patients with sepsis or septic shoc k: 1. Good Survival: Low basal cortisol (<or=34 mcg/dL) and high ACTH response (>9mcg/dL) 2. Intermediate Survival: Low basal cortisol (<34 mcg/dL) and low response to ACTH (<or=9 mcg/dL) OR High basal cortisol (>34 mcg/dL) or high ACTH response (>9 mcg/dL) 3. Poor Survival: High basal cortisol (>34 mcg/dL) and low ACTH response (<or=9 mcg/dL).Treatment of patients with relative adrenal dysfunction may be indicated based on test results and the clinical condition of the patient. Additional information, including treatment recommendations, is available in critically ill patients, approved by the Pharmacy, Nutrition, and Therapeutics Committee on 09/13/2004 and available through the Pharmacy Policy and Procedure Section on The Source.Traffic Control Specialist ID - OLIVIAGCJULI,30 [id number] 13:25:00* Test Item Value Reference Range Interpretation Comments Cortisol, Baseline (test code = 84590-2) 11.2 mcg/dL Cortisol, 30 Minute (test code = 38142-9) 19.0 ug/dL CAR[place] (test code = CAROLINA) ACTH STIMULATION TEST IN TERPRETATION GUIDELINES(Synonyms: Cortrosyn Test, Cosyntropin or Corticotropin Stimulation Test) Adenocorticotropic hormone (ACTH)is a tropic hormone, made in the pituitar y gland, which travels trhough the bloodstream and stimulates the cortex of the adrenal glands to release cortisol. Cortisol is a primary hormone, which aids the body's metabolism of fats, carbohydrates, and protein as well as sodium and potassium regulation. ACTH Stimulation Test: Exogenous administration of biologically active ACTH stimulates the secretion of cortisol from the adrenal gland. This test is used to evaluate adrenal function by measuring cortisol levels at baseline and at 30 and 60 minutes after the administration of 250 micrograms of cosyntropin (Cortrosyn). Patients who have received exogenous corticosteroids immediately prior to performing the ACTH Stimulation Test will often have elevated baseline cortisol levels, which may lead to erroneous interpretation of test results. The notable exception is with dexamethasone. Normal Response: An increase in cortisol after stimulation by ACTH is normal. Post-stimulation cortisol concentration should be greater than 20 mcg/dL or the rate of rise from baseline cortisol should be greater than or equal to 9 mcg/dL. Patients with sepsis or septic shock: According to a study by Arden et al ([facility] 2000,283(8):1038-45), the ACTH Stimulation Test provides important prognostic information. This study defined 3 groups of patients with sepsis or septic shock: 1. Good Survival: Low basal cortisol (<or=34 mcg/dL) and high ACTH response (>9mcg/dL) 2. Intermediate Survival: Low basal cortisol (<34 mcg/dL) and low response to ACTH (<or=9 mcg/dL) OR High basal cortisol (>34 mcg/dL) or high ACTH response (>9 mcg/dL) 3. Poor Survival: High basal cortisol (>34 mcg/dL) and low ACTH response (<or=9 mcg/dL). Treatment of patients with relative adrenal dysfunction may be indicated based on test results and the clinical condition of the patient. Additional information, including treatment recommendations, is available in critically ill patients, approved by the Pharmacy, Nutrition, and Therapeutics Committee on 09/13/2004 and available through the Pharmacy Policy and Procedure Section on The Source. Traffic Control Specialist ID - SUJIT Bernard [facility] [id number] 13:25:00* Test Item Value Reference Range Interpretation Comments CORTISOL BASELINE NETWORKED (BEAKER) (test code = 2307) 11.2 mcg/dL CORTISOL, 30 MINUTE (BEAKER) (test code = 1804) 19.0 ug/dL ACTH STIMULATION TEST INTERPRETATION GUIDELINES(Synonyms: Cortrosyn Test, Co syntropin or Corticotropin Stimulation Test)Adenocorticotropic hormone (ACTH)is a tropic hormone, made in the pituitary gland, which travels trhough the bloodst ream and stimulates the cortex of the adrenal glands to release cortisol. Cortis ol is a primary hormone, which aids the body's metabolism of fats, carbohydrates , and protein as well as sodium and potassium regulation.ACTH Stimulation Test: Exogenous administration of biologically active ACTH stimulates the secretion of cortisol from the adrenal gland. This test is used to evaluate adrenal function by measuring cortisol levels at baseline and at 30 and 60 minutes after the adm inistration of 250 micrograms of cosyntropin (Cortrosyn). Patients who have rece ived exogenous corticosteroids immediately prior to performing the ACTH Stimulat ion Test will often have elevated baseline cortisol levels, which may lead to er roneous interpretation of test results. The notable exception is with dexamethas one.Normal Response: An increase in cortisol after stimulation by ACTH is normal . Post-stimulation cortisol concentration should be greater than 20 mcg/dL or th e rate of rise from baseline cortisol should be greater than or equal to 9 mcg/d L.Patients with sepsis or septic shock: According to a study by Arden et al ([facility] 2000,283(8):4599-45), the ACTH Stimulation Test provides important prognostic information. This study defined 3 groups of patients with sepsis or septic shoc k: 1. Good Survival: Low basal cortisol (<or=34 mcg/dL) and high ACTH response (>9mcg/dL) 2. Intermediate Survival: Low basal cortisol (<34 mcg/dL) and low response to ACTH (<or=9 mcg/dL) OR High basal cortisol (>34 mcg/dL) or high ACTH response (>9 mcg/dL) 3. Poor Survival: High basal cortisol (>34 mcg/dL) and low ACTH response (<or=9 mcg/dL).Treatment of patients with relative adrenal dysfunction may be indicated based on test results and the clinical condition of the patient. Additional information, including treatment recommendations, is available in critically ill patients, approved by the Pharmacy, Nutrition, and Therapeutics Committee on 09/13/2004 and available through the Pharmacy Policy and Procedure Section on The Source.Traffic Control Specialist ID - CAR[place]INA FLactic acid, [id number] 13:24:00* Test Item Value Reference Range Interpretation Comments Lactate, Venous (test code = 2872) 0.7 mmol/L 0.5-2.2 CAROLINA (test code = CAROLINA) Traffic Control Specialist ID - ROSIANG Lab Interpretation (test code = 48563-8) [facility] [id number] 13:24:00* Test Item Value Reference Range Interpretation Comments LACTATE BLOOD VENOUS (2) (BEAKER) (test code = 2872) 0.7 mmol/L 0 .5-2.2 Traffic Control Specialist ID - [id number] 13:21:00* Test Item Value Reference Range Interpretation Comments Potassium (test code = 2823-3) 4.9 meq/L 3.5-5.1 CAROLINA (test code = CAROLINA) Traffic Control Specialist ID - ROSIANG Lab Interpretation (test code = 83249-9) [facility] 13:21:00* Test Item Value Reference Range Interpretation Comments POTASSIUM (BEAKER) (test code = 379) 4.9 meq/L 3.5-5.1 Traffic Control Specialist ID - ROSIANGHemoglobin and [id number] 13:13:00* Test Item Value Reference Range Interpretation Comments Hemoglobin (test code = 786-4) 9.3 13.7- 17.5 GM/DL L Hematocrit (test code = 4544-3) 28.5 % 40.1-51 L [place]INA (test code = CAROLINA) Traffic Control Specialist ID - [id number] Lab Interpretation (test code = 82725-6) Abnormal [facility] CenterHEMOGLOBIN AND [id number] 13:13:00* Test Item Value Reference Range Interpretation Comments HEMOGLOBIN (BEAKER) (test code = 410) 9.3 GM/DL 13.7-17.5 L HEMATOCRIT (BEAKER) (test code = 411) 28.5 % 40.1-51.0 L Traffic Control Specialist ID - 6000CORTISOL,[id number] 12:16:00* Test Item Value Reference Range Interpretation Comments Cortisol, Baseline (test code = 1803) 11.2 ug/dL [place] (test code = CAROLINA) ACTH STIMULATION TEST IN TERPRETATION GUIDELINES(Synonyms: Cortrosyn Test, Cosyntropin or Corticotropin Stimulation Test) Adenocorticotropic hormone (ACTH)is a tropic hormone, made in the pituitar y gland, which travels trhough the bloodstream and stimulates the cortex of the adrenal glands to release cortisol. Cortisol is a primary hormone, which aids the body's metabolism of fats, carbohydrates, and protein as well as sodium and potassium regulation. ACTH Stimulation Test: Exogenous administration of biologically active ACTH stimulates the secretion of cortisol from the adrenal gland. This test is used to evaluate adrenal function by measuring cortisol levels at baseline and at 30 and 60 minutes after the administration of 250 micrograms of cosyntropin (Cortrosyn). Patients who have received exogenous corticosteroids immediately prior to performing the ACTH Stimulation Test will often have elevated baseline cortisol levels, which may lead to erroneous interpretation of test results. The notable exception is with dexamethasone. Normal Response: An increase in cortisol after stimulation by ACTH is normal. Post-stimulation cortisol concentration should be greater than 20 mcg/dL or the rate of rise from baseline cortisol should be greater than or equal to 9 mcg/dL. Patients with sepsis or septic shock: According to a study by Arden et al ([facility] 2000,283(8):9417-45), the ACTH Stimulation Test provides important prognostic information. This study defined 3 groups of patients with sepsis or septic shock: 1. Good Survival: Low basal cortisol (<or=34 mcg/dL) and high ACTH response (>9mcg/dL) 2. Intermediate Survival: Low basal cortisol (<34 mcg/dL) and low response to ACTH (<or=9 mcg/dL) OR High basal cortisol (>34 mcg/dL) or high ACTH response (>9 mcg/dL) 3. Poor Survival: High basal cortisol (>34 mcg/dL) and low ACTH response (<or=9 mcg/dL). Treatment of patients with relative adrenal dysfunction may be indicated based on test results and the clinical condition of the patient. Additional information, including treatment recommendations, is available in critically ill patients, approved by the Pharmacy, Nutrition, and Therapeutics Committee on 09/13/2004 and available through the Pharmacy Policy and Procedure Section on The Source. Traffic Control Specialist ID - SUJIT Bernard [facility],[id number] 12:16:00* Test Item Value Reference Range Interpretation Comments CORTISOL, BASELINE (BEAKER) (test code = 1803) 11.2 ug/dL ACTH STIMULATION TEST INTERPRETATION GUIDELINES(Synonyms: Cortrosyn Test, Co syntropin or Corticotropin Stimulation Test)Adenocorticotropic hormone (ACTH)is a tropic hormone, made in the pituitary gland, which travels trhough the bloodst ream and stimulates the cortex of the adrenal glands to release cortisol. Cortis ol is a primary hormone, which aids the body's metabolism of fats, carbohydrates , and protein as well as sodium and potassium regulation.ACTH Stimulation Test: Exogenous administration of biologically active ACTH stimulates the secretion of cortisol from the adrenal gland. This test is used to evaluate adrenal function by measuring cortisol levels at baseline and at 30 and 60 minutes after the adm inistration of 250 micrograms of cosyntropin (Cortrosyn). Patients who have rece ived exogenous corticosteroids immediately prior to performing the ACTH Stimulat ion Test will often have elevated baseline cortisol levels, which may lead to er roneous interpretation of test results. The notable exception is with dexamethas one.Normal Response: An increase in cortisol after stimulation by ACTH is normal . Post-stimulation cortisol concentration should be greater than 20 mcg/dL or th e rate of rise from baseline cortisol should be greater than or equal to 9 mcg/d L.Patients with sepsis or septic shock: According to a study by Arden et al ([facility] 2000,283(8):5727-45), the ACTH Stimulation Test provides important prognostic information. This study defined 3 groups of patients with sepsis or septic shoc k: 1. Good Survival: Low basal cortisol (<or=34 mcg/dL) and high ACTH response (>9mcg/dL) 2. Intermediate Survival: Low basal cortisol (<34 mcg/dL) and low response to ACTH (<or=9 mcg/dL) OR High basal cortisol (>34 mcg/dL) or high ACTH response (>9 mcg/dL) 3. Poor Survival: High basal cortisol (>34 mcg/dL) and low ACTH response (<or=9 mcg/dL).Treatment of patients with relative adrenal dysfunction may be indicated based on test results and the clinical condition of the patient. Additional information, including treatment recommendations, is available in critically ill patients, approved by the Pharmacy, Nutrition, and Therapeutics Committee on 09/13/2004 and available through the Pharmacy Policy and Procedure Section on The Source.Traffic Control Specialist ID Radha BECKETT [id number] 09:48:00* Test Item Value Reference Range Interpretation Comments Phosphorus (test code = 2777-1) 1.9 mg/dL 2.3-4.7 L [place] (test code = CAROLINA) Traffic Control Specialist ISRAEL BECKETT Lab Interpretation (test code = 73787-7) [facility] 09:48:00* Test Item Value Reference Range Interpretation Comments Sodium (test code = 2951-2) 138 meq/L 136-145 [place] (test code = CAROLINA) Traffic Control Specialist ID Radha BECKETT Lab Interpretation (test code = 41102-5) [facility] 09:48:00* Test Item Value Reference Range Interpretation Comments POTASSIUM (BEAKER) (test code = 379) 4.5 meq/L 3.5-5.1 Traffic Control Specialist ID Radha BECKETT [id number] 09:48:00* Test Item Value Reference Range Interpretation Comments MAGNESIUM (BEAKER) (test code = 627) 2.1 mg/dL 1.6-2.6 Traffic Control Specialist ID Radha BECKETT [id number] 09:48:00* Test Item Value Reference Range Interpretation Comments PHOSPHORUS (BEAKER) (test code = 604) 1.9 mg/dL 2.3-4.7 L Traffic Control Specialist ID Radha BECKETT [id number] 09:48:00* Test Item Value Reference Range Interpretation Comments SODIUM (BEAKER) (test code = 381) 138 meq/L 136-145 Traffic Control Specialist ID Radha BECKETT H, [id number] 09:08:00* Test Item Value Reference Range Interpretation Comments PH VENOUS (BEAKER) (test code = 701) 7.45 7.32-7.42 H CALCIUM, [id number] 09:06:00* Test Item Value Reference Range Interpretation Comments CALCIUM IONIZED (BEAKER) (test code = 698) 1.19 mmol/L 1.12-1.27 PH, BLOOD (BEAKER) (test code = 1810) 7.44 [id number] 04:08:00* Test Item Value Reference Range Interpretation Comments MAGNESIUM (BEAKER) (test code = 627) 2.0 mg/dL 1.6-2.6 Specimen slightly hemolyzed Traffic Control Specialist ID - DBBASIC METABOLIC [id number] 04:08:00* Test Item Value Reference Range Interpretation Comments SODIUM (BEAKER) (test code = 381) 140 meq/L 136-145 POTASSIUM (BEAKER) (test code = 379) 5.1 meq/L 3.5-5.1 Specimen slightly hemolyzed CHLORIDE (BEAKER) (test code = 382) 107 meq/L 98-107 CO2 (BEAKER) (test code = 355) 27 meq/L 22-29 BLOOD UREA NITROGEN (BEAKER) (test code = 354) 12 mg/dL 7-21 CREATININE (BEAKER) (test code = 358) 1.96 mg/dL 0.57-1.25 H Specimen slightly hemolyzed GLUCOSE RANDOM (BEAKER) (test code = 652) 88 mg/dL 70-105 CALCIUM (BEAKER) (test code = 697) 8.8 mg/dL 8.4-10.2 EGFR (BEAKER) (test code = 1092) 35 mL/min/1.73 sq m ESTIMATED GFR IS NOT ACCURATE CREATININE CLEARANCE IN PREDICTING GLOMERULAR FILTRATION RATE. ESTIMATED GFR IS NOT APPLICABLE FOR DIALYSIS PATIENTS. Traffic Control Specialist ID - DBCBC W/PLT COUNT & AUTO [id number] 03:48:00* Test Item Value Reference Range Interpretation Comments WHITE BLOOD CELL COUNT (BEAKER) (test code = 775) 3.4 K/ L 3.5- 10.5 L RED BLOOD CELL COUNT (BEAKER) (test code = 761) 2.97 M/ L 4.63-6 .08 L HEMOGLOBIN (BEAKER) (test code = 410) 8.6 GM/DL 13.7-17.5 L HEMATOCRIT (BEAKER) (test code = 411) 27.2 % 40.1-51.0 L MEAN CORPUSCULAR VOLUME (BEAKER) (test code = 753) 91.6 fL 79. 0-92.2 MEAN CORPUSCULAR HEMOGLOBIN (BEAKER) (test code = 751) 29.0 pg 25.7-32.2 MEAN CORPUSCULAR HEMOGLOBIN CONC (BEAKER) (test code = 752) 31.6 GM/DL 32.3-36.5 L RED CELL DISTRIBUTION WIDTH (BEAKER) (test code = 412) 16.0 % 11.6-14.4 H PLATELET COUNT (BEAKER) (test code = 756) 126 K/CU MM 150-450 L MEAN PLATELET VOLUME (BEAKER) (test code = 754) 10.1 fL 9.4-12 .4 NUCLEATED RED BLOOD CELLS (BEAKER) (test code = 413) 0 /100 WBC 0 -0 NEUTROPHILS RELATIVE PERCENT (BEAKER) (test code = 429) 53 % LYMPHOCYTES RELATIVE PERCENT (BEAKER) (test code = 430) 33 % MONOCYTES RELATIVE PERCENT (BEAKER) (test code = 431) 12 % EOSINOPHILS RELATIVE PERCENT (BEAKER) (test code = 432) 2 % BASOPHILS RELATIVE PERCENT (BEAKER) (test code = 437) 0 % NEUTROPHILS ABSOLUTE COUNT (BEAKER) (test code = 670) 1.81 K/ L 1.78-5.38 LYMPHOCYTES ABSOLUTE COUNT (BEAKER) (test code = 414) 1.12 K/ L 1.32-3.57 L MONOCYTES ABSOLUTE COUNT (BEAKER) (test code = 415) 0.42 K/ L 0. 30-0.82 EOSINOPHILS ABSOLUTE COUNT (BEAKER) (test code = 416) 0.06 K/ L 0.04-0.54 BASOPHILS ABSOLUTE COUNT (BEAKER) (test code = 417) 0.01 K/ L 0. 01-0.08 IMMATURE GRANULOCYTES-RELATIVE PERCENT (BEAKER) (test code = 2801) 1 % 0-1 Hepatic function [id number] 23:48:00* Test Item Value Reference Range Interpretation Comments Protein, Total (test code = 2885-2) 5.3 6.0- 8.3 gm/dL L Albumin (test code = 43333-7) 3.1 g/dL 3.5-5 L Total Bilirubin (test code = 1975-2) 0.7 mg/dL 0.2-1.2 Bilirubin, Direct (test code = 1968-7) 0.3 mg/dL 0.1-0.5 Alkaline Phosphatase (test code = 6768-6) 230 U/L 40-150 H AST (test code = 1920-8) 33 U/L 5-34 ALT (test code = 1742-6) 34 U/L 6-55 [place] (test code = CAROLINA) Traffic Control Specialist ID - DB Lab Interpretation (test code = 59710-1) [facility] 23:48:00* Test Item Value Reference Range Interpretation Comments POTASSIUM (BEAKER) (test code = 379) 5.2 meq/L 3.5-5.1 H Traffic Control Specialist ID - DBHEPATIC FUNCTION [id number] 23:48:00* Test Item Value Reference Range Interpretation Comments TOTAL PROTEIN (BEAKER) (test code = 770) 5.3 gm/dL 6.0-8.3 L ALBUMIN (BEAKER) (test code = 1145) 3.1 g/dL 3.5-5.0 L BILIRUBIN TOTAL (BEAKER) (test code = 377) 0.7 mg/dL 0.2-1.2 BILIRUBIN DIRECT (BEAKER) (test code = 706) 0.3 mg/dL 0.1-0.5 ALKALINE PHOSPHATASE (BEAKER) (test code = 346) 230 U/L 40-150 H AST (SGOT) (BEAKER) (test code = 353) 33 U/L 5-34 ALT (SGPT) (BEAKER) (test code = 347) 34 U/L 6-55 Traffic Control Specialist ID - DBCALCIUM, [id number] 23:14:00* Test Item Value Reference Range Interpretation Comments CALCIUM IONIZED (BEAKER) (test code = 698) 1.13 mmol/L 1.12-1.27 PH, BLOOD (BEAKER) (test code = 1810) 7.44 [id number] 09:59:00* Test Item Value Reference Range Interpretation Comments POTASSIUM (BEAKER) (test code = 379) 4.5 meq/L 3.5-5.1 Traffic Control Specialist ID - [place] [id number] 09:59:00* Test Item Value Reference Range Interpretation Comments MAGNESIUM (BEAKER) (test code = 627) 2.1 mg/dL 1.6-2.6 Traffic Control Specialist ID Radha BECKETT [id number] 09:59:00* Test Item Value Reference Range Interpretation Comments PHOSPHORUS (BEAKER) (test code = 604) 2.3 mg/dL 2.3-4.7 Traffic Control Specialist ID Radha BECKETT [id number] 09:59:00* Test Item Value Reference Range Interpretation Comments SODIUM (BEAKER) (test code = 381) 137 meq/L 136-145 Traffic Control Specialist ID Radha BECKETT FCALCIUM, [id number] 09:20:00* Test Item Value Reference Range Interpretation Comments CALCIUM IONIZED (BEAKER) (test code = 698) 1.14 mmol/L 1.12-1.27 PH, BLOOD (BEAKER) (test code = 1810) 7.48 pH, [id number] 04:18:00* Test Item Value Reference Range Interpretation Comments pH, Arterial (test code = 2744-1) 7.43 7.35-7.45 Lab Interpretation (test code = 05049-4) [facility] [id number] 04:18:00* Test Item Value Reference Range Interpretation Comments PH ARTERIAL (BEAKER) (test code = 383) 7.43 7.35-7.45 [id number] 04:13:00* Test Item Value Reference Range Interpretation Comments MAGNESIUM (BEAKER) (test code = 627) 2.0 mg/dL 1.6-2.6 Traffic Control Specialist ID Radha NUÑEZ MBASIC METABOLIC [id number] 04:13:00* Test Item Value Reference Range Interpretation Comments SODIUM (BEAKER) (test code = 381) 139 meq/L 136-145 POTASSIUM (BEAKER) (test code = 379) 4.9 meq/L 3.5-5.1 CHLORIDE (BEAKER) (test code = 382) 105 meq/L 98-107 CO2 (BEAKER) (test code = 355) 28 meq/L 22-29 BLOOD UREA NITROGEN (BEAKER) (test code = 354) 9 mg/dL 7-21 CREATININE (BEAKER) (test code = 358) 1.46 mg/dL 0.57-1.25 H GLUCOSE RANDOM (BEAKER) (test code = 652) 105 mg/dL 70-105 CALCIUM (BEAKER) (test code = 697) 8.5 mg/dL 8.4-10.2 EGFR (BEAKER) (test code = 1092) 49 mL/min/1.73 sq m ESTIMATED GFR IS NOT ACCURATE CREATININE CLEARANCE IN PREDICTING GLOMERULAR FILTRATION RATE. ESTIMATED GFR IS NOT APPLICABLE FOR DIALYSIS PATIENTS. Traffic Control Specialist ID - SAVANNAH MPT/LEGP0424-09-03 04:08:00* Test Item Value Reference Range Interpretation Comments PROTIME (BEAKER) (test code = 759) 13.9 seconds 11.9-14.2 INR (BEAKER) (test code = 370) 1.1 <=5.9 PARTIAL THROMBOPLASTIN TIME (BEAKER) (test code = 760) 95.9 seconds 22.5-36.0 H Effective 03/02/2019: PT Reference Range ChangeNew: 11.9-14.2 Previous: 11.7-14. 7RECOMMENDED COUMADIN/WARFARIN INR THERAPY RANGESSTANDARD DOSE: 2.0-3.0 Include s: PROPHYLAXIS for venous thrombosis, systemic embolization; TREATMENT for venou s thrombosis and/or pulmonary embolus.HIGH RISK: Target INR is 2.5-3.5 for patie nts wiht mechanical heart valves.CBC W/PLT COUNT & AUTO [id number] 03:51:00* Test Item Value Reference Range Interpretation Comments WHITE BLOOD CELL COUNT (BEAKER) (test code = 775) 3.6 K/ L 3.5- 10.5 RED BLOOD CELL COUNT (BEAKER) (test code = 761) 3.18 M/ L 4.63-6 .08 L HEMOGLOBIN (BEAKER) (test code = 410) 9.2 GM/DL 13.7-17.5 L HEMATOCRIT (BEAKER) (test code = 411) 29.2 % 40.1-51.0 L MEAN CORPUSCULAR VOLUME (BEAKER) (test code = 753) 91.8 fL 79. 0-92.2 MEAN CORPUSCULAR HEMOGLOBIN (BEAKER) (test code = 751) 28.9 pg 25.7-32.2 MEAN CORPUSCULAR HEMOGLOBIN CONC (BEAKER) (test code = 752) 31.5 GM/DL 32.3-36.5 L RED CELL DISTRIBUTION WIDTH (BEAKER) (test code = 412) 15.9 % 11.6-14.4 H PLATELET COUNT (BEAKER) (test code = 756) 127 K/CU MM 150-450 L MEAN PLATELET VOLUME (BEAKER) (test code = 754) 10.4 fL 9.4-12 .4 NUCLEATED RED BLOOD CELLS (BEAKER) (test code = 413) 0 /100 WBC 0 -0 NEUTROPHILS RELATIVE PERCENT (BEAKER) (test code = 429) 58 % LYMPHOCYTES RELATIVE PERCENT (BEAKER) (test code = 430) 26 % MONOCYTES RELATIVE PERCENT (BEAKER) (test code = 431) 13 % EOSINOPHILS RELATIVE PERCENT (BEAKER) (test code = 432) 2 % BASOPHILS RELATIVE PERCENT (BEAKER) (test code = 437) 0 % NEUTROPHILS ABSOLUTE COUNT (BEAKER) (test code = 670) 2.12 K/ L 1.78-5.38 LYMPHOCYTES ABSOLUTE COUNT (BEAKER) (test code = 414) 0.95 K/ L 1.32-3.57 L MONOCYTES ABSOLUTE COUNT (BEAKER) (test code = 415) 0.48 K/ L 0. 30-0.82 EOSINOPHILS ABSOLUTE COUNT (BEAKER) (test code = 416) 0.07 K/ L 0.04-0.54 BASOPHILS ABSOLUTE COUNT (BEAKER) (test code = 417) 0.00 K/ L 0. 01-0.08 L IMMATURE GRANULOCYTES-RELATIVE PERCENT (BEAKER) (test code = 2801) 1 % 0-1 [id number] 00:55:00* Test Item Value Reference Range Interpretation Comments POTASSIUM (BEAKER) (test code = 379) 4.9 meq/L 3.5-5.1 Specimen slightly hemolyzed Traffic Control Specialist ID - [id number] 20:49:00* Test Item Value Reference Range Interpretation Comments POTASSIUM (BEAKER) (test code = 379) 4.7 meq/L 3.5-5.1 Traffic Control Specialist ID - [id number] 20:49:00* Test Item Value Reference Range Interpretation Comments MAGNESIUM (BEAKER) (test code = 627) 1.9 mg/dL 1.6-2.6 Traffic Control Specialist ID - [id number] 20:49:00* Test Item Value Reference Range Interpretation Comments PHOSPHORUS (BEAKER) (test code = 604) 2.5 mg/dL 2.3-4.7 Traffic Control Specialist ID - [id number] 20:49:00* Test Item Value Reference Range Interpretation Comments SODIUM (BEAKER) (test code = 381) 138 meq/L 136-145 Traffic Control Specialist ID - BSCALCIUM, [id number] 20:37:00* Test Item Value Reference Range Interpretation Comments CALCIUM IONIZED (BEAKER) (test code = 698) 1.14 mmol/L 1.12-1.27 PH, BLOOD (BEAKER) (test code = 1810) 7.45 PH, [id number] 20:35:00* Test Item Value Reference Range Interpretation Comments PH ARTERIAL (BEAKER) (test code = 383) 7.45 7.35-7.45 [id number] 17:12:00* Test Item Value Reference Range Interpretation Comments POTASSIUM (BEAKER) (test code = 379) 4.6 meq/L 3.5-5.1 Traffic Control Specialist ID - BSCALCIUM, [id number] 16:50:00* Test Item Value Reference Range Interpretation Comments CALCIUM IONIZED (BEAKER) (test code = 698) 1.12 mmol/L 1.12-1.27 PH, BLOOD (BEAKER) (test code = 1810) 7.46 [id number] 13:42:00* Test Item Value Reference Range Interpretation Comments POTASSIUM (BEAKER) (test code = 379) 4.6 meq/L 3.5-5.1 Traffic Control Specialist ID - PANDA CCALCIUM, [id number] 09:05:00* Test Item Value Reference Range Interpretation Comments CALCIUM IONIZED (BEAKER) (test code = 698) 1.16 mmol/L 1.12-1.27 PH, BLOOD (BEAKER) (test code = 1810) 7.45 [id number] 06:33:00* Test Item Value Reference Range Interpretation Comments PHOSPHORUS (BEAKER) (test code = 604) 2.7 mg/dL 2.3-4.7 Traffic Control Specialist ID - PIAYA [id number] 06:33:00* Test Item Value Reference Range Interpretation Comments MAGNESIUM (BEAKER) (test code = 627) 2.0 mg/dL 1.6-2.6 Traffic Control Specialist ID - PIJOSUE LBASIC METABOLIC [id number] 06:33:00* Test Item Value Reference Range Interpretation Comments SODIUM (BEAKER) (test code = 381) 138 meq/L 136-145 POTASSIUM (BEAKER) (test code = 379) 4.7 meq/L 3.5-5.1 CHLORIDE (BEAKER) (test code = 382) 105 meq/L 98-107 CO2 (BEAKER) (test code = 355) 27 meq/L 22-29 BLOOD UREA NITROGEN (BEAKER) (test code = 354) 8 mg/dL 7-21 CREATININE (BEAKER) (test code = 358) 1.51 mg/dL 0.57-1.25 H GLUCOSE RANDOM (BEAKER) (test code = 652) 90 mg/dL 70-105 CALCIUM (BEAKER) (test code = 697) 8.5 mg/dL 8.4-10.2 EGFR (BEAKER) (test code = 1092) 48 mL/min/1.73 sq m ESTIMATED GFR IS NOT ACCURATE CREATININE CLEARANCE IN PREDICTING GLOMERULAR FILTRATION RATE. ESTIMATED GFR IS NOT APPLICABLE FOR DIALYSIS PATIENTS. Traffic Control Specialist ID - PIJOSUE LPT/[id number] 06:03:00* Test Item Value Reference Range Interpretation Comments PROTIME (BEAKER) (test code = 759) 13.5 seconds 11.9-14.2 INR (BEAKER) (test code = 370) 1.1 <=5.9 PARTIAL THROMBOPLASTIN TIME (BEAKER) (test code = 760) 85.8 seconds 22.5-36.0 H Effective 03/02/2019: PT Reference Range ChangeNew: 11.9-14.2 Previous: 11.7-14. 7RECOMMENDED COUMADIN/WARFARIN INR THERAPY RANGESSTANDARD DOSE: 2.0-3.0 Include s: PROPHYLAXIS for venous thrombosis, systemic embolization; TREATMENT for venou s thrombosis and/or pulmonary embolus.HIGH RISK: Target INR is 2.5-3.5 for patie nts wiht mechanical heart valves.CBC W/PLT COUNT & AUTO [id number] 05:55:00* Test Item Value Reference Range Interpretation Comments WHITE BLOOD CELL COUNT (BEAKER) (test code = 775) 3.9 K/ L 3.5- 10.5 RED BLOOD CELL COUNT (BEAKER) (test code = 761) 3.21 M/ L 4.63-6 .08 L HEMOGLOBIN (BEAKER) (test code = 410) 9.5 GM/DL 13.7-17.5 L HEMATOCRIT (BEAKER) (test code = 411) 28.8 % 40.1-51.0 L MEAN CORPUSCULAR VOLUME (BEAKER) (test code = 753) 89.7 fL 79. 0-92.2 MEAN CORPUSCULAR HEMOGLOBIN (BEAKER) (test code = 751) 29.6 pg 25.7-32.2 MEAN CORPUSCULAR HEMOGLOBIN CONC (BEAKER) (test code = 752) 33.0 GM/DL 32.3-36.5 RED CELL DISTRIBUTION WIDTH (BEAKER) (test code = 412) 15.7 % 11.6-14.4 H PLATELET COUNT (BEAKER) (test code = 756) 105 K/CU MM 150-450 L MEAN PLATELET VOLUME (BEAKER) (test code = 754) 10.1 fL 9.4-12 .4 NUCLEATED RED BLOOD CELLS (BEAKER) (test code = 413) 0 /100 WBC 0 -0 NEUTROPHILS RELATIVE PERCENT (BEAKER) (test code = 429) 57 % LYMPHOCYTES RELATIVE PERCENT (BEAKER) (test code = 430) 26 % MONOCYTES RELATIVE PERCENT (BEAKER) (test code = 431) 14 % EOSINOPHILS RELATIVE PERCENT (BEAKER) (test code = 432) 2 % BASOPHILS RELATIVE PERCENT (BEAKER) (test code = 437) 0 % NEUTROPHILS ABSOLUTE COUNT (BEAKER) (test code = 670) 2.22 K/ L 1.78-5.38 LYMPHOCYTES ABSOLUTE COUNT (BEAKER) (test code = 414) 1.00 K/ L 1.32-3.57 L MONOCYTES ABSOLUTE COUNT (BEAKER) (test code = 415) 0.54 K/ L 0. 30-0.82 EOSINOPHILS ABSOLUTE COUNT (BEAKER) (test code = 416) 0.08 K/ L 0.04-0.54 BASOPHILS ABSOLUTE COUNT (BEAKER) (test code = 417) 0.01 K/ L 0. 01-0.08 IMMATURE GRANULOCYTES-RELATIVE PERCENT (BEAKER) (test code = 2801) 1 % 0-1 [id number] 00:59:00* Test Item Value Reference Range Interpretation Comments POTASSIUM (BEAKER) (test code = 379) 4.9 meq/L 3.5-5.1 Traffic Control Specialist ID - AILENE LPT/[id number] 00:23:00* Test Item Value Reference Range Interpretation Comments PROTIME (BEAKER) (test code = 759) 13.4 seconds 11.9-14.2 INR (BEAKER) (test code = 370) 1.1 <=5.9 PARTIAL THROMBOPLASTIN TIME (BEAKER) (test code = 760) 90.2 seconds 22.5-36.0 H Effective 03/02/2019: PT Reference Range ChangeNew: 11.9-14.2 Previous: 11.7-14. 7RECOMMENDED COUMADIN/WARFARIN INR THERAPY RANGESSTANDARD DOSE: 2.0-3.0 Include s: PROPHYLAXIS for venous thrombosis, systemic embolization; TREATMENT for venou s thrombosis and/or pulmonary embolus.HIGH RISK: Target INR is 2.5-3.5 for patie nts wiht mechanical heart valves.CALCIUM, [id number] 00:18:00* Test Item Value Reference Range Interpretation Comments CALCIUM IONIZED (BEAKER) (test code = 698) 1.13 mmol/L 1.12-1.27 PH, BLOOD (BEAKER) (test code = 1810) 7.43 [id number] 20:29:00* Test Item Value Reference Range Interpretation Comments PHOSPHORUS (BEAKER) (test code = 604) 2.7 mg/dL 2.3-4.7 Traffic Control Specialist ID - SAVANNAH [id number] 20:29:00* Test Item Value Reference Range Interpretation Comments MAGNESIUM (BEAKER) (test code = 627) 1.7 mg/dL 1.6-2.6 Traffic Control Specialist ID - SAVANNAH MPT/[id number] 18:38:00* Test Item Value Reference Range Interpretation Comments PROTIME (BEAKER) (test code = 759) 13.6 seconds 11.9-14.2 INR (BEAKER) (test code = 370) 1.1 <=5.9 PARTIAL THROMBOPLASTIN TIME (BEAKER) (test code = 760) 108.0 sec onds 22.5-36.0 H Effective 03/02/2019: PT Reference Range ChangeNew: 11.9-14.2 Previous: 11.7-14. 7RECOMMENDED COUMADIN/WARFARIN INR THERAPY RANGESSTANDARD DOSE: 2.0-3.0 Include s: PROPHYLAXIS for venous thrombosis, systemic embolization; TREATMENT for venou s thrombosis and/or pulmonary embolus.HIGH RISK: Target INR is 2.5-3.5 for patie nts wiht mechanical heart valves.[id number] 16:42:00* Test Item Value Reference Range Interpretation Comments POTASSIUM (BEAKER) (test code = 379) 4.9 meq/L 3.5-5.1 Traffic Control Specialist ID - SAVANNAH [id number] 16:42:00* Test Item Value Reference Range Interpretation Comments SODIUM (BEAKER) (test code = 381) 138 meq/L 136-145 Traffic Control Specialist ID - SAVANNAH MCALCIUM, [id number] 16:16:00* Test Item Value Reference Range Interpretation Comments CALCIUM IONIZED (BEAKER) (test code = 698) 1.11 mmol/L 1.12-1.27 L PH, BLOOD (BEAKER) (test code = 1810) 7.45 [id number] 13:08:00* Test Item Value Reference Range Interpretation Comments POTASSIUM (BEAKER) (test code = 379) 4.9 meq/L 3.5-5.1 Specimen slightly hemolyzed Traffic Control Specialist ID - SAVANNAH MPT/[id number] 12:52:00* Test Item Value Reference Range Interpretation Comments PROTIME (BEAKER) (test code = 759) 13.7 seconds 11.9-14.2 INR (BEAKER) (test code = 370) 1.1 <=5.9 PARTIAL THROMBOPLASTIN TIME (BEAKER) (test code = 760) 68.6 seconds 22.5-36.0 H Effective 03/02/2019: PT Reference Range ChangeNew: 11.9-14.2 Previous: 11.7-14. 7RECOMMENDED COUMADIN/WARFARIN INR THERAPY RANGESSTANDARD DOSE: 2.0-3.0 Include s: PROPHYLAXIS for venous thrombosis, systemic embolization; TREATMENT for venou s thrombosis and/or pulmonary embolus.HIGH RISK: Target INR is 2.5-3.5 for [facility] wiht mechanical heart valves.[id number] 08:49:00* Test Item Value Reference Range Interpretation Comments PHOSPHORUS (BEAKER) (test code = 604) 2.2 mg/dL 2.3-4.7 L Traffic Control Specialist ID - KENNCALCIUM, [id number] 08:17:00* Test Item Value Reference Range Interpretation Comments CALCIUM IONIZED (BEAKER) (test code = 698) 1.14 mmol/L 1.12-1.27 PH, BLOOD (BEAKER) (test code = 1810) 7.46 [id number] 06:15:00* Test Item Value Reference Range Interpretation Comments PROTIME (BEAKER) (test code = 759) 13.8 seconds 11.9-14.2 INR (BEAKER) (test code = 370) 1.1 <=5.9 PARTIAL THROMBOPLASTIN TIME (BEAKER) (test code = 760) 98.7 seconds 22.5-36.0 H Effective 03/02/2019: PT Reference Range ChangeNew: 11.9-14.2 Previous: 11.7-14. 7RECOMMENDED COUMADIN/WARFARIN INR THERAPY RANGESSTANDARD DOSE: 2.0-3.0 Include s: PROPHYLAXIS for venous thrombosis, systemic embolization; TREATMENT for venou s thrombosis and/or pulmonary embolus.HIGH RISK: Target INR is 2.5-3.5 for [facility] wiht mechanical heart valves.[id number] 04:32:00* Test Item Value Reference Range Interpretation Comments MAGNESIUM (BEAKER) (test code = 627) 1.9 mg/dL 1.6-2.6 Traffic Control Specialist ID - SAVANNAH MBASIC METABOLIC [id number] 04:32:00* Test Item Value Reference Range Interpretation Comments SODIUM (BEAKER) (test code = 381) 138 meq/L 136-145 POTASSIUM (BEAKER) (test code = 379) 4.7 meq/L 3.5-5.1 CHLORIDE (BEAKER) (test code = 382) 107 meq/L 98-107 CO2 (BEAKER) (test code = 355) 26 meq/L 22-29 BLOOD UREA NITROGEN (BEAKER) (test code = 354) 5 mg/dL 7-21 L CREATININE (BEAKER) (test code = 358) 1.31 mg/dL 0.57-1.25 H GLUCOSE RANDOM (BEAKER) (test code = 652) 104 mg/dL 70-105 CALCIUM (BEAKER) (test code = 697) 8.3 mg/dL 8.4-10.2 L EGFR (BEAKER) (test code = 1092) 56 mL/min/1.73 sq m ESTIMATED GFR IS NOT ACCURATE CREATININE CLEARANCE IN PREDICTING GLOMERULAR FILTRATION RATE. ESTIMATED GFR IS NOT APPLICABLE FOR DIALYSIS PATIENTS. Traffic Control Specialist ID - SAVANNAH MCBC W/PLT COUNT & AUTO [id number] 04:17:00* Test Item Value Reference Range Interpretation Comments WHITE BLOOD CELL COUNT (BEAKER) (test code = 775) 4.1 K/ L 3.5- 10.5 RED BLOOD CELL COUNT (BEAKER) (test code = 761) 3.19 M/ L 4.63-6 .08 L HEMOGLOBIN (BEAKER) (test code = 410) 9.4 GM/DL 13.7-17.5 L HEMATOCRIT (BEAKER) (test code = 411) 28.7 % 40.1-51.0 L MEAN CORPUSCULAR VOLUME (BEAKER) (test code = 753) 90.0 fL 79. 0-92.2 MEAN CORPUSCULAR HEMOGLOBIN (BEAKER) (test code = 751) 29.5 pg 25.7-32.2 MEAN CORPUSCULAR HEMOGLOBIN CONC (BEAKER) (test code = 752) 32.8 GM/DL 32.3-36.5 RED CELL DISTRIBUTION WIDTH (BEAKER) (test code = 412) 15.6 % 11.6-14.4 H PLATELET COUNT (BEAKER) (test code = 756) 100 K/CU MM 150-450 L MEAN PLATELET VOLUME (BEAKER) (test code = 754) 9.6 fL 9.4-12 .4 NUCLEATED RED BLOOD CELLS (BEAKER) (test code = 413) 0 /100 WBC 0 -0 NEUTROPHILS RELATIVE PERCENT (BEAKER) (test code = 429) 62 % LYMPHOCYTES RELATIVE PERCENT (BEAKER) (test code = 430) 22 % MONOCYTES RELATIVE PERCENT (BEAKER) (test code = 431) 13 % EOSINOPHILS RELATIVE PERCENT (BEAKER) (test code = 432) 3 % BASOPHILS RELATIVE PERCENT (BEAKER) (test code = 437) 0 % NEUTROPHILS ABSOLUTE COUNT (BEAKER) (test code = 670) 2.50 K/ L 1.78-5.38 LYMPHOCYTES ABSOLUTE COUNT (BEAKER) (test code = 414) 0.89 K/ L 1.32-3.57 L MONOCYTES ABSOLUTE COUNT (BEAKER) (test code = 415) 0.52 K/ L 0. 30-0.82 EOSINOPHILS ABSOLUTE COUNT (BEAKER) (test code = 416) 0.10 K/ L 0.04-0.54 BASOPHILS ABSOLUTE COUNT (BEAKER) (test code = 417) 0.01 K/ L 0. 01-0.08 IMMATURE GRANULOCYTES-RELATIVE PERCENT (BEAKER) (test code = 2801) 1 % 0-1 [id number] 00:57:00* Test Item Value Reference Range Interpretation Comments POTASSIUM (BEAKER) (test code = 379) 4.8 meq/L 3.5-5.1 Traffic Control Specialist ID - DAVIDT/[id number] 00:39:00* Test Item Value Reference Range Interpretation Comments PROTIME (BEAKER) (test code = 759) 13.6 seconds 11.9-14.2 INR (BEAKER) (test code = 370) 1.1 <=5.9 PARTIAL THROMBOPLASTIN TIME (BEAKER) (test code = 760) 91.5 seconds 22.5-36.0 H Effective 03/02/2019: PT Reference Range ChangeNew: 11.9-14.2 Previous: 11.7-14. 7RECOMMENDED COUMADIN/WARFARIN INR THERAPY RANGESSTANDARD DOSE: 2.0-3.0 Include s: PROPHYLAXIS for venous thrombosis, systemic embolization; TREATMENT for venou s thrombosis and/or pulmonary embolus.HIGH RISK: Target INR is 2.5-3.5 for patie nts wiht mechanical heart valves.[id number] 20:55:00* Test Item Value Reference Range Interpretation Comments POTASSIUM (BEAKER) (test code = 379) 4.5 meq/L 3.5-5.1 Traffic Control Specialist ID - [id number] 20:55:00* Test Item Value Reference Range Interpretation Comments MAGNESIUM (BEAKER) (test code = 627) 1.8 mg/dL 1.6-2.6 Traffic Control Specialist ID - [id number] 20:55:00* Test Item Value Reference Range Interpretation Comments PHOSPHORUS (BEAKER) (test code = 604) 3.0 mg/dL 2.3-4.7 Traffic Control Specialist ID - [id number] 20:55:00* Test Item Value Reference Range Interpretation Comments SODIUM (BEAKER) (test code = 381) 139 meq/L 136-145 Traffic Control Specialist ID - KENNCALCIUM, [id number] 20:44:00* Test Item Value Reference Range Interpretation Comments CALCIUM IONIZED (BEAKER) (test code = 698) 1.10 mmol/L 1.12-1.27 L PH, BLOOD (BEAKER) (test code = 1810) 7.45 [id number] 18:07:00* Test Item Value Reference Range Interpretation Comments POTASSIUM (BEAKER) (test code = 379) 4.8 meq/L 3.5-5.1 Specimen slightly hemolyzed Traffic Control Specialist ID - NTPCALCIUM, [id number] 17:51:00* Test Item Value Reference Range Interpretation Comments CALCIUM IONIZED (BEAKER) (test code = 698) 1.11 mmol/L 1.12-1.27 L PH, BLOOD (BEAKER) (test code = 1810) 7.45 [id number] 14:24:00* Test Item Value Reference Range Interpretation Comments POTASSIUM (BEAKER) (test code = 379) 4.3 meq/L 3.5-5.1 Traffic Control Specialist ID - [id number] 09:26:00* Test Item Value Reference Range Interpretation Comments POTASSIUM (BEAKER) (test code = 379) 4.5 meq/L 3.5-5.1 Traffic Control Specialist ID - [id number] 09:26:00* Test Item Value Reference Range Interpretation Comments PHOSPHORUS (BEAKER) (test code = 604) 1.8 mg/dL 2.3-4.7 L Traffic Control Specialist ID - NTPCALCIUM, [id number] 08:49:00* Test Item Value Reference Range Interpretation Comments CALCIUM IONIZED (BEAKER) (test code = 698) 1.17 mmol/L 1.12-1.27 PH, BLOOD (BEAKER) (test code = 1810) 7.47 [id number] 07:30:00* Test Item Value Reference Range Interpretation Comments PROTIME (BEAKER) (test code = 759) 13.9 seconds 11.9-14.2 INR (BEAKER) (test code = 370) 1.1 <=5.9 PARTIAL THROMBOPLASTIN TIME (BEAKER) (test code = 760) 61.3 seconds 22.5-36.0 H Effective 03/02/2019: PT Reference Range ChangeNew: 11.9-14.2 Previous: 11.7-14. 7RECOMMENDED COUMADIN/WARFARIN INR THERAPY RANGESSTANDARD DOSE: 2.0-3.0 Include s: PROPHYLAXIS for venous thrombosis, systemic embolization; TREATMENT for venou s thrombosis and/or pulmonary embolus.HIGH RISK: Target INR is 2.5-3.5 for patie nts wiht mechanical heart valves.Troponin [id number] 07:09:00* Test Item Value Reference Range Interpretation Comments Troponin I (test code = 16390-7) 19.85 ng/mL 0-0.03 HH [place] (test code = [place]) Troponin I (TnI) levels must be interpreted in the context of the presenting symptoms and the clinical findings. Elevated TnI levels indicate myocardial damage, but are not specific for ischemic heart disease. Elevated TnI levels are seen in patients with other cardiac conditions (including myocarditis and congestive heart failure), and slight TnI elevations occur in patients with other conditions, including sepsis, renal failure, acidosis, acute neurological disease, and persistent tachyarrhythmia.Traffic Control Specialist ID - SAVANNAH M Lab Interpretation (test code = 24650-3) [id number] 07:09:00* Test Item Value Reference Range Interpretation Comments TROPONIN I (BEAKER) (test code = 397) 19.85 ng/mL 0.00-0.03 HH Troponin I (TnI) levels must be interpreted in the context of the presenting sym ptoms and the clinical findings. Elevated TnI levels indicate myocardial damage, but are not specific for ischemic heart disease. Elevated TnI levels are seen in patients with other cardiac conditions (including myocarditis and congestive h eart failure), and slight TnI elevations occur in patients with other conditions , including sepsis, renal failure, acidosis, acute neurological disease, and per sistent tachyarrhythmia.Traffic Control Specialist ID - SAVANNAH MPT/[id number] 05:52:00* Test Item Value Reference Range Interpretation Comments PROTIME (BEAKER) (test code = 759) 14.1 seconds 11.9-14.2 INR (BEAKER) (test code = 370) 1.1 <=5.9 PARTIAL THROMBOPLASTIN TIME (BEAKER) (test code = 760) 138.9 sec onds 22.5-36.0 H Effective 03/02/2019: PT Reference Range ChangeNew: 11.9-14.2 Previous: 11.7-14. 7RECOMMENDED COUMADIN/WARFARIN INR THERAPY RANGESSTANDARD DOSE: 2.0-3.0 Include s: PROPHYLAXIS for venous thrombosis, systemic embolization; TREATMENT for venou s thrombosis and/or pulmonary embolus.HIGH RISK: Target INR is 2.5-3.5 for patie nts wiht mechanical heart valves.[id number] 05:16:00* Test Item Value Reference Range Interpretation Comments MAGNESIUM (BEAKER) (test code = 627) 1.9 mg/dL 1.6-2.6 Traffic Control Specialist ID - SAVANNAH MBASIC METABOLIC [id number] 05:16:00* Test Item Value Reference Range Interpretation Comments SODIUM (BEAKER) (test code = 381) 140 meq/L 136-145 POTASSIUM (BEAKER) (test code = 379) 4.6 meq/L 3.5-5.1 CHLORIDE (BEAKER) (test code = 382) 107 meq/L 98-107 CO2 (BEAKER) (test code = 355) 26 meq/L 22-29 BLOOD UREA NITROGEN (BEAKER) (test code = 354) 9 mg/dL 7-21 CREATININE (BEAKER) (test code = 358) 1.42 mg/dL 0.57-1.25 H GLUCOSE RANDOM (BEAKER) (test code = 652) 102 mg/dL 70-105 CALCIUM (BEAKER) (test code = 697) 8.9 mg/dL 8.4-10.2 EGFR (BEAKER) (test code = 1092) 51 mL/min/1.73 sq m ESTIMATED GFR IS NOT ACCURATE CREATININE CLEARANCE IN PREDICTING GLOMERULAR FILTRATION RATE. ESTIMATED GFR IS NOT APPLICABLE FOR DIALYSIS PATIENTS. Traffic Control Specialist ID - SAVANNAH MCBC W/PLT COUNT & AUTO [id number] 05:06:00* Test Item Value Reference Range Interpretation Comments WHITE BLOOD CELL COUNT (BEAKER) (test code = 775) 5.0 K/ L 3.5- 10.5 RED BLOOD CELL COUNT (BEAKER) (test code = 761) 3.29 M/ L 4.63-6 .08 L HEMOGLOBIN (BEAKER) (test code = 410) 9.7 GM/DL 13.7-17.5 L HEMATOCRIT (BEAKER) (test code = 411) 29.8 % 40.1-51.0 L MEAN CORPUSCULAR VOLUME (BEAKER) (test code = 753) 90.6 fL 79. 0-92.2 MEAN CORPUSCULAR HEMOGLOBIN (BEAKER) (test code = 751) 29.5 pg 25.7-32.2 MEAN CORPUSCULAR HEMOGLOBIN CONC (BEAKER) (test code = 752) 32.6 GM/DL 32.3-36.5 RED CELL DISTRIBUTION WIDTH (BEAKER) (test code = 412) 15.6 % 11.6-14.4 H PLATELET COUNT (BEAKER) (test code = 756) 102 K/CU MM 150-450 L MEAN PLATELET VOLUME (BEAKER) (test code = 754) 10.6 fL 9.4-12 .4 NUCLEATED RED BLOOD CELLS (BEAKER) (test code = 413) 0 /100 WBC 0 -0 NEUTROPHILS RELATIVE PERCENT (BEAKER) (test code = 429) 46 % LYMPHOCYTES RELATIVE PERCENT (BEAKER) (test code = 430) 36 % MONOCYTES RELATIVE PERCENT (BEAKER) (test code = 431) 15 % EOSINOPHILS RELATIVE PERCENT (BEAKER) (test code = 432) 2 % BASOPHILS RELATIVE PERCENT (BEAKER) (test code = 437) 0 % NEUTROPHILS ABSOLUTE COUNT (BEAKER) (test code = 670) 2.27 K/ L 1.78-5.38 LYMPHOCYTES ABSOLUTE COUNT (BEAKER) (test code = 414) 1.79 K/ L 1.32-3.57 MONOCYTES ABSOLUTE COUNT (BEAKER) (test code = 415) 0.74 K/ L 0. 30-0.82 EOSINOPHILS ABSOLUTE COUNT (BEAKER) (test code = 416) 0.11 K/ L 0.04-0.54 BASOPHILS ABSOLUTE COUNT (BEAKER) (test code = 417) 0.02 K/ L 0. 01-0.08 IMMATURE GRANULOCYTES-RELATIVE PERCENT (BEAKER) (test code = 2801) 1 % 0-1 CALCIUM, [id number] 01:07:00* Test Item Value Reference Range Interpretation Comments CALCIUM IONIZED (BEAKER) (test code = 698) 1.04 mmol/L 1.12-1.27 L PH, BLOOD (BEAKER) (test code = 1810) 7.47 PH, [id number] 22:03:00* Test Item Value Reference Range Interpretation Comments PH VENOUS (BEAKER) (test code = 701) 7.46 7.32-7.42 H [id number] 20:20:00* Test Item Value Reference Range Interpretation Comments POTASSIUM (BEAKER) (test code = 379) 4.6 meq/L 3.5-5.1 Specimen slightly hemolyzed Traffic Control Specialist ID - [id number] 20:20:00* Test Item Value Reference Range Interpretation Comments SODIUM (BEAKER) (test code = 381) 139 meq/L 136-145 Traffic Control Specialist ID - [id number] 17:08:00* Test Item Value Reference Range Interpretation Comments MAGNESIUM (BEAKER) (test code = 627) 1.8 mg/dL 1.6-2.6 Specimen slightly hemolyzed Traffic Control Specialist ID - DANNA [id number] 17:08:00* Test Item Value Reference Range Interpretation Comments PHOSPHORUS (BEAKER) (test code = 604) 1.9 mg/dL 2.3-4.7 L Specimen slightly hemolyzed Traffic Control Specialist ID - DANNA [id number] 17:08:00* Test Item Value Reference Range Interpretation Comments POTASSIUM (BEAKER) (test code = 379) 4.6 meq/L 3.5-5.1 Specimen slightly hemolyzed Traffic Control Specialist ID - DANNA WCALCIUM, [id number] 16:50:00* Test Item Value Reference Range Interpretation Comments CALCIUM IONIZED (BEAKER) (test code = 698) 1.09 mmol/L 1.12-1.27 L PH, BLOOD (BEAKER) (test code = 1810) 7.47 TROPONIN [id number] 13:06:00* Test Item Value Reference Range Interpretation Comments TROPONIN I (BEAKER) (test code = 397) 19.24 ng/mL 0.00-0.03 HH Troponin I (TnI) levels must be interpreted in the context of the presenting sym ptoms and the clinical findings. Elevated TnI levels indicate myocardial damage, but are not specific for ischemic heart disease. Elevated TnI levels are seen in patients with other cardiac conditions (including myocarditis and congestive h eart failure), and slight TnI elevations occur in patients with other conditions , including sepsis, renal failure, acidosis, acute neurological disease, and per sistent tachyarrhythmia.Traffic Control Specialist ID - SUJIT [id number] 12:20:00* Test Item Value Reference Range Interpretation Comments POTASSIUM (BEAKER) (test code = 379) 4.5 meq/L 3.5-5.1 Traffic Control Specialist ID - SUJIT FRAD, CHEST, 1 VIEW, NON [id number] 08:57:00Reason for exam:->iabp placementShould this be performed at the bedside?->YesFINAL REPORT RAD, CHEST, 1 VIEW, NON DEPT INDICATION: iabp placement COMPARISON: Prior day's exam FINDINGS: Portable frontal view of the chest. IMPRESSION: Limited by underpenetration.Support Lines: Intra-aortic bal loon pump marker is now visible. Remaining support hardware is stable. Lungs and pleura: Right lung is clear. There is a small left effusion. No pneumothorax.He art and mediastinum: Stable contours. Stable surgical changes.Additional finding s: None. Signed: JR Herrmann Robert MDReport Verified Date/Time: 11/18/19 08:57:18 Reading Location: [facility] Radiology Reading Room Electronic ally signed by: LOUISE HERRMANN on 11/18/2019 08:57 AM CALCIUM, IONIZED 2019-11-18 08:54:00* Test Item Value Reference Range Interpretation Comments CALCIUM IONIZED (BEAKER) (test code = 698) 1.13 mmol/L 1.12-1.27 PH, BLOOD (BEAKER) (test code = 1810) 7.46 PT/[id number] 06:56:00* Test Item Value Reference Range Interpretation Comments PROTIME (BEAKER) (test code = 759) 13.5 seconds 11.9-14.2 INR (BEAKER) (test code = 370) 1.1 <=5.9 PARTIAL THROMBOPLASTIN TIME (BEAKER) (test code = 760) 81.3 seconds 22.5-36.0 H Effective 03/02/2019: PT Reference Range ChangeNew: 11.9-14.2 Previous: 11.7-14. 7RECOMMENDED COUMADIN/WARFARIN INR THERAPY RANGESSTANDARD DOSE: 2.0-3.0 Include s: PROPHYLAXIS for venous thrombosis, systemic embolization; TREATMENT for venou s thrombosis and/or pulmonary embolus.HIGH RISK: Target INR is 2.5-3.5 for patie nts wiht mechanical heart valves.PT/[id number] 06:07:00* Test Item Value Reference Range Interpretation Comments PROTIME (BEAKER) (test code = 759) 14.6 seconds 11.9-14.2 H INR (BEAKER) (test code = 370) 1.2 <=5.9 PARTIAL THROMBOPLASTIN TIME (BEAKER) (test code = 760) 147.4 sec onds 22.5-36.0 H Effective 03/02/2019: PT Reference Range ChangeNew: 11.9-14.2 Previous: 11.7-14. 7RECOMMENDED COUMADIN/WARFARIN INR THERAPY RANGESSTANDARD DOSE: 2.0-3.0 Include s: PROPHYLAXIS for venous thrombosis, systemic embolization; TREATMENT for venou s thrombosis and/or pulmonary embolus.HIGH RISK: Target INR is 2.5-3.5 for patie nts wiht mechanical heart valves.TROPONIN [id number] 05:52:00* Test Item Value Reference Range Interpretation Comments TROPONIN I (BEAKER) (test code = 397) 23.20 ng/mL 0.00-0.03 HH Troponin I (TnI) levels must be interpreted in the context of the presenting sym ptoms and the clinical findings. Elevated TnI levels indicate myocardial damage, but are not specific for ischemic heart disease. Elevated TnI levels are seen in patients with other cardiac conditions (including myocarditis and congestive h eart failure), and slight TnI elevations occur in patients with other conditions , including sepsis, renal failure, acidosis, acute neurological disease, and per sistent tachyarrhythmia.Traffic Control Specialist ID - VIRGIL [id number] 05:45:00* Test Item Value Reference Range Interpretation Comments PHOSPHORUS (BEAKER) (test code = 604) 2.0 mg/dL 2.3-4.7 L Traffic Control Specialist ID Radha HERMAN [id number] 05:45:00* Test Item Value Reference Range Interpretation Comments MAGNESIUM (BEAKER) (test code = 627) 1.9 mg/dL 1.6-2.6 Traffic Control Specialist ID Radha HERMAN WBASIC METABOLIC [id number] 05:45:00* Test Item Value Reference Range Interpretation Comments SODIUM (BEAKER) (test code = 381) 138 meq/L 136-145 POTASSIUM (BEAKER) (test code = 379) 4.7 meq/L 3.5-5.1 CHLORIDE (BEAKER) (test code = 382) 106 meq/L 98-107 CO2 (BEAKER) (test code = 355) 28 meq/L 22-29 BLOOD UREA NITROGEN (BEAKER) (test code = 354) 8 mg/dL 7-21 CREATININE (BEAKER) (test code = 358) 1.31 mg/dL 0.57-1.25 H GLUCOSE RANDOM (BEAKER) (test code = 652) 104 mg/dL 70-105 CALCIUM (BEAKER) (test code = 697) 8.7 mg/dL 8.4-10.2 EGFR (BEAKER) (test code = 1092) 56 mL/min/1.73 sq m ESTIMATED GFR IS NOT ACCURATE CREATININE CLEARANCE IN PREDICTING GLOMERULAR FILTRATION RATE. ESTIMATED GFR IS NOT APPLICABLE FOR DIALYSIS PATIENTS. Traffic Control Specialist ID Radha HERMAN WCBC W/PLT COUNT & AUTO [id number] 05:12:00* Test Item Value Reference Range Interpretation Comments WHITE BLOOD CELL COUNT (BEAKER) (test code = 775) 3.5 K/ L 3.5- 10.5 RED BLOOD CELL COUNT (BEAKER) (test code = 761) 3.29 M/ L 4.63-6 .08 L HEMOGLOBIN (BEAKER) (test code = 410) 9.6 GM/DL 13.7-17.5 L HEMATOCRIT (BEAKER) (test code = 411) 29.8 % 40.1-51.0 L MEAN CORPUSCULAR VOLUME (BEAKER) (test code = 753) 90.6 fL 79. 0-92.2 MEAN CORPUSCULAR HEMOGLOBIN (BEAKER) (test code = 751) 29.2 pg 25.7-32.2 MEAN CORPUSCULAR HEMOGLOBIN CONC (BEAKER) (test code = 752) 32.2 GM/DL 32.3-36.5 L RED CELL DISTRIBUTION WIDTH (BEAKER) (test code = 412) 15.6 % 11.6-14.4 H PLATELET COUNT (BEAKER) (test code = 756) 95 K/CU MM 150-450 L MEAN PLATELET VOLUME (BEAKER) (test code = 754) 10.8 fL 9.4-12 .4 NUCLEATED RED BLOOD CELLS (BEAKER) (test code = 413) 0 /100 WBC 0 -0 NEUTROPHILS RELATIVE PERCENT (BEAKER) (test code = 429) 46 % LYMPHOCYTES RELATIVE PERCENT (BEAKER) (test code = 430) 34 % MONOCYTES RELATIVE PERCENT (BEAKER) (test code = 431) 17 % EOSINOPHILS RELATIVE PERCENT (BEAKER) (test code = 432) 2 % BASOPHILS RELATIVE PERCENT (BEAKER) (test code = 437) 0 % NEUTROPHILS ABSOLUTE COUNT (BEAKER) (test code = 670) 1.63 K/ L 1.78-5.38 L LYMPHOCYTES ABSOLUTE COUNT (BEAKER) (test code = 414) 1.21 K/ L 1.32-3.57 L MONOCYTES ABSOLUTE COUNT (BEAKER) (test code = 415) 0.59 K/ L 0. 30-0.82 EOSINOPHILS ABSOLUTE COUNT (BEAKER) (test code = 416) 0.07 K/ L 0.04-0.54 BASOPHILS ABSOLUTE COUNT (BEAKER) (test code = 417) 0.01 K/ L 0. 01-0.08 IMMATURE GRANULOCYTES-RELATIVE PERCENT (BEAKER) (test code = 2801) 1 % 0-1 [id number] 02:18:00* Test Item Value Reference Range Interpretation Comments POTASSIUM (BEAKER) (test code = 379) 4.5 meq/L 3.5-5.1 Traffic Control Specialist [place] - VIRGIL WCALCIUM, [id number] 01:38:00* Test Item Value Reference Range Interpretation Comments CALCIUM IONIZED (BEAKER) (test code = 698) 1.09 mmol/L 1.12-1.27 L PH, BLOOD (BEAKER) (test code = 1810) 7.41 POC-Glucose [id number] 22:48:00* Test Item Value Reference Range Interpretation Comments POC-Glucose Meter (test code = 1538) 147 mg/dL 70-110 H : TESTED AT [facility] [address], [address]: Traffic Control Specialist/Panel Fitter ID = [id number] for AUDREY SAENZ Lab Interpretation (test code = 44302-8) [facility] [id number] 22:48:00* Test Item Value Reference Range Interpretation Comments POC-GLUCOSE METER (BEAKER) (test code = 1538) 147 mg/dL 70-110 H : TESTED AT [place] [id number] [facility], [address]: Traffic Control Specialist/Panel Fitter ID = [id number] for AUDREY SAENZ [id number] 20:53:00* Test Item Value Reference Range Interpretation Comments POTASSIUM (BEAKER) (test code = 379) 4.0 meq/L 3.5-5.1 Specimen slightly hemolyzed Traffic Control Specialist ID - [id number] 20:53:00* Test Item Value Reference Range Interpretation Comments SODIUM (BEAKER) (test code = 381) 139 meq/L 136-145 Traffic Control Specialist ID - [id number] 16:58:00* Test Item Value Reference Range Interpretation Comments MAGNESIUM (BEAKER) (test code = 627) 1.9 mg/dL 1.6-2.6 Specimen markedly hemolyzed Traffic Control Specialist ID - [id number] 16:58:00* Test Item Value Reference Range Interpretation Comments PHOSPHORUS (BEAKER) (test code = 604) 1.8 mg/dL 2.3-4.7 L Specimen markedly hemolyzed Traffic Control Specialist ID - [id number] 16:58:00* Test Item Value Reference Range Interpretation Comments POTASSIUM (BEAKER) (test code = 379) 4.7 meq/L 3.5-5.1 Specimen markedly hemolyzed Traffic Control Specialist ID - LACALCIUM, [id number] 16:43:00* Test Item Value Reference Range Interpretation Comments CALCIUM IONIZED (BEAKER) (test code = 698) 1.10 mmol/L 1.12-1.27 L PH, BLOOD (BEAKER) (test code = 1810) 7.45 TROPONIN [id number] 12:58:00* Test Item Value Reference Range Interpretation Comments TROPONIN I (MASSIEL) (test code = 397) 22.33 ng/mL 0.00-0.03 HH Troponin I (TnI) levels must be interpreted in the context of the presenting sym ptoms and the clinical findings. Elevated TnI levels indicate myocardial damage, but are not specific for ischemic heart disease. Elevated TnI levels are seen in patients with other cardiac conditions (including myocarditis and congestive h eart failure), and slight TnI elevations occur in patients with other conditions , including sepsis, renal failure, acidosis, acute neurological disease, and per sistent tachyarrhythmia.Traffic Control Specialist ID - [id number] 12:33:00* Test Item Value Reference Range Interpretation Comments POTASSIUM (MASSIEL) (test code = 379) 4.4 meq/L 3.5-5.1 Traffic Control Specialist ID - YAKELINAD, CHEST, 1 VIEW, NON [id number] 11:34:00Reason for exam:- >IABPShould this be performed at the bedside?->YesFINAL REPORT RAD, CHEST, 1 VIEW, NON DEPT INDICATION: IABP COMPARISON: Prior day's exam FINDINGS: Portable frontal view of the chest. IMPRESSION: Support Lines: Stable. Lungs and pleura: No change in the appearance of the air spaces. No new consolidation. Trace bilateral effusions. No pneumothorax.Heart and mediastinum: Stable contours. Stable surgical changes.Additional findings: None. Signed: JR Herrmann Robert MDReport Verified Date/Time: 11/17/2019 11:34:16 Reading Location: [facility] Radiology Reading Room Vancomycin level, trough 2019-11-17 10:51:00* Test Item Value Reference Range Interpretation Comments Vancomycin Tr (test code = 4092-3) 13.2 ug/mL 10-20 CAROLINA (test code = CAROLINA) Traffic Control Specialist ID - SAVANNAH Montalvo Lab Interpretation (test code = 37903-4) Normal [facility], [id number] 10:51:00* Test Item Value Reference Range Interpretation Comments VANCOMYCIN TROUGH (BEAKER) (test code = 522) 13.2 ug/mL 10.0-20.0 Traffic Control Specialist ID - SAVANNAH MCALCIUM, [id number] 09:45:00* Test Item Value Reference Range Interpretation Comments CALCIUM IONIZED (BEAKER) (test code = 698) 1.11 mmol/L 1.12-1.27 L PH, BLOOD (BEAKER) (test code = 1810) 7.47 [id number] 05:07:00* Test Item Value Reference Range Interpretation Comments MAGNESIUM (BEAKER) (test code = 627) 1.9 mg/dL 1.6-2.6 Specimen slightly hemolyzed Traffic Control Specialist ID - [id number] 05:07:00* Test Item Value Reference Range Interpretation Comments PHOSPHORUS (BEAKER) (test code = 604) 2.3 mg/dL 2.3-4.7 Specimen slightly hemolyzed Traffic Control Specialist ID - LABASIC METABOLIC [id number] 05:07:00* Test Item Value Reference Range Interpretation Comments SODIUM (BEAKER) (test code = 381) 140 meq/L 136-145 POTASSIUM (BEAKER) (test code = 379) 4.4 meq/L 3.5-5.1 Specimen slightly hemolyzed CHLORIDE (BEAKER) (test code = 382) 106 meq/L 98-107 CO2 (BEAKER) (test code = 355) 29 meq/L 22-29 BLOOD UREA NITROGEN (BEAKER) (test code = 354) 10 mg/dL 7-21 CREATININE (BEAKER) (test code = 358) 1.62 mg/dL 0.57-1.25 H Specimen slightly hemolyzed GLUCOSE RANDOM (BEAKER) (test code = 652) 97 mg/dL 70-105 CALCIUM (BEAKER) (test code = 697) 8.8 mg/dL 8.4-10.2 EGFR (BEAKER) (test code = 1092) 44 mL/min/1.73 sq m ESTIMATED GFR IS NOT ACCURATE CREATININE CLEARANCE IN PREDICTING GLOMERULAR FILTRATION RATE. ESTIMATED GFR IS NOT APPLICABLE FOR DIALYSIS PATIENTS. Traffic Control Specialist ID - LAPT/[id number] 05:02:00* Test Item Value Reference Range Interpretation Comments PROTIME (BEAKER) (test code = 759) 14.4 seconds 11.9-14.2 H INR (BEAKER) (test code = 370) 1.2 <=5.9 PARTIAL THROMBOPLASTIN TIME (BEAKER) (test code = 760) 81.8 seconds 22.5-36.0 H Effective 03/02/2019: PT Reference Range ChangeNew: 11.9-14.2 Previous: 11.7-14. 7RECOMMENDED COUMADIN/WARFARIN INR THERAPY RANGESSTANDARD DOSE: 2.0-3.0 Include s: PROPHYLAXIS for venous thrombosis, systemic embolization; TREATMENT for venou s thrombosis and/or pulmonary embolus.HIGH RISK: Target INR is 2.5-3.5 for patie nts wiht mechanical heart valves.CBC W/PLT COUNT & AUTO [id number] 04:51:00* Test Item Value Reference Range Interpretation Comments WHITE BLOOD CELL COUNT (BEAKER) (test code = 775) 3.5 K/ L 3.5- 10.5 RED BLOOD CELL COUNT (BEAKER) (test code = 761) 3.25 M/ L 4.63-6 .08 L HEMOGLOBIN (BEAKER) (test code = 410) 9.6 GM/DL 13.7-17.5 L HEMATOCRIT (BEAKER) (test code = 411) 29.1 % 40.1-51.0 L MEAN CORPUSCULAR VOLUME (BEAKER) (test code = 753) 89.5 fL 79. 0-92.2 MEAN CORPUSCULAR HEMOGLOBIN (BEAKER) (test code = 751) 29.5 pg 25.7-32.2 MEAN CORPUSCULAR HEMOGLOBIN CONC (BEAKER) (test code = 752) 33.0 GM/DL 32.3-36.5 RED CELL DISTRIBUTION WIDTH (BEAKER) (test code = 412) 15.5 % 11.6-14.4 H PLATELET COUNT (BEAKER) (test code = 756) 98 K/CU MM 150-450 L MEAN PLATELET VOLUME (BEAKER) (test code = 754) 11.0 fL 9.4-12 .4 NUCLEATED RED BLOOD CELLS (BEAKER) (test code = 413) 0 /100 WBC 0 -0 NEUTROPHILS RELATIVE PERCENT (BEAKER) (test code = 429) 42 % LYMPHOCYTES RELATIVE PERCENT (BEAKER) (test code = 430) 34 % MONOCYTES RELATIVE PERCENT (BEAKER) (test code = 431) 21 % EOSINOPHILS RELATIVE PERCENT (BEAKER) (test code = 432) 3 % BASOPHILS RELATIVE PERCENT (BEAKER) (test code = 437) 0 % NEUTROPHILS ABSOLUTE COUNT (BEAKER) (test code = 670) 1.46 K/ L 1.78-5.38 L LYMPHOCYTES ABSOLUTE COUNT (BEAKER) (test code = 414) 1.17 K/ L 1.32-3.57 L MONOCYTES ABSOLUTE COUNT (BEAKER) (test code = 415) 0.71 K/ L 0. 30-0.82 EOSINOPHILS ABSOLUTE COUNT (BEAKER) (test code = 416) 0.09 K/ L 0.04-0.54 BASOPHILS ABSOLUTE COUNT (BEAKER) (test code = 417) 0.01 K/ L 0. 01-0.08 IMMATURE GRANULOCYTES-RELATIVE PERCENT (BEAKER) (test code = 2801) 1 % 0-1 CALCIUM, [id number] 01:10:00* Test Item Value Reference Range Interpretation Comments CALCIUM IONIZED (BEAKER) (test code = 698) 1.08 mmol/L 1.12-1.27 L PH, BLOOD (BEAKER) (test code = 1810) 7.44 [id number] 21:04:00* Test Item Value Reference Range Interpretation Comments POTASSIUM (BEAKER) (test code = 379) 4.1 meq/L 3.5-5.1 Traffic Control Specialist ID - [id number] 21:04:00* Test Item Value Reference Range Interpretation Comments MAGNESIUM (BEAKER) (test code = 627) 1.9 mg/dL 1.6-2.6 Traffic Control Specialist ID - [id number] 21:04:00* Test Item Value Reference Range Interpretation Comments PHOSPHORUS (BEAKER) (test code = 604) 2.1 mg/dL 2.3-4.7 L Traffic Control Specialist ID - [id number] 21:04:00* Test Item Value Reference Range Interpretation Comments SODIUM (BEAKER) (test code = 381) 140 meq/L 136-145 Traffic Control Specialist ID - GALAPPT/[id number] 18:11:00* Test Item Value Reference Range Interpretation Comments PROTIME (BEAKER) (test code = 759) 14.2 seconds 11.9-14.2 INR (BEAKER) (test code = 370) 1.1 <=5.9 PARTIAL THROMBOPLASTIN TIME (BEAKER) (test code = 760) 95.2 seconds 22.5-36.0 H Effective 03/02/2019: PT Reference Range ChangeNew: 11.9-14.2 Previous: 11.7-14. 7RECOMMENDED COUMADIN/WARFARIN INR THERAPY RANGESSTANDARD DOSE: 2.0-3.0 Include s: PROPHYLAXIS for venous thrombosis, systemic embolization; TREATMENT for venou s thrombosis and/or pulmonary embolus.HIGH RISK: Target INR is 2.5-3.5 for patie nts wi mechanical heart valves.PT/[id number] 16:51:00* Test Item Value Reference Range Interpretation Comments PROTIME (BEAKER) (test code = 759) 14.8 seconds 11.9-14.2 H INR (BEAKER) (test code = 370) 1.2 <=5.9 PARTIAL THROMBOPLASTIN TIME (BEAKER) (test code = 760) 119.8 sec onds 22.5-36.0 H Effective 03/02/2019: PT Reference Range ChangeNew: 11.9-14.2 Previous: 11.7-14. 7RECOMMENDED COUMADIN/WARFARIN INR THERAPY RANGESSTANDARD DOSE: 2.0-3.0 Include s: PROPHYLAXIS for venous thrombosis, systemic embolization; TREATMENT for venou s thrombosis and/or pulmonary embolus.HIGH RISK: Target INR is 2.5-3.5 for patie nts [facility] mechanical heart valves.[id number] 16:49:00* Test Item Value Reference Range Interpretation Comments POTASSIUM (BEAKER) (test code = 379) 4.2 meq/L 3.5-5.1 Specimen slightly hemolyzed Traffic Control Specialist ID - GALAPCALCIUM, [id number] 16:34:00* Test Item Value Reference Range Interpretation Comments CALCIUM IONIZED (BEAKER) (test code = 698) 1.07 mmol/L 1.12-1.27 L PH, BLOOD (BEAKER) (test code = 1810) 7.48 [id number] 12:43:00* Test Item Value Reference Range Interpretation Comments POTASSIUM (BEAKER) (test code = 379) 4.5 meq/L 3.5-5.1 Traffic Control Specialist ID - PANDA CPT/[id number] 10:31:00* Test Item Value Reference Range Interpretation Comments PROTIME (BEAKER) (test code = 759) 14.2 seconds 11.9-14.2 INR (BEAKER) (test code = 370) 1.1 <=5.9 PARTIAL THROMBOPLASTIN TIME (BEAKER) (test code = 760) 83.1 seconds 22.5-36.0 H Effective 03/02/2019: PT Reference Range ChangeNew: 11.9-14.2 Previous: 11.7-14. 7RECOMMENDED COUMADIN/WARFARIN INR THERAPY RANGESSTANDARD DOSE: 2.0-3.0 Include s: PROPHYLAXIS for venous thrombosis, systemic embolization; TREATMENT for venou s thrombosis and/or pulmonary embolus.HIGH RISK: Target INR is 2.5-3.5 for patie nts wiht mechanical heart valves.[id number] 08:53:00* Test Item Value Reference Range Interpretation Comments PHOSPHORUS (BEAKER) (test code = 604) 2.4 mg/dL 2.3-4.7 Traffic Control Specialist ID - GALAPCALCIUM, [id number] 08:33:00* Test Item Value Reference Range Interpretation Comments CALCIUM IONIZED (BEAKER) (test code = 698) 1.15 mmol/L 1.12-1.27 PH, BLOOD (BEAKER) (test code = 1810) 7.44 PH, [id number] 08:32:00* Test Item Value Reference Range Interpretation Comments PH ARTERIAL (BEAKER) (test code = 383) 7.44 7.35-7.45 RAD, CHEST, 1 VIEW, NON [id number] 06:08:00While IABP in place and following each repositioning of IABPReason for exam:->While IABP in place and following each repositioning of IABPShould this be performed at the bedside?->YesFINAL REPORT CLINICAL INDICATION: Support lines. Comparison: 11/15/2019 The cardiomediastinal contours are stable. Central pulmonary vascular congestion and bilateral parenchymal opacities are unchanged. There is no p neumothorax. Support lines are stable. Signed: Shanna Pope MDReport Verified D ate/Time: 11/16/2019 06:08:23 C METABOLIC [id number] 06:00:00* Test Item Value Reference Range Interpretation Comments SODIUM (BEAKER) (test code = 381) 138 meq/L 136-145 POTASSIUM (BEAKER) (test code = 379) 4.6 meq/L 3.5-5.1 CHLORIDE (BEAKER) (test code = 382) 106 meq/L 98-107 CO2 (BEAKER) (test code = 355) 22 meq/L 22-29 BLOOD UREA NITROGEN (BEAKER) (test code = 354) 15 mg/dL 7-21 CREATININE (BEAKER) (test code = 358) 2.49 mg/dL 0.57-1.25 H GLUCOSE RANDOM (BEAKER) (test code = 652) 86 mg/dL 70-105 CALCIUM (BEAKER) (test code = 697) 8.8 mg/dL 8.4-10.2 EGFR (BEAKER) (test code = 1092) 27 mL/min/1.73 sq m ESTIMATED GFR IS NOT ACCURATE CREATININE CLEARANCE IN PREDICTING GLOMERULAR FILTRATION RATE. ESTIMATED GFR IS NOT APPLICABLE FOR DIALYSIS PATIENTS. Traffic Control Specialist ID - GALAPPT/[id number] 05:34:00* Test Item Value Reference Range Interpretation Comments PROTIME (BEAKER) (test code = 759) 14.4 seconds 11.9-14.2 H INR (BEAKER) (test code = 370) 1.2 <=5.9 PARTIAL THROMBOPLASTIN TIME (BEAKER) (test code = 760) 49.0 seconds 22.5-36.0 H Effective 03/02/2019: PT Reference Range ChangeNew: 11.9-14.2 Previous: 11.7-14. 7RECOMMENDED COUMADIN/WARFARIN INR THERAPY RANGESSTANDARD DOSE: 2.0-3.0 Include s: PROPHYLAXIS for venous thrombosis, systemic embolization; TREATMENT for venou s thrombosis and/or pulmonary embolus.HIGH RISK: Target INR is 2.5-3.5 for patie nts wiht mechanical heart valves.[id number] 05:33:00* Test Item Value Reference Range Interpretation Comments MAGNESIUM (BEAKER) (test code = 627) 2.0 mg/dL 1.6-2.6 Traffic Control Specialist ID - GALAPCBC W/PLT COUNT & AUTO [id number] 05:07:00* Test Item Value Reference Range Interpretation Comments WHITE BLOOD CELL COUNT (BEAKER) (test code = 775) 3.6 K/ L 3.5- 10.5 RED BLOOD CELL COUNT (BEAKER) (test code = 761) 3.10 M/ L 4.63-6 .08 L HEMOGLOBIN (BEAKER) (test code = 410) 9.1 GM/DL 13.7-17.5 L HEMATOCRIT (BEAKER) (test code = 411) 28.0 % 40.1-51.0 L MEAN CORPUSCULAR VOLUME (BEAKER) (test code = 753) 90.3 fL 79. 0-92.2 MEAN CORPUSCULAR HEMOGLOBIN (BEAKER) (test code = 751) 29.4 pg 25.7-32.2 MEAN CORPUSCULAR HEMOGLOBIN CONC (BEAKER) (test code = 752) 32.5 GM/DL 32.3-36.5 RED CELL DISTRIBUTION WIDTH (BEAKER) (test code = 412) 15.4 % 11.6-14.4 H PLATELET COUNT (BEAKER) (test code = 756) 77 K/CU MM 150-450 L MEAN PLATELET VOLUME (BEAKER) (test code = 754) 11.1 fL 9.4-12 .4 NUCLEATED RED BLOOD CELLS (BEAKER) (test code = 413) 0 /100 WBC 0 -0 NEUTROPHILS RELATIVE PERCENT (BEAKER) (test code = 429) 60 % LYMPHOCYTES RELATIVE PERCENT (BEAKER) (test code = 430) 20 % MONOCYTES RELATIVE PERCENT (BEAKER) (test code = 431) 17 % EOSINOPHILS RELATIVE PERCENT (BEAKER) (test code = 432) 1 % BASOPHILS RELATIVE PERCENT (BEAKER) (test code = 437) 0 % NEUTROPHILS ABSOLUTE COUNT (BEAKER) (test code = 670) 2.17 K/ L 1.78-5.38 LYMPHOCYTES ABSOLUTE COUNT (BEAKER) (test code = 414) 0.72 K/ L 1.32-3.57 L MONOCYTES ABSOLUTE COUNT (BEAKER) (test code = 415) 0.62 K/ L 0. 30-0.82 EOSINOPHILS ABSOLUTE COUNT (BEAKER) (test code = 416) 0.04 K/ L 0.04-0.54 BASOPHILS ABSOLUTE COUNT (BEAKER) (test code = 417) 0.01 K/ L 0. 01-0.08 IMMATURE GRANULOCYTES-RELATIVE PERCENT (BEAKER) (test code = 2801) 1 % 0-1 [id number] 00:16:00* Test Item Value Reference Range Interpretation Comments POTASSIUM (BEAKER) (test code = 379) 4.9 meq/L 3.5-5.1 Traffic Control Specialist ID - BSCALCIUM, [id number] 23:43:00* Test Item Value Reference Range Interpretation Comments CALCIUM IONIZED (BEAKER) (test code = 698) 1.09 mmol/L 1.12-1.27 L PH, BLOOD (BEAKER) (test code = 1810) 7.40 POC ACTIVATED CLOTTING [id number] 22:21:00* Test Item Value Reference Range Interpretation Comments Activated Clotting Time (test code = 441) 131 sec Reference Range: 74-137 seconds, Baseline/[id number] 22:21:00* Test Item Value Reference Range Interpretation Comments ACTIVATED CLOTTING TIME (BEAKER) (test code = 441) 131 sec Reference Range: 74-137 seconds, Baseline/TESTED AT [place] [id number] 20:54:00* Test Item Value Reference Range Interpretation Comments POTASSIUM (BEAKER) (test code = 379) 4.9 meq/L 3.5-5.1 Traffic Control Specialist ID - [id number] 20:54:00* Test Item Value Reference Range Interpretation Comments MAGNESIUM (BEAKER) (test code = 627) 1.9 mg/dL 1.6-2.6 Traffic Control Specialist ID - [id number] 20:54:00* Test Item Value Reference Range Interpretation Comments PHOSPHORUS (BEAKER) (test code = 604) 4.0 mg/dL 2.3-4.7 Traffic Control Specialist ID - [id number] 20:54:00* Test Item Value Reference Range Interpretation Comments SODIUM (BEAKER) (test code = 381) 138 meq/L 136-145 Traffic Control Specialist ID - [id number] 20:18:00* Test Item Value Reference Range Interpretation Comments ACTIVATED CLOTTING TIME (BEAKER) (test code = 441) 180 sec Reference Range: 74-137 seconds, Baseline/TESTED AT [address] [address] PH, [id number] 20:17:00* Test Item Value Reference Range Interpretation Comments PH ARTERIAL (BEAKER) (test code = 383) 7.44 7.35-7.45 [id number] 18:22:00* Test Item Value Reference Range Interpretation Comments ACTIVATED CLOTTING TIME (BEAKER) (test code = 441) 169 sec Reference Range: 74-137 seconds, Baseline/TESTED AT [place] [id number] CALCIUM, [id number] 17:24:00* Test Item Value Reference Range Interpretation Comments CALCIUM IONIZED (BEAKER) (test code = 698) 1.07 mmol/L 1.12-1.27 L PH, BLOOD (BEAKER) (test code = 1810) 7.40 [id number] 16:09:00* Test Item Value Reference Range Interpretation Comments POTASSIUM (BEAKER) (test code = 379) 5.3 meq/L 3.5-5.1 H Specimen moderately hemolyzed Traffic Control Specialist ID - [id number] 16:00:00* Test Item Value Reference Range Interpretation Comments ACTIVATED CLOTTING TIME (BEAKER) (test code = 441) 208 sec Reference Range: 74-137 seconds, Baseline/TESTED AT [place] [address] [id number] 13:25:00* Test Item Value Reference Range Interpretation Comments ACTIVATED CLOTTING TIME (BEAKER) (test code = 441) 252 sec Reference Range: 74-137 seconds, Baseline/TESTED AT [address] [address] RAD, CHEST, 1 VIEW, NON [id number] 05:51:00While IABP in place and following each repositioning of IABPReason for exam:->While IABP in place and following each repositioning of IABPShould this be performed at the bedside?->YesFINAL REPORT CLINICAL INDICATION: Support lines. Comparison: 11/14/2019 The cardiomediastinal contours are stable. Central pulmonary vascular prominence and bilateral parenchymal and pleural opacities are similar to p revious. There is no pneumothorax. Support lines are stable. Signed: PopeSe ruiz MDReport Verified Date/Time: 11/15/2019 05:51:13 C METABOLIC [id number] 05:34:00* Test Item Value Reference Range Interpretation Comments SODIUM (BEAKER) (test code = 381) 137 meq/L 136-145 POTASSIUM (BEAKER) (test code = 379) 5.0 meq/L 3.5-5.1 CHLORIDE (BEAKER) (test code = 382) 103 meq/L 98-107 CO2 (BEAKER) (test code = 355) 23 meq/L 22-29 BLOOD UREA NITROGEN (BEAKER) (test code = 354) 36 mg/dL 7-21 H CREATININE (BEAKER) (test code = 358) 4.92 mg/dL 0.57-1.25 H GLUCOSE RANDOM (BEAKER) (test code = 652) 105 mg/dL 70-105 CALCIUM (BEAKER) (test code = 697) 9.0 mg/dL 8.4-10.2 EGFR (BEAKER) (test code = 1092) 12 mL/min/1.73 sq m ESTIMATED GFR IS NOT ACCURATE CREATININE CLEARANCE IN PREDICTING GLOMERULAR FILTRATION RATE. ESTIMATED GFR IS NOT APPLICABLE FOR DIALYSIS PATIENTS. Traffic Control Specialist ID - [id number] 05:21:00* Test Item Value Reference Range Interpretation Comments PHOSPHORUS (BEAKER) (test code = 604) 3.1 mg/dL 2.3-4.7 Traffic Control Specialist ID - [id number] 05:21:00* Test Item Value Reference Range Interpretation Comments MAGNESIUM (BEAKER) (test code = 627) 2.0 mg/dL 1.6-2.6 Traffic Control Specialist ID - GALAPPT/[id number] 05:06:00* Test Item Value Reference Range Interpretation Comments PROTIME (BEAKER) (test code = 759) 13.8 seconds 11.9-14.2 INR (BEAKER) (test code = 370) 1.1 <=5.9 PARTIAL THROMBOPLASTIN TIME (BEAKER) (test code = 760) 85.8 seconds 22.5-36.0 H Effective 03/02/2019: PT Reference Range ChangeNew: 11.9-14.2 Previous: 11.7-14. 7RECOMMENDED COUMADIN/WARFARIN INR THERAPY RANGESSTANDARD DOSE: 2.0-3.0 Include s: PROPHYLAXIS for venous thrombosis, systemic embolization; TREATMENT for venou s thrombosis and/or pulmonary embolus.HIGH RISK: Target INR is 2.5-3.5 for patie nts wiht mechanical heart valves.CALCIUM, [id number] 05:03:00* Test Item Value Reference Range Interpretation Comments CALCIUM IONIZED (BEAKER) (test code = 698) 1.10 mmol/L 1.12-1.27 L PH, BLOOD (BEAKER) (test code = 1810) 7.42 PH, [id number] 05:00:00* Test Item Value Reference Range Interpretation Comments PH ARTERIAL (BEAKER) (test code = 383) 7.42 7.35-7.45 CBC W/PLT COUNT & AUTO [id number] 04:44:00* Test Item Value Reference Range Interpretation Comments WHITE BLOOD CELL COUNT (BEAKER) (test code = 775) 4.6 K/ L 3.5- 10.5 RED BLOOD CELL COUNT (BEAKER) (test code = 761) 3.55 M/ L 4.63-6 .08 L HEMOGLOBIN (BEAKER) (test code = 410) 10.4 GM/DL 13.7-17.5 L HEMATOCRIT (BEAKER) (test code = 411) 31.4 % 40.1-51.0 L MEAN CORPUSCULAR VOLUME (BEAKER) (test code = 753) 88.5 fL 79. 0-92.2 MEAN CORPUSCULAR HEMOGLOBIN (BEAKER) (test code = 751) 29.3 pg 25.7-32.2 MEAN CORPUSCULAR HEMOGLOBIN CONC (BEAKER) (test code = 752) 33.1 GM/DL 32.3-36.5 RED CELL DISTRIBUTION WIDTH (BEAKER) (test code = 412) 15.1 % 11.6-14.4 H PLATELET COUNT (BEAKER) (test code = 756) 106 K/CU MM 150-450 L MEAN PLATELET VOLUME (BEAKER) (test code = 754) 10.3 fL 9.4-12 .4 NUCLEATED RED BLOOD CELLS (BEAKER) (test code = 413) 0 /100 WBC 0 -0 NEUTROPHILS RELATIVE PERCENT (BEAKER) (test code = 429) 55 % LYMPHOCYTES RELATIVE PERCENT (BEAKER) (test code = 430) 28 % MONOCYTES RELATIVE PERCENT (BEAKER) (test code = 431) 14 % EOSINOPHILS RELATIVE PERCENT (BEAKER) (test code = 432) 2 % BASOPHILS RELATIVE PERCENT (BEAKER) (test code = 437) 0 % NEUTROPHILS ABSOLUTE COUNT (BEAKER) (test code = 670) 2.55 K/ L 1.78-5.38 LYMPHOCYTES ABSOLUTE COUNT (BEAKER) (test code = 414) 1.29 K/ L 1.32-3.57 L MONOCYTES ABSOLUTE COUNT (BEAKER) (test code = 415) 0.65 K/ L 0. 30-0.82 EOSINOPHILS ABSOLUTE COUNT (BEAKER) (test code = 416) 0.09 K/ L 0.04-0.54 BASOPHILS ABSOLUTE COUNT (BEAKER) (test code = 417) 0.01 K/ L 0. 01-0.08 IMMATURE GRANULOCYTES-RELATIVE PERCENT (BEAKER) (test code = 2801) 0 % 0-1 [id number] 02:37:00* Test Item Value Reference Range Interpretation Comments POTASSIUM (BEAKER) (test code = 379) 5.1 meq/L 3.5-5.1 Traffic Control Specialist ID - GALAPCALCIUM, [id number] 01:34:00* Test Item Value Reference Range Interpretation Comments CALCIUM IONIZED (BEAKER) (test code = 698) 1.13 mmol/L 1.12-1.27 PH, BLOOD (BEAKER) (test code = 1810) 7.43 [id number] 21:56:00* Test Item Value Reference Range Interpretation Comments POTASSIUM (BEAKER) (test code = 379) 5.1 meq/L 3.5-5.1 Specimen slightly hemolyzed Traffic Control Specialist ID - BSPH, [id number] 21:02:00* Test Item Value Reference Range Interpretation Comments PH ARTERIAL (BEAKER) (test code = 383) 7.42 7.35-7.45 CALCIUM, [id number] 21:02:00* Test Item Value Reference Range Interpretation Comments CALCIUM IONIZED (BEAKER) (test code = 698) 1.09 mmol/L 1.12-1.27 L PH, BLOOD (BEAKER) (test code = 1810) 7.42 TROPONIN [id number] 19:23:00* Test Item Value Reference Range Interpretation Comments TROPONIN I (BEAKER) (test code = 397) 86.18 ng/mL 0.00-0.03 HH Troponin I (TnI) levels must be interpreted in the context of the presenting sym ptoms and the clinical findings. Elevated TnI levels indicate myocardial damage, but are not specific for ischemic heart disease. Elevated TnI levels are seen in patients with other cardiac conditions (including myocarditis and congestive h eart failure), and slight TnI elevations occur in patients with other conditions , including sepsis, renal failure, acidosis, acute neurological disease, and per sistent tachyarrhythmia.Traffic Control Specialist ID - BSOperator ID - [id number] 18:59:00* Test Item Value Reference Range Interpretation Comments POTASSIUM (BEAKER) (test code = 379) 5.3 meq/L 3.5-5.1 H Traffic Control Specialist ID - [id number] 18:59:00* Test Item Value Reference Range Interpretation Comments MAGNESIUM (BEAKER) (test code = 627) 2.0 mg/dL 1.6-2.6 Traffic Control Specialist ID - [id number] 18:59:00* Test Item Value Reference Range Interpretation Comments PHOSPHORUS (BEAKER) (test code = 604) 4.2 mg/dL 2.3-4.7 Traffic Control Specialist ID - [id number] 18:59:00* Test Item Value Reference Range Interpretation Comments SODIUM (BEAKER) (test code = 381) 135 meq/L 136-145 L Traffic Control Specialist ID - BSCALCIUM, [id number] 17:08:00* Test Item Value Reference Range Interpretation Comments CALCIUM IONIZED (BEAKER) (test code = 698) 1.01 mmol/L 1.12-1.27 L PH, BLOOD (BEAKER) (test code = 1810) 7.36 PET/CT, CARDIAC METABOLIC EVAL W/CT X 17:03:00Reason for exam:-> NSTEMINEEDS STATFINAL REPORT PROCEDURE: MYOCARDIAL METABOLISM PET IMAGING with MYOCARDIAL PERFUSION PET IMAGING (Rest-Only)CPT CODE: 52910 INDICATION: Evaluate myocardial viability prior to possible revascularization, known CAD status post ACB, chest pain, ventricular tachycardia CARDIOVASCULAR PROFILE:CAD History: Known CAD status post ACBSymptoms: Chest painRisk Factors: ESRDBMI: 30 IMAGING PROTOCOL:Limited low- dose CT imaging was performed for attenuation correction. 40.1 mCi of Rb-82 chloride was injected intravenously at rest, and gated PET images were obtained. Then, dextrose and insulin were administered intravenously per protocol, and 10.7 mCi of F-18 FDG was injected intravenously at rest. Limited low-dose CT imaging was repeated for attenuation correction, and PET images were obtained. REST FINDINGS:Perfusion: There is a marked severity perfusion defect of all lateral segments and basal to mid anterior segments.Metabolism: Absence of FDG uptake in the basal to apical inferolateral segments.Wall Motion: Marked hypokinesis of the inferolateral wall. The remaining segments are mildly to mo derately hypokinetic. (LVEF 35-40%%).LV Volume: Increased.RV Volume: Increased. IMPRESSION:1. Abnormal study.2. Abnormal myocardial perfusion. There is a large size, marked severity perfusion abnormality in the lateral and anterior LV.3. Ab normal myocardial metabolism. There is a large size, marked severity abnormality of glucose metabolism in the inferolateral LV. 4. Moderately decreased res ting LVEF.5. Normal extracardiac tracer distribution.6. In conclusion, the infer olateral LV is not viable. Remainder of the LV appears viable.7. There is no amanda or study for comparison. Signed: Rubin George MDReport Verified Date/Time: 07/2020 17:03:27 Reading Location: [address] Reading Room Elec tronically signed by: RUBIN GEORGE MD on 11/14/2019 05:03 PM NM PET/CT Cardiac Viability/[id number] 17:03:00Interface, External Ris In - 11/14/2019 5:05 PM CSTFINAL REPORT PROCEDURE: MYOCARDIAL METABOLISM PET IMAGING with MYOCARDIAL PERFUSION PET IMAGING (Rest-Only)CPT CODE: 32886 INDICATION: Evaluate myocardial viability prior to possible revascularization, known CAD status post ACB, chest pain, ventricular tachycardia CARDIOVASCULAR PROFILE:CAD History: Known CAD status post AC BSymptoms: Chest painRisk Factors: ESRDBMI: 30 IMAGING PROTOCOL:Limited low-dose CT imaging was performed for attenuation correction. 40.1 mCi of Rb-82 chloride was injected intravenously at rest, and gated PET images were obtained. Then, d extrose and insulin were administered intravenously per protocol, and 10.7 mCi o f F-18 FDG was injected intravenously at rest. Limited low-dose CT imaging was r epeated for attenuation correction, and PET images were obtained. REST FINDINGS: Perfusion: There is a marked severity perfusion defect of all lateral segments a nd basal to mid anterior segments.Metabolism: Absence of FDG uptake in the basal to apical inferolateral segments.Wall Motion: Marked hypokinesis of the inferol ateral wall. The remaining segments are mildly to moderately hypokinetic. (LVEF 35-40%%).LV Volume: Increased.RV Volume: Increased. IMPRESSION:1. Abnormal study .2. Abnormal myocardial perfusion. There is a large size, marked severity perfus ion abnormality in the lateral and anterior LV.3. Abnormal myocardial metabolism . There is a large size, marked severity abnormality of glucose metabolism in th e inferolateral LV. 4. Moderately decreased resting LVEF.5. Normal extracar diac tracer distribution.6. In conclusion, the inferolateral LV is not viable. R emainder of the LV appears viable.7. There is no prior study for comparison. Sig angeli: Rubin George MDReport Verified Date/Time: 11/14/2019 17:03:27 Reading Loc ation: [address] [facility] Reading [facility] [id number] 14:57:00* Test Item Value Reference Range Interpretation Comments POC-GLUCOSE METER (BEAKER) (test code = 1538) 112 mg/dL 70-110 H : TESTED AT [facility] [address] [facility], [address]: Traffic Control Specialist/Panel Fitter ID = [id number] for IRASEMA WYMAN POCT-GLUCOSE [id number] 14:52:00* Test Item Value Reference Range Interpretation Comments POC-GLUCOSE METER (BEAKER) (test code = 1538) 180 mg/dL 70-110 H : TESTED AT [facility] [address] [facility], [address]: Traffic Control Specialist/Panel Fitter ID = [id number] for Uzma Norris POCT-GLUCOSE [id number] 12:39:00* Test Item Value Reference Range Interpretation Comments POC-GLUCOSE METER (BEAKER) (test code = 1538) 104 mg/dL 70-110 : TESTED AT [address], [address]: Traffic Control Specialist/Panel Fitter ID = [id number] for Tayler Maxwell POCT-GLUCOSE [id number] 12:14:00* Test Item Value Reference Range Interpretation Comments POC-GLUCOSE METER (BEAKER) (test code = 1538) 118 mg/dL 70-110 H : TESTED AT [address], [address]: Traffic Control Specialist/Panel Fitter ID = [id number] for CYDNEY RICHARDSON RAD, CHEST, 1 VIEW, NON [id number] 11:23:00Reason for exam:->Trialysis line placementShould this be performed at the bedside?->YesFINAL REPORT RAD, CHEST, 1 VIEW, NON DEPT INDICATION: Trialysis line placement COMPARISON: 6 hours prior FINDINGS: Portable frontal view of the chest. IMPRESSION: Support Lines: Left IJ cvc terminates over the superior vena cava. Remaining support hardware is stable. Lungs and pleura: Unchanged interstitial and pleural opacities. No pneumothorax.Heart and mediastinum: Stable contours. Stable surgical changes.Additional findings: None. Signed: JR Herrmann Robert MDReport Verified Date/Time: 11/14/2019 11:23:16 Reading Location: [facility] Radiology Reading Room -GLUCOSE [id number] 10:49:00* Test Item Value Reference Range Interpretation Comments POC-GLUCOSE METER (BEAKER) (test code = 1538) 177 mg/dL 70-110 H : TESTED AT [place] [id number] [facility], [address]: Traffic Control Specialist/Panel Fitter ID = [id number] for Julieta Caballero [id number] 10:38:00* Test Item Value Reference Range Interpretation Comments POTASSIUM (BEAKER) (test code = 379) 6.0 meq/L 3.5-5.1 HH Specimen slightly hemolyzed Traffic Control Specialist ID - LMHEPATIC FUNCTION [id number] 10:37:00* Test Item Value Reference Range Interpretation Comments TOTAL PROTEIN (BEAKER) (test code = 770) 5.7 gm/dL 6.0-8.3 L Specimen slightly hemolyzed ALBUMIN (BEAKER) (test code = 1145) 3.3 g/dL 3.5-5.0 L Specimen slightly hemolyzed BILIRUBIN TOTAL (BEAKER) (test code = 377) 0.6 mg/dL 0.2-1.2 Specimen slightly hemolyzed BILIRUBIN DIRECT (BEAKER) (test code = 706) 0.2 mg/dL 0.1-0.5 Specimen slightly hemolyzed ALKALINE PHOSPHATASE (BEAKER) (test code = 346) 313 U/L 40-150 H AST (SGOT) (BEAKER) (test code = 353) 144 U/L 5-34 H Specimen slightly hemolyzed ALT (SGPT) (BEAKER) (test code = 347) 49 U/L 6-55 Specimen slightly hemolyzed Traffic Control Specialist ID - LMPOCT-GLUCOSE [id number] 09:41:00* Test Item Value Reference Range Interpretation Comments POC-GLUCOSE METER (BEAKER) (test code = 1538) 113 mg/dL 70-110 H : TESTED AT [address], [address]: Traffic Control Specialist/Panel Fitter ID = [id number] for ROCCO VAZQUEZ Hepatitis B surface [id number] 08:33:00* Test Item Value Reference Range Interpretation Comments HBsAg Screen (test code = 5195-3) Nonreactive Nonreactive CAROLINA (test code = CAROLINA) Traffic Control Specialist ID - LM Lab Interpretation (test code = 55578-3) [facility] [id number] 08:33:00* Test Item Value Reference Range Interpretation Comments HEPATITIS B SURFACE ANTIGEN (2) (BEAKER) (test code = 2585) Nonreactive Nonreactive Traffic Control Specialist ID - [id number] 06:05:00* Test Item Value Reference Range Interpretation Comments POTASSIUM (BEAKER) (test code = 379) 6.0 meq/L 3.5-5.1 HH Specimen slightly hemolyzed Traffic Control Specialist ID - VIRGIL WTROPONIN [id number] 05:53:00* Test Item Value Reference Range Interpretation Comments TROPONIN I (BEAKER) (test code = 397) 139.19 ng/mL 0.00-0.03 HH Troponin I (TnI) levels must be interpreted in the context of the presenting sym ptoms and the clinical findings. Elevated TnI levels indicate myocardial damage, but are not specific for ischemic heart disease. Elevated TnI levels are seen in patients with other cardiac conditions (including myocarditis and congestive h eart failure), and slight TnI elevations occur in patients with other conditions , including sepsis, renal failure, acidosis, acute neurological disease, and per sistent tachyarrhythmia.Traffic Control Specialist ID - VIRGIL WOperator ISRAEL HERMAN WBASIC METABOLIC [id number] 05:17:00* Test Item Value Reference Range Interpretation Comments SODIUM (BEAKER) (test code = 381) 132 meq/L 136-145 L POTASSIUM (BEAKER) (test code = 379) 6.5 meq/L 3.5-5.1 HH Specimen moderately hemolyzed CHLORIDE (BEAKER) (test code = 382) 98 meq/L 98-107 CO2 (BEAKER) (test code = 355) 19 meq/L 22-29 L BLOOD UREA NITROGEN (BEAKER) (test code = 354) 72 mg/dL 7-21 H CREATININE (BEAKER) (test code = 358) 9.88 mg/dL 0.57-1.25 H Specimen moderately hemolyzed GLUCOSE RANDOM (BEAKER) (test code = 652) 114 mg/dL 70-105 H CALCIUM (BEAKER) (test code = 697) 7.7 mg/dL 8.4-10.2 L EGFR (BEAKER) (test code = 1092) 5 mL/min/1.73 sq m ESTIMATED GFR IS NOT ACCURATE CREATININE CLEARANCE IN PREDICTING GLOMERULAR FILTRATION RATE. ESTIMATED GFR IS NOT APPLICABLE FOR DIALYSIS PATIENTS. Traffic Control Specialist ID Radha HERMAN [id number] 05:11:00* Test Item Value Reference Range Interpretation Comments MAGNESIUM (BEAKER) (test code = 627) 2.1 mg/dL 1.6-2.6 Specimen moderately hemolyzed Traffic Control Specialist ID Radha HERMAN [id number] 05:11:00* Test Item Value Reference Range Interpretation Comments PHOSPHORUS (BEAKER) (test code = 604) 5.5 mg/dL 2.3-4.7 H Specimen moderately hemolyzed Traffic Control Specialist SIRAEL HERMAN WPT/[id number] 04:52:00* Test Item Value Reference Range Interpretation Comments PROTIME (BEAKER) (test code = 759) 14.5 seconds 11.9-14.2 H INR (BEAKER) (test code = 370) 1.2 <=5.9 PARTIAL THROMBOPLASTIN TIME (BEAKER) (test code = 760) 90.4 seconds 22.5-36.0 H Effective 03/02/2019: PT Reference Range ChangeNew: 11.9-14.2 Previous: 11.7-14. 7RECOMMENDED COUMADIN/WARFARIN INR THERAPY RANGESSTANDARD DOSE: 2.0-3.0 Include s: PROPHYLAXIS for venous thrombosis, systemic embolization; TREATMENT for venou s thrombosis and/or pulmonary embolus.HIGH RISK: Target INR is 2.5-3.5 for patie nts wiht mechanical heart valves.RAD, CHEST, 1 VIEW, NON [id number] 04:48:00 Reason for exam:->balloon placementShould this be performed at the bedside?->Yes FINAL REPORT Chest one view. Clinical history: balloon p lacement Comparison: Chest radiograph 11/13/2019, 8:23 PM. Technique: A single fro ntal view of the chest was obtained. Findings: There is a right IJ central veno us catheter with tip in the SVC.There is an intra-aortic balloon pump in satisfa ctory position. The patient is status post median sternotomy and CABG.The cardio mediastinal contours are stable. There is mild nonspecific diffuse interstitial prominence. There is no focal pulmonary consolidation, pleural effusion or pneum othorax. There is no pulmonary edema. Signed: Jonathan ChavezBrookings Health System Date/Time: 11/14/2019 04:48:59 W/PLT COUNT & AUTO [id number] 04:45:00* Test Item Value Reference Range Interpretation Comments WHITE BLOOD CELL COUNT (BEAKER) (test code = 775) 8.1 K/ L 3.5- 10.5 RED BLOOD CELL COUNT (BEAKER) (test code = 761) 3.75 M/ L 4.63-6 .08 L HEMOGLOBIN (BEAKER) (test code = 410) 11.0 GM/DL 13.7-17.5 L HEMATOCRIT (BEAKER) (test code = 411) 32.4 % 40.1-51.0 L MEAN CORPUSCULAR VOLUME (BEAKER) (test code = 753) 86.4 fL 79. 0-92.2 MEAN CORPUSCULAR HEMOGLOBIN (BEAKER) (test code = 751) 29.3 pg 25.7-32.2 MEAN CORPUSCULAR HEMOGLOBIN CONC (BEAKER) (test code = 752) 34.0 GM/DL 32.3-36.5 RED CELL DISTRIBUTION WIDTH (BEAKER) (test code = 412) 14.9 % 11.6-14.4 H PLATELET COUNT (BEAKER) (test code = 756) 115 K/CU MM 150-450 L MEAN PLATELET VOLUME (BEAKER) (test code = 754) 10.3 fL 9.4-12 .4 NUCLEATED RED BLOOD CELLS (BEAKER) (test code = 413) 0 /100 WBC 0 -0 NEUTROPHILS RELATIVE PERCENT (BEAKER) (test code = 429) 57 % LYMPHOCYTES RELATIVE PERCENT (BEAKER) (test code = 430) 29 % MONOCYTES RELATIVE PERCENT (BEAKER) (test code = 431) 13 % EOSINOPHILS RELATIVE PERCENT (BEAKER) (test code = 432) 1 % BASOPHILS RELATIVE PERCENT (BEAKER) (test code = 437) 0 % NEUTROPHILS ABSOLUTE COUNT (BEAKER) (test code = 670) 4.58 K/ L 1.78-5.38 LYMPHOCYTES ABSOLUTE COUNT (BEAKER) (test code = 414) 2.34 K/ L 1.32-3.57 MONOCYTES ABSOLUTE COUNT (BEAKER) (test code = 415) 1.05 K/ L 0. 30-0.82 H EOSINOPHILS ABSOLUTE COUNT (BEAKER) (test code = 416) 0.04 K/ L 0.04-0.54 BASOPHILS ABSOLUTE COUNT (BEAKER) (test code = 417) 0.02 K/ L 0. 01-0.08 IMMATURE GRANULOCYTES-RELATIVE PERCENT (BEAKER) (test code = 2801) 0 % 0-1 TROPONIN [id number] 01:37:00* Test Item Value Reference Range Interpretation Comments TROPONIN I (BEAKER) (test code = 397) 118.36 ng/mL 0.00-0.03 HH Troponin I (TnI) levels must be interpreted in the context of the presenting sym ptoms and the clinical findings. Elevated TnI levels indicate myocardial damage, but are not specific for ischemic heart disease. Elevated TnI levels are seen in patients with other cardiac conditions (including myocarditis and congestive h eart failure), and slight TnI elevations occur in patients with other conditions , including sepsis, renal failure, acidosis, acute neurological disease, and per sistent tachyarrhythmia.Traffic Control Specialist ID - KENNOperator ID - KENNPT/[id number] 00:47:00* Test Item Value Reference Range Interpretation Comments PROTIME (BEAKER) (test code = 759) 14.3 seconds 11.9-14.2 H INR (BEAKER) (test code = 370) 1.1 <=5.9 PARTIAL THROMBOPLASTIN TIME (BEAKER) (test code = 760) 73.7 seconds 22.5-36.0 H Effective 03/02/2019: PT Reference Range ChangeNew: 11.9-14.2 Previous: 11.7-14. 7RECOMMENDED COUMADIN/WARFARIN INR THERAPY RANGESSTANDARD DOSE: 2.0-3.0 Include s: PROPHYLAXIS for venous thrombosis, systemic embolization; TREATMENT for venou s thrombosis and/or pulmonary embolus.HIGH RISK: Target INR is 2.5-3.5 for patie nts wiht mechanical heart valves.Lactic Acid, [id number] 22:43:00* Test Item Value Reference Range Interpretation Comments Lactate, Art (test code = 2874) 1.0 mmol/L 0.5-2.2 CAROLINA (test code = CAROLINA) Traffic Control Specialist ID - KEITH Lab Interpretation (test code = 35909-6) [facility], [id number] 22:43:00* Test Item Value Reference Range Interpretation Comments LACTATE BLOOD ARTERIAL (2) (BEAKER) (test code = 2874) 1.0 mmol/L 0.5-2.2 Traffic Control Specialist ID - Edelmiraod gas, [id number] 22:22:00* Test Item Value Reference Range Interpretation Comments pH, Arterial (test code = 2744-1) 7.36 7.35-7.45 pCO2, Arterial (test code = 2019-8) 42 35- 45 mmHg pO2, Arterial (test code = 2703-7) 94 80- 90 mmHg H O2 Sat, Arterial (test code = 2708-6) 96.8 % 96-97 HCO3, Arterial (test code = 1960-4) 23 mmol/L 21-29 Base Excess, Arterial (test code = 1925-7) -2.2 mmol/L -2-3 L Patient Temperature (test code = 8310-5) 37.3 C FIO2 (test code = 1819) 28 % Lab Interpretation (test code = 75938-1) Abnormal [facility], [id number] 22:22:00* Test Item Value Reference Range Interpretation Comments PH ARTERIAL (BEAKER) (test code = 383) 7.36 7.35-7.45 PCO2 ARTERIAL (BEAKER) (test code = 384) 42 mmHg 35-45 PO2 ARTERIAL (BEAKER) (test code = 385) 94 mmHg 80-90 H O2 SATURATION ARTERIAL (BEAKER) (test code = 386) 96.8 % 96.0 -97.0 HCO3 ARTERIAL (BEAKER) (test code = 388) 23 mmol/L 21-29 BASE EXCESS ARTERIAL (BEAKER) (test code = 387) -2.2 mmol/L -2.0-3 .0 L PATIENT TEMPERATURE (BEAKER) (test code = 1818) 37.3 C FIO2 (BEAKER) (test code = 1819) 28.0 % RAD, CHEST, 1 VIEW, NON [id number] 20:59:00Reason for exam:->ballon placementShould this be performed at the bedside?->YesFINAL REPORT RAD, CHEST, 1 VIEW, NON DEPT INDICATION: ballon placement COMPARISON: 14 hours prior FINDINGS: Portable frontal view of the chest. IMPRESSION: Support Lines: IABP marker terminates approximately 1.5 cm below the aortic arch margin. Right IJ CVC is stable. Lungs and pleura: Airspace and pleural opacities are unchanged. No pneumothorax.Heart and mediastinum: Stable contours. CABG changes.Additional findings: None. Signed: Jefferson Simon MDReport Verified Date/Time: 11/13/2019 20:59:26 ONIN [id number] 19:03:00* Test Item Value Reference Range Interpretation Comments TROPONIN I (BEAKER) (test code = 397) 60.12 ng/mL 0.00-0.03 HH Troponin I (TnI) levels must be interpreted in the context of the presenting sym ptoms and the clinical findings. Elevated TnI levels indicate myocardial damage, but are not specific for ischemic heart disease. Elevated TnI levels are seen in patients with other cardiac conditions (including myocarditis and congestive h eart failure), and slight TnI elevations occur in patients with other conditions , including sepsis, renal failure, acidosis, acute neurological disease, and per sistent tachyarrhythmia.Traffic Control Specialist ID - DANNA WOperator ID - DANNA W Transthoracic 2D echo w/ doppler (cw/pw/color)2019-11-13 15:16:38Ejection FractionSLEH ECHO HEARTLAB MKCKESSON CPACSInterface, External Ris In - 11/13/2019 3:16 PM CSTTransthoracic Echocardiography Report (TTE) Demographics Patient Name MARISA BOB Date of Study 11/13/2019 YULISA Gender Male Visit [place] mcpherson [id number] Race Unknown Room Number 6211 Number Date of 1960 Referr rupal Valenzuela MD Physician Age 59 year(s) 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 Amount - 2 mlHeight: 67 inches Weight: 80.29 kg (177 lbs) BSA: 1.92 m^2 BMI: 27.72 kg/m^2HR: 81 bpm BP: 107/67 mmHg Summary The left ventricle is chamber size (by vol index) is moderately enlarged (male - LVED vol 90-100m l.m2) . The following segment(s) appear hypokinetic: basal-mid lateral, basal-mi d inferolateral. LVEF by Valenzuela's method of disk assessment is mildly reduced ( 45-49%) . Diastolic dysfunction is likely due to concomitant heart disease. Shakila mated peak systolic PA pressure is 35-40 mmHg . RV chamber size is moderately en larged . Global RV systolic function is low normal . Previous Study No prior ex am available for comparison. Signature Electronically signed by Hima Eric MD([facility]) on 11/13/2019 03:16 PM Findings Left Ventricle The left ventricle i s chamber size (by vol index) is moderately enlarged (mal e - LVED vol 90-100ml.m2) . No julio dence of LV hypertrophy. The following segment(s) appear hypokinetic: basal-mid lateral, basal-mid inferolateral. Septal motion is abnormal, likely related to prior cardiac surgery . Global LV systolic fun ction mildly reduced . LVEF by Valenzuela's method of disk a ssessment is mildly reduced (45-49%) . The LVEF was measured using Valenzuela's bi-plane method of disk . LV endocardium is adequately visualized with IV ultrasound enhancing agent. Carmen stolic dysfunction is likely due to concomitant heart dis ease. Left Atrium LA size is moderately enlarged (42-48 ml/m2) . Ri ght Ventricle RV chamber size is moderately enlarged . Global RV systolic function is low normal . Right Atrium RA cavi ty size is mildly enlarged . Aortic Valve Normal AoV structure and fu nction. Mitral Valve Gttx-vs-wucmzpdm mitral annular calcification. Mild MV leaflet thickening. Mild mi tral regurgitation. Tricuspid Valve Mild tricuspid regurgitation. Estimated peak systolic PA pressure is 35-40 mmHg . Pulmonic V alve Normal PV structure and function. Mild pulmo nary regurgitation. Aorta Aortic root size (Sinus of Valsalva diameter) is mildly dilated. 4 cm Pericardium No significant pericardial effusion is visualized. IVC/SVC/PA/PV/Pleural Pulm onary vein flow is consistent with increased LAP . The estimated RA pressure by IVC dynamics 5-10mmHg . Chambers/Structures Left Atrium LA Volume: 89.8 ml LA Area: 26.32 cm^2 LA Vol. Index: 47 ml/m^2 Left Ventricle LVIDd: 5.56 cm LV Septum Diastolic: 1.13 cm LV PW Diastolic: 1.11 cm LVEDV Valenzuela's:181.91 ml LVESV Valenzuela's:95.78 ml LVEF Valenzuela's: 47.4 % LVEDVI: 95 ml/m^2 LVESVI: 50 ml/m^2 LVOT Carmen meter: 2.33 cm Right Atrium RA Vol. (Sngl Plane): 89.97 ml Right Vent ricle RVOT VTI: 9.96 cm TAPSE: 1.3 cm Aorta Ao Root S of Iesha.: 4.04 cm Doppler/Quantitative Measurements Mitral Valve MV Peak E-Wav e: 0.71 m/s MV Peak A-Wave: 0.62 m/s E/A Ratio: 1.14 Peak Gradient: 2.01 mmHg Deceleration Time: 204.9 msec MV V el. Peak: Tissue Doppler E' Lateral Velocity: 0.08 m/s Aortic Valve Peak Valentin ocity: 0.96 m/s Mean Velocity: 0.68 m/s Peak Gradient: 3.67 mmH g Mean Gradient: 2.07 mmHg AV Area (continuity): 3.55 cm^2 AV VT I: 17.48 cm AV DVI: 0.83 LVOT Peak Velocity: 0.7 m/s Peak Gradie nt: 1.97 mmHg Mean Velocity: 0.43 m/s Mean Gradient: 0.93 mmHg LVOT Diameter: 2.33 cm LVOT VTI: 14.58 cm LVOT Area: 4.26 cm^2 LVOT SV:62.14 ml LVOT CO: 5.03 l/min LVOT CI: 2.62 l/min/m ^2 Tricuspid Valve TR Velocity: 2.63 m/s TR Gradient: 27.[address] [facility] [id number] 14:26:00* Test Item Value Reference Range Interpretation Comments TROPONIN I (BEAKER) (test code = 397) 26.53 ng/mL 0.00-0.03 HH Troponin I (TnI) levels must be interpreted in the context of the presenting sym ptoms and the clinical findings. Elevated TnI levels indicate myocardial damage, but are not specific for ischemic heart disease. Elevated TnI levels are seen in patients with other cardiac conditions (including myocarditis and congestive h eart failure), and slight TnI elevations occur in patients with other conditions , including sepsis, renal failure, acidosis, acute neurological disease, and per sistent tachyarrhythmia.Traffic Control Specialist ID - SUJIT OHVYN-[id number] 11:26:00* Test Item Value Reference Range Interpretation Comments ACTIVATED CLOTTING TIME (BEAKER) (test code = 441) 197 sec Reference Range: 74-137 seconds, Baseline/TESTED AT [facility] [address] [address] [id number] 10:04:00* Test Item Value Reference Range Interpretation Comments PTT (test code = 77262-8) 107.1 22.5- 36.0 seconds H Lab Interpretation (test code = 49895-2) [facility]:04[facility]* Test Item Value Reference Range Interpretation Comments PARTIAL THROMBOPLASTIN TIME (BEAKER) (test code = 760) 107.1 sec onds 22.5-36.0 H [id number] 08:29:00* Test Item Value Reference Range Interpretation Comments PARTIAL THROMBOPLASTIN TIME (BEAKER) (test code = 760) > seconds 22.5-36.0 HH TROPONIN [id number] 08:14:00* Test Item Value Reference Range Interpretation Comments TROPONIN I (BEAKER) (test code = 397) 4.95 ng/mL 0.00-0.03 HH Troponin I (TnI) levels must be interpreted in the context of the presenting sym ptoms and the clinical findings. Elevated TnI levels indicate myocardial damage, but are not specific for ischemic heart disease. Elevated TnI levels are seen in patients with other cardiac conditions (including myocarditis and congestive h eart failure), and slight TnI elevations occur in patients with other conditions , including sepsis, renal failure, acidosis, acute neurological disease, and per sistent tachyarrhythmia.Traffic Control Specialist ID Radha CLAY WBASIC METABOLIC [id number] 07:42:00* Test Item Value Reference Range Interpretation Comments SODIUM (BEAKER) (test code = 381) 134 meq/L 136-145 L POTASSIUM (BEAKER) (test code = 379) 4.4 meq/L 3.5-5.1 CHLORIDE (BEAKER) (test code = 382) 97 meq/L 98-107 L CO2 (BEAKER) (test code = 355) 22 meq/L 22-29 BLOOD UREA NITROGEN (BEAKER) (test code = 354) 61 mg/dL 7-21 H CREATININE (BEAKER) (test code = 358) 9.00 mg/dL 0.57-1.25 H GLUCOSE RANDOM (BEAKER) (test code = 652) 109 mg/dL 70-105 H CALCIUM (BEAKER) (test code = 697) 7.7 mg/dL 8.4-10.2 L EGFR (BEAKER) (test code = 1092) 6 mL/min/1.73 sq m ESTIMATED GFR IS NOT ACCURATE CREATININE CLEARANCE IN PREDICTING GLOMERULAR FILTRATION RATE. ESTIMATED GFR IS NOT APPLICABLE FOR DIALYSIS PATIENTS. Traffic Control Specialist ID Radha BECKETT [id number] 07:40:00* Test Item Value Reference Range Interpretation Comments PHOSPHORUS (BEAKER) (test code = 604) 4.0 mg/dL 2.3-4.7 Traffic Control Specialist ID - SUJIT [id number] 07:40:00* Test Item Value Reference Range Interpretation Comments MAGNESIUM (BEAKER) (test code = 627) 2.3 mg/dL 1.6-2.6 Traffic Control Specialist ID - SUJIT FHEPATIC FUNCTION [id number] 07:40:00* Test Item Value Reference Range Interpretation Comments TOTAL PROTEIN (BEAKER) (test code = 770) 6.0 gm/dL 6.0-8.3 ALBUMIN (BEAKER) (test code = 1145) 3.7 g/dL 3.5-5.0 BILIRUBIN TOTAL (BEAKER) (test code = 377) 0.6 mg/dL 0.2-1.2 BILIRUBIN DIRECT (BEAKER) (test code = 706) 0.2 mg/dL 0.1-0.5 ALKALINE PHOSPHATASE (BEAKER) (test code = 346) 338 U/L 40-150 H AST (SGOT) (BEAKER) (test code = 353) 40 U/L 5-34 H ALT (SGPT) (BEAKER) (test code = 347) 33 U/L 6-55 Traffic Control Specialist [place] SUJIT FProthrombin time/[id number] 07:23:00* Test Item Value Reference Range Interpretation Comments Protime (test code = 5902-2) 15.4 11.9- 14.2 seconds H INR (test code = 6301-6) 1.3 <=5.9 [place] (test code = CAROLINA) Effective 03/02/2019: PT Refe rence Range ChangeNew: 11.9- 14.2 Previous: 11.7-14.7 RECOMMENDED COUMADIN/WARFARIN INR THERAPY RANGESSTANDARD DOSE: 2.0-3.0 Includes: PROPHYLAXIS for venous thrombosis, sys temic embolization; TREATMENT for venous thrombosis and/or pulmonary embolus.HIGH RISK: Target INR is 2.5-3.5 for patients wiht mechanical heart valves. Lab Interpretation (test code = 47821-4) [facility]normal [facility]/[id number] 07:23:00* Test Item Value Reference Range Interpretation Comments PROTIME (BEAKER) (test code = 759) 15.4 seconds 11.9-14.2 H INR (BEAKER) (test code = 370) 1.3 <=5.9 Effective 03/02/2019: PT Reference Range ChangeNew: 11.9-14.2 Previous: 11.7-14. 7RECOMMENDED COUMADIN/WARFARIN INR THERAPY RANGESSTANDARD DOSE: 2.0-3.0 Include s: PROPHYLAXIS for venous thrombosis, systemic embolization; TREATMENT for venou s thrombosis and/or pulmonary embolus.HIGH RISK: Target INR is 2.5-3.5 for patie nts wiht mechanical heart valves.CBC W/PLT COUNT & AUTO [id number] 06:52:00* Test Item Value Reference Range Interpretation Comments WHITE BLOOD CELL COUNT (BEAKER) (test code = 775) 6.0 K/ L 3.5- 10.5 RED BLOOD CELL COUNT (BEAKER) (test code = 761) 3.72 M/ L 4.63-6 .08 L HEMOGLOBIN (BEAKER) (test code = 410) 11.1 GM/DL 13.7-17.5 L HEMATOCRIT (BEAKER) (test code = 411) 32.8 % 40.1-51.0 L MEAN CORPUSCULAR VOLUME (BEAKER) (test code = 753) 88.2 fL 79. 0-92.2 MEAN CORPUSCULAR HEMOGLOBIN (BEAKER) (test code = 751) 29.8 pg 25.7-32.2 MEAN CORPUSCULAR HEMOGLOBIN CONC (BEAKER) (test code = 752) 33.8 GM/DL 32.3-36.5 RED CELL DISTRIBUTION WIDTH (BEAKER) (test code = 412) 15.2 % 11.6-14.4 H PLATELET COUNT (BEAKER) (test code = 756) 123 K/CU MM 150-450 L MEAN PLATELET VOLUME (BEAKER) (test code = 754) 10.7 fL 9.4-12 .4 NUCLEATED RED BLOOD CELLS (BEAKER) (test code = 413) 0 /100 WBC 0 -0 NEUTROPHILS RELATIVE PERCENT (BEAKER) (test code = 429) 64 % LYMPHOCYTES RELATIVE PERCENT (BEAKER) (test code = 430) 21 % MONOCYTES RELATIVE PERCENT (BEAKER) (test code = 431) 13 % EOSINOPHILS RELATIVE PERCENT (BEAKER) (test code = 432) 1 % BASOPHILS RELATIVE PERCENT (BEAKER) (test code = 437) 0 % NEUTROPHILS ABSOLUTE COUNT (BEAKER) (test code = 670) 3.84 K/ L 1.78-5.38 LYMPHOCYTES ABSOLUTE COUNT (BEAKER) (test code = 414) 1.28 K/ L 1.32-3.57 L MONOCYTES ABSOLUTE COUNT (BEAKER) (test code = 415) 0.76 K/ L 0. 30-0.82 EOSINOPHILS ABSOLUTE COUNT (BEAKER) (test code = 416) 0.08 K/ L 0.04-0.54 BASOPHILS ABSOLUTE COUNT (BEAKER) (test code = 417) 0.01 K/ L 0. 01-0.08 IMMATURE GRANULOCYTES-RELATIVE PERCENT (BEAKER) (test code = 2801) 0 % 0-1 RAD, CHEST, 1 VIEW, NON [id number] 06:38:00Reason for exam:->line placementShould this be performed at the bedside?->YesFINAL REPORT Chest one view. Clinical history: line placement Comparison: None. Technique: A single frontal view of the chest was obtained. Findings:There is a right IJ central venous catheter with tip in the SVC. The patient is status post median sternotomy and CABG.The cardiomediastinal contours are stable. There is a small left pleural effusion. There is airspace opacity in the left lung base which may represent atelectasis and/or pneumonia. There is no pneumothorax. Signed: Jonathan Chavez MDReport Verified Date/Time: 11/13/2019 06:38:21 ABD/[id number] 02:59:00 [place] [address] Patient Name: MARISA BOB MR #: [id number] : 1960 Age/Sex: 59/M Req #: [id number] Adm Physician: Ordered by: MAYNOR PINA DO Report #: [id number] Location: ER Room/Bed: Procedure: [id number] C T/CTA ABD/PELVIS Exam Date: 11/13/19 Exam Time: 109 REPORT STATUS: Signed CTA OF THE THORACOABDOMINAL AORTA Comparison: None. History: Chest pain. Aortic dissection. Technique: Multi-detector CT technology was employed. Non-gat ed CT was performed of the chest, abdomen, and pelvis following the IV adminis tration of 100) cc of Isovue 300. CT Dose-Length Product (DLP): 1310.[address] Dose Reduction Employed: Yes For optimization of anatomic evalua tion, multiplanar reconstruction, maximum intensity projections, and advanced 3-D off-line postprocessing were performed on a dedicated stand-alone workstat ion under the direct supervision of the interpreting physician. HARRIET DYE: Potential study limitations: None. VASCULAR WITH ADVANCED 3-D OFF-NAVNEET E POSTPROCESSING: Aortic valve morphology is incompletely assessed on this non -gated examination. The thoracic aorta is normal in course, caliber, and co ntour. There is no acute aortic pathology, such as dissection, intramural hem atoma, or contained rupture. The arch vessel branching pattern is normal athe rosclerotic calcifications of the thoracic aorta without aneurysmal dilatation . Extensive atherosclerotic calcifications of the coronary arteries status pos t CABG. The abdominal aorta is normal in course, caliber, and contour. The re is no acute aortic pathology. Diffuse atherosclerotic plaque formation. The re is mild focal fusiform dilatation of the left common iliac artery up to 1.3 cm on coronal image 64. The main pulmonary artery is dilated measuring 4 .4 cm. The celiac axis, SMA, and ANUM are patent. The renal arteries are occ luded bilaterally. CHEST: The chest wall, mediastinum, and pericardi um are unremarkable. The pulmonary arteries appear normal. No significant a denopathy is identified in the axilla, mediastinum, and connie. Lung window s reveal no acute abnormalities. 5 mm noncalcified nodule in the left lower lo be on image 38 series 3. Bilateral pleural parenchymal scarring. The cardia c chambers demonstrate normal atrioventricular and ventriculoarterial concorda nce, and systemic and pulmonary venous return. The cardiac chamber sizes appe ar normal. The coronary arteries have normal origins and courses. ABDOME N: Small low-attenuation lesions scattered throughout the hepatic parenchyma a re most suggestive of cysts. Diffuse central intrahepatic biliary dilatation, particularly in the left hepatic lobe. Marked diffuse dilatation of the common bile duct up to 2.2 cm may reflect reservoir effect. The adrenal glands are m ildly thickened bilaterally, suggesting mild hyperplasia. There are no kidneys in the renal fossa bilaterally. Complex structure in the right iliac fossa wi th calcifications may represent an atrophic transplanted kidney. Postsurgical changes are present in the left iliac fossa with fat necrosis or a possibly atrophic transplanted kidney. There is no abnormal mass or hydronephrosis. Colonic diverticulosis without CT evidence of acute diverticulitis. Appendix is nonvisualized, however, no appendicitis. Multiple medication capsule are pre sent within the colon. Small diverticulum off the second portion of the duoden um. PELVIS: There is no significant retroperitoneal adenopathy. No free fluid or free air within the abdomen or pelvis. The urinary bladder is complet ernst decompressed. The bowel appears unremarkable on this non-GI contrast ex amination. The urinary bladder appears normal. There are scattered phlebolit hs within the deep pelvis. Bilateral fat-containing inguinal hernias. Lef t hip prosthesis results in artifact in the pelvis. Diffuse renal osteodystrop hy. IMPRESSION: 1. No aortic dissection as per clinical query. No focal a bdominal aortic abnormality. 2. Severe multivessel coronary artery diseas e. 3. Dilated pulmonary trunk may reflect the presence of pulmonary hyperte nsion. 4. 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 Signed by: Dr. Karime Diaz M.D. on 11/13/2019 3:17 AM Dictated By: GOMEZ DIAZ MD, MD 6 Transcribed By: MABLE on 11/13/19316 COPY TO: MAYNOR PINA DO CTA [id number] 02:59:00 [place] [address] Patient Name: MARISA BOB MR #: [id number] : 1960 Age/Sex: 59/M Req #: [id number] Adm Physician: Ordered by: MAYNOR PINA DO Report #: [id number] Location: ER Room/Bed: Procedure: [id number] C T/CTA CHEST Exam Date: 11/13/19 Exam Time: 0110 REPORT STATUS: Signed CTA OF THE THO RACOABDOMINAL AORTA Comparison: None. History: Chest pain. Aortic diss ection. Technique: Multi-detector CT technology was employed. Non-gated CT was performed of the chest, abdomen, and pelvis following the IV administrati on of 100) cc of Isovue 300. CT Dose-Length Product (DLP): 1310.[address] Dose Reduction Employed: Yes For optimization of anatomic evaluation, multiplanar reconstruction, maximum intensity projections, and advanced 3-D o ff-line postprocessing were performed on a dedicated stand-alone workstation u nder the direct supervision of the interpreting physician. FINDINGS: Potential study limitations: None. VASCULAR WITH ADVANCED 3-D OFF-LINE POS TPROCESSING: Aortic valve morphology is incompletely assessed on this non-gate d examination. The thoracic aorta is normal in course, caliber, and contour . There is no acute aortic pathology, such as dissection, intramural hematoma , or contained rupture. The arch vessel branching pattern is normal atheroscl erotic calcifications of the thoracic aorta without aneurysmal dilatation. Ext ensive atherosclerotic calcifications of the coronary arteries status post CAB G. The abdominal aorta is normal in course, caliber, and contour. There is no acute aortic pathology. Diffuse atherosclerotic plaque formation. There is mild focal fusiform dilatation of the left common iliac artery up to 1.3 cm on coronal image 64. The main pulmonary artery is dilated measuring 4.4 cm. The celiac axis, SMA, and ANUM are patent. The renal arteries are occluded bilaterally. CHEST: The chest wall, mediastinum, and pericardium are unremarkable. The pulmonary arteries appear normal. No significant adenop athy is identified in the axilla, mediastinum, and connie. Lung windows rev eal no acute abnormalities. 5 mm noncalcified nodule in the left lower lobe on image 38 series 3. Bilateral pleural parenchymal scarring. The cardiac steve mbers demonstrate normal atrioventricular and ventriculoarterial concordance, and systemic and pulmonary venous return. The cardiac chamber sizes appear no rmal. The coronary arteries have normal origins and courses. ABDOMEN: Sm all low-attenuation lesions scattered throughout the hepatic parenchyma are mo st suggestive of cysts. Diffuse central intrahepatic biliary dilatation, parti cularly in the left hepatic lobe. Marked diffuse dilatation of the common bile duct up to 2.2 cm may reflect reservoir effect. The adrenal glands are mildly thickened bilaterally, suggesting mild hyperplasia. There are no kidneys in t he renal fossa bilaterally. Complex structure in the right iliac fossa with calcifications may represent an atrophic transplanted kidney. Postsurgical steve nges are present in the left iliac fossa with fat necrosis or a possibly atrop hic transplanted kidney. There is no abnormal mass or hydronephrosis. Colon ic diverticulosis without CT evidence of acute diverticulitis. Appendix is non visualized, however, no appendicitis. Multiple medication capsule are present within the colon. Small diverticulum off the second portion of the duodenum. PELVIS: There is no significant retroperitoneal adenopathy. No free fluid or free air within the abdomen or pelvis. The urinary bladder is completely d ecompressed. The bowel appears unremarkable on this non-GI contrast examina tion. The urinary bladder appears normal. There are scattered phleboliths wi thin the deep pelvis. Bilateral fat-containing inguinal hernias. Left hip prosthesis results in artifact in the pelvis. Diffuse renal osteodystrophy. IMPRESSION: 1. No aortic dissection as per clinical query. No focal abdomi nal aortic abnormality. 2. Severe multivessel coronary artery disease. 3. Dilated pulmonary trunk may reflect the presence of pulmonary hypertension. 4. Status post bilateral nephrectomies with atrophic transplant kidneys.. Signed by: Dr. Karime Diaz M.D. on 11/13/2019 3:17 AM Di ctated By: GOMEZ DIAZ MD, MD 6 Transcribed By: MABLE on 11/13/19316 COPY TO: MAYNOR PINA DO CHEST SINGLE (PORTABLE)2019-11-13 02:55:00 [place] [address] Patient Name: MARISA BOB MR #: [id number] : 1960 Age/Sex: 59/M Req #: [id number] Adm Physician: Ordered by: MAYNOR PINA DO Report #: [id number] Location: ER Room/Bed: Procedure: [id number] D X/CHEST SINGLE (PORTABLE) Exam Date: 11/12/19 Exam T johanne: 2325 REPORT STATUS: Signed EXAMINATION: CHEST SINGLE (PORTABLE) INDICATION: Chest pain. COMP ARISON: None FINDINGS: TUBES and LINES: None. LUNGS: Lungs a re well inflated. There is mild prominence of the central pulmonary vasculat ure, consistent with pulmonary venous congestion. PLEURA: No pleural effus ion or pneumothorax. HEART AND MEDIASTINUM: Cardiac size is mildly enlarge d. There are atherosclerotic calcifications within the aorta. BONES AND S OFT TISSUES: No acute osseous lesion. Median sternotomy wires. UPPER ABDO MEN: No free air under the diaphragm. IMPRESSION: Mild bilateral pul monary venous congestion. Signed by: Dr. Karime Diaz M.D. on 2:59 AM Dictated By: GOMEZ DIAZ MD, MD [id number] Transcribed By: MABLE on 11/13/19 0 259 COPY TO: MAYNOR PINA DO Prothrombin [id number] 01:59:00 * Test Item Value Reference Range Interpretation Comments Prothrombin Time (test code = 5902-2) 12.9 11.9-14.5 [facility] Worth[facility] International Ratio 2019-11-13 01:59:00* Test Item Value Reference Range Interpretation Comments Prothromb Time International Ratio (test code = 6301-6) 0.92 Oral Anticoagulant Therapy INR Values:1. Low Intensity Therapy 1.5 - 2.02 . Moderate Intensity Therapy 2.0 - 3.03. High Intensity Therapy(1) 2.5 - 3. 54. High Intensity Therapy(2) 3.0 - 4.05. Panic Value INR > 5.0 [facility] WorthWhite Blood [id number] 01:29:00* Test Item Value Reference Range Interpretation Comments White Blood Count (test code = 6690-2) 8.79 4.8-10.8 [facility] Worth[facility] Blood [id number] 01:29:00* Test Item Value Reference Range Interpretation Comments Red Blood Count (test code = 789-8) 4.30 4.3-5.7 [facility] WorthHemoglobin2020-02-09 01:29:00* Test Item Value Reference Range Interpretation Comments Hemoglobin (test code = 38233-5) 12.7 14.0-18.0 L [facility] WorthHematocrit2020-02-09 01:29:00* Test Item Value Reference Range Interpretation Comments Hematocrit (test code = 4544-3) 38.5 38.2-49.6 [facility] Worth[facility] Corpuscular Rtninu3003-66-46 01:29:00* Test Item Value Reference Range Interpretation Comments Mean Corpuscular Volume (test code = 787-2) 89.5 81-99 [facility] WorthMean Corpuscular Pqrfmfeaft0919-74-58 01:29:00* Test Item Value Reference Range Interpretation Comments Mean Corpuscular Hemoglobin (test code = 785-6) 29.5 28-32 [facility] Corpuscular Hemoglobin Concent 2019-11-13 01:29:00* Test Item Value Reference Range Interpretation Comments Mean Corpuscular Hemoglobin Concent (test code = 786-4) 33.0 31-35 [facility] WorthRed Cell Distribution Jphvx3125-04-97 01:29:00* Test Item Value Reference Range Interpretation Comments Red Cell Distribution Width (test code = 03135-0) 15.1 11.7 -14.4 H [facility] WorthPlatelet Ystzm4001-07-32 01:29:00* Test Item Value Reference Range Interpretation Comments Platelet Count (test code = 777-3) 144 140-360 [facility] WorthNeutrophils (%) (Auto)2019-11-13 01:29:00 * Test Item Value Reference Range Interpretation Comments Neutrophils (%) (Auto) (test code = 79569-2) 32.5 38.7-80.0 L [facility] WorthLymphocytes (%) (Auto)2019-11-13 01:29:00 * Test Item Value Reference Range Interpretation Comments Lymphocytes (%) (Auto) (test code = 736-9) 52.1 18.0-39.1 H [facility] WorthMonocytes (%) (Auto)2019-11-13 01:29:00* Test Item Value Reference Range Interpretation Comments Monocytes (%) (Auto) (test code = 5905-5) 13.2 4.4-11.3 H [facility] WorthEosinophils (%) (Auto)2019-11-13 01:29:00 * Test Item Value Reference Range Interpretation Comments Eosinophils (%) (Auto) (test code = 713-8) 1.7 0.0-6.0 [facility] WorthBasophils (%) (Auto)2019-11-13 01:29:00* Test Item Value Reference Range Interpretation Comments Basophils (%) (Auto) (test code = 706-2) 0.3 0.0-1.0 [facility] WorthIM GRANULOCYTES %2019-11-13 01:29:00* Test Item Value Reference Range Interpretation Comments IM GRANULOCYTES % (test code = IM GRANULOCYTES %) 0.2 0.0- 1.0 [facility] WorthNeutrophils # (Auto)2019-11-13 01:29:00* Test Item Value Reference Range Interpretation Comments Neutrophils # (Auto) (test code = 751-8) 2.9 2.1-6.9 [facility] WorthLymphocytes # (Auto)2019-11-13 01:29:00* Test Item Value Reference Range Interpretation Comments Lymphocytes # (Auto) (test code = 63146-4) 4.6 1.0-3.2 H [facility] WorthMonocytes # (Auto)2019-11-13 01:29:00* Test Item Value Reference Range Interpretation Comments Monocytes # (Auto) (test code = 742-7) 1.2 0.2-0.8 H [facility] WorthEosinophils # (Auto)2019-11-13 01:29:00* Test Item Value Reference Range Interpretation Comments Eosinophils # (Auto) (test code = 711-2) 0.2 0.0-0.4 [facility] WorthBasophils # (Auto)2019-11-13 01:29:00* Test Item Value Reference Range Interpretation Comments Basophils # (Auto) (test code = 704-7) 0.0 0.0-0.1 [facility] WorthAbsolute Immature Granulocyte (auto 2019-11-13 01:29:00* Test Item Value Reference Range Interpretation Comments Absolute Immature Granulocyte (auto (kristan t code = Absolute Immature Granulocyte (auto) 0.02 0-0.1 [facility] WorthB-Type Natriuretic Ttwtxes3891-97-31 23:59:00* Test Item Value Reference Range Interpretation Comments B-Type Natriuretic Peptide (test code = 00631-9) 170.4 0-100 [facility] Abarc9980-61-17 23:41:00* Test Item Value Reference Range Interpretation Comments Sodium Level (test code = 2951-2) 135 136-145 L [facility] WorthPotassium Ryzfl8462-74-64 23:41:00* Test Item Value Reference Range Interpretation Comments Potassium Level (test code = 2823-3) 4.0 3.5-5.1 [facility] WorthChloride Fitkq9929-93-79 23:41:00* Test Item Value Reference Range Interpretation Comments Chloride Level (test code = 2075-0) 94 98-107 L [facility] WorthCarbon Dioxide Yqfiy4067-15-87 23:41:00* Test Item Value Reference Range Interpretation Comments Carbon Dioxide Level (test code = 2028-9) 20 22-29 L [facility] WorthAnion Ytv2309-15-63 23:41:00* Test Item Value Reference Range Interpretation Comments Anion Gap (test code = 88649-8) 25.0 8-16 H [facility] WorthBlood Urea Dfhtkukd9172-81-74 23:41:00* Test Item Value Reference Range Interpretation Comments Blood Urea Nitrogen (test code = 3094-0) 54 7-26 H [facility] WorthCreatinine2020-02-08 23:41:00* Test Item Value Reference Range Interpretation Comments Creatinine (test code = 2160-0) 8.89 0.72-1.25 H [facility] WorthBUN/Creatinine Dzmus6835-06-39 23:41:00* Test Item Value Reference Range Interpretation Comments BUN/Creatinine Ratio (test code = 3097-3) 6 6-25 [facility] WorthEstimat Glomerular Filtration Rate 2019-11-12 23:41:00* Test Item Value Reference Range Interpretation Comments Estimat Glomerular Filtration Rate (test code = 533596071) 6 >60 L Ranges were taken from the National Kidney Disease Education Program and the [facility] Kidney Foundation literature.Reference ranges:60 or greater: Dgopqt14-85 ( for 3 consecutive months): Chronic kidney disease 15 or less: Kidney failureBaylor [facility] Fort WorthGlucose Xxgtx3610-76-68 23:41:00* Test Item Value Reference Range Interpretation Comments Glucose Level (test code = HQA8320) 172 74-118 H [facility] WorthCalcium Apogt5480-08-05 23:41:00* Test Item Value Reference Range Interpretation Comments Calcium Level (test code = 19407-7) 8.0 8.4-10.2 L [facility] WorthTotal Rvegijlhb4308-29-82 23:41:00* Test Item Value Reference Range Interpretation Comments Total Bilirubin (test code = 1975-2) 0.7 0.2-1.2 [facility] WorthAspartate Amino Transf (AST/SGOT) 2019-11-12 23:41:00* Test Item Value Reference Range Interpretation Comments Aspartate Amino Transf (AST/SGOT) (test code = Aspartate Amino Transf (AST/SGOT)) 19 5-34 [facility] WorthAlanine Aminotransferase (ALT/SGPT) 2019-11-12 23:41:00* Test Item Value Reference Range Interpretation Comments Alanine Aminotransferase (ALT/SGPT) (test code = 1742-6) 37 0-55 [facility] WorthTotal Glwbsml0043-03-52 23:41:00* Test Item Value Reference Range Interpretation Comments Total Protein (test code = 2885-2) 7.0 6.5-8.1 [facility] WorthAlbumin2020-02-08 23:41:00* Test Item Value Reference Range Interpretation Comments Albumin (test code = 1751-7) 3.9 3.5-5.0 [facility] WorthGlobulin2020-02-08 23:41:00* Test Item Value Reference Range Interpretation Comments Globulin (test code = 08954-4) 3.1 2.3-3.5 [facility] WorthAlbumin/Globulin Flonn2179-46-54 23:41:00 * Test Item Value Reference Range Interpretation Comments Albumin/Globulin Ratio (test code = 1759-0) 1.3 0.8-2.0 [facility] WorthAlkaline Cmcgtzmxmsv4697-28-99 23:41:00* Test Item Value Reference Range Interpretation Comments Alkaline Phosphatase (test code = 6768-6) 364 40-150 H [facility] WorthCreatine Twuiig9617-37-14 23:41:00* Test Item Value Reference Range Interpretation Comments Creatine Kinase (test code = 2157-6) 35 30-200 [facility] WorthCreatine Kinase UW8720-09-50 23:41:00* Test Item Value Reference Range Interpretation Comments Creatine Kinase MB (test code = 47345-4) 1.10 0-5.0 [facility] WorthTroponin R8235-59-59 23:41:00* Test Item Value Reference Range Interpretation Comments Troponin I (test code = CQY6222) 0.015 0-0.300 [facility] WorthArterial Blood bX4720-17-02 23:28:00* Test Item Value Reference Range Interpretation Comments Arterial Blood pH (test code = 2744-1) 7.31 7.31-7.41 [facility] WorthArterial Blood Partial Pressure CO2 2019-11-12 23:28:00* Test Item Value Reference Range Interpretation Comments Arterial Blood Partial Pressure CO2 (test code = 2019-8) 47 41-51 [facility] Fort WorthArterial Blood Partial Pressure O2 2019-11-12 23:28:00* Test Item Value Reference Range Interpretation Comments Arterial Blood Partial Pressure O2 (test code = 2019-8) 19 80-105 LL Results called/hand delivered to PINA at 2320 on 11/12/19 by Nighat Cortez. RB [place].[facility] WorthArterial Blood XQW08552-86-63 23:28:00 * Test Item Value Reference Range Interpretation Comments Arterial Blood HCO3 (test code = 1960-4) 24 23-28 [facility] WorthArterial Blood Base Qigvpw1145-62-76 23:28:00* Test Item Value Reference Range Interpretation Comments Arterial Blood Base Excess (test code = 1925-7) -2.0 -2-3 [facility] WorthArterial Blood Oxygen Saturation 2019-11-12 23:28:00* Test Item Value Reference Range Interpretation Comments Arterial Blood Oxygen Saturation (test code = 2708-6) 25.0 95-98 L [facility] Fort WorthFiO22020-02-08 23:28:00* Test Item Value Reference Range Interpretation Comments FiO2 (test code = FiO2) 28 VENIPUNCTURE, OKED BY DR. PINA. PT. ON [address] [place] [address] BLOOD BANK EXXRJBJ4297-90-52 00:53:00Negative (09/16/17 6:53 PM)[facility] NABUZXQCIT7726-48-26 00:53:000.1[facility] CxgmfmvMSZLIZKHQG7705-43-02 00:53:000.7 [facility] KcruzedBJUOMOSOTQ3332-23-14 00:53:000.4[facility]annHEMATOLOGY 2017-09-17 00:53:007.5[facility] JlacbnoKNSOQZBGXC0545-55-20 00:53:000.9[facility] TbtihyeRQDSHWCQLB6058-08-26 00:53:004.8[facility] MjjjavySXQWTRXFFV6423-63-60 00:53:0086.6[facility] AwjhtgiOPUZPPBQNO0265-29-62 00:53:000.1[facility] MHLMYIFUXU8157-10-33 00:53:007.6[facility] RvjxioiBUIIHCAWLT5264-08-03 00:53:90452 [facility] UwovdxgFYQFTPHBKH8212-39-94 00:53:0032.9[facility] HermannHEMATOLOGY 2017-09-17 00:53:0017.1[facility] EobrlzrRNVJHRYMGQ8166-74-78 00:53:008.2[facility] BawatkgZYQBJBLWLE9396-32-47 00:53:00* Test Item Value Reference Range Interpretation Comments MCH (test code = MCH) 30.2 pg 27.0-31.0 [facility] GcbkttkFTZAGBGXUB4053-03-77 00:53:002.30[facility]annHEMATOLOGY 2017-09-17 00:53:008.7[facility] IurzjcxLCVPTUVCHW9467-24-46 00:53:0091.8[facility] HnzytreFVLXGJEYLZ7774-83-42 00:53:0021.1[facility] YmwzdhdALWCTFMKGN6562-57-62 00:53:006.9[facility] HermannCARDIAC CWNHUGW3847-41-86 20:58:006.50[facility]annCARDIAC QSETEHR3519-54-10 20:58:009.0[facility]annCARDIAC ENZYMES 2017-09-16 20:58:0031[facility]annCARDIAC GLBDYRO1271-71-90 20:58:002.8 [facility] HermannCHEM OIGDH4877-69-43 20:58:008[facility] HermannCHEM PANEL 2017-09-16 20:58:000.9[facility] HermannCHEM UGQFJ3657-59-45 20:58:003.6[facility] HermannCHEM BUNUB9607-30-19 20:58:0016.4[facility] HermannCHEM QKUQA6484-98-64 20:58:006[facility]annCHEM ORPBN3051-42-79 20:58:000.4[facility] HermannCHEM EXQRL5305-67-62 20:58:009.0[facility] HermannCHEM LNKGS1414-64-93 20:58:0026 [facility]annCHEM EDZAZ3347-49-56 20:58:007.28[facility] HermannCHEM PANEL 2017-09-16 20:58:004.4[facility] HermannCHEM OUOOY6940-23-04 20:58:0099[facility] HermannCHEM ASQAH8376-02-49 20:58:89531Rmvsxgaf HermannCHEM DGMVY5061-30-97 20:58:0028[facility] HermannCHEM EXRMZ5415-18-07 20:58:0064[facility] HermannCHEM RUHQK4791-41-02 20:58:0020[facility] HermannCHEM OYPQO1105-63-24 20:58:006.7 [facility]annCHEM HDZQZ8432-45-86 20:58:003.1[facility] HermannCHEM PANEL 2017-09-16 20:58:0042[facility] HermannCHEM DGMET0356-91-32 20:58:44140Wlzqeoqr WypiqshBDWXWMQLST2946-12-23 20:58:008.5[facility] IaztpgsIQLBFTSFGN9153-71-94 20:58:84711Hqsqxzom XsmtmrgVVUWKOGQFN2845-45-12 20:58:009.8[facility] PCGGMZKIMI2945-50-32 20:58:0016.6[facility] RqcpbnxNYNPKENEQC2476-29-73 20:58:00 32.8[facility] DxnwapcMWZTTPLNAK3626-53-62 20:58:00* Test Item Value Reference Range Interpretation Comments MCH (test code = MCH) 30.5 pg 27.0-31.0 [facility] QlhebjgMLGFVYOPWS7695-99-48 20:58:0092.9[facility]annHEMATOLOGY 2017-09-16 20:58:0027.7[facility] FmxdxlzVOGZHWPPOK2342-25-59 20:58:009.1[facility] EstchedFLTKEPOIEP5071-10-88 20:58:002.99[facility] EprgilbYGCUGJFJPN2305-41-13 20:58:000.95[facility] VtitlwdXRYOAWAYXS0345-95-36 20:58:00* Test Item Value Reference Range Interpretation Comments PT (test code = PT) 12.7 s 12.0-14.7 [facility] TbafylkIBREKUTERS7513-47-42 20:58:00* Test Item Value Reference Range Interpretation Comments PTT (test code = PTT) 34.6 s 22.9-35.8 [facility] PskyjluHXJSQSDBNP5256-88-94 20:58:000.4[facility]annHEMATOLOGY 2017-09-16 20:58:009.0[facility] UivpilaLEYDUVUPIF7715-93-61 20:58:000.3[facility] AczgcusNIVNXOCQPS0471-55-05 20:58:000.5[facility] GcevboyLWXDMXNWTM8356-03-44 20:58:004.8[facility] LiilfezATRPEHWMDS7374-84-78 20:58:0091.9[facility] NRPFLWLPOO0269-89-70 20:58:002.9[facility] ZqyumcrBMRSOZEIEOAA5538-30-34 12:42:00 4.6[facility] HermannBEDSIDE GLUCOSE HIGWCHE4503-49-51 13:31:0089[facility] RZHYMZHSG6916-48-13 07:58:0084[facility] SygpyupSFJDMDYOI2625-53-55 07:58:0045 [facility] VyhwmgzFROFEOSWC3806-54-10 07:58:0017.7[facility] HermannCHEMISTRY 2012-05-18 07:58:009.3[facility] RmwvsgaGYPRCGHKI3585-71-71 07:58:005.9[facility] NnawzsxNKQDKLSGJ1121-38-29 07:58:0028[facility] PwzdtiyLVEJVJPQO3161-55-86 07:58:68709Mrznqlfp GzzltbgVZPZRCKHG2481-17-40 07:58:003.7[facility] PJNYJLOUL8295-10-20 07:58:03499Sxwqpkok DpiahpuSIRGSBBRU6030-31-73 07:58:002.0 [facility] DkszhqsVJIXEWKPV8178-69-82 07:58:003.7[facility]annHEMATOLOGY 2012-05-18 07:58:000.1[facility] GiufhsxBWRGETFURI0006-70-19 07:58:000.0[facility] QkbgkkcLCQFVMPCLD9947-66-55 07:58:000.6[facility] BmsxxjiBLXAAXZJJS5440-44-83 07:58:002.5[facility] IzdysdvNQATAOCOIQ2314-84-07 07:58:004.4[facility] BQWZUGTBKV5198-90-33 07:58:007.4[facility] CrrxqyxVDPJBIZTJM8230-19-00 07:58:00 32.6[facility] FmisbfkDBXRPSDMFJ9083-78-40 07:58:000.5[facility]annHEMATOLOGY 2012-05-18 07:58:001.9[facility] WmxdmjuAYUOEKCCCD3307-40-49 07:58:0057.6[facility] HlzohjxQRCTMELNGH0134-22-25 07:58:00* Test Item Value Reference Range Interpretation Comments PTT (test code = PTT) 49.2 s 22.9-35.8 H [facility] YiauvuqGETIULNDDT1764-72-56 07:58:00* Test Item Value Reference Range Interpretation Comments PT (test code = PT) 14.0 s 12.0-14.7 N [facility] BaveevoWHYRITYAST6953-46-41 07:58:001.06[facility]annHEMATOLOGY 2012-05-18 07:58:007.9[facility] AmzqofpOHJZSOQJFX0932-85-76 07:58:67781Leaeqonh AvlcuzlBDCCFFCNCC5845-04-97 07:58:0019.8[facility] FcrmvjcFSFYKKGFCG7847-14-65 07:58:0033.0[facility] GekmilyLWDTOTAPBH4987-51-36 07:58:00* Test Item Value Reference Range Interpretation Comments MCH (test code = MCH) 29.9 pg 27.0-31.0 N [facility] HszemraPSRBGGNLLS4114-15-86 07:58:0090.9[facility] HermannHEMATOLOGY 2012-05-18 07:58:0028.9[facility] QahzskaSUIQONYFQT8297-55-02 07:58:009.5[facility] FskogbjPLYQUUKMRF1163-24-51 07:58:003.18[facility] NjmzvavOZFSRZMEOL7707-61-32 07:58:007.6[facility] HermannBEDSIDE GLUCOSE BVGLGUR5985-40-38 23:16:27729Dkrufwiw HermannBEDSIDE GLUCOSE TJMBLJN3463-92-49 17:30:62783Fawplqdt HermannCHEMISTRY 2012-05-17 09:42:0025[facility] ImkirjxIBOBPHFFG7196-43-68 09:42:0020.9[facility] NjyhbsrHHHIWMUZH9620-94-07 09:42:009.7[facility] FaspmrkZDIRQLPTW0162-76-62 09:42:37381Tyrfgknh QcspzokEPDUKLITJ4106-25-01 09:42:23438Bdnxdygf Faisal TKVJNEBQL0457-02-11 09:42:003.9[facility] RpifugoOAGNQNKPY5778-61-67 09:42:0010.1 [facility] FoifuwiUIAQMJZXC8418-22-89 09:42:27005Syumsmmx HermannCHEMISTRY 2012-05-17 09:42:0090[facility] JwcuwmlFDTLPWNTW8747-75-01 09:28:005.48[facility] CvcyizrERBTDAJCS3390-90-67 09:28:001.44[facility] CkzrhtbIJYCTIUZM4700-38-00 09:28:005.76[facility] BjlxgrhYOHOPGPDO8662-95-78 09:28:001.37[facility] NGSSMOHNY5938-97-06 09:28:15541Oorywuch EsiqfqyCWBTSPIGV6078-25-41 09:28:0072 [facility] TxlamgaDFXWNWPHZ6971-14-64 09:28:009.9[facility] HermannCHEMISTRY 2012-05-16 09:28:0019.7[facility] UexabwxGVFAYYJZV8136-39-50 09:28:007.9[facility] LtuucxaTHSQAPGOW4507-69-08 09:28:19696Wbergwdt OhtdhltRNMKKLEIQ6701-18-46 09:28:003.7[facility] OtdbtjlMBEPGRGSR7671-19-57 09:28:98021Wjuagwuh [place] TODEOFWAX4435-18-92 09:28:0027[facility] KjapzdeVBJJYECOK0652-48-84 09:28:002.3 [facility] XmagvhxCEEPIOCQQ8143-53-48 09:28:002.8[facility] HermannHEMATOLOGY 2012-05-16 09:28:007.9[facility] NvictrlSXIMEXQCCR7729-60-11 09:28:009.5[facility] DxafookSKBTNPOUJY3726-38-32 09:28:003.22[facility] EjagdlzLXJJHKKOQI2645-28-69 09:28:0028.9[facility] BczrytcOVZFZYORSI5363-99-97 09:28:0089.8[facility] RWDBRGKYER8368-72-55 09:28:0020.1[facility] MemfrfcQKNQXPKNJX3705-38-62 09:28:00 32.9[facility] ZtqsagzUUDOOWMNTX9571-44-46 09:28:008.2[facility] HermannHEMATOLOGY 2012-05-16 09:28:00* Test Item Value Reference Range Interpretation Comments MCH (test code = MCH) 29.5 pg 27.0-31.0 N [facility] OwsjpefAUORIBNYSY2017-40-68 09:28:16799Ljcrmbsk HermannHEMATOLOGY 2012-05-16 09:28:001+ *ABN*(05/16/2012 04:28:00) [facility]annHEMATOLOGY 2012-05-16 09:28:008.0[facility] UxefyorSOZYOGWLPD5878-96-34 09:28:000.6[facility] WkxzycaZDTGIVWAJV3017-96-70 09:28:0059.3[facility] UghztgxXIFYWPKMVH3885-42-82 09:28:0030.9[facility] JfxvokgIWSDYYCMGZ7767-51-01 09:28:000.0[facility] JXXZHQXCAI8438-42-34 09:28:000.1[facility] SwygflpDXVNAROVEQ3550-19-52 09:28:001.7 [facility] OpgcdehALRWNIYUPG0354-78-17 09:28:002.4[facility]annHEMATOLOGY 2012-05-16 09:28:004.7[facility] HwwscqyYDRCUSIBEE6791-22-23 09:28:000.1[facility] RsyveabQBLLIWCZL3528-78-76 18:05:002.1[facility] LpzhpkaTGIIANCQQ7258-02-84 18:05:002.3[facility] WbsrdujTRCHQUZNVE8185-97-76 09:32:0024.1[facility] QFTWYIIZRK9952-59-55 09:32:0065.9[facility] HbvwaamTHIKFRPFGT8597-43-24 09:32:00 7.6[facility] WrtcbpoTDJQNWTJAM6854-53-85 09:32:000.4[facility] HermannHEMATOLOGY 2012-05-15 09:32:002.0[facility] ZfipvblVDKTXQDYAD2593-61-75 09:32:001.9[facility] VtnjcabETLNTJYAAC7878-78-89 09:32:005.3[facility] CyyrorkEEOFKYZIYG2403-91-82 09:32:000.6[facility] BqvkmtsTTVMGFNRGR0699-44-10 09:32:000.2[facility] OKVCIYQFWF0503-17-30 09:32:001+ *ABN*(05/15/2012 04:32:00) [facility] [place] WXPMUTCAZM8723-98-99 09:32:000.0[facility] PnlyqbpQTXTASBLQP7568-23-90 09:32:008.4 [facility] VheuhueDVKZOZEEYS2369-17-33 09:32:008.0[facility] HermannHEMATOLOGY 2012-05-15 09:32:0090.6[facility] IbecnrcBYECMWZFGN5494-94-72 09:32:0029.7[facility] BiloripBTYLYRHIKM0332-37-39 09:32:009.7[facility] TtnfriiIRPFRBHNTX1401-63-67 09:32:003.28[facility] ZdnfarlSYDQFPUIUV0113-36-89 09:32:97303Goyhtwia [place] SNMOZXNODP6187-00-23 09:32:0032.7[facility] VsouiwxWAVBUHGNRG0221-57-98 09:32:00* Test Item Value Reference Range Interpretation Comments MCH (test code = MCH) 29.7 pg 27.0-31.0 N [facility] IadcrmvCVSXAASOML7504-27-36 09:32:0020.2[facility] HermannHEMATOLOGY 2012-05-14 07:40:001+ *ABN*(05/14/2012 02:40:00) [facility] HermannBLOOD BANK QXSZQFQ3900-28-38 15:21:00Product available (05/13/2012 10:21:00) [facility] KhshfinZHGOJMSFG5821-34-70 08:28:000.7[facility] AkukpjcZMTDZBWTW1903-17-18 08:28:0037.0[facility] ShqxhvrEHEHLFYGI7980-12-30 08:13:0037.0[facility] EORADFLZN9292-92-66 08:13:0074[facility] BhgkvzbGHRMGZBTS4858-34-46 08:13:0022 [facility] YfmekqyQRHXSSCPB1008-23-42 08:13:0038[facility] HermannCHEMISTRY 2012-05-12 08:13:007.37[facility] PtplbctAWJRGFYHZ1435-61-21 08:13:0094.0[facility] WeciwsvYFKYJJCMM6731-91-13 08:13:00-3[facility] CfahujnWUVIUOJJO4705-24-60 08:02:001.18[facility] NllnfsrYJODEJKXN4598-64-04 08:02:001.19[facility] XZILYNXWU4616-83-51 08:02:004.76[facility] YubrkpkCAQJWHBQN7527-70-95 08:02:004.72 [facility] OxhfmqjHQRENQFFU9022-63-72 08:02:001.7[facility] HermannCHEMISTRY 2012-05-12 08:02:006.7[facility] SdibbcoYBPVVAAAS1792-95-04 08:02:000.05[facility] PoqefprIVIUXKCEN2794-70-81 08:02:66631Vwfucsep OlytdlkKOVRPLEZC5621-78-25 08:02:079685Xnlhvbhu XhuxphkPPPIZALLV2712-90-53 08:02:000.092[facility] [place] LIWRHGOTNU2784-24-02 08:02:00* Test Item Value Reference Range Interpretation Comments PT (test code = PT) 16.0 s 12.0-14.7 H [facility] SbgjbaxAJBCVCLXBA2132-45-15 08:02:001.28[facility] HermannHEMATOLOGY 2012-05-12 08:02:00* Test Item Value Reference Range Interpretation Comments PTT (test code = PTT) 47.0 s 22.9-35.8 H [facility] HrdrsbwJIZVBLCSAY4477-82-45 08:02:00Slight *ABN*(05/12/2012 03:02:00) [facility] KegazxbSCWGUFXTKQ3791-37-84 08:02:00Slight (05/12/2012 03:02:00) [facility] OwhkjtqZPVUFHSQJP7745-91-75 08:02:00Slight (05/12/2012 03:02:00) [facility] EnhhwzuYCSQBLERQZ0911-48-97 08:02:00Slight *ABN*(05/12/2012 03:02:00) [facility] NpskxrjUUQZKZELQ5946-39-84 02:04:004.56[facility]annCHE[facility]STRY 2012-05-12 02:04:001.17[facility] PnwukvbNIKTKDVKS2600-81-07 02:04:001.14[facility] InateayDZTOTOSLX0330-60-36 02:04:004.68[facility] VdsjqmwDCYWMYJTR2980-07-25 02:04:000.5[facility] HhkbsolDPWCGZKOH8188-44-58 02:04:000.8[facility] [place] OJQQLYCAI4833-81-07 02:04:0085[facility] NbhysgfUKZYIVLDU6928-31-77 02:04:0029 [facility] FhrhfbnOPYZLVIIE7390-80-51 02:04:004.9[facility]annCHEMISTRY 2012-05-12 02:04:0040[facility] DpjnhhzUQQSEPSQG7489-84-43 02:04:002.6[facility] GvpvhqrKHTBYJLGA8313-88-84 02:04:000.3[facility] AmqivucXOSPJDSZL2836-55-84 02:04:002.3[facility] XrfexxhCUNZFBNIT6383-98-28 02:04:001.1[facility] [place] TVIWHXQKA3564-68-82 02:04:001.0[facility] RtwvswwRVSLDNFZJS8376-69-30 02:04:00* Test Item Value Reference Range Interpretation Comments PTT (test code = PTT) 38.2 s 22.9-35.8 H [facility] YlnrdkxAGLEDYUUDT1383-22-31 02:04:00* Test Item Value Reference Range Interpretation Comments PT (test code = PT) 15.6 s 12.0-14.7 H [facility] IvcgmsmEBTKNBQGEM5285-14-43 02:04:001.24[facility] 2012-05-12 02:04:00Slight *ABN*(05/11/2012 21:04:00) [facility] 2012-[facility]-12 02:04:00Slight *ABN*(05/11/2012 21:04:00) [facility]annHEMATOLOGY 2012-05-12 02:04:00Slight (05/11/2012 21:04:00) [facility]annHEMATOLOGY 2012-05-12 02:04:007.0[facility] ZnidpktGAUMGHGUKW3394-17-87 02:04:000.0[facility] QrxxjpiXPRETGXJWU4326-13-62 02:04:00Normal (05/11/2012 21:04:00) [facility] NcucwzkLPFXTLAVTH2979-09-48 19:39:00Slight *ABN*(05/11/2012 14:39:00) [facility] UnnogirOXVGDUBPRU4083-22-87 19:39:00Slight *ABN*(05/11/2012 14:39:00) [facility] BhbwourNULRWPRGUR8578-33-52 19:39:00Slight (05/11/2012 14:39:00) [facility] CilqgpzJXIVQSYZCC6318-65-33 19:39:00Normal (05/11/2012 14:39:00) [facility] LnihztpYVLASWKWOT1981-64-76 19:39:000.0[facility] CkzbwdtSRFKFWRIYV0852-32-50 19:39:0013.0[facility] MpderngBWUBJVSQX0571-96-54 15:17:59803Zsbkpuqr [place] JDCMJIMZS2041-37-04 15:17:000.8[facility] UooxsmzQEGTEMOVL8989-38-31 15:17:003.5 [facility] JgvaimrFWWUHAYLR4537-03-95 15:17:001.25[facility]annCHEMISTRY 2012-05-11 15:17:30801Xzbusvxw BfccjpmTDKXZJFGJ9496-31-95 15:17:0030.0[facility] LcepfvlRAGDXXIGY2097-73-11 15:17:0025[facility] SdjadkhEWNTKXJBN6600-68-50 15:17:0099.0[facility] HmmifkfHUXMBFYPR9950-68-63 15:17:001[facility] BMCFIOSJP1535-08-74 15:17:86420Jxrctzgu YpzycriXXUFVJIYQ1902-14-32 15:17:0038 [facility] HclpyvaPMNGLZXHM4535-56-23 15:17:0037.0[facility]annCHEMISTRY 2012-05-11 15:17:007.43[facility]BL[facility] LIOLSPJ7870-77-04 22:40:00 Negative (05/10/2012 17:40:00) [facility] SljwphzOIRMUARRS7255-16-28 07:09:000.9 [facility] WibyeoqLROTIYRPP0302-24-49 07:09:000.5[facility]annCHEMISTRY 2012-05-07 07:09:0031[facility] YfqkjsqZTTOLTPRS2854-32-55 07:09:005.3[facility] MdzawsqRIQGBWMRM1266-45-18 07:09:0037[facility] AdhsryfNLVJPWMVL7375-89-97 07:09:002.6[facility] QpzuiprAIBTRQOLJ8994-00-42 07:09:0078[facility] MZXNOUWVE9884-70-76 07:09:001.0[facility] VohxmeyZPMXGSDWR0656-09-87 07:09:002.7 [facility] BbfdwjxVFXOMGXIP0957-65-22 07:09:000.4[facility]annCHEMISTRY 2012-05-06 21:54:0023[facility] IouvokaZELFTQCBA6703-31-95 21:54:55377Ycozoizq NurranlZXEWJGFZO9398-40-25 21:54:000.346[facility] VqgtzkdBXFCHHIVR8810-90-19 21:54:000.81[facility] QljpcuaCHKVDNPOE6230-26-14 11:34:001.23[facility] ORDVKXLAN8539-23-29 11:34:000.479[facility] NyimjpeHNAQCQAWQ6254-96-30 11:34:0021 [facility] NfxdxwqGVXRRNECX9431-20-65 22:44:27243Qwwgtfcz HermannCHEMISTRY 2012-05-05 18:37:0024[facility] ZssioffGEAKHYQYD1368-42-24 18:37:0029[facility] ZdvmpvxHYRIXYURI1106-69-35 18:37:00223Umsyxwta MdzrzwiRLRGFSQZL7089-41-31 18:37:007.52[facility] KzdhsebOYJSXJEWR0663-12-53 18:37:002.2[facility] ULDKKMFFN4868-07-02 18:37:001.17[facility] TsuoddsMITQIURMA9975-02-16 18:37:004.3 [facility] FadhuhrOKKPMIGZI2669-54-87 18:37:0099.0[facility]annCHEMISTRY 2012-05-05 18:37:59835Aqsbpxax BzsppohCQASHXDND1553-05-52 18:37:002[facility] YjxqgwuKHYJEKGDQ1575-16-47 18:37:01626Lhdlxfgl EraylykMCDXJFCPN2433-41-99 18:37:0038.0[facility] CbhptlbBPFDAZPHCI1037-83-06 18:36:00Negative *NA*(05/05/2012 13:36:00) [facility] UqqschiXSKGTJSQDN0940-46-38 18:36:00Negative *NA*(05/05/2012 13:36:00) [facility] JhabqrqJAHROTJIOR6222-13-68 18:36:68452.0 [facility] WkjywqyQIBUEUSMGF8749-45-71 18:36:00Negative *NA*(05/05/2012 13:36:00) [facility] KzkkimuDPJKSXUDFC7003-74-86 18:36:00Negative *NA*(05/05/2012 13:36:00) [facility] LemfhioVHMFPEHVA5104-23-79 04:35:0073.0[facility]annCHEMISTRY 2012-05-05 04:35:0037.0[facility] KkrcpvrDXDJGFVLV2656-60-29 04:35:007.37[facility] GrejikeCJEWIHMCD5624-88-21 04:35:0051[facility] BnnfvwrARYQAMMAO1526-47-51 04:35:0040[facility] EsulxmaKXZRTKNLI5255-03-75 04:35:0029.5[facility] LPXNBSGYQ7068-42-04 04:35:003[facility] LnvezjgTJUKUNQCM0669-62-41 04:35:000.7 [facility] MjayrlkOMJMFLBPX4578-86-35 04:35:90317Qshrnokw HermannCHEMISTRY 2012-05-05 04:35:002.8[facility] MghnyufWEBUXEHQF2420-95-90 04:35:000.9[facility] MfsqgczPYIMOWDEA8381-16-48 04:35:0022[facility] AycxjkoSIQYRQVOL2113-50-30 04:35:002.5[facility] EgxecefXLYWAOTPC8485-50-70 04:35:0015[facility] ETXEFOBWS2031-72-56 04:35:0075[facility] GvhpvwxFEJVKSSAO1831-41-01 04:35:000.5 [facility] WkgeilzNIBCFGFNZ5802-31-53 04:35:005.3[facility]annCHEMISTRY 2012-05-05 04:35:006[facility] FzdljokYDSIJMBQGB7950-43-94 04:35:00Slight *ABN*(05/04/2012 23:35:00) [facility] JyqptojUHULFWFZX1315-36-64 11:00:0060 [facility] EfhvnaeJVPYJTGEG5075-84-76 11:00:000.8[facility]annCHEMISTRY 2012-05-04 11:00:008[facility] AmgegswWSLOEBMMH7397-59-80 11:00:007.3[facility] YgbjdsvBJIWLOYPN3150-73-12 11:00:009.8[facility] DtiiyxzJJCIBJFUC6120-81-93 11:00:45320Flwwoezn TjkctinWTTCXVCYH5722-27-45 11:00:0035[facility] EWUQEPTXU6723-43-52 11:00:006.8[facility] EjajmjsYUSRRQVRU3477-65-05 11:00:002.6 [facility] GhqusjhULFDVJMTK4020-91-73 11:00:0013[facility]annCHEMISTRY 2012-05-04 11:00:0030[facility] EkmnvgmHFZYGAZQD0560-90-34 11:00:10619Yildomnq OdpuqudJZCCCPSTY7718-70-70 11:00:003.8[facility] RixqzktBVBMODPWP4366-29-51 11:00:61917Qohoxwdj NjfskjrTSAXJPJBQ6849-60-36 11:00:0014.8[facility] XNDBHJHTU4292-05-55 11:00:005[facility] NshpdweMZEEGHXXA5354-80-62 11:00:004.2 [facility] UqxmgjeEDZUAYYJA4602-89-44 11:00:000.6[facility]annCHEMISTRY 2012-05-04 11:00:005.3[facility] ZcjabvaODFLSFCWA2788-04-73 11:00:002.2[facility] SueqaogAMZRMXYXDD7744-94-28 11:00:65688Ufhskfbc SmuihfkELZQDILOTW3493-02-37 11:00:0032.5[facility] RqzmkiuYEJMTFNYNP8568-44-19 11:00:007.8[facility] EDGSKOPJIB9445-23-38 11:00:0020.6[facility] GgvsycjNJPRIUFNYL2391-79-39 11:00:00* Test Item Value Reference Range Interpretation Comments MCH (test code = MCH) 29.8 pg 27.0-31.0 N [facility] MpvittlBPZBBSQVMP8954-38-30 11:00:005.2[facility] HermannHEMATOLOGY 2012-05-04 11:00:0091.8[facility] GhlchifZOLCIBPREN9834-29-32 11:00:0030.0[facility] MfdjakyENWYFWOMNJ3120-96-29 11:00:009.8[facility] LvilpzeGTIEDJTANQ1286-91-97 11:00:003.27[facility] QiiqnxsQNPGBWKLUP0668-12-69 11:00:001+ *ABN*(05/04/2012 06:00:00) [facility] TkeczofNZREQIKKUM7249-17-50 11:00:000.0[facility] JDFCZDSBPL8855-84-32 11:00:000.1[facility] UbchdddKFQWWWYSMH2005-91-33 11:00:000.6 [facility] LmcnqaxJJPZSZRYUV8365-69-27 11:00:003.1[facility] HermannHEMATOLOGY 2012-05-04 11:00:001.3[facility] GqkoytbVTHWNVVQIQ5787-78-67 11:00:000.2[facility] CmgpdpbJDRILBVXQW3239-46-96 11:00:0012.1[facility] UrsaweyUVDJJWFNVY0659-50-92 11:00:002.2[facility] BeldyvmELIWTUJCLQ8764-66-91 11:00:0024.8[facility] BSMZKDMJWP8995-31-38 11:00:0060.7[facility] HermannBEDSIDE GLUCOSE TESTING 2012-05-03 16:57:77295Vqvmwyvz YazdwbtKUISYDYTK0106-84-87 11:00:0014.0[facility] PjrnlxvPZXDHZZOB5398-14-75 02:30:000.19[facility] AsygblqVIQXAVCSZ0463-68-22 02:30:0035[facility] NkyyjhoFVUZRDLRL4058-43-69 02:30:000.7[facility] EBVDGUWFV6108-27-26 02:30:002.0[facility] FbrzeutDVZGMIFDT2813-73-60 21:20:0013.2 [facility] GqlrtawUMJWJAQRA6680-63-65 15:00:00<0.5[facility]annCHEMISTRY 2012-05-02 15:00:0018[facility] HebtudpVCBBDUDJD8788-85-85 15:00:000.18[facility] SmwsoeuARIJXIPAM0250-29-73 15:00:00<2.8[facility] MgsndznQKAMHYOXW5202-99-14 08:50:00* Test Item Value Reference Range Interpretation Comments eGFR (test code = eGFR) 6 1 [facility] DzmwjqzZYRXJNMJE8647-73-00 08:50:001.0[facility] HermannCHEMISTRY 2012-05-02 08:50:0013[facility] UxbnohoFWZNSOVQW1630-01-87 08:50:0061[facility] OukigjxSXKLZWVMX4255-53-18 08:50:006[facility] YdqfjuoYARTPTTBT5628-27-75 08:50:00 8[facility] TrrmkdtTVAVJQEXH4060-55-34 08:50:006.0[facility] HermannCHEMISTRY 2012-05-02 08:50:002.9[facility] NrbrmfzUUEGELFUH4480-15-42 08:50:003.1[facility] TesjmxlWJURGNNXL7452-15-11 08:50:000.9[facility] NztkunePGKNWXQTH9314-76-84 08:50:0033[facility] BdoervpHNDOHBYMQ5351-00-58 08:50:26144Lajybbqx [facility] YJZCDUYGJ0517-77-46 08:50:0059[facility] LbcnatgHQWSWVQWC2075-27-31 08:50:0017.1 [facility] OsiqkflNFQHBXLRY3486-91-42 08:50:009.3[facility]annCHEMISTRY 2012-05-02 08:50:0097[facility] FywajzhZDQKONQZG9747-78-76 08:50:009.6[facility] HcqatvlTKGXMQDFH5651-93-66 08:50:74683Vkijxqqv DehncckKBBVATKKZ5501-90-15 08:50:005.1[facility] GlcdatbEXKOJWPYG5703-17-92 08:50:002.8[facility] PXDAOXBNH3563-00-98 08:50:000.3[facility] EgbnxkfCVQVGBGTV5014-42-72 08:50:000.06 [facility] McuzyieIPFDJKPSF0965-92-12 08:50:0018[facility]annCHEMISTRY 2012-05-02 08:50:000.5[facility] QujaswnEHLFMLZPPB6371-39-09 08:50:008.2[facility] EupqgrsYHJTNOEARP3499-09-63 08:50:003.57[facility] BrqdjqxBGAGJGBCNA4317-14-90 08:50:007.3[facility] IhuyoabNNDEYCLSWE9941-29-11 08:50:0010.6[facility] EFRTBZRXAA5795-07-42 08:50:0032.5[facility] MxehifuVDANVITHAN9862-97-02 08:50:00 21.7[facility] WvoibcoJVGUXULZCJ7114-22-68 08:50:0032.6[facility] HermannHEMATOLOGY 2012-05-02 08:50:0091.2[facility] NooabyxITJSJADZYN7704-98-16 08:50:00* Test Item Value Reference Range Interpretation Comments MCH (test code = MCH) 29.7 pg 27.0-31.0 N [facility] JvzgkkjIXMJAOYNMI0670-74-46 08:50:86584Elwdikgo HermannHEMATOLOGY 2012-05-02 08:50:001.8[facility] OcnqazxCIEJNEZGPU7292-61-46 08:50:001.4[facility] HstgptpQTPNVYYEJX9278-30-86 08:50:004.5[facility] SihpohwRKPKTADTZD8004-18-01 08:50:000.4[facility] KhrnvrdOYIWYSDLDS1837-96-95 08:50:0016.5[facility] HQZPSNFROO0346-75-33 08:50:00Normal (05/02/2012 03:50:00) [facility] MVYJPQLPHJ1441-79-36 08:50:0019.4[facility] JwxyyorWVYALZQYNJ7915-06-74 08:50:00 61.9[facility] WnrbuswQHJPWYZRCY5003-43-69 08:50:00Normal (05/02/2012 03:50:00) [facility] SaivbocOQBSWZDLOM4522-76-56 08:50:000.0[facility] HermannHEMATOLOGY 2012-05-02 08:50:000.1[facility] ZcmnzvuCBMDLUFXGJ1460-90-32 08:50:001.2[facility] FqionplCLJOFKUNZO1416-22-66 08:50:001+ *ABN*(05/02/2012 03:50:00) [facility]annBACTERIAL - QTPMTZHU6906-56-03 04:00:00Negative 1(05/01/2012 23:00:00) [facility] RseftryBGFPDTQSL0188-89-02 10:18:0012.0[facility] HermannCHEMISTRY 2012-05-01 10:18:0035[facility] MnalxgmGAJPIEZJK9132-62-09 10:18:007.0[facility] CgzaelwCDFNALTOV0061-03-55 10:18:70229Lwsbusyy MdsnczzBVOPLTADS2906-60-50 10:18:005.0[facility] XvvikbgSFEENOFYZ3740-91-63 10:18:22564Olkmzznp [place] YWMOQTMEB2998-50-86 10:18:0031[facility] YbhrzfxAMMESVQUP5282-69-87 10:18:009.2 [facility] GgaapdqNPBFBNTFN6724-14-04 10:18:91353Ptqchisu HermannHEMATOLOGY 2012-05-01 10:18:000.4[facility] XrejzbsTFNPIDPMAZ0622-55-89 10:18:000.1[facility] UmpfvnqQHWRJLLJFS5336-72-77 10:18:000.7[facility] VgxzwrkYRDAWMWNII8288-33-65 10:18:001.0[facility] VfurflbHJLMNFPFPC8238-41-88 10:18:002.9[facility] WEHAQINKXI3649-65-22 10:18:000.0[facility] IywcdurSKTFSGBUDD2518-04-79 10:18:001+ *ABN*(05/01/2012 05:18:00) [facility] WidnzwiKZIMYNZJLW8242-49-83 10:18:002.1 [facility] UcqbaoeTXRHAUIGZI9050-29-34 10:18:0021.8[facility] HermannHEMATOLOGY 2012-05-01 10:18:0060.8[facility] WkugtjpJJSOZFSCWK2650-83-54 10:18:0014.9[facility] LgdgbueTQGKPVSSQT1284-45-09 10:18:0034.8[facility] QsfztakLVWNEEIQQZ8850-42-25 10:18:0011.3[facility] SphokmaQNODOVYEGB4278-79-76 10:18:003.79[facility] FNHLGJKQDP2328-33-76 10:18:0032.5[facility] HczdwjbDTOAJXTGNB9863-50-51 10:18:00 22.8[facility] WlyzcdvFSXCNMYQCN7927-44-17 10:18:004.8[facility] HermannHEMATOLOGY 2012-05-01 10:18:46523Yalntnry UaeaqvqJOSKVALSZV3195-03-49 10:18:00* Test Item Value Reference Range Interpretation Comments MCH (test code = MCH) 29.8 pg 27.0-31.0 N [facility] RejsedxKPDYHSBCNI2913-94-86 10:18:0091.8[facility] HermannHEMATOLOGY 2012-05-01 10:18:007.8[facility] IczfklvDZIZKNHHJ7116-67-70 08:34:002.3[facility] CzvzfqeTPKURHJUJ0191-53-18 14:08:000.9[facility] BcmaxtbHNCGLXBONY5864-98-21 14:08:00* Test Item Value Reference Range Interpretation Comments PT (test code = PT) 15.3 s 12.0-14.7 H [facility] QafouikUFSOQRIOOZ7113-41-17 14:08:001.21[facility] HermannHEMATOLOGY 2012-04-29 14:08:00* Test Item Value Reference Range Interpretation Comments PTT (test code = PTT) 34.8 s 22.9-35.8 N [facility] CmopwxzYRFOJEZWGS0913-26-08 14:08:00Negative *NA*(04/29/2012 09:08:00) [facility] HermannBEDSIDE GLUCOSE BGHJXSJ3941-32-06 12:51:94941Flshfahg [place] AGWSETAUL7048-15-55 04:33:002.3[facility] UuvhnbnGIUKIJMQI6001-51-74 04:33:004.8 [facility] NnsmbkbLNTKLGPNL1853-19-65 04:33:42025Gnegoosx HermannCHEMISTRY 2012-04-29 04:33:91186Xaisazel UekadsoQIDXYRXKB1395-43-99 04:33:0024[facility] CmvrlthVGUZROQJH4473-35-61 04:33:0089[facility] EhnrljvWDLGPLSES3563-14-00 04:33:000.5[facility] CaikninSJDITHXWM7095-57-17 04:33:0015[facility] JVXYCXWVO8935-88-83 04:33:008.3[facility] YuztmszZPYSLOPID7191-96-90 04:33:004.3 [facility] XvunzedJVXICESJI6142-58-15 04:33:001.1[facility] HermannCHEMISTRY 2012-04-29 04:33:005[facility] SfxzztzAPUBEZMBH2180-19-31 04:33:004.0[facility]
[2020-08-17 22:50] LABS: ALBUMIN 3.8 g/dL (3.5-5.0); ALBUMIN/GLOBULIN RATIO 1.2 (0.8-2.0); ANION GAP 16.1 mmol/L (8-16); CALCIUM 9.6 mg/dL (8.4-10.2); CREATININE, SERUM 4.13 mg/dL (0.72-1.25); POTASSIUM 4.1 mmol/L (3.5-5.1)
[2020-08-17 22:57] LABS: B-TYPE NATRIURETIC PEPTIDE2 210.8 pg/mL (0-100); CREATINE KINASE MB 1.6 ng/mL (0-5.0)
--- NOTE | 2020-08-17 23:30 | Diagnostic Imaging Report ---
EXAMINATION: CHEST SINGLE (PORTABLE) INDICATION: Pain around HD catheter COMPARISON: FINDINGS: TUBES and LINES: Right IJ hemodialysis central venous catheter, tip in the superior cavoatrial junction, without associated abnormality. LUNGS: Normal lung volumes. Lungs are clear. Prominent central pulmonary vasculature. PLEURA: No pleural effusion or pneumothorax. HEART AND MEDIASTINUM: Cardiac size is mildly enlarged. Surgical clips along the mediastinum. Bypass stents in the left cardiac mediastinum. Aortic calcifications. BONES AND SOFT TISSUES: No acute osseous lesion. Soft tissues are unremarkable. Sternotomy wires. UPPER ABDOMEN: No free air under the diaphragm. IMPRESSION: Mild cardiomegaly and pulmonary vascular congestion. Right IJ hemodialysis central venous catheter, tip in the superior cavoatrial junction, without associated abnormality. Signed by: Krystian Kellogg DO on 08/17/2020 11:27 PM
[2020-08-18] VITALS: BP 84/53
== END 2020-08-18 00:08 | disposition home or self-care (01) ==
LOC: ER 21:53
DX: R07.89 Other chest pain (principal); I49.3 Ventricular premature depolarization; R50.9 Fever, unspecified; Z94.0 Kidney transplant status; Z95.1 Presence of aortocoronary bypass graft; R94.31 Abnormal electrocardiogram [ECG] [EKG]; Z20.828 Contact with and (suspected) exposure to other viral communicable diseases
CPT/HCPCS: 36415; 71045; 80053; 82550; 82553; 83605; 83880; 84484; 85025; 87040; 87071; 87205; 93005; 99284; J2543; J7030; U0002

== ENCOUNTER 2021-03-20 01:31 | Emergency (ER) | payer MEDICARE, OTHER ==
[~2021-03-20] VITALS: Ht 172.7 cm; Wt 79.8 kg
[2021-03-20] MEDS ORDERED: CEFDINIR300 MG PO (02:09)
[2021-03-20] MEDS ORDERED: TETANUS/DIPHTHERIA TOX ADULT 0.5 ML SYR IM ONE (02:15)
[2021-03-20] MEDS ORDERED: HYDROCODONE/APAP 5MG-325MG TAB PO ONE (02:15)
== END 2021-03-20 03:18 | disposition home or self-care (01) ==
LOC: FSED 01:49
DX: S01.81XA Laceration without foreign body of other part of head, initial encounter (principal); W01.190A Fall on same level from slipping, tripping and stumbling with subsequent striking against furniture, initial encounter; Y93.01 Activity, walking, marching and hiking; Y92.008 Other place in unspecified non-institutional (private) residence as the place of occurrence of the external cause; I25.10 Atherosclerotic heart disease of native coronary artery without angina pectoris; E78.5 Hyperlipidemia, unspecified; K21.9 Gastro-esophageal reflux disease without esophagitis; Z95.1 Presence of aortocoronary bypass graft
CPT/HCPCS: 70450; 90471; 99284